=== PATIENT | female | born 1945 | race Caucasian/White ===

== ENCOUNTER 2023-08-02 23:33 | Inpatient (IN) | payer MEDICARE, SELFPAY ==
[2023-08-02] VITALS (7 sets, daily range): BP systolic 104–127; BP diastolic 49–64; BMI 30.5
--- NOTE | 2023-08-02 19:03 | ED.GENMED ---
History of Present Illness
General
Chief Complaint: Change in Mental Status
Source: patient and ambulance crew
Exam Limitations: dementia
Time Seen by Provider: 08/02/23 18:57
Travel History
Have you had any contact with someone who has COVID-19?: Unable to Answer
Do you have any symptoms of coronavirus? Fever > 100 degrees, chills, cough, shortness of breath, sore throat, loss of taste or smell, muscle aches, or headache?: Unable to Answer
History of Present Illness
History of Present Illness:
See MDM
Past History
Past History
ED Past Medical History: Cancer (B-cell lymphoma), HTN, Hypercholesterolemia, Hypothyroidism and Other (Chronic pain from osteoarthritis)
ED Past Surgical History: Orthopedic
Social History
Tobacco: Non-smoker
Alcohol: None
Drug: None
Personal:
Living: with family
Phy Exam
Physical Exam
Physical Exam:
See MDM
Course
Orders/Labs/Results
Orders:
Orders
08/02/23 18:55
Electrocardiogram (*1) Urgent
Reason for Study: Other
Other Reason for Exam: Possible Sepsis
08/02/23 18:56
EKG- Treatment ONCE
08/02/23 19:00
CT Head W/o Iv Contrast Urgent
Comment:
Reason For Exam: altered
08/02/23 19:33
Complete Blood Count/With Diff Urgent
Comprehensive Metabolic Panel Urgent
Lactic Acid Q4H
Comment: ON ICE, CANCEL 2ND ORDER IF FIRST LACTIC ACID LEVEL <2
Blood Culture Q30M
AZUL Source: Blood/Venous
Specimen Description:
Comment: FROM 2 SEPARATE SITES
Blood Culture Q30M
AZUL Source: Blood/Venous
Specimen Description:
Comment: FROM 2 SEPARATE SITES
08/02/23 20:43
0.9% Sodium Chloride 1000 ml [Nss] 1,000 ml IV BOLUS
08/02/23 20:44
CR Chest Portable - 1 View Urgent
Comment:
Reason For Exam: Fever, altered
Reason Study Needs to be Portable: Unable to Transport
08/02/23 21:03
COVID-19 Antigen Urgent
Source: Nasal Swab
Influenza A+B Rapid Molecular Urgent
AZUL Source: Nasal Swab
Specimen Description:
08/02/23 21:04
Urinalysis Reflex To Culture Urgent
Date Specimen was Collected: 08/02/23
Time Specimen was Collected: 21:03
Urine Microscopic Reflex Cult Urgent
Urine Culture Urgent
AZUL Source: U
Specimen Description:
Date Specimen was Collected: 08/02/23
Time Specimen was Collected: 21:03
08/02/23 22:14
CefTRIAXone [Rocephin] 1,000 mg IV NOW STA
Abnormal Lab Results
08/02/23 08/02/23
19:33 21:04
WBC 11.6 H 10^3/uL
(4.8-10.8)
RBC 4.04 L 10^6/uL
(4.20-5.40)
MCH 31.4 H pg
(27.0-31.0)
Abs Immat Gran (auto) 0.1 H 10^3/uL
(0-0.05)
Absolute Neuts (auto) 10.6 H 10^3/uL
(1.4-6.5)
Absolute Lymphs (auto) 0.2 L 10^3/uL
(1.2-3.4)
Absolute Monos (auto) 0.7 H 10^3/uL
(0.1-0.6)
Immature Gran % 0.6 H %
(0-0.5)
Neutrophils % 91.9 H %
(42.2-75.2)
Lymphocytes % 1.3 L %
(20.5-51.1)
Sodium 132 L mmol/L
(135-145)
Chloride 95 L mmol/L
(98-107)
BUN 34 H mg/dl
(7-17)
Creatinine 1.2 H mg/dL
(0.6-1.0)
Glucose 122 H mg/dl
(70-99)
Total Protein 5.9 L g/dl
(6.3-8.2)
Albumin 3.3 L g/dl
(3.5-5.0)
Ur Occult Blood Reflex 4+ A
(Negative)
Urine Bilirubin 1+ A
(Negative)
Leukocyte Esterase Rfl 2+ A
(Negative)
Urine WBC (Reflex) >100 A /HPF
(0-5)
Urine Bacteria (Reflex) Many A
(Negative)
Urine Albumin (Reflex) 2+ A
(Neg - Trace)
08/02/23 19:33
08/02/23 19:33
Vital Signs
Initial and Last Documented VS:
Initial Vital Signs
Temp Pulse Resp BP Pulse Ox
100.2 F 112 23 127/64 92
08/02/23 18:52 08/02/23 18:52 08/02/23 18:52 08/02/23 18:52 08/02/23 18:52
Last Documented Vital Signs
Temp Pulse Resp BP Pulse Ox
98.8 F 84 22 104/58 92
08/02/23 21:10 08/02/23 21:15 08/02/23 21:15 08/02/23 20:41 08/02/23 18:52
MDM/Problems Addressed
Differential Diagnosis Includes:
HPI and MDM Narrative:
78-year-old female presenting with altered mental status. EMS indicated that this could be related to taking the wrong medications. EMS had indicated that the family believes that the patient took her 's medication which includes 1 tramadol
and 2 Tranxene. They also indicated the patient had a glass of wine. On arrival, patient does appear anxious and confused. She has no focal deficits. She denies pain or shortness of breath or purposeful self-injury
Physical exam
General: Well appearing and non-toxic
HEENT: protecting airway. Dry mucous membranes
Neck: appears supple
CV: No evidence of cyanosis. Regular rate and rhythm
Resp: No accessory muscle use. Lungs clear
Abd: Non-distended
Extremities: No deformities
Neuro: alert
Psych: Anxious
Skin: Intact
Problems Addressed including Acute and Chronic Conditions affecting care:
1. Altered mental status
Acuity: acute
Prognosis: stable
Details: Possibly related to taking the wrong medications. Will obtain basic blood work, urine and CT head
2. UTI
Acuity: acute
Prognosis: stable
Details: Given the fever and altered mental status, patient started on Rocephin
Updates
Despite prolonged observation and IV fluids, patient still altered. Given her fever, patient started on Rocephin with concern for UTI. Will
Differential Diagnosis (but not limited to): Adverse medication reaction, dehydration, UTI, stroke
Testing considered: Lactic acid
Drug therapy (if applicable): OTC meds, please see d/c instruction regarding Rx drugs
Amount and/or Complexity of Data Reviewed
Clinical info obtained from: Patient
External data reviewed: N/A
Labs I independently reviewed (but not limited to): Mild leukocytosis
Radiology: The CT scan was personally and independently reviewed. In addition, official CT report reviewed.
X-ray independently reviewed: Chest x-ray appears clear
Pulse Ox: not hypoxic
EKG independently reviewed: Sinus rhythm, PVCs, left axis, no STEMI
[employer]: sinus rhythm
Critical Care: N/A
Risk of Complication:
Social Determinants of health: Good social support
Discussed with other providers: Hospitalist
Escalation of Care includes Admit/Obs: Given the persistent altered mental status with fever, will admit for UTI. Patient started on Rocephin
Occasional wrong word or 'sound a like' substitutions may have occurred due to the inherent limitations of voice recognition software. Read the chart carefully and recognize, using context, where substitutions have occurred.
*Critical Care Note
Total Time (30-74mins, 75-104mins- exclusive of procedures): Not Applicable
ED Attending Note
-
Portions of this chart may have been created with voice recognition software.� Occasional wrong word or��sound alike� substitutions may have occurred due to the inherent limitations of voice recognition software.
Discharge Plan
Departure
Patient Disposition: Admit
Date of Disposition: 08/02/23
Time of Disposition: 22:16
Presentation/result/management discussed w/ accepting MD/DO: Hospitalist
Discharge Problem:
Acute UTI
Prescriptions:
No Action
furosemide 20 MG tablet
20 mg PO DAILY Qty: 30 2RF
paroxetine HCl 20 MG tablet
20 mg PO DAILY
enalapril maleate 10 mg Tablet
20 mg PO BID Qty: 0 0RF
Referrals:
UNKNOWN - PT DOES,NOT KNOW [Family Provider] -
Interventions
Interventions:
*Risk Screen - Suicide Last Done: 08/02/23 19:30
*General Assessment Last Done: 08/02/23 19:30
*Neglect/Abuse Screening Last Done: 08/02/23 19:30
ED- Fall Risk Assessment Last Done: 08/02/23 19:31
*ED COVID-19 Vaccine History Last Done: 08/02/23 19:30
ED- Neurological Assessment Last Done: 08/02/23 19:31
[2023-08-02 19:52] LABS: % Basophils 0.1 % (0-2); % Immature Granulocytes 0.6 % (0-0.5); % Lymphocytes 1.3 % (20.5-51.1); % Monocytes 6.1 % (1.7-9.3); % Neutrophils 91.9 % (42.2-75.2); Absolute Immature Granulocytes 0.1 10^3/uL (0-0.05); Absolute Lymphocytes 0.2 10^3/uL (1.2-3.4); Absolute Monocytes 0.7 10^3/uL (0.1-0.6); Absolute Neutrophils 10.6 10^3/uL (1.4-6.5); Hematocrit 38.1 % (37.0-47.0); Hemoglobin 12.7 g/dL (12.0-16.0); Mean Corp Hgb Conc. 33.3 g/dL (33.0-37.0); Mean Corpuscular Hgb 31.4 pg (27.0-31.0); Mean Corpuscular Volume 94.3 fL (81.0-99.0); Nucleated Red Blood Cells % 0 %; Platelet Count 200 10^3/uL (130-400); Red Blood Cell Count 4.04 10^6/uL (4.20-5.40); Red Cell Dist. Width 13.7 % (11.5-14.5); White Blood Cell Count 11.6 10^3/uL (4.8-10.8)
[2023-08-02 20:08] LABS: Lactic Acid 0.9 mmol/L (0.7-2.0)
[2023-08-02 20:12] LABS: ALT (SGPT) 11 U/L (0-35); AST (SGOT) 24 U/L (14-36); Albumin 3.3 g/dl (3.5-5.0); Alkaline Phosphatase 95 U/L (38-126); Blood Urea Nitrogen 34 mg/dl (7-17); Calcium 9.3 mg/dl (8.4-10.2); Carbon Dioxide 27 mmol/L (22-30); Chloride 95 mmol/L (98-107); Estimated Creatinine Clearance 41 ml/min; Glucose 122 mg/dl (70-99); Potassium 3.8 mmol/L (3.5-5.1); Sodium 132 mmol/L (135-145); Total Bilirubin 1.3 mg/dl (0.2-1.3); Total Protein 5.9 g/dl (6.3-8.2); eGFR 45.76
[2023-08-02 21:16] LABS: Urine Albumin 2+ (Neg - Trace); Urine Bilirubin 1+ (Negative); Urine Character Slightly Cloudy (Clear); Urine Color Yellow; Urine Glucose Negative (Negative); Urine Ketone Negative (Negative); Urine Leukocyte 2+ (Negative); Urine Nitrite Negative (Negative); Urine Occult Blood 4+ (Negative); Urine Specific Gravity 1.015 (<1.030); Urine Urobilinogen 1+ (Neg - 1+)
[2023-08-02 21:25] LABS: Urine Squamous Cell 0-2 /LPF (Few)
[2023-08-02 21:26] LABS: Urine White Cell >100 /HPF (0-5); Urine White Cell Cast >15 /LPF
[2023-08-02 21:27] LABS: Urine Bacteria Many (Negative)
[2023-08-02] MEDS: NSS 1000 IV (21:32)
[2023-08-02 21:33] LABS: COVID-19 Antigen Negative (Negative)
[2023-08-02] MEDS: ROCEPHIN 1000 MG IV (22:20)
--- NOTE | 2023-08-02 23:24 | HPS.HSE ---
Family Physician
-
Family Physician: INTERVIEWE UNKNOWN - PT NOT
Chief Complaint
-
Confusion
History of Present Illness
Patient is an 78y F with PMH significant for hypertension, ASCVD and hypothyroidism who presents to ED for evaluation of confusion and lethargy. History obtained from ED staff and (to a limited degree) from patient.
Patient was brought into the ED with lethargy and confusion. Family was concerned that she had taken her 's meds by mistake. Apparently, she definitely took two tabs of Tranxene (clorazepate) 7.5mg about an hour apart this evening. She may
have also taken a 50mg tab of tramadol - though this is not confirmed. Patient was noted by family to be lethargic and more confused and was brought to the ED for further evaluation.
In the ED, patient was noted to be diaphoretic and had temp = 100.2.
Urinalysis was consistent with infection.
Patient states that she feels well at the time of my examination. She is aware that her family brought her to the hospital, but she does not know what they were concerned about.
She does complain of mid-back pain - bilaterally - that is new. She denies any recent fall, injury or trauma.
She denies any specific urinary complaints.
Medical History
Past Medical History
Past Medical History: Reports Other
Additional Past Medical History:
ASCVD (CVA, Carotid Disease)
Hypertension
Hypothyroidism
B Cell Lymphoma
Chronic HFpEF
Anxiety / Depression
Past Surgical History: Reports Orthopedic
Social History
Tobacco: Non-smoker
Alcohol: Daily
Living: With Family
Family History
Family History: Not pertinent
Allergies / Home Medications
Allergies reflects when Allergies were last updated in [employer].
Home Medications with original date entered in [employer]
Allergy/Medication List:
Allergies
Allergy/AdvReac Type Severity Reaction Status Date / Time
No Known Allergies Allergy Verified 09/15/21 18:27
Home Medications
furosemide 20 mg tablet 20 mg PO DAILY #30 tabs 06/14/21
paroxetine HCl 20 mg tablet 20 mg PO DAILY Depression 09/15/21
enalapril maleate 10 mg tablet 20 mg PO BID #0 tabs 11/21/22
Review of Systems
-
History Source: Patient
A 12 point ROS was completed and negative except as noted: Yes
Constitutional: Denies Fever, Fatigue or Chills
EENT: Denies Sore Throat
Respiratory: Denies Cough or Trouble Breathing
Cardiac: Denies Chest Pain or Palpitations
Abdomen/GI: Denies Abdominal Pain, Nausea, Vomiting or Diarrhea
: Denies Dysuria, Frequency or Dark Urine
Musculoskeletal: Reports Other (Back Pain)
Neurological: Denies Dizzy or Headache
Psych: Denies Depression or Anxiety
Physical Exam
Vital Signs
Vital Signs
Temp Pulse Resp BP Pulse Ox
98.8 F 84 22 104/58 92
08/02/23 21:10 08/02/23 21:15 08/02/23 21:15 08/02/23 20:41 08/02/23 18:52
Physical Exam
General: Other (78y F in no acute distress.)
HEENT: Other (Dry MM. Neck supple.)
Respiratory: Clear; No Wheezes, Rales or Rhonchi
Cardiac: S1/S2 and Regular Rhythm; No Murmur
GI: Soft, Non Tender, Non Distended and Normal Bowel Sounds
Musculoskeletal: No Clubbing, No Cyanosis and No Edema
Neuro: Awake, Alert and Nonfocal/grossly intact; No Oriented
Psych: No Agitated or Anxious
Laboratory Results
-
08/02/23 19:33
08/02/23 19:33
Laboratory Results
Lactic Acid Cancelled 08/02/23 23:00
Total Bilirubin 1.3 mg/dl (0.2-1.3) 08/02/23 19:33
AST 24 U/L (14-36) 08/02/23 19:33
ALT 11 U/L (0-35) 08/02/23 19:33
Alkaline Phosphatase 95 U/L (38-126) 08/02/23 19:33
Impression/Plan
-
A/P: Patient is an 78y F with PMH significant for hypertension, hypothyroidism and alcohol use disorder who presented to ED with her family this evening for evaluation of confusion and lethargy.
Acute TME
Confusion / Lethargy
- Admit for further evaluation and treatment.
- Multiple potential etiologies including UTI / sepsis, med error, intoxication, etc.
- Avoid sedating meds.
- Treat underlying issues as noted below and follow for clinical improvement.
UTI
Sepsis secondary to the above
- UA consistent with infection and patient with bilateral flank pain.
- Evidence of life-threatening organ dysfunction in the form of LYN and acute TME.
- Continue IV ceftriaxone.
- Check renal US.
- Follow up culture data and adjust abx as needed.
LYN
- SCr = 1.2 compared to known baseline of 0.7.
- Hold SONG inhibitor and diuretics acutely.
- Gentle IVFs overnight.
- Follow for improvement.
Benign Hypertension
- Stable. Hold SONG as noted above.
- Follow for any changes in BP.
Hypothyroidism
- Hypothyroidism by history, but not currently on any T4 supplementation per med list (confirmed with family).
- Check TFTs and resume T4 supplementation if needed.
Chronic HFpEF
- Stable. Does not appear volume overloaded on exam.
- Hold Lasix.
- Follow I/Os, daily weights, etc.
Alcohol Use Disorder
- Patient with prior visit for mental status change secondary to intoxication.
- Admitted daily EtOH use - likely in excess of what is reported.
- Check alcohol level now.
- Follow withdrawal protocols.
DVT Prophylaxis: Subcut heparin
Code Status: Full
[2023-08-03] VITALS (11 sets, daily range): BP systolic 117–158; BP diastolic 61–93; PULSE 86–95; BMI 31.4
[2023-08-03 00:19] LABS: Magnesium 1.8 mg/dl (1.6-2.3); Phosphorus 3.2 mg/dl (2.5-4.5)
[2023-08-03 00:32] LABS: Alcohol None Detected
[2023-08-03] MEDS: NSS 1000 IV ×2 (03:50→21:04)
[2023-08-03 06:13] LABS: Hematocrit 36.2 % (37.0-47.0); Hemoglobin 12.1 g/dL (12.0-16.0); Mean Corp Hgb Conc. 33.4 g/dL (33.0-37.0); Mean Corpuscular Hgb 31.3 pg (27.0-31.0); Mean Corpuscular Volume 93.8 fL (81.0-99.0); Platelet Count 181 10^3/uL (130-400); Red Blood Cell Count 3.86 10^6/uL (4.20-5.40); Red Cell Dist. Width 13.8 % (11.5-14.5); White Blood Cell Count 9.5 10^3/uL (4.8-10.8)
[2023-08-03 06:48] LABS: Blood Urea Nitrogen 34 mg/dl (7-17); Calcium 9.1 mg/dl (8.4-10.2); Carbon Dioxide 23 mmol/L (22-30); Chloride 100 mmol/L (98-107); Estimated Creatinine Clearance 45 ml/min; Glucose 108 mg/dl (70-99); Potassium 3.7 mmol/L (3.5-5.1); Sodium 132 mmol/L (135-145)
[2023-08-03 07:15] LABS: TSH Reflex To Free T4 3.14 uIU/ml (0.47-4.68)
--- NOTE | 2023-08-03 08:28 | PTCARENOTE ---
pt was admitted, Pt is currently a ED hold. Pt will be going to OR today time is undetermined. pt is ambulatory and on r.a call beckford is in reach will continue to monitor pt.
[2023-08-03] MEDS: HEPARIN 5000 UNITS SC ×2 (09:15→21:13)
[2023-08-03] MEDS: THIAMINE INJECTION 200 MG IV ×2 (09:15→21:14)
[2023-08-03] MEDS: FOLVITE 1 MG PO (09:15)
--- NOTE | 2023-08-03 11:27 | W.PN.HOSP.TC ---
Today's Communication/Plan
-
Continue antibiotics
PT/OT
Check urine studies
ID consult
Assessment / Plan
Assessment / Plan
Gen-AAOx3, NAD
HEENT-NC, AT, anicteric, clear oral mm
Neck-supple
CV-reg, no M, +S1/S2
Lungs-clear B/L
Abd-soft, NT, ND
Ext-no edema
Musculoskeletal-no cyanosis, clubbing
Skin-warm and dry
Neuro-grossly non-focal
Psych-calm, cooperative
Acute TME -likely due to infection, sepsis. Component of drug-induced confusion possible as apparently she may have taken her 's clorazepate accidentally, as well as tramadol. Confusion appears to be improving.
E. coli sepsis -suspect due to UTI. Positive blood cultures noted. Urine culture pending. Hemodynamically stable. Currently on IV ceftriaxone. Await culture sensitivity. Consult ID. White blood cell count improved. Fever resolved.
Hyponatremia -present on admission. Sodium stable at 132. Check urine studies.
Acute kidney injury -possibly due to sepsis, UTI. Component of volume depletion and possible as well. Creatinine 1.1 today. Was 0.7 last year. Hold enalapril and furosemide.
Chronic urinary incontinence
CAD -stable.
Essential hypertension -blood pressure elevated. Enalapril and furosemide on hold for LYN. Can start low-dose Procardia XL.
Hx Hypothyroidism -not currently on treatment. TSH 3.1. Follow-up as outpatient.
History of B-cell lymphoma
Chronic heart failure preserved EF -stable.
Alcohol use disorder -no alcohol detected in the system.
Anxiety/depression
Cognitive impairment -needs formal testing for dementia. Discussed with hamlet Terrazas on the phone. Should be done as an outpatient.
Full code
Dispo -suspect she may need SNF on discharge for ambulatory dysfunction. Daughter trying to get her into assisted living long-term.
Updated daughter Nini on the phone.
Anticipated Discharge: > 48 hours
Subjective/Interval History
-
Date of Service: August 03, 2023
Patient seen and examined. She is oriented to place and time. Eager to eat lunch. No complaints.
Objective Data
-
Labs:
Laboratory Results
08/03/23
05:58
WBC 9.5
Hgb 12.1
Hct 36.2 L
Plt Count 181
Sodium 132 L
Potassium 3.7
Chloride 100
Carbon Dioxide 23
BUN 34 H
Creatinine 1.1 H
Glucose 108 H
Calcium 9.1
Vital Signs:
Vital Signs
Temp Pulse Resp BP Pulse Ox
98.3 F 86 14 152/82 96
08/03/23 09:16 08/03/23 09:16 08/03/23 09:16 08/03/23 09:16 08/03/23 09:16
Review of Systems
-
History Source: Patient
All other systems: Reviewed and negative
--- NOTE | 2023-08-03 11:52 | CON.ID ---
Consultation
-
Date/Time Consultation Requested: 08/03/23 11:13
Date/Time Consultation Performed: 08/03/23 11:53
Requesting Provider: Dr Swanson
Performing Provider: Dr Bhatia
Reason for Consultation: E coli bacteremia
Chief Complaint / Past History
Chief Complaint
confusion
History of Present Illness
Ms Walker is an 78 year old female with history of B Cell Lymphoma, ASCVD who presented here today for confusion, lethargy. Of note accidentally took her husbands medication - clorazepate and tramadol. On arrival here found to be diaphoretic and T
100.2, only complaint was new mid back pain yesterday. No inury or falls. She complains to me of dysuira and urgency, reporting no back pain today.
Since arrival here no will fevrs, BP stable, HR normal, wbc initially 11.6 now 9.5, hgb 12.7, plt 200, L shift noted, eos were not present, cr 1.1 baseline could be 0.6, lactic acid 0.9, t bili 1.3, ast 24, alt 11, UA >100 WBC/hpf, 0-2 squamous
cells, covid ag neg, CT head no acute change, CXR: clear lung pierre, blood cultures esbl E coli
Past History
Additional Past Medical History:
ASCVD (CVA, Carotid Disease)
Hypertension
Hypothyroidism
Chronic HFpEF
Anxiety / Depression
Past Surgical History: Orthopedic
Allergy History:
No Known Allergies Allergy (Verified 09/15/21 18:27)
Medications Reviewed: Yes
Social History
Tobacco: Non-Smoker
Alcohol: Daily
Drug: None
Family History
Family History: Not Pertinent
Review of Systems
Review of Systems
General: Negative Fever or Chills
All systems: All other systems were reviewed and were negative
Vital Signs
Temp Pulse Resp BP Pulse Ox
98.3 F 86 14 152/82 96
08/03/23 09:16 08/03/23 09:16 08/03/23 09:16 08/03/23 09:16 08/03/23 09:16
Physical Exam
Physical Exam
Constitutional: No Acute Distress and Comfortable
Cardiovascular: Regular Rate and S1/S2; Negative Murmur or Rub
Pulmonary: Clear and Symmetric; Negative Wheezes, Rales or Rhonchi
Gastrointestinal: Soft, Non Tender, Non Distended and Normal Bowel Sounds
Genito-Urinary: Negative Suprapubic Tenderness
Skin: Warm and Dry; Negative Rash or Jaundice
Lab / Diagnostic Study Results
08/03/23 05:58
08/03/23 05:58
Abs Immat Gran (auto) 0.1 10^3/uL (0-0.05) H 08/02/23 19:33
Absolute Neuts (auto) 10.6 10^3/uL (1.4-6.5) H 08/02/23 19:33
Absolute Lymphs (auto) 0.2 10^3/uL (1.2-3.4) L 08/02/23 19:33
Absolute Monos (auto) 0.7 10^3/uL (0.1-0.6) H 08/02/23 19:33
Absolute Basos (auto) 0.0 10^3/uL (0-0.2) 08/02/23 19:33
Immature Gran % 0.6 % (0-0.5) H 08/02/23 19:33
Neutrophils % 91.9 % (42.2-75.2) H 08/02/23 19:33
Lymphocytes % 1.3 % (20.5-51.1) L 08/02/23 19:33
Monocytes % 6.1 % (1.7-9.3) 08/02/23 19:33
Eosinophils % 0.0 % (0-6) 08/02/23 19:33
Basophils % 0.1 % (0-2) 08/02/23 19:33
Lactic Acid Cancelled 08/02/23 23:00
Ur Squamous Epith Cells 0-2 /LPF (Few) 08/02/23 21:04
Microbiology Results
Micro:
08/02/23 21:04 Urine Culture - Pending
Urine
08/02/23 19:33 Blood Culture - Preliminary
Blood/Venous Escherichia coli - ESBL
Gram Stain - Preliminary
08/02/23 19:33 Blood Culture - Preliminary
Blood/Venous Positive culture in progress
Gram Stain - Preliminary
08/02/23 21:03 Influenza Types A & B (PRIYA) - Final
Nasal Swab Negative for Influenza A & B, NAAT
Negative results must be combined with clinical observations
and patient history.
Nucleic Acid Amplification test (NAAT)performed on the
[employer] platform.
Assessment / Plan
ESBL E coli Bactermia
Likely UTI
LYN (probable)
- follow blood cultures for sensitivities
- QTc acceptable
- renal US pending
- start meropenem
- follow clinically
[2023-08-03 12:11] LABS: Amphetamines Negative (Negative); Barbiturates Negative (Negative); Benzodiazepines Positive (Negative); Buprenorphine Negative (Negative); Cocaine Negative (Negative); Marijuana Negative (Negative); Methadone Negative (Negative); Methamphetamines Negative (Negative); Opiates Negative (Negative); Phencyclidine Negative (Negative); Tricyclic Antidepressants Negative (Negative)
[2023-08-03 12:23] LABS: Fentanyl, Urine Negative (Negative)
[2023-08-03 12:34] LABS: Osmolality Urine 437 mOsm/kg (300-900)
[2023-08-03 12:37] LABS: Urine Sodium 26 mmol/L (30-90)
[2023-08-03] MEDS: DESENEX/MITRAZOL/ZEASORB 1 APPLIC TOPICAL ×2 (13:23→21:06)
[2023-08-03] MEDS: MERREM 500 MG IV ×2 (13:23→21:14)
[2023-08-03] MEDS: STERILE WATER FOR INJECTION 10 ML IV ×2 (13:24→21:14)
[2023-08-03] MEDS: VISBIOME 2 CAP PO (13:24)
--- NOTE | 2023-08-03 15:37 | PTCARENOTE ---
pt arrived from the ED to 4w on r.a and medsurg, pt was pulled over from stretcher to bed. pt daughter is at bed side, call beckford is in reach will continue to monitor.
--- NOTE | 2023-08-03 16:56 | PTCARENOTE ---
pt isn't able to stand without being in pain, and with an assist of 3 people, @ x's 2. Physical therapy was around earlier today on shift, and will continue to work with her. Call analy is in reach, will continue to monitor.
--- NOTE | 2023-08-03 20:53 | VATNOTE ---
pt does not want her port accessed. SO new peripheral IV site established since left AC site leaking.
[2023-08-04] MEDS: MERREM 500 MG IV ×3 (03:55→20:40)
[2023-08-04] MEDS: STERILE WATER FOR INJECTION 10 ML IV ×3 (03:55→20:40)
[2023-08-04] MEDS: NSS IV (05:33)
[2023-08-04 06:00] VITALS: BMI 30.9
[2023-08-04 06:40] LABS: Blood Urea Nitrogen 29 mg/dl (7-17); Calcium 9.1 mg/dl (8.4-10.2); Carbon Dioxide 26 mmol/L (22-30); Chloride 100 mmol/L (98-107); Estimated Creatinine Clearance 50 ml/min; Glucose 95 mg/dl (70-99); Potassium 3.6 mmol/L (3.5-5.1); Sodium 133 mmol/L (135-145); eGFR 56.95
[2023-08-04 07:00] VITALS: BP 158/95
[2023-08-04] MEDS: VISBIOME 2 CAP PO (08:15)
[2023-08-04] MEDS: THIAMINE INJECTION 200 MG IV ×2 (08:16→20:43)
[2023-08-04] MEDS: HEPARIN 5000 UNITS SC ×2 (08:16→20:40)
[2023-08-04] MEDS: FOLVITE 1 MG PO (08:16)
[2023-08-04] MEDS: DESENEX/MITRAZOL/ZEASORB 1 APPLIC TOPICAL ×2 (08:17→20:41)
--- NOTE | 2023-08-04 09:11 | W.PN.HOSP.TC ---
Addendum entered and electronically signed by Frantz Swanson DO 08/04/23 12:51:
Clarification: Patient's provided the clorazepate directly to her, it was not an accident.Daughter also states that she was drinking alcohol apparently 1 bottle a day. Patient refusing resources according to case management.
Original Note:
Today's Communication/Plan
-
Continue antibiotics
Start Procardia
PT/OT
Assessment / Plan
Assessment / Plan
Gen-AAOx3, NAD
HEENT-NC, AT, anicteric, clear oral mm
Neck-supple
CV-reg, no M, +S1/S2
Lungs-clear B/L
Abd-soft, NT, ND
Ext-no edema
Musculoskeletal-no cyanosis, clubbing
Skin-warm and dry
Neuro-grossly non-focal
Psych-calm, cooperative
Acute TME -likely due to infection, sepsis. Component of drug-induced confusion possible as apparently she may have taken her 's clorazepate accidentally, as well as tramadol. Baseline cognitive impairment suspected, such as dementia.
E. coli sepsis -suspect due to UTI. Positive blood cultures noted. Urine culture pending. Hemodynamically stable. Currently on IV ceftriaxone. Await culture sensitivity. Continue antibiotics per infectious disease. White blood cell count
improved. Fever resolved.
Hyponatremia -present on admission. Sodium stable at 132. Check urine studies.
Acute kidney injury -possibly due to sepsis, UTI. Component of volume depletion and possible as well. Creatinine improving. Was 0.7 last year. Hold enalapril and furosemide.
Chronic urinary incontinence
CAD -stable.
Essential hypertension -blood pressure elevated. Enalapril and furosemide on hold for LYN. Can start low-dose Procardia XL.
Hx Hypothyroidism -not currently on treatment. TSH 3.1. Follow-up as outpatient.
History of B-cell lymphoma
Chronic heart failure preserved EF -stable.
Alcohol use disorder -no alcohol detected in the system.
Anxiety/depression
Cognitive impairment -needs formal testing for dementia. Discussed with daughter Nini on the phone. Should be done as an outpatient.
Full code
Dispo -suspect she may need SNF on discharge for ambulatory dysfunction. Daughter trying to get her into assisted living long-term.
Updated daughter Nini on the phone.
Anticipated Discharge: 24 - 48 hours
Subjective/Interval History
-
Date of Service: August 04, 2023
Patient seen and examined. Sleeping when I walked in. Not oriented to place this morning, she thinks she [place]. No complaints. Did not eat breakfast yet.
Objective Data
-
Labs:
Laboratory Results
08/04/23
05:54
Sodium 133 L
Potassium 3.6
Chloride 100
Carbon Dioxide 26
BUN 29 H
Creatinine 1.0
Glucose 95
Calcium 9.1
Vital Signs:
Vital Signs
Temp Pulse Resp BP Pulse Ox
98.3 F 91 16 158/95 96
08/04/23 07:00 08/04/23 07:00 08/04/23 07:00 08/04/23 07:00 08/04/23 07:00
I&O
08/03/23 08/04/23 08/05/23
06:59 06:59 07:59
Intake Total 1240 / 1240
Balance 1240 / 1240
Review of Systems
-
History Source: Patient
All other systems: Reviewed and negative
[2023-08-04] MEDS: TYLENOL 650 MG PO (10:07)
[2023-08-04] MEDS: PROCARDIA XL (EXTENDED RELEASE) 30 MG PO (10:08)
--- NOTE | 2023-08-04 12:44 | W.PN.ID1 ---
Date of Service
Date of Service: August 04, 2023
Today's Communication
Continue abx. Repeat blood cultures.
Assessment / Plan
ESBL E coli Bactermia
Suspected UTI
LYN
- improved
Recommendations:
- follow blood cultures for sensitivities
- renal US pending
- Continue meropenem
- Repeat blood cultures now.
- follow clinically
Chief Complaint
-: UTI
Subjective / Review of Systems
Review of Systems: No Fever and No Chills
Vital Signs / Physical Exam
Vital Signs
Vital Signs
Temp Pulse Resp BP Pulse Ox
98.3 F 91 16 158/95 96
08/04/23 07:00 08/04/23 10:08 08/04/23 07:00 08/04/23 10:08 08/04/23 07:00
Physical Exam
Constitutional: No Acute Distress, Comfortable, Chronically Ill and Non-toxic
Eyes: Sclera Anicteric
Cardiovascular: S1/S2; Negative S3/S4
Pulmonary: Non Labored
Gastrointestinal: Soft, Non Tender and Non Distended
Neurological: Awake and Alert
Psychological: Calm
Objective Data
Lab Data
Lab Results
08/03/23 05:58
08/04/23 05:54
Estimated Creat Clear 50 ml/min 08/04/23 05:54
Lactic Acid Cancelled 08/02/23 23:00
Total Bilirubin 1.3 mg/dl (0.2-1.3) 08/02/23 19:33
AST 24 U/L (14-36) 08/02/23 19:33
ALT 11 U/L (0-35) 08/02/23 19:33
Alkaline Phosphatase 95 U/L (38-126) 08/02/23 19:33
Most recent labs reviewed.
Micro Results:
08/02/23 19:33 Blood Culture - Preliminary
Blood/Venous Positive culture in progress
Gram Stain - Preliminary
08/02/23 19:33 Blood Culture - Preliminary
Blood/Venous Escherichia coli - ESBL
Gram Stain - Preliminary
08/02/23 21:04 Urine Culture - Preliminary
Urine Escherichia coli
08/02/23 21:03 Influenza Types A & B (PRIYA) - Final
Nasal Swab Negative for Influenza A & B, NAAT
Negative results must be combined with clinical observations
and patient history.
Nucleic Acid Amplification test (NAAT)performed on the
[email or web address] platform.
[2023-08-04 15:00] VITALS: BP 100/50
--- NOTE | 2023-08-04 15:33 | CM ---
IA completed with pt and then follow up call completed with daughter
Pt is an 78yr old female admitted with UTI, Sepsis.
At baseline, pt and her live in a 1 story home with 2 steps to enter.
Per daughter, pts ability to transfer and be mobile fluctuates. There are caregivers from [facility] [employer] in the home 9a-8p 7days/week who are there to aide with dressing, transfers, and supervision of mobility. Pt is mobile with the use of a
RW.
Per daughter, pt has very poor hygiene and often refuses showers and washing up which could have lead to the current situation.
Daughter notes that during this admission, their goal is to transition both pt and into a facility for PC. CM talked about working towards placement into SNF as transitional goal and daughter agreeable. Daughter and toured [facility] and
would like referral placed; sent through [facility].
Consult was placed for substance abuse related to reports that the pt took medication that was not prescribed to her. Pt also acknowledges she drinks up to 1 bottle of wine per day. Pt declines [facility] information at this time. CM made resources
available and also offered to daughter if they change their minds.
PT evals recommend Home PT vs SNF.
PCP; Dk Lombardo
Pharm; [facility]
PLAN; SNF; Referral sent to [facility]
[2023-08-04] MEDS: FLUSH (NSS) 1 FLUSH IV (20:44)
[2023-08-04 20:45] VITALS: BP 158/50; BP 170/93; PULSE 100; PULSE 97
[2023-08-04] MEDS: ATIVAN 1 MG IV (22:08)
[2023-08-04] MEDS: NSS (PRESERVATIVE FREE) 0.5 ML IV (22:09)
[2023-08-04 23:59] VITALS: BP 148/81
--- NOTE | 2023-08-05 00:23 | PTCARENOTE ---
Pt yelling out,tremulous, disoriented and hallucinating seeing people in her room that she believes is her home. Pt very angry calling out for her dad and verbalizing she will hurt anyone that comes near her. Unable to reorient pt. MSAS score 8. IV
Ativan given as per protocol. Pt more calm at this time. Sleeping intermittently. Will continue with plan of care.
[2023-08-05] MEDS: MERREM 500 MG IV ×3 (03:55→20:58)
[2023-08-05] MEDS: STERILE WATER FOR INJECTION 10 ML IV ×3 (03:56→20:59)
[2023-08-05 06:00] VITALS: BMI 30.9
[2023-08-05 07:27] VITALS: BP 151/76
[2023-08-05 07:27] LABS: Blood Urea Nitrogen 24 mg/dl (7-17); Calcium 9.1 mg/dl (8.4-10.2); Carbon Dioxide 27 mmol/L (22-30); Chloride 98 mmol/L (98-107); Estimated Creatinine Clearance 50 ml/min; Glucose 94 mg/dl (70-99); Potassium 3.6 mmol/L (3.5-5.1); Sodium 133 mmol/L (135-145); eGFR 56.95
[2023-08-05] MEDS: DESENEX/MITRAZOL/ZEASORB 1 APPLIC TOPICAL ×2 (08:01→21:02)
[2023-08-05] MEDS: THIAMINE INJECTION 200 MG IV ×2 (08:01→20:58)
[2023-08-05] MEDS: FOLVITE 1 MG PO (08:02)
[2023-08-05] MEDS: VISBIOME 2 CAP PO (08:02)
[2023-08-05] MEDS: HEPARIN 5000 UNITS SC ×2 (08:02→20:58)
[2023-08-05] MEDS: PROCARDIA XL (EXTENDED RELEASE) 30 MG PO (08:02)
--- NOTE | 2023-08-05 09:18 | W.PN.HOSP.TC ---
Today's Communication/Plan
-
Discharge planning
Assessment / Plan
Assessment / Plan
Gen-AAOx3, NAD
HEENT-NC, AT, anicteric, clear oral mm
Neck-supple
CV-reg, no M, +S1/S2
Lungs-clear B/L
Abd-soft, NT, ND
Ext-no edema
Musculoskeletal-no cyanosis, clubbing
Skin-warm and dry
Neuro-grossly non-focal
Psych-calm, cooperative
Acute TME -likely due to infection, sepsis. Component of drug-induced confusion possible as apparently she may have taken her 's clorazepate accidentally, as well as tramadol. Baseline cognitive impairment suspected, such as dementia.
E. coli sepsis -suspect due to UTI. Positive blood cultures noted. Urine culture pending. Hemodynamically stable. Currently on IV ceftriaxone. Await culture sensitivity. Continue antibiotics per infectious disease. White blood cell count
improved. Fever resolved.
Hyponatremia -present on admission. Sodium stable at 133. Urine studies consistent with ADH excess. Continue fluid restriction.
Acute kidney injury -possibly due to sepsis, UTI. Component of volume depletion and possible as well. Creatinine improving. Was 0.7 last year. Hold enalapril and furosemide.
Chronic urinary incontinence
CAD -stable.
Essential hypertension -blood pressure elevated. Enalapril and furosemide on hold for LYN. Can start low-dose Procardia XL.
Hx Hypothyroidism -not currently on treatment. TSH 3.1. Follow-up as outpatient.
History of B-cell lymphoma
Chronic heart failure preserved EF -stable.
Alcohol use disorder -no alcohol detected in the system. Monitor for any withdrawal symptoms. Counseled on need for abstinence.
Anxiety/depression
Cognitive impairment -needs formal testing for dementia. Discussed with daughter Nini on the phone. Should be done as an outpatient.
Full code
Dispo -suspect she may need SNF on discharge for ambulatory dysfunction. Daughter trying to get her into assisted living long-term.
Anticipated Discharge: Within 24 hours
Subjective/Interval History
-
Date of Service: August 05, 2023
Patient seen and examined. No complaints.
Objective Data
-
Labs:
Laboratory Results
08/05/23
06:18
Sodium 133 L
Potassium 3.6
Chloride 98
Carbon Dioxide 27
BUN 24 H
Creatinine 1.0
Glucose 94
Calcium 9.1
Vital Signs:
Vital Signs
Temp Pulse Resp BP Pulse Ox
98.9 F 102 20 148/81 97
08/05/23 07:27 08/05/23 08:02 08/05/23 07:27 08/05/23 08:02 08/05/23 07:27
I&O
08/04/23 08/05/23 08/06/23
05:59 06:59 06:59
Intake Total
Balance
Review of Systems
-
History Source: Patient
All other systems: Reviewed and negative
[2023-08-05 11:55] VITALS: BP 116/59; BP 95/48; PULSE 101; PULSE 98
[2023-08-05 15:13] VITALS: BP 133/72
--- NOTE | 2023-08-05 15:49 | W.PN.ID1 ---
Date of Service
Date of Service: August 05, 2023
Today's Communication
Continue antibiotics.
Assessment / Plan
ESBL E coli Bactermia
Suspected UTI
LYN
- improved
Recommendations:
- renal US without evidence of hydronephrosis.
- Continue meropenem
- Repeat blood cultures negative x 24 hours.
- follow clinically
Chief Complaint
-: UTI
Subjective / Review of Systems
Review of Systems: No Fever and No Chills
Vital Signs / Physical Exam
Vital Signs
Vital Signs
Temp Pulse Resp BP Pulse Ox
98.9 F 102 20 148/81 97
08/05/23 07:27 08/05/23 08:02 08/05/23 07:27 08/05/23 08:02 08/05/23 07:27
Physical Exam
Constitutional: No Acute Distress and Comfortable
Cardiovascular: S1/S2; Negative S3/S4
Pulmonary: Non Labored
Gastrointestinal: Non Distended
Skin: Negative Rash or Jaundice
Psychological: Calm
Objective Data
Lab Data
Lab Results
08/03/23 05:58
08/05/23 06:18
Estimated Creat Clear 50 ml/min 08/05/23 06:18
Lactic Acid Cancelled 08/02/23 23:00
Total Bilirubin 1.3 mg/dl (0.2-1.3) 08/02/23 19:33
AST 24 U/L (14-36) 08/02/23 19:33
ALT 11 U/L (0-35) 08/02/23 19:33
Alkaline Phosphatase 95 U/L (38-126) 08/02/23 19:33
Most recent labs reviewed.
Micro Results:
08/04/23 13:57 Blood Culture - Preliminary
Blood/Venous No Growth in 24 hours- Final report to follow
08/04/23 13:13 Blood Culture - Preliminary
Blood/Venous No Growth in 24 hours- Final report to follow
08/02/23 19:33 Blood Culture - Preliminary
Blood/Venous Escherichia coli - ESBL
Gram Stain - Preliminary
08/02/23 19:33 Blood Culture - Preliminary
Blood/Venous Escherichia coli - ESBL
Gram Stain - Preliminary
08/02/23 21:04 Urine Culture - Final
Urine Escherichia coli - ESBL
08/02/23 21:03 Influenza Types A & B (PRIYA) - Final
Nasal Swab Negative for Influenza A & B, NAAT
Negative results must be combined with clinical observations
and patient history.
Nucleic Acid Amplification test (NAAT)performed on the
[employer] platform.
[2023-08-05 19:59] VITALS: BP 152/71; PULSE 105
[2023-08-05] MEDS: MELATONIN 5 MG PO (21:53)
[2023-08-05 22:56] VITALS: BP 143/70
[2023-08-06] MEDS: STERILE WATER FOR INJECTION 10 ML IV ×3 (04:08→17:25)
[2023-08-06] MEDS: MERREM 500 MG IV ×3 (04:08→17:26)
[2023-08-06 06:00] VITALS: BMI 30.1
[2023-08-06 07:07] VITALS: BP 143/72
[2023-08-06] MEDS: PROCARDIA XL (EXTENDED RELEASE) 30 MG PO (08:34)
[2023-08-06] MEDS: HEPARIN 5000 UNITS SC ×2 (08:36→19:59)
[2023-08-06] MEDS: VISBIOME 2 CAP PO (08:36)
[2023-08-06] MEDS: VITAMIN B1 100 MG PO ×2 (08:36→20:00)
[2023-08-06] MEDS: FOLVITE 1 MG PO (08:36)
[2023-08-06] MEDS: DESENEX/MITRAZOL/ZEASORB 1 APPLIC TOPICAL ×2 (08:39→19:59)
[2023-08-06 08:56] LABS: Blood Urea Nitrogen 18 mg/dl (7-17); Calcium 9.1 mg/dl (8.4-10.2); Carbon Dioxide 26 mmol/L (22-30); Chloride 99 mmol/L (98-107); Estimated Creatinine Clearance 61 ml/min; Glucose 103 mg/dl (70-99); Potassium 3.4 mmol/L (3.5-5.1); Sodium 133 mmol/L (135-145); eGFR > 60.00
--- NOTE | 2023-08-06 09:21 | W.PN.ID1 ---
Date of Service
Date of Service: August 06, 2023
Today's Communication
Continue meropenem 08/02 through 08/06 (5 day course) -
Assessment / Plan
ESBL E coli Bacteremia
UTI
Recommendations:
- renal US without evidence of hydronephrosis.
- Continue meropenem 08/02 through 08/06 (5 day course)
- Repeat blood cultures NGTD
- follow clinically
Chief Complaint
-: UTI
Subjective / Review of Systems
afebrile
bp stable
cr further improved today
repeat blood cultures no growth to date
no dysuria
asking about dc
Vital Signs / Physical Exam
Vital Signs
Vital Signs
Temp Pulse Resp BP Pulse Ox
98.1 F 97 24 143/72 96
08/06/23 07:07 08/06/23 07:07 08/06/23 07:07 08/06/23 07:07 08/06/23 07:07
Physical Exam
Constitutional: No Acute Distress
Cardiovascular: Regular Rate and S1/S2; Negative Murmur or Rub
Pulmonary: Clear and Symmetric; Negative Wheezes or Rales
Gastrointestinal: Soft, Non Tender, Non Distended and Normal Bowel Sounds
Genito-Urinary: Negative Suprapubic Tenderness or CVA Tenderness
Skin: Warm and Dry; Negative Rash or Jaundice
Objective Data
Lab Data
Lab Results
08/03/23 05:58
08/06/23 07:08
Estimated Creat Clear 61 ml/min 08/06/23 07:08
Lactic Acid Cancelled 08/02/23 23:00
Total Bilirubin 1.3 mg/dl (0.2-1.3) 08/02/23 19:33
AST 24 U/L (14-36) 03/07/24 19:33
ALT 11 U/L (0-35) 08/02/23 19:33
Alkaline Phosphatase 95 U/L (38-126) 08/02/23 19:33
Most recent labs reviewed.
Micro Results:
08/04/23 13:57 Blood Culture - Preliminary
Blood/Venous No Growth in 24 hours- Final report to follow
08/04/23 13:13 Blood Culture - Preliminary
Blood/Venous No Growth in 24 hours- Final report to follow
08/02/23 19:33 Blood Culture - Preliminary
Blood/Venous Escherichia coli - ESBL
Gram Stain - Preliminary
08/02/23 19:33 Blood Culture - Preliminary
Blood/Venous Escherichia coli - ESBL
Gram Stain - Preliminary
08/02/23 21:04 Urine Culture - Final
Urine Escherichia coli - ESBL
08/02/23 21:03 Influenza Types A & B (PRIYA) - Final
Nasal Swab Negative for Influenza A & B, NAAT
Negative results must be combined with clinical observations
and patient history.
Nucleic Acid Amplification test (NAAT)performed on the
[employer] platform.
[2023-08-06] MEDS: KCL ELIXIR 40 MEQ PO (09:37)
--- NOTE | 2023-08-06 12:21 | CM ---
Patient seen bedside.
PT/OT recommending home with PT vs skilled.
Patient declined skilled.
Referral to [facility] liaison.
Patient has private caregivers with [facility].
Spouse will transport home.
IMM completed.
Plan: home with VN.
--- NOTE | 2023-08-06 15:01 | W.PN.HOSP.TC ---
Today's Communication/Plan
-
iv nahomi
Assessment / Plan
Assessment / Plan
Gen-AAOx3, NAD
HEENT-NC, AT, anicteric, clear oral mm
Neck-supple
CV-reg, no M, +S1/S2
Lungs-clear B/L
Abd-soft, NT, ND
Ext-no edema
Musculoskeletal-no cyanosis, clubbing
Skin-warm and dry
Neuro-grossly non-focal
Psych-calm, cooperative
Acute TME
-likely due to infection, sepsis.
-resolved;
-Baseline cognitive impairment suspected, such as dementia.
ESBL E coli Bacteremia
UTI�
Continue antibiotics per infectious disease. White blood cell count improved. Fever resolved.
-Continue meropenem 08/02 through 08/06 (5 day course)
Hyponatremia
-present on admission. Sodium stable at 133. Urine studies consistent with ADH excess. Continue fluid restriction.
Hypokalemia
-monitor and replete
Acute kidney injury -possibly due to sepsis, UTI. Component of volume depletion and possible as well. Creatinine improving. Was 0.7 last year. Hold enalapril and furosemide.
Chronic urinary incontinence
CAD -stable.
Essential hypertension -blood pressure elevated. Enalapril and furosemide on hold for LYN. Can start low-dose Procardia XL.
Hx Hypothyroidism -not currently on treatment. TSH 3.1. Follow-up as outpatient.
History of B-cell lymphoma
Chronic heart failure preserved EF -stable.
Alcohol use disorder -no alcohol detected in the system. Monitor for any withdrawal symptoms. Counseled on need for abstinence.
Anxiety/depression
Cognitive impairment -needs formal testing for dementia. Discussed with daughter Nini on the phone. Should be done as an outpatient.
Full code
Dispo -cont iv abx tomorrow; dc home therafter as requested by patient
Anticipated Discharge: Within 24 hours
Subjective/Interval History
-
Date of Service: August 06, 2023
AMS resolved
Objective Data
-
Labs:
Laboratory Results
08/06/23
07:08
Sodium 133 L
Potassium 3.4 L
Chloride 99
Carbon Dioxide 26
BUN 18 H
Creatinine 0.8
Glucose 103 H
Calcium 9.1
Vital Signs:
Vital Signs
Temp Pulse Resp BP Pulse Ox
98.1 F 97 24 143/72 96
08/06/23 07:07 08/06/23 07:07 08/06/23 07:07 08/06/23 07:07 08/06/23 07:07
I&O
08/05/23 08/06/23 08/07/23
06:59 06:59 06:59
Intake Total 1150 / 1150
Balance 1150 / 1150
Review of Systems
-
History Source: Patient
All other systems: Not reviewed unless documented
Physical Exam
-
General: Appears Chronically Ill
HEENT: Normocephalic
Respiratory: Clear to Auscultation
Cardiac: Regular Rhythm
Musculoskeletal: Edema, Right Lower Extrem (Severe degenerative joint changes to her right knee more than her left/no apparent effusion or fluctuance)
Neuro: Awake, Alert, Oriented and AO x 3
Psych: Calm
Data Reviewed
-
Diagnostic Radiology: Image personally visualized and interpreted and Report Reviewed by me
Ultrasound: Image personally visualized and interpreted and Report Reviewed by me
Labs: Labs Reviewed by me
[2023-08-06 15:22] VITALS: BP 124/67
--- NOTE | 2023-08-06 16:13 | VNURNOTE ---
Home Health Liaison spoke to patient in room at 1230. Patient is agreeable to [facility], [facility] for a couple visits per week.
Home Health Liaison spoke with patient's daughter Nadia by phone at 1240 to discuss [facility] nurse/therapy, visits, schedule and homebound status. Nadia is agreeable and understands that visits at home will be 2-3 x per week to assess and teach
medical management. Nadia is looking into personal care and assisted living facilities but feels overwhelmed.
[facility] brochure provided with contact information. Patient is aware that [facility] will contact her for start of care in 1-2 days after discharge from .
[facility] referral completed in [facility].
--- NOTE | 2023-08-06 16:41 | PTCARENOTE ---
Pt awake and alert,is forgetful at times. out of bed to chair was max 2 assist and wheeled walker to transfer. Tolerated 3 hours well and then back to bed. Incontinent of urine. No complaints of pain. Call [facility] in reach.
[2023-08-06] MEDS: TYLENOL 650 MG PO (19:59)
[2023-08-06] MEDS: MELATONIN 5 MG PO (21:14)
[2023-08-06 23:00] VITALS: BP 136/76
[2023-08-07] MEDS: STERILE WATER FOR INJECTION 10 ML IV ×5 (00:06→23:14)
[2023-08-07] MEDS: MERREM 500 MG IV ×5 (00:06→23:14)
[2023-08-07 06:00] VITALS: BMI 29.9
[2023-08-07 07:21] VITALS: BP 135/66
[2023-08-07 08:27] LABS: Hematocrit 40.7 % (37.0-47.0); Hemoglobin 13.4 g/dL (12.0-16.0); Mean Corp Hgb Conc. 32.9 g/dL (33.0-37.0); Mean Corpuscular Hgb 30.7 pg (27.0-31.0); Mean Corpuscular Volume 93.3 fL (81.0-99.0); Mean Platelet Volume 9.1 fL (7.4-10.4); Platelet Count 246 10^3/uL (130-400); Red Blood Cell Count 4.36 10^6/uL (4.20-5.40); Red Cell Dist. Width 14.2 % (11.5-14.5); White Blood Cell Count 8.1 10^3/uL (4.8-10.8)
[2023-08-07] MEDS: DESENEX/MITRAZOL/ZEASORB 1 APPLIC TOPICAL ×2 (08:42→21:27)
[2023-08-07] MEDS: VISBIOME 2 CAP PO (08:43)
[2023-08-07] MEDS: VITAMIN B1 100 MG PO ×2 (08:43→21:27)
[2023-08-07] MEDS: FOLVITE 1 MG PO (08:43)
[2023-08-07] MEDS: PROCARDIA XL (EXTENDED RELEASE) 30 MG PO (08:43)
[2023-08-07] MEDS: HEPARIN 5000 UNITS SC ×2 (08:44→21:27)
[2023-08-07 09:00] LABS: ALT (SGPT) 16 U/L (0-35); AST (SGOT) 28 U/L (14-36); Albumin 2.8 g/dl (3.5-5.0); Alkaline Phosphatase 125 U/L (38-126); Blood Urea Nitrogen 15 mg/dl (7-17); Calcium 9.4 mg/dl (8.4-10.2); Carbon Dioxide 30 mmol/L (22-30); Chloride 102 mmol/L (98-107); Estimated Creatinine Clearance 54 ml/min; Glucose 94 mg/dl (70-99); Potassium 4.1 mmol/L (3.5-5.1); Sodium 135 mmol/L (135-145); Total Bilirubin 0.6 mg/dl (0.2-1.3); Total Protein 5.4 g/dl (6.3-8.2); eGFR > 60.00
--- NOTE | 2023-08-07 10:26 | W.PN.ID1 ---
Date of Service
Date of Service: August 07, 2023
Today's Communication
- Continue meropenem 08/02 through 08/06 (5 day course)
- follow up with pcp
Assessment / Plan
ESBL E coli Bacteremia
UTI
Recommendations:
- cbc, bmp nonrevealing, repeat blood cultures NGTD
- Continue meropenem 08/02 through 08/06 (5 day course)
- follow up with pcp
Chief Complaint
-: UTI
Subjective / Review of Systems
afebrile
bp stable
has an appetite
Vital Signs / Physical Exam
Vital Signs
Vital Signs
Temp Pulse Resp BP Pulse Ox
98.5 F 90 16 135/66 94
08/07/23 07:21 08/07/23 07:21 08/07/23 07:21 08/07/23 07:21 08/07/23 07:21
Physical Exam
Constitutional: No Acute Distress
Cardiovascular: Regular Rate and S1/S2; Negative Murmur or Rub
Pulmonary: Clear and Symmetric; Negative Wheezes or Rales
Gastrointestinal: Soft, Non Tender, Non Distended and Normal Bowel Sounds
Skin: Warm and Dry; Negative Rash or Jaundice
Objective Data
Lab Data
Lab Results
08/07/23 07:47
08/07/23 07:47
Estimated Creat Clear 54 ml/min 08/07/23 07:47
Lactic Acid Cancelled 08/02/23 23:00
Total Bilirubin 0.6 mg/dl (0.2-1.3) 08/07/23 07:47
AST 28 U/L (14-36) 08/07/23 07:47
ALT 16 U/L (0-35) 08/07/23 07:47
Alkaline Phosphatase 125 U/L (38-126) 08/07/23 07:47
Most recent labs reviewed.
Micro Results:
08/04/23 13:57 Blood Culture - Preliminary
Blood/Venous No Growth in 48 hours- Final report to follow
08/04/23 13:13 Blood Culture - Preliminary
Blood/Venous No Growth in 48 hours- Final report to follow
08/02/23 19:33 Blood Culture - Preliminary
Blood/Venous Escherichia coli - ESBL
Gram Stain - Preliminary
08/02/23 19:33 Blood Culture - Preliminary
Blood/Venous Escherichia coli - ESBL
Gram Stain - Preliminary
08/02/23 21:04 Urine Culture - Final
Urine Escherichia coli - ESBL
08/02/23 21:03 Influenza Types A & B (PRIYA) - Final
Nasal Swab Negative for Influenza A & B, NAAT
Negative results must be combined with clinical observations
and patient history.
Nucleic Acid Amplification test (NAAT)performed on the
[employer] platform.
Care Review
Plan reviewed with: Physician (Dr ch - discharge)
[2023-08-07 12:20] VITALS: BP 122/65; BP 85/50; PULSE 93
[2023-08-07 12:58] VITALS: BP 122/65; BP 85/50; PULSE 104; PULSE 93
--- NOTE | 2023-08-07 15:22 | W.PN.HOSP.TC ---
Today's Communication/Plan
-
complete iv nahomi
pending placement
Assessment / Plan
Assessment / Plan
Gen-AAOx3, NAD
HEENT-NC, AT, anicteric, clear oral mm
Neck-supple
CV-reg, no M, +S1/S2
Lungs-clear B/L
Abd-soft, NT, ND
Ext-no edema
Musculoskeletal-no cyanosis, clubbing
Skin-warm and dry
Neuro-grossly non-focal
Psych-calm, cooperative
Acute TME
-likely due to infection, sepsis.
-resolved;
-Baseline cognitive impairment suspected, such as dementia.
ESBL E coli Bacteremia
UTI�
Continue antibiotics per infectious disease. White blood cell count improved. Fever resolved.
-Continue meropenem 08/02 through 08/06 (5 day course)
Hyponatremia
-present on admission. Sodium stable at 133. Urine studies consistent with ADH excess. Continue fluid restriction.
Hypokalemia
-monitor and replete
Acute kidney injury -possibly due to sepsis, UTI. Component of volume depletion and possible as well. Creatinine improving. Was 0.7 last year. Hold enalapril and furosemide.
Chronic urinary incontinence
CAD -stable.
Essential hypertension -blood pressure elevated. Enalapril and furosemide on hold for LYN. Can start low-dose Procardia XL.
Hx Hypothyroidism -not currently on treatment. TSH 3.1. Follow-up as outpatient.
History of B-cell lymphoma
Chronic heart failure preserved EF -stable.
Alcohol use disorder -no alcohol detected in the system. Monitor for any withdrawal symptoms. Counseled on need for abstinence.
Anxiety/depression
Cognitive impairment -needs formal testing for dementia. Discussed with daughter Nini on the phone. Should be done as an outpatient.
Full code
Dispo -cont iv abx; pending snf placement
Anticipated Discharge: Within 24 hours
Subjective/Interval History
-
Date of Service: August 07, 2023
No acute events
Objective Data
-
Labs:
Laboratory Results
08/07/23
07:47
WBC 8.1
Hgb 13.4
Hct 40.7
Plt Count 246 D
Sodium 135
Potassium 4.1
Chloride 102
Carbon Dioxide 30
BUN 15
Creatinine 0.9
Glucose 94
Calcium 9.4
Total Bilirubin 0.6
AST 28
ALT 16
Alkaline Phosphatase 125
Vital Signs:
Vital Signs
Temp Pulse Resp BP Pulse Ox
98.5 F 92 16 135/66 94
08/07/23 07:21 08/07/23 12:00 08/07/23 07:21 08/07/23 07:21 08/07/23 12:00
I&O
08/06/23 08/07/23 08/08/23
06:59 06:59 06:59
Intake Total 1150 / 1150 900 / 900
Balance 1150 / 1150 900 / 900
Review of Systems
-
History Source: Patient
All other systems: Not reviewed unless documented
Physical Exam
-
General: Appears Chronically Ill
HEENT: Normocephalic
Respiratory: Clear to Auscultation
Cardiac: Regular Rhythm
Musculoskeletal: Edema, Right Lower Extrem (Severe degenerative joint changes to her right knee more than her left/no apparent effusion or fluctuance)
Neuro: Awake, Alert, Oriented and AO x 3
Psych: Calm
Data Reviewed
-
Diagnostic Radiology: Image personally visualized and interpreted and Report Reviewed by me
Ultrasound: Image personally visualized and interpreted and Report Reviewed by me
Labs: Labs Reviewed by me
--- NOTE | 2023-08-07 15:25 | CM ---
CM reviewed pt with Dr Healy- ready for dc tonight after abx admin
Call from dtr who notes spouse put deposit down for [facility] PCU and plans for them to move to [facility]
Call with [facility]/admissions to discuss direct admit from to [facility]
As pt 2 person assist, will need SNF rehab first before move to PCU
Bed available tomorrow
Bedside meeting with pt and conference call with lopez
Pt angry family made arrangements at [facility] without her consent
Reluctantly in agreement with SNF at [facility] tomorrow
PASRR and updated clinicals sent via [facility]
Discharge Disposition- [facility] SNF tomorrow
[2023-08-07 15:45] VITALS: BP 131/72
[2023-08-07] MEDS: TYLENOL 650 MG PO ×2 (16:04→23:14)
[2023-08-07] MEDS: MELATONIN 5 MG PO (21:27)
[2023-08-07 23:51] VITALS: BP 139/68
--- NOTE | 2023-08-08 04:31 | PTCARENOTE ---
Pt has had multiple confused moments throughout the night. Pt wakes up either yelling someone is opening her doors and using her bathroom or telling RN to go bring her HECTOR. When pt reoriented that she is in the hospital, pt becomes agitated
and begins yelling saying, 'My is the one who threw me in here, I am leaving tomorrow.' Pt settles down once writer editor steps out of sight. Pt reoriented and comforted when needed.
[2023-08-08] MEDS: MERREM 500 MG IV ×2 (05:14→12:50)
[2023-08-08] MEDS: STERILE WATER FOR INJECTION 10 ML IV ×2 (05:15→12:51)
[2023-08-08 05:29] VITALS: BMI 29.7
[2023-08-08 07:10] VITALS: BP 142/81
[2023-08-08 09:09] LABS: Hematocrit 38.9 % (37.0-47.0); Mean Corp Hgb Conc. 33.4 g/dL (33.0-37.0); Mean Corpuscular Hgb 30.8 pg (27.0-31.0); Mean Corpuscular Volume 92.2 fL (81.0-99.0); Mean Platelet Volume 9.2 fL (7.4-10.4); Platelet Count 328 10^3/uL (130-400); Red Blood Cell Count 4.22 10^6/uL (4.20-5.40); White Blood Cell Count 8.4 10^3/uL (4.8-10.8)
[2023-08-08 09:31] LABS: ALT (SGPT) 17 U/L (0-35); AST (SGOT) 31 U/L (14-36); Albumin 2.9 g/dl (3.5-5.0); Alkaline Phosphatase 132 U/L (38-126); Blood Urea Nitrogen 17 mg/dl (7-17); Calcium 9.4 mg/dl (8.4-10.2); Carbon Dioxide 30 mmol/L (22-30); Chloride 97 mmol/L (98-107); Estimated Creatinine Clearance 61 ml/min; Glucose 97 mg/dl (70-99); Potassium 3.7 mmol/L (3.5-5.1); Sodium 134 mmol/L (135-145); Total Bilirubin 0.5 mg/dl (0.2-1.3); Total Protein 5.4 g/dl (6.3-8.2); eGFR > 60.00
[2023-08-08] MEDS: DESENEX/MITRAZOL/ZEASORB 1 APPLIC TOPICAL (09:48)
[2023-08-08] MEDS: VISBIOME 2 CAP PO (09:49)
[2023-08-08] MEDS: TYLENOL 650 MG PO (09:49)
[2023-08-08] MEDS: PROCARDIA XL (EXTENDED RELEASE) 30 MG PO (09:49)
[2023-08-08] MEDS: FOLVITE 1 MG PO (09:55)
[2023-08-08] MEDS: HEPARIN 5000 UNITS SC (09:55)
[2023-08-08] MEDS: VITAMIN B1 100 MG PO (09:56)
[2023-08-08 11:40] VITALS: BP 124/86; BP 131/70; PULSE 103; PULSE 92
--- NOTE | 2023-08-08 12:12 | CM ---
Addendum entered by Roula Herman 08/08/23 14:25:
[facility] updated re transport time 4 pm.
Addendum entered by Roula Herman 08/08/23 12:55:
IMM completed.
Original Note:
Patient for d/c to [facility] skilled rehab.
[facility]
Report# [phone]

Ambulance transport forms on chart.
--- NOTE | 2023-08-08 12:55 | W.PN.HOSP.TC ---
Addendum entered and electronically signed by Buzz Kidd MD 08/09/23 17:05:
[id number]
Original Note:
Today's Communication/Plan
-
holding ACEI, Lasix until cleared by PCP after monitoring Scr
Procardia
F/u PCP
FWR
Assessment / Plan
Assessment / Plan
Gen-AAOx3, NAD
HEENT-NC, AT, anicteric, clear oral mm
Neck-supple
CV-reg, no M, +S1/S2
Lungs-clear B/L
Abd-soft, NT, ND
Ext-no edema
Musculoskeletal-no cyanosis, clubbing
Skin-warm and dry
Neuro-grossly non-focal
Psych-calm, cooperative
Acute TME
-likely due to infection, sepsis.
-resolved;
-Baseline cognitive impairment suspected, such as dementia.
ESBL E coli Bacteremia
UTI�
Continue antibiotics per infectious disease. White blood cell count improved. Fever resolved.
-Completed meropenem 08/02 through 08/06 (5 day course)
Hyponatremia
-present on admission. Sodium stable at 133. Urine studies consistent with ADH excess. Continue fluid restriction.
Hypokalemia
-monitor and replete
Acute kidney injury -possibly due to sepsis, UTI. Component of volume depletion and possible as well. Creatinine improving. Was 0.7 last year. Hold enalapril and furosemide.
Chronic urinary incontinence
CAD -stable.
Essential hypertension -blood pressure elevated. Enalapril and furosemide on hold for LYN. Can start low-dose Procardia XL. can resume lasix, ACEI if desired by PCP after monitoring BMP
Hx Hypothyroidism -not currently on treatment. TSH 3.1. Follow-up as outpatient.
History of B-cell lymphoma
Chronic heart failure preserved EF -stable.
Alcohol use disorder -no alcohol detected in the system. Monitor for any withdrawal symptoms. Counseled on need for abstinence.
Anxiety/depression
Cognitive impairment -needs formal testing for dementia. Discussed with daughter Nini on the phone. Should be done as an outpatient.
Full code
Dispo -snf placement
More than 30 minutes spent in discharge including
Final examination of the patient
Summarizing hospital stay
Instructions for continuing care to all relevant caregivers
Preparation of discharge records, prescriptions, and referral forms
Total time spent (35 in minutes):
Anticipated Discharge: Today
Subjective/Interval History
-
Date of Service: August 08, 2023
no acute events
Objective Data
-
Labs:
Laboratory Results
08/08/23
08:08
WBC 8.4
Hgb 13.0
Hct 38.9
Plt Count 328 D
Sodium 134 L
Potassium 3.7
Chloride 97 L
Carbon Dioxide 30
BUN 17
Creatinine 0.8
Glucose 97
Calcium 9.4
Total Bilirubin 0.5
AST 31
ALT 17
Alkaline Phosphatase 132 H
Vital Signs:
Vital Signs
Temp Pulse Resp BP Pulse Ox
98.9 F 102 17 142/81 95
08/08/23 07:10 08/08/23 07:10 08/08/23 07:10 08/08/23 07:10 08/08/23 07:10
I&O
08/07/23 08/08/23 08/09/23
06:59 06:59 06:59
Intake Total 900 / 900 920 / 920
Balance 900 / 900 920 / 920
Review of Systems
-
History Source: Patient
All other systems: Not reviewed unless documented
Physical Exam
-
General: Appears Chronically Ill
HEENT: Normocephalic
Respiratory: Clear to Auscultation
Cardiac: Regular Rhythm
Musculoskeletal: Edema, Right Lower Extrem (Severe degenerative joint changes to her right knee more than her left/no apparent effusion or fluctuance)
Neuro: Awake, Alert, Oriented and AO x 3
Psych: Calm
Data Reviewed
-
Diagnostic Radiology: Image personally visualized and interpreted and Report Reviewed by me
Ultrasound: Image personally visualized and interpreted and Report Reviewed by me
Labs: Labs Reviewed by me
--- NOTE | 2023-08-08 13:00 | W.DS.TRANS ---
DC Summary - [facility]
-
Discharge Instructions:
Discharge Diagnosis/Procedures
Acute TME
ESBL E coli Bacteremia
UTI
Diet Low Fat,Low Cholesterol,Restrict fluids to 48 oz
Activity As tolerated
Blood Work bmp in 5-7 days with pcp
Instructions:
Stand-Alone Forms:
Changes to Home Medications: No
Discharge Medications:
DC Medications w/original date entered in [facility]
furosemide 20 mg tablet 20 mg PO DAILY #30 tabs 06/14/21
paroxetine HCl 20 mg tablet 20 mg PO DAILY Depression 09/15/21
enalapril maleate 10 mg tablet 20 mg PO BID #0 tabs 11/21/22
nifedipine 30 mg tablet,extended release 30 mg PO DAILY 30 days #30 tabs 08/08/23
Home Medication Changes
nifedipine 30 mg tablet,extended release 30 mg PO DAILY 30 days #30 tabs 08/08/23
holding furosemide, enalapril
Pending Results: No
[2023-08-08 15:05] VITALS: BP 140/75
--- NOTE | 2023-08-08 16:25 | W.PN.ID1 ---
Date of Service
Date of Service: August 08, 2023
Today's Communication
completed meropenem
Assessment / Plan
ESBL E coli Bacteremia
UTI
Recommendations:
- cbc, bmp nonrevealing, repeat blood cultures NGTD
- Completed meroepenm course
- follow up with pcp
Chief Complaint
-: UTI
Subjective / Review of Systems
afebrile
bp stable
Vital Signs / Physical Exam
Vital Signs
Vital Signs
Temp Pulse Resp BP Pulse Ox
97.9 F 95 18 140/75 94
08/08/23 15:05 08/08/23 15:05 08/08/23 15:05 08/08/23 15:05 08/08/23 15:05
Physical Exam
Constitutional: No Acute Distress
Cardiovascular: Regular Rate
Pulmonary: Symmetric and Non Labored
Gastrointestinal: Non Distended
Neurological: Awake
Objective Data
Lab Data
Lab Results
08/08/23 08:08
08/08/23 08:08
Estimated Creat Clear 61 ml/min 08/08/23 08:08
Lactic Acid Cancelled 08/02/23 23:00
Total Bilirubin 0.5 mg/dl (0.2-1.3) 08/08/23 08:08
AST 31 U/L (14-36) 08/08/23 08:08
ALT 17 U/L (0-35) 08/08/23 08:08
Alkaline Phosphatase 132 U/L (38-126) H 08/08/23 08:08
Most recent labs reviewed.
Micro Results:
08/04/23 13:57 Blood Culture - Preliminary
Blood/Venous No Growth in 4 days- Final report to follow
08/04/23 13:13 Blood Culture - Preliminary
Blood/Venous No Growth in 4 days- Final report to follow
08/02/23 19:33 Blood Culture - Preliminary
Blood/Venous Escherichia coli - ESBL
Gram Stain - Preliminary
08/02/23 19:33 Blood Culture - Preliminary
Blood/Venous Escherichia coli - ESBL
Gram Stain - Preliminary
08/02/23 21:04 Urine Culture - Final
Urine Escherichia coli - ESBL
08/02/23 21:03 Influenza Types A & B (PRIYA) - Final
Nasal Swab Negative for Influenza A & B, NAAT
Negative results must be combined with clinical observations
and patient history.
Nucleic Acid Amplification test (NAAT)performed on the
[employer] platform.
== END 2023-08-08 17:34 | DRG 871 ==
LOC: 4 WEST ACU 23:33
PROVIDERS: Hospitalist; ADMITTING PHYSICIAN Hospitalist; ATTENDING PHYSICIAN Internal Medicine; EMERGENCY PHYSICIAN Student in an Organized Health Care Education/Training Program; OTHER PHYSICIAN Student in an Organized Health Care Education/Training Program
DX: A41.51 Sepsis due to Escherichia coli [E. coli] (principal); G92.8 Other toxic encephalopathy; N39.0 Urinary tract infection, site not specified; N17.9 Acute kidney failure, unspecified; I50.32 Chronic diastolic (congestive) heart failure; E22.2 Syndrome of inappropriate secretion of antidiuretic hormone; F03.94 Unspecified dementia, unspecified severity, with anxiety; F03.93 Unspecified dementia, unspecified severity, with mood disturbance; I11.0 Hypertensive heart disease with heart failure; E03.9 Hypothyroidism, unspecified; F10.10 Alcohol abuse, uncomplicated; I25.10 Atherosclerotic heart disease of native coronary artery without angina pectoris; F32.A Depression, unspecified; E87.6 Hypokalemia; R65.20 Severe sepsis without septic shock; Z11.52 Encounter for screening for COVID-19
CPT/HCPCS: 70450; 71045; 76775; 80048; 80053; 80306; 80307; 81003; 81015; 82077; 83605; 83735; 83935; 84100; 84300; 84443; 85025; 85027; 87040; 87077; 87086; 87149; 87186; 87205; 87502; 87811; 93005; 96361; 96374; 97162; 97167; 97530; 99285

== ENCOUNTER → 2023-08-13 11:52 | Outpatient (REF) | payer MEDICARE, OTHER, SELFPAY ==
[2023-08-13 12:27] LABS: Hematocrit 38.8 % (37.0-47.0); Hemoglobin 12.7 g/dL (12.0-16.0); Mean Corp Hgb Conc. 32.7 g/dL (33.0-37.0); Mean Corpuscular Hgb 30.5 pg (27.0-31.0); Mean Platelet Volume 9.2 fL (7.4-10.4); Platelet Count 236 10^3/uL (130-400); Red Blood Cell Count 4.17 10^6/uL (4.20-5.40); Red Cell Dist. Width 13.8 % (11.5-14.5); White Blood Cell Count 6.1 10^3/uL (4.8-10.8)
[2023-08-13 13:06] LABS: ALT (SGPT) 17 U/L (0-35); AST (SGOT) 38 U/L (14-36); Albumin 3.2 g/dl (3.5-5.0); Alkaline Phosphatase 101 U/L (38-126); Blood Urea Nitrogen 14 mg/dl (7-17); Calcium 8.4 mg/dl (8.4-10.2); Carbon Dioxide 27 mmol/L (22-30); Chloride 100 mmol/L (98-107); Glucose 82 mg/dl (70-99); Magnesium 1.6 mg/dl (1.6-2.3); Potassium 3.5 mmol/L (3.5-5.1); Sodium 132 mmol/L (135-145); Total Bilirubin 0.5 mg/dl (0.2-1.3); Total Protein 5.8 g/dl (6.3-8.2); eGFR > 60.00
[2023-08-13 13:16] LABS: Free T4 1.43 ng/dl (0.78-2.19)
[2023-08-13 13:30] LABS: TSH 3.38 uIU/ml (0.47-4.68)
[2023-08-13 14:06] LABS: Glycohemoglobin (HgbA1c) 5.4 % (4.0-5.6)
== END ==
LOC: OLABWHC 11:52
PROVIDERS: ATTENDING PHYSICIAN Internal Medicine
DX: I50.32 Chronic diastolic (congestive) heart failure (principal); N39.0 Urinary tract infection, site not specified; A41.51 Sepsis due to Escherichia coli [E. coli]; E03.9 Hypothyroidism, unspecified; I10 Essential (primary) hypertension; Z79.899 Other long term (current) drug therapy
CPT/HCPCS: 36415; 80053; 83036; 83735; 84439; 84443; 85027; 87077; 87086; 87186

== ENCOUNTER → 2023-09-20 11:27 | Outpatient (REF) | payer OTHER, MEDICARE, SELFPAY ==
[2023-09-20 12:01] LABS: % Basophils 0.7 % (0-2); % Eosinophils 6.4 % (0-6); % Immature Granulocytes 0.3 % (0-0.5); % Lymphocytes 23.3 % (20.5-51.1); % Monocytes 9.7 % (1.7-9.3); % Neutrophils 59.6 % (42.2-75.2); Absolute Basophils 0.1 10^3/uL (0-0.2); Absolute Eosinophils 0.4 10^3/uL (0-0.7); Absolute Lymphocytes 1.6 10^3/uL (1.2-3.4); Absolute Monocytes 0.7 10^3/uL (0.1-0.6); Absolute Neutrophils 4.1 10^3/uL (1.4-6.5); Hematocrit 32.5 % (37.0-47.0); Mean Corp Hgb Conc. 33.8 g/dL (33.0-37.0); Mean Corpuscular Hgb 30.6 pg (27.0-31.0); Mean Corpuscular Volume 90.3 fL (81.0-99.0); Mean Platelet Volume 9.3 fL (7.4-10.4); Nucleated Red Blood Cells % 0 %; Platelet Count 263 10^3/uL (130-400); Red Cell Dist. Width 12.9 % (11.5-14.5); White Blood Cell Count 6.9 10^3/uL (4.8-10.8)
[2023-09-20 14:15] LABS: ALT (SGPT) 10 U/L (0-35); AST (SGOT) 21 U/L (14-36); Albumin 3.3 g/dl (3.5-5.0); Alkaline Phosphatase 87 U/L (38-126); Blood Urea Nitrogen 37 mg/dl (7-17); Calcium 9.3 mg/dl (8.4-10.2); Carbon Dioxide 27 mmol/L (22-30); Chloride 97 mmol/L (98-107); Glucose 78 mg/dl (70-99); Potassium 4.2 mmol/L (3.5-5.1); Sodium 129 mmol/L (135-145); Total Bilirubin 0.4 mg/dl (0.2-1.3)
[2023-09-20 15:38] LABS: TSH Reflex To Free T4 1.25 uIU/ml (0.47-4.68)
[2023-09-20 16:13] LABS: Folate 6.1 ng/ml (2.76-20); Vitamin B12 412 pg/ml (239-931)
== END ==
LOC: OLABWPC 11:27
PROVIDERS: ATTENDING PHYSICIAN Internal Medicine
DX: G62.1 Alcoholic polyneuropathy (principal); I10 Essential (primary) hypertension; E03.9 Hypothyroidism, unspecified; C85.10 Unspecified B-cell lymphoma, unspecified site; F03.90 Unspecified dementia, unspecified severity, without behavioral disturbance, psychotic disturbance, mood disturbance, and anxiety
CPT/HCPCS: 36415; 80053; 82607; 82746; 84443; 85025

== ENCOUNTER → 2023-09-28 13:47 | Outpatient (REF) | payer MEDICARE, SELFPAY | LOC: RAD 13:47 | PROVIDERS: ATTENDING PHYSICIAN Internal Medicine | DX: F03.918 Unspecified dementia, unspecified severity, with other behavioral disturbance (principal); I10 Essential (primary) hypertension; E03.9 Hypothyroidism, unspecified; C85.10 Unspecified B-cell lymphoma, unspecified site; G62.1 Alcoholic polyneuropathy | CPT/HCPCS: 70450 ==

== ENCOUNTER 2023-10-08 08:09 | Inpatient (IN) | payer MEDICARE, SELFPAY ==
[2023-10-07 22:27] VITALS: BP 99/51
--- NOTE | 2023-10-07 23:10 | ED.MUSCINJ ---
HPI-Injury
<KB Gleason - Last Filed: 10/07/23 23:47>
General
Chief Complaint: Musculo-Skeletal Complaint
Source: patient
Exam Limitations: none
Time Seen by Provider: 10/07/23 22:40
Nursing documentation reviewed up to this point in time: agreed with
Travel History
Have you had any contact with someone who has COVID-19?: No
Do you have any symptoms of coronavirus? Fever > 100 degrees, chills, cough, shortness of breath, sore throat, loss of taste or smell, muscle aches, or headache?: No
History of Present Illness-Injury
Is this injury a work related problem?: No
Is pt an associate of [facility]?: No
Initial Injury comments:
This is a 78 year old female from [facility] who presents to the ED s/o fall x1 week. She is unable to recall the details of the fall, but states she might of landed on her right side. She complains of pain with her R knee. She did not have this pain last
week, but pain gradually developed throughout the week. She did not tell the staff members at [facility] until a few days after the fall. She informed them today that her knee was causing her pain. She did not hit her head or lose consciousness. She is not
on any blood thinners. She recently had an outpatient CT head for gait and balance disorder that was negative. She uses a walker at times, but recently has been using her wheelchair. She denies chest pain, shortness of breath, headache,
dizziness/lightheadedness, difficulty ambulating.
Past History
<KB Gleason - Last Filed: 10/07/23 23:47>
Past History
ED Past Medical History: Cancer (B-cell lymphoma), HTN, Hypercholesterolemia, Hypothyroidism and Other (Chronic pain from osteoarthritis)
ED Past Surgical History: Orthopedic
Social History
Tobacco: Non-smoker
Alcohol: None
Drug: None
Personal:
Living: with family
Review of Systems
<KB Gleason - Last Filed: 10/07/23 23:47>
Review of Systems
Allergies reviewed?: Yes
All Other Systems: Not applicable
Constitutional: Reports no symptoms
EENT: Reports no symptoms
Respiratory: Reports no symptoms
Cardiac: Reports no symptoms
ABD/GI: Reports no symptoms
: Reports no symptoms
Musculoskeletal: Reports other (R knee pain)
Skin: Reports no symptoms
Neurological: Reports no symptoms
Endocrine: Reports no symptoms
Hematologic/Lymphatic: Reports no symptoms
Psychiatric: Reports no symptoms
Phy Exam
<KB Gleason - Last Filed: 10/07/23 23:47>
General Physical Exam
General Presentation: well appearing and no apparent distress
General Skin: warm and dry
General Habitus: normal
General Mental: alert
General Hydration: appears well hydrated
ENT Exam
ENT Exam: EOMI, pharynx normal, neck supple and normocephalic
Eye Exam
Eye Exam: PERRL, cornea clear and conjunctiva normal
Cardiovascular Exam
Cardiovascular Exam: regular rate/rhythm, no edema, no murmur and normal peripheral pulses
Pulmonary Exam
Pulmonary Exam: lungs clear, no respiratory distress, no rales, no crackles, no rhonchi, no stridor, no wheezing and no cough
Gastrointestinal Exam
Gastrointestinal Exam: normal bowel sounds, non tender, soft, no organomegaly, no pulsatile mass and non distended
Neurological Exam
Neurological Exam: alert, oriented x3, no motor deficits and speech normal
Musculoskeletal Exam
Musculoskeletal Exam: full ROM and joint swelling (R knee, TTP on R lateral knee)
Skin Exam
Skin Exam: normal color, warm/dry, no rash and no petechia
Psychiatric Exam
Psychiatric Exam: normal mood/affect
Injury Course
<KB Gleason - Last Filed: 10/07/23 23:47>
Orders/Labs/Results
Orders:
Orders
10/07/23 22:37
Knee, Right 1 or 2 Views [CR Knee - Right 1 Or 2 Views] Urgent
Comment:
Reason For Exam: fell on right knee
10/07/23 23:37
Conor Wrap Right-Treatment ONCE
10/07/23 23:46
Acetaminophen [Tylenol] 1,000 mg PO NOW STA
10/07/23 23:59
CBC/With Diff [Complete Blood Count/With Diff] Urgent
CMP [Comprehensive Metabolic Panel] Urgent
10/08/23 00:22
Straight cath- Treatment ONCE
10/08/23 01:29
CT Abd/pel Without Iv Or Oral Urgent
Comment:
Reason For Exam: back pain, LYN, UTI
10/08/23 01:43
Lactic Acid Urgent
Urinalysis Reflex To Culture Urgent
Date Specimen was Collected: 10/08/23
Time Specimen was Collected: 01:35
Urine Microscopic Reflex Cult Urgent
Blood Culture Q30M
AZUL Source: Blood/Venous
Specimen Description:
Urine Culture Urgent
AZUL Source: U
Specimen Description:
Date Specimen was Collected: 10/08/23
Time Specimen was Collected: 01:35
10/08/23 02:18
Blood Culture Q30M
AZUL Source: Blood/Venous
Specimen Description:
0.9% Sodium Chloride 1000 ml [Nss] 1,000 ml IV BOLUS
Piperacillin/Tazo 3.375 Gram [Zosyn] 3.375 gram in 50 ml IV NOW
Abnormal Lab Results
10/07/23 10/08/23
23:59 01:43
WBC 13.1 H 10^3/uL
(4.8-10.8)
RBC 3.83 L 10^6/uL
(4.20-5.40)
Hgb 11.4 L g/dL
(12.0-16.0)
Hct 35.0 L %
(37.0-47.0)
MCHC 32.6 L g/dL
(33.0-37.0)
Plt Count 424 H 10^3/uL
(130-400)
Abs Immat Gran (auto) 0.1 H 10^3/uL
(0-0.05)
Absolute Neuts (auto) 10.8 H 10^3/uL
(1.4-6.5)
Absolute Lymphs (auto) 0.8 L 10^3/uL
(1.2-3.4)
Absolute Monos (auto) 1.1 H 10^3/uL
(0.1-0.6)
Immature Gran % 1.1 H %
(0-0.5)
Neutrophils % 82.5 H %
(42.2-75.2)
Lymphocytes % 6.3 L %
(20.5-51.1)
Sodium 134 L mmol/L
(135-145)
BUN 37 H mg/dl
(7-17)
Creatinine 1.7 H mg/dL
(0.6-1.0)
Glucose 123 H mg/dl
(70-99)
Total Protein 6.2 L g/dl
(6.3-8.2)
Albumin 3.3 L g/dl
(3.5-5.0)
Urine Ketones Trace A
(Negative)
Ur Occult Blood Reflex 2+ A
(Negative)
Leukocyte Esterase Rfl 2+ A
(Negative)
Urine RBC 16-20 A /HPF
(0-2)
Urine WBC (Reflex) >100 A /HPF
(0-5)
Urine Bacteria (Reflex) Many A
(Negative)
Urine Albumin (Reflex) 3+ A
(Neg - Trace)
10/07/23 23:59
10/07/23 23:59
<Apple Rmairez, DO - Last Filed: 10/08/23 02:34>
Orders/Labs/Results
Orders:
Orders
10/07/23 22:37
Knee, Right 1 or 2 Views [CR Knee - Right 1 Or 2 Views] Urgent
Comment:
Reason For Exam: fell on right knee
10/07/23 23:37
Conor Wrap Right-Treatment ONCE
10/07/23 23:46
Acetaminophen [Tylenol] 1,000 mg PO NOW STA
10/07/23 23:59
CBC/With Diff [Complete Blood Count/With Diff] Urgent
CMP [Comprehensive Metabolic Panel] Urgent
10/08/23 00:22
Straight cath- Treatment ONCE
10/08/23 01:29
CT Abd/pel Without Iv Or Oral Urgent
Comment:
Reason For Exam: back pain, LYN, UTI
10/08/23 01:43
Lactic Acid Urgent
Urinalysis Reflex To Culture Urgent
Date Specimen was Collected: 10/08/23
Time Specimen was Collected: 01:35
Urine Microscopic Reflex Cult Urgent
Blood Culture Q30M
AZUL Source: Blood/Venous
Specimen Description:
Urine Culture Urgent
AZUL Source: U
Specimen Description:
Date Specimen was Collected: 10/08/23
Time Specimen was Collected: 01:35
10/08/23 02:18
Blood Culture Q30M
AZUL Source: Blood/Venous
Specimen Description:
0.9% Sodium Chloride 1000 ml [Nss] 1,000 ml IV BOLUS
Piperacillin/Tazo 3.375 Gram [Zosyn] 3.375 gram in 50 ml IV NOW
Abnormal Lab Results
10/07/23 10/08/23
23:59 01:43
WBC 13.1 H 10^3/uL
(4.8-10.8)
RBC 3.83 L 10^6/uL
(4.20-5.40)
Hgb 11.4 L g/dL
(12.0-16.0)
Hct 35.0 L %
(37.0-47.0)
MCHC 32.6 L g/dL
(33.0-37.0)
Plt Count 424 H 10^3/uL
(130-400)
Abs Immat Gran (auto) 0.1 H 10^3/uL
(0-0.05)
Absolute Neuts (auto) 10.8 H 10^3/uL
(1.4-6.5)
Absolute Lymphs (auto) 0.8 L 10^3/uL
(1.2-3.4)
Absolute Monos (auto) 1.1 H 10^3/uL
(0.1-0.6)
Immature Gran % 1.1 H %
(0-0.5)
Neutrophils % 82.5 H %
(42.2-75.2)
Lymphocytes % 6.3 L %
(20.5-51.1)
Sodium 134 L mmol/L
(135-145)
BUN 37 H mg/dl
(7-17)
Creatinine 1.7 H mg/dL
(0.6-1.0)
Glucose 123 H mg/dl
(70-99)
Total Protein 6.2 L g/dl
(6.3-8.2)
Albumin 3.3 L g/dl
(3.5-5.0)
Urine Ketones Trace A
(Negative)
Ur Occult Blood Reflex 2+ A
(Negative)
Leukocyte Esterase Rfl 2+ A
(Negative)
Urine RBC 16-20 A /HPF
(0-2)
Urine WBC (Reflex) >100 A /HPF
(0-5)
Urine Bacteria (Reflex) Many A
(Negative)
Urine Albumin (Reflex) 3+ A
(Neg - Trace)
10/07/23 23:59
10/07/23 23:59
<KB Gleason - Last Filed: 10/07/23 23:47>
MDM/Problems Addressed
Differential Diagnosis Includes:
R knee fracture vs dislocation vs contusion
<Apple Ramirez DO - Last Filed: 10/08/23 02:34>
*Pulse Oximetry
Patient hypoxic: no
*[employer] Technical Lead Senior Developer Interpretation
Rate: normal
Interpretation: normal
Rhythm: sinus
*Critical Care Note
Total Time (30-74mins, 75-104mins- exclusive of procedures): Not Applicable
ED Attending Note
<KB Gleason - Last Filed: 10/07/23 23:47>
-
Portions of this chart may have been created with voice recognition software.� Occasional wrong word or��sound alike� substitutions may have occurred due to the inherent limitations of voice recognition software.
<Apple Ramirez DO - Last Filed: 10/08/23 02:34>
ED Attending Note
Patient seen and examined by attending physician: Yes
I performed the substantive portion of visit, reviewed & personally made and approve the management plan that is documented in note by myself or REBECCA.: Yes
I performed a history and physical exam of patient and discussed management with resident, I reviewed resident's note and agree with documented findings and plan of care.: Yes
ED Attending Note:
This is an 78-year-old woman with history of hypertension, ASCVD, hypothyroidism, mild dementia who was hospitalized here in July of this year due to increased confusion, found to have fever, UTI,(ESBL E.Coli) bacteremia.
She was discharged to a shelter facility and from there has transition to assisted living facility.
She has history of lumbar DJD, DJD of bilateral knees and suffered a fall 1 week ago injuring her right knee. She denies head injury nor loss of consciousness however records reveal patient underwent an outpatient CT of the head September 27, ordered by
her PCP, Dr. Romeo Lombardo. CT the head showed no acute abnormalities but evidence of diffuse cortical atrophy.
She presents to the ED tonight with continued right knee pain. She has been using her walker as well as relying on wheelchair.
She reports having no further falls, no weakness nor numbness. She states she has been requesting Advil for pain, thus far she believes she has had 2 doses over the past week with last dose yesterday.
According to custodial records patient was started on Seroquel 25 mg twice daily October 04 for treatment of dementia with behavioral disturbance.
GENERAL: 78-year-old woman appears her stated age, awake and alert, oriented x 2. Appears in no acute distress. Noted to be borderline hypotensive with systolic blood pressure in the 90s, afebrile.
EYE: pupils equal and reactive. anicteric. Preferentially clenches her left eye closed. The head is normocephalic, atraumatic.
NECK: Supple, nontender, no meningismus, full range of motion without difficulty nor pain, no significant adenopathy.
ENT: posterior pharynx is clear, oral mucosa is minimally dry. TM clear b/l, nares patent.
CARDIAC: Regular rate and rhythm. no murmur.
LUNGS: Clear breath sounds bilaterally, no acute respiratory distress, no wheezes/rales/rhonchi
ABDOMEN: Soft, nondistended, without focal tenderness, no r/g, no cvat. normoactive BS.
BACK: Patient able to sit up without difficulty. No midline bony tenderness. No palpable bony pelvic tenderness.
NEUROLOGICAL: Alert and oriented x2, no focal neuro deficits. Motor strength is 5/5 bilaterally. Gross sensation is intact.
SKIN: Warm and dry, normal color, skin intact. No rash.
MUSCULOSKELETAL: No C/C/E. peripheral pulses are full and equal b/l. There is mild soft tissue swelling/mild joint effusion about the right knee with mild tenderness anterolateral knee. There is full range of motion without significant pain, no
crepitus. There is no tenderness to the hip nor lower leg and full range of motion of hip, ankle without difficulty.
PSYCH: Normal and appropriate interaction.
Concern for occult fracture versus exacerbation of DJD of right knee.
She is noted to be mildly hypotensive which is a new finding compared to blood pressures recorded on previous visits.
She reports a fall 1 week ago, no recurrent falls and appears to be fairly well oriented but she did not recall undergoing a CT of the head week and a half ago.
Outpatient chemistries from September 19 reveals acute kidney injury with BUN of 37/creatinine of 1.6. Patient's baseline creatinine 0.8-1.0.
It is unclear if she has been receiving ibuprofen but no NSAIDs listed on current medication list.
Concern for dehydration, occult infection.
Will check x-ray of right knee, will plan for orthostatic vital signs, laboratory studies and urinalysis.
Will trial a dose of Tylenol for pain.
10/08/2023 0226 AM
Blood pressure has improved to 100 systolic and patient remains afebrile but labs reveal moderate uptrend in white blood cell count/leukocytosis as well as continued LYN with creatinine now 1.7.
Clinically patient appears dry, dry oral mucosa, dry lips and she admits to poor appetite since transitioning from home to custodial after last hospitalization in July.
Urinalysis consistent with UTI.
Lactic acid is normal.
Blood cultures and urine culture are pending.
Patient currently pain-free but had noted some back pain on initial exam. With acute kidney injury, back pain, concern for hydronephrosis, pyelonephritis, ureteric stone thus will check CT of the abdomen and pelvis.
Will initiate IV fluids as well as broad-spectrum antibiotics. Previous UTIs have been ESBL E. coli�IV Zosyn will be started.
Will admit to hospitalist service.
10/08/2023 0232 AM
CAT scan shows moderate left hydronephrosis without obstructive uropathy which can be seen with pyelonephritis. There is also note of acute mild uncomplicated sigmoid diverticulitis. Patient has no appreciable abdominal tenderness. Nonetheless IV
Zosyn has been started which should cover pyelonephritis as well as potential diverticulitis.
CAT scan also notes a moderate chronic appearing compression fracture of the L1 vertebral body.
Discharge Plan
Departure
Patient Disposition: Admit
Date of Disposition: 10/08/23
Time of Disposition: 02:29
Admit to: Med/Surg
Presentation/result/management discussed w/ accepting MD/DO: Hospitalist
Condition: Fair
Discharge Problem:
Acute renal injury, hypotension, r/o sepsis vs dehydration, Acute pyelonephritis
Prescriptions:
No Action
furosemide 20 MG tablet
20 mg PO DAILY Qty: 30 2RF
Hold Instructions: Resume on 08/15/23. Until BMP performed and Cleared by PCP
paroxetine HCl 20 MG tablet
20 mg PO DAILY
enalapril maleate 10 mg Tablet
20 mg PO BID Qty: 0 0RF
Hold Instructions: Resume on 08/15/23. until bmp completed and cleared by PCP
nifedipine 30 mg Tablet Extended Release
30 mg PO DAILY 30 Days Qty: 30 0RF
Referrals:
Hang Charles MD [Family Provider] -
Interventions
Interventions:
*Risk Screen - Suicide Last Done: 10/07/23 22:29
*General Assessment Last Done: 10/07/23 22:29
*Neglect/Abuse Screening Last Done: 10/07/23 22:29
ED- Fall Risk Assessment Last Done: 10/08/23 00:03
*ED COVID-19 Vaccine History Last Done: 10/07/23 22:29
ED-Musculoskeletal Assessment Last Done: 10/08/23 00:03
Discharge Date and Time
Print Language: AZERI
[2023-10-08] VITALS (8 sets, daily range): BP systolic 91–129; BP diastolic 50–64; BMI 27.3
[2023-10-08 00:13] LABS: % Basophils 0.3 % (0-2); % Eosinophils 1.1 % (0-6); % Immature Granulocytes 1.1 % (0-0.5); % Lymphocytes 6.3 % (20.5-51.1); % Monocytes 8.7 % (1.7-9.3); % Neutrophils 82.5 % (42.2-75.2); Absolute Eosinophils 0.2 10^3/uL (0-0.7); Absolute Immature Granulocytes 0.1 10^3/uL (0-0.05); Absolute Lymphocytes 0.8 10^3/uL (1.2-3.4); Absolute Monocytes 1.1 10^3/uL (0.1-0.6); Absolute Neutrophils 10.8 10^3/uL (1.4-6.5); Hemoglobin 11.4 g/dL (12.0-16.0); Mean Corp Hgb Conc. 32.6 g/dL (33.0-37.0); Mean Corpuscular Hgb 29.8 pg (27.0-31.0); Mean Corpuscular Volume 91.4 fL (81.0-99.0); Mean Platelet Volume 8.7 fL (7.4-10.4); Nucleated Red Blood Cells % 0 %; Platelet Count 424 10^3/uL (130-400); Red Blood Cell Count 3.83 10^6/uL (4.20-5.40); Red Cell Dist. Width 13.1 % (11.5-14.5); White Blood Cell Count 13.1 10^3/uL (4.8-10.8)
[2023-10-08 00:24] LABS: ALT (SGPT) 12 U/L (0-35); AST (SGOT) 17 U/L (14-36); Albumin 3.3 g/dl (3.5-5.0); Alkaline Phosphatase 97 U/L (38-126); Blood Urea Nitrogen 37 mg/dl (7-17); Calcium 9.9 mg/dl (8.4-10.2); Carbon Dioxide 23 mmol/L (22-30); Chloride 99 mmol/L (98-107); Estimated Creatinine Clearance 25 ml/min; Glucose 123 mg/dl (70-99); Potassium 4.8 mmol/L (3.5-5.1); Sodium 134 mmol/L (135-145); Total Bilirubin 0.7 mg/dl (0.2-1.3); Total Protein 6.2 g/dl (6.3-8.2); eGFR 30.13
[2023-10-08] MEDS: TYLENOL 1000 MG PO (00:25)
[2023-10-08 01:52] LABS: Urine Albumin 3+ (Neg - Trace); Urine Bilirubin Negative (Negative); Urine Character Very Cloudy (Clear); Urine Color Yellow; Urine Glucose Negative (Negative); Urine Ketone Trace (Negative); Urine Leukocyte 2+ (Negative); Urine Nitrite Negative (Negative); Urine Occult Blood 2+ (Negative); Urine Urobilinogen Negative (Neg - 1+)
[2023-10-08 01:58] LABS: Urine Amorphous Seen; Urine Squamous Cell 0-2 /LPF (Few)
[2023-10-08 01:59] LABS: Urine Bacteria Many (Negative); Urine Red Blood Cell 16-20 /HPF (0-2); Urine White Cell >100 /HPF (0-5)
[2023-10-08 02:03] LABS: Lactic Acid 1.1 mmol/L (0.7-2.0)
[2023-10-08] MEDS: NSS 1000 IV (02:23)
[2023-10-08] MEDS: ZOSYN 50 IV (02:26)
--- NOTE | 2023-10-08 02:55 | HPS.HSE ---
Family Physician
-
Family Physician: aHng Charles
Chief Complaint
-
Right knee pain
History of Present Illness
This is an 78-year-old female with a past medical history significant for hypertension, hypothyroidism, major depressive disorder, SIADH, history of B-cell lymphoma, unspecified dementia who presents to the emergency department with right knee pain.
Patient was previously discharged from the hospital last month for her ESBL E. coli bacteremia and urinary tract infection. She was discharged back to her independent presents here/assisted living environment where she stays with her spouse.
During the last admission the patient was felt to have toxic metabolic encephalopathy secondary to infection or inadvertent intake of spouse's medication. Since her discharge patient had a fall about a week ago which her right knee injury. She had
a CT scan of the head at the outpatient facility which was negative. She may have eat her head. However patient continued to complain of right knee pain and was brought to the emergency department today.
On questioning the patient denied other symptoms. She specifically denies any abdominal pain, flank pain, dysuria, urinary incontinence frequency or urgency. She denies any nausea or vomiting. She denies any diarrhea. She does report
significantly decreased appetite and low p.o. intake. She denies any dysphagia odynophagia or regurgitation. She reports that she is taking her medications as prescribed.
On arrival in the ED the patient patient blood pressure was 95/55, pulse 83, oxygen saturation 97% on room air. She was afebrile and in no acute distress. She was found to have a leukocytosis to 13,000 with baseline hemoglobin and platelet count
unchanged. Chemistries were notable for a sodium of 134 BUN of 37 and creatinine of 1.7. Lactic acid was negative. Urinalysis was positive similar to prior.
Patient had a CT of the abdomen and pelvis due to the elevated creatinine. CT shows acute mild uncomplicated sigmoid diverticulitis moderate left hydronephrosis with positive. There was no nephrolithiasis. The xray of the knee was unremarkable.
Medical History
Past Medical History
Past Medical History: Reports Dementia, HTN and Hypothyroidism
Past Surgical History: Reports None
Social History
Tobacco: Non-smoker
Alcohol: None
Drug: None
Personal:
Living: Assisted Living
Employment: Retired
Family History
Family History: Not pertinent
Allergies / Home Medications
Allergies reflects when Allergies were last updated in [facility].
Home Medications with original date entered in [facility]
Allergy/Medication List:
Allergies
Allergy/AdvReac Type Severity Reaction Status Date / Time
No Known Allergies Allergy Verified 09/15/21 18:27
Home Medications
furosemide 20 mg tablet 20 mg PO DAILY #30 tabs 06/14/21
paroxetine HCl 20 mg tablet 20 mg PO DAILY Depression 09/15/21
enalapril maleate 10 mg tablet 20 mg (2 x 10 mg) PO BID #0 tabs 11/21/22
nifedipine 30 mg tablet,extended release 30 mg PO DAILY 30 days #30 tabs 08/08/23
guaifenesin 10 ml PO Q4H 10/08/23
levothyroxine 50 mcg tablet 50 mcg PO DAILY 10/08/23
loperamide 2 mg PO Q12H PRN diarrhea 10/08/23
nystatin 1 applic topical Q8H PRN jessica rash 10/08/23
quetiapine 25 mg tablet 25 mg PO BID 10/08/23
Review of Systems
-
History Source: Patient
Constitutional: Reports No Symptoms
EENT: Reports No Symptoms
Respiratory: Reports No Symptoms
Cardiac: Reports No Symptoms
Abdomen/GI: Reports Anorexia
: Reports No Symptoms
Musculoskeletal: Reports Joint Pain
Skin: Reports No Symptoms
Neurological: Reports No Symptoms
Endocrine: Reports No Symptoms
Psych: Reports No Symptoms
Physical Exam
Vital Signs
Vital Signs
Temp Pulse Resp BP Pulse Ox
97.5 F 83 20 95/55 97
10/07/23 22:27 10/08/23 01:56 10/08/23 01:56 10/08/23 01:56 10/08/23 01:56
Physical Exam
General: Appears in Distress and Poor Appetite
HEENT: NormoCephalic, Anicteric, Moist mucous membranes, Atraumatic and PERRLA
Respiratory: Clear
Cardiac: S1/S2 and Regular Rhythm
Breast: Deferred by me
GI: Soft, Non Distended and Normal Bowel Sounds
Rectal: Deferred by Provider
Genito-urinary: Turbid Urine
Musculoskeletal: No Clubbing, No Cyanosis and No Edema
Skin: Warm and Dry
Neuro: AO x 3
Hematologic/Lymphatic: No Lymphadenopathy
Psych: Calm and Intact Judgment/Insight
Laboratory Results
-
10/07/23 23:59
10/07/23 23:59
Laboratory Results
Lactic Acid 1.1 mmol/L (0.7-2.0) 10/08/23 01:43
Total Bilirubin 0.7 mg/dl (0.2-1.3) 10/07/23 23:59
AST 17 U/L (14-36) 10/07/23 23:59
ALT 12 U/L (0-35) 10/07/23 23:59
Alkaline Phosphatase 97 U/L (38-126) 10/07/23 23:59
Data Reviewed
-
Diagnostic Radiology: Report Reviewed by me
CT Scan: Report Reviewed by me
Lab Data: Labs Reviewed by me
Old Records: Reviewed
Impression/Plan
-
IMPRESSION:
PAtient with h/o mild dementia, hypertension, hypothyoidism, SIADH (?), recently admitted with E.coli ESBL bacteremia from urinary source presents to ED 1 week after a mechanical fall at the assisted living for continued knee pain. ED evaluation
showed she had leukocytosis, +u/a and LYN with softer BP than baseline. Her knee evaluation shows no acute fracture, dislocation or effusion. She was treated for presumed sepsis without shock given + u/a, h/o E coli bacteremia and LYN. She also
had a CT a/p w/o contrast to evaluate the LYN and was found to have a moderate left sided hydronephrosis w/o nephrolithiasis.
PLAN:
1. Sepsis - She has leukocytosis, +/u/a and a CT scan with diverticulitis. Clinically the patient does not appear to have any infection. She has no abdominal pain, flank pain, dysuria, frequency, diarrhea, fevers or chills. No knee swelling to
suggest inflammatory or infectious arthritis. Her u/a has been positive on all prior collections and may reflect colonization. The CT scan is non-contrast and is not ideal to diagnose diverticulitis. Without clinical correlation this finding is
unlikely diverticulitis. Neopit was interpreted as perhaps pyelo. Though BP lower than previous she is not hypotensive. She reports decreased po intake due to poor appetite.
- admit to med/surg
- blood and urine cultures sent
- obtain procalcitonin
- hold futher antibiotics at this time
- ID consultation
2. LYN - Cr 1.7, baseline is around 0.8. The creatinine was already 1.7 on 09/19 and is not new. Patient asked to hold ACEI durin last discharge but she has continued with this medication. Further, there is possibly a left hydro and lower bp
compared to baseline. Denies any NSAIDs. Multifactorial LYN likely due to compromised renal hemodynamics vs post renal. Non-oliguric
- hold enalapril and furosemide for now
- avoid nephrotoxins
- nephrology consultation regarding eval for the left hydro
3. Hypotension - BP 95/55. Prior values in the (130 - 150) / (60 - 70) range on 2 meds. Could be relatively hypotensive. Patient also has decreased intake.
- holding enalapril and furosemide for now, allow sbp > 110
- hold nifedipine in am
4. Hyponatremia - Na 134. This is improved from prior. Monitoring for now. She requires her SSRI and 2nd gen antipsychotics which will be continued for now.
DVT PPX - heparin sq
Code status - patent states full code.
[2023-10-08] MEDS: SYNTHROID 50 MCG PO (05:39)
--- NOTE | 2023-10-08 05:53 | W.PN.HOSP.TC ---
Today's Communication/Plan
-
Antibiotics
monitor renal function
Psych Eval
Urology Eval
monitor blood pressure
follow cultures
Eventual PT/OT eval
Assessment / Plan
Assessment / Plan
Refusing Physical Exam Agitated, AOX3 but confused, reporting being here 30 days despite being admitted yesterday.
78F Dementia, HTN, Hypothyroidism, SIADH, recently admitted with E.coli ESBL bacteremia from urinary source presents to ED 1 week after a mechanical fall at [facility] for continued knee pain. ED evaluation showed she had leukocytosis,
+u/a and LYN with softer BP than baseline. Per reports, knee evaluation showed no acute fracture, dislocation or effusion. She was treated for presumed sepsis without shock given + u/a, h/o E coli bacteremia and LYN. She also had a CT a/p w/o
contrast to evaluate LYN and was found to have a moderate left sided hydronephrosis w/o nephrolithiasis.
PLAN:
#Possible Sepsis POA UTI/pyelonephritis
- follow blood and urine cultures NGTD
- procalcitonin elevated
- received empiric zosyn in ED
- ID consult appreciated initially Ertapenem daily x3 recommended however patient later agitated refusing exam/treatment unlikely to accept midline. Fosfomycin once ordered instead
#Right Knee Pain
reportedly progressive for past week
Knee XR appreciated:
No acute osseous or articular abnormality is appreciated.
Unchanged severe tricompartmental osteoarthritis with small suprapatellar joint effusion.
Patient currently denies pain
# LYN - Cr 1.7, possible baseline 0.8. The creatinine was already 1.7 on 09/19 and is not new. P
#left Mild Moderate Hydronephrosis no obstructing lesion/calculi noted
patient asked to hold ACEI during last discharge but she has continued with this medication.
Denies any NSAIDs. Multifactorial LYN likely due to compromised renal hemodynamics vs post renal. Non-oliguric
- hold enalapril and furosemide for now
- avoid nephrotoxins
- nephrology consult appreciated
- urology eval requested
# Relative hypotension low 91/50 since improved with hold home enalapril furosemide nifedipine
cont ot monitor
# Mild Hyponatremia nonsignificant at this time
#Dementia with behavioral disturbances
#MDD
Home Paxil 20 mg daily
recently had Seroquel 25mg increased to BID per Daughter KUSUM Zuniga
Continuing home Seroquel
Patient requesting to leave but capacity questionable
Though AOx3 patient exhibits significant confusion, reporting being here 30 days despite having been admitted yesterday
Psych Eval requested
Discussed with daughter KUSUM Zuniga who is in favor of patient staying to complete treatment/workup (daughter shares decision making with patient's Amrit)
DVT PPX - heparin sq
Full Code
Discussed with patient and patient's daughter KUSUM Zuniga
I spent a total of 58 minutes with the patient or on the floor. More than 50% of this time involved counseling and coordination of care.
Anticipated Discharge: Today
Subjective/Interval History
-
Date of Service: October 08, 2023
Seen and at bedside AOx3 agitated asking to leave. Seems confused however reports being here for 30 days though patient was admitted yesterday. Refusing physical exam. Denies any pain at this time.
Objective Data
-
Labs:
Laboratory Results
10/07/23 10/08/23
23:59 06:00
WBC 13.1 H Pending
Hgb 11.4 L Pending
Hct 35.0 L Pending
Plt Count 424 H Pending
Sodium 134 L Pending
Potassium 4.8 Pending
Chloride 99 Pending
Carbon Dioxide 23 Pending
BUN 37 H Pending
Creatinine 1.7 H Pending
Glucose 123 H Pending
Calcium 9.9 Pending
Total Bilirubin 0.7
AST 17
ALT 12
Alkaline Phosphatase 97
Vital Signs:
Vital Signs
Temp Pulse Resp BP Pulse Ox
97.8 F 90 20 115/57 95
10/08/23 05:15 10/08/23 05:15 10/08/23 05:15 10/08/23 05:15 10/08/23 05:25
I&O
10/06/23 10/07/23 10/08/23
06:59 06:59 06:59
Intake Total 1000 / 1000
Balance 1000 / 1000
[2023-10-08 07:27] LABS: Hematocrit 27.8 % (37.0-47.0); Hemoglobin 9.1 g/dL (12.0-16.0); Mean Corp Hgb Conc. 32.7 g/dL (33.0-37.0); Mean Corpuscular Hgb 29.6 pg (27.0-31.0); Mean Corpuscular Volume 90.6 fL (81.0-99.0); Mean Platelet Volume 8.8 fL (7.4-10.4); Platelet Count 334 10^3/uL (130-400); Red Blood Cell Count 3.07 10^6/uL (4.20-5.40); Red Cell Dist. Width 13.2 % (11.5-14.5); White Blood Cell Count 9.3 10^3/uL (4.8-10.8)
[2023-10-08 07:41] LABS: Procalcitonin 0.32 ng/ml (0.0-0.25)
[2023-10-08 07:49] LABS: Blood Urea Nitrogen 33 mg/dl (7-17); Calcium 8.7 mg/dl (8.4-10.2); Carbon Dioxide 20 mmol/L (22-30); Chloride 102 mmol/L (98-107); Estimated Creatinine Clearance 26 ml/min; Glucose 98 mg/dl (70-99); Potassium 4.1 mmol/L (3.5-5.1); Sodium 133 mmol/L (135-145)
[2023-10-08] MEDS: PAXIL 20 MG PO (08:15)
[2023-10-08] MEDS: ROBITUSSIN 10 MG PO ×4 (08:16→20:22)
[2023-10-08] MEDS: HEPARIN SC ×2 (08:18→15:12)
[2023-10-08] MEDS: SEROQUEL 25 MG PO ×2 (08:19→20:23)
--- NOTE | 2023-10-08 10:47 | CON.ID ---
Addendum entered and electronically signed by Arcelia Bhatia MD 10/08/23 14:42:
No abdominal pain
requesting discharge
adjusted plan: fosfomycin x1 which will be a full course of rx
Original Note:
Consultation
-
Date/Time Consultation Requested: 10/08/23 5:02
Date/Time Consultation Performed: 10/08/23 11:07
Requesting Provider: Dr Guevara
Performing Provider: Dr Bhatia
Reason for Consultation: pyuria/bacteruria, h/o ESBL E.coli
Chief Complaint / Past History
Chief Complaint
right knee pain
History of Present Illness
Ms Walker is an 78 year old female with history of B cell lymphoma, dementia presenting here for right knee pain. Of note had a fall about 1 week ago with right knee injury. She specifically denies any abdominal pain, flank pain, dysuria, urinary
incontinence frequency or urgency. No nausea, vomiting or diarrhea. + Poor appetite.
Since admission she has been afebrile, bp initially mildly hypotensive now stable, WBC initially 13 now 9.3, hgb 9.1, plt 334 down from 424, L shift was noted on arrival, Cr 1.6 similar to 09/18, UA >100 wbc/hpf and many bacteria, no live on
arrival. Ct a/p without oral or IV contrast: L hydronephrosis, diverticulosis possible mild diverticulitis, 10/06 knee xray: Unchanged severe tricompartmental osteoarthritis with small suprapatellar joint effusion.
Past History
Additional Past Medical History:
Dementia, HTN and Hypothyroidism
Past Surgical History: None
Allergy History:
No Known Allergies Allergy (Verified 09/15/21 18:27)
Medications Reviewed: Yes
Social History
Tobacco: Non-Smoker
Alcohol: None
Drug: None
Family History
Family History: Not Pertinent
Review of Systems
Review of Systems
General: Negative Fever or Chills
All systems: All other systems were reviewed and were negative
Vital Signs
Temp Pulse Resp BP Pulse Ox
98.2 F 85 16 106/58 98
10/08/23 08:33 10/08/23 08:33 10/08/23 08:33 10/08/23 08:33 10/08/23 08:33
Physical Exam
Physical Exam
Constitutional: No Acute Distress
Cardiovascular: Regular Rate and S1/S2; Negative Murmur or Rub
Pulmonary: Clear and Symmetric; Negative Wheezes, Rales or Rhonchi
Gastrointestinal: Soft, Non Tender, Non Distended and Normal Bowel Sounds
Skin: Warm and Dry; Negative Rash or Jaundice
Lab / Diagnostic Study Results
10/08/23 06:35
10/08/23 06:35
Abs Immat Gran (auto) 0.1 10^3/uL (0-0.05) H 10/07/23 23:59
Absolute Neuts (auto) 10.8 10^3/uL (1.4-6.5) H 10/07/23 23:59
Absolute Lymphs (auto) 0.8 10^3/uL (1.2-3.4) L 10/07/23 23:59
Absolute Monos (auto) 1.1 10^3/uL (0.1-0.6) H 10/07/23 23:59
Absolute Basos (auto) 0.0 10^3/uL (0-0.2) 10/07/23 23:59
Immature Gran % 1.1 % (0-0.5) H 10/07/23 23:59
Neutrophils % 82.5 % (42.2-75.2) H 10/07/23 23:59
Lymphocytes % 6.3 % (20.5-51.1) L 10/07/23 23:59
Monocytes % 8.7 % (1.7-9.3) 10/07/23 23:59
Eosinophils % 1.1 % (0-6) 10/07/23 23:59
Basophils % 0.3 % (0-2) 10/07/23 23:59
Lactic Acid 1.1 mmol/L (0.7-2.0) 10/08/23 01:43
Procalcitonin 0.32 ng/ml (0.0-0.25) H 10/08/23 06:35
Ur Squamous Epith Cells 0-2 /LPF (Few) 10/08/23 01:43
Microbiology Results
Micro:
10/08/23 02:18 Blood Culture - Pending
Blood/Venous
10/08/23 01:43 Urine Culture - Pending
Urine
10/08/23 01:43 Blood Culture - Pending
Blood/Venous
Assessment / Plan
UTI vs Asymptomatic Bacturia
Questionable diverticulitis
CKD
Dementia
- leukocytosis resolved
- CT is not consistent with pyelonephritis in my opinion - there is no stranding around the kidney
- start ertapenem tentatively x3 days
- probiotics while on ertapenem
- contact precautions
- has bowel regimen - in my opinion looks impacted on CT; nursing to record BMs
- if dc is planned, a midline could be placed and she could complete the antibiotics at her facility
[2023-10-08] MEDS: VISBIOME 2 CAP PO (13:45)
--- NOTE | 2023-10-08 14:18 | W.CON.NEPH ---
Consultation
-
Date/Time Consultation Requested: 10/08/2023 5:02AM
Date/Time Consultation Performed: 10/08/2023 2:19PM
Requesting Provider: Mary Allison
Performing Provider: No Murillo
Reason for Consultation: LYN
Medical History
-
Chief Complaint: LYN
History of Present Illness:
Ms. Walker is a 78YOF with PMH of hypertension, hypothryoidism, MDD, SIADH, B-cell lymphoma and dementia who presents to the hospital with R knee pain.
Patient has advanced dementia and refuses to cooperate with my interview. History is obtained from chart review. The patient was recently discharged from the hospital after ESBL E.coli bacteremia and pyelonephritis. She was discharged back to her
assisted living facility. Since her discharge, she had a fall and came in for R knee pain. On arrival in the ED the patient patient blood pressure was 95/55, pulse 83, oxygen saturation 97% on room air. She was afebrile and in no acute distress.
She was found to have a leukocytosis to 13,000 with baseline hemoglobin and platelet count unchanged. Chemistries were notable for a sodium of 134 BUN of 37 and creatinine of 1.7. Lactic acid was negative. Urinalysis was positive similar to
prior. Patient had a CT of the abdomen and pelvis due to the elevated creatinine. CT shows acute mild uncomplicated sigmoid diverticulitis moderate left hydronephrosis with positive. There was no nephrolithiasis. The xray of the knee was
unremarkable.
Past Medical History
hypertension
hypothryoidism
MDD,
SIADH
B-cell lymphoma
dementia
Past Medical History: Other
Past Surgical History: None
Social History
Tobacco: Non-Smoker
Alcohol: None
Drug: None
Personal:
Living: Assisted Living
Family History
Family History: Not Pertinent
Allergies / Home Medications
Allergy/AdvReac Type Severity Reaction Status Date / Time
No Known Allergies Allergy Verified 09/15/21 18:27
�Medication �Instructions �Recorded �Confirmed �Type
furosemide 20 mg tablet 20 mg PO DAILY #30 tabs 06/14/21 10/08/23 Rx
paroxetine HCl 20 mg tablet 20 mg PO DAILY Depression 09/15/21 10/08/23 History
enalapril maleate 10 mg tablet 20 mg (2 x 10 mg) PO BID #0 tabs 11/21/22 10/08/23 Rx
nifedipine 30 mg tablet,extended 30 mg PO DAILY 30 days #30 tabs 08/08/23 10/08/23 Rx
release
guaifenesin 10 ml PO Q4H Congestion 10/08/23 10/08/23 History
levothyroxine 50 mcg tablet 50 mcg PO DAILY Thyroid 10/08/23 10/08/23 History
loperamide 2 mg PO Q12H PRN diarrhea 10/08/23 10/08/23 History
nystatin 1 applic topical Q8H PRN jessica rash 10/08/23 10/08/23 History
quetiapine 25 mg tablet 25 mg PO BID Depression 10/08/23 10/08/23 History
Physical Exam
Vital Signs
Vital Signs
Temp Pulse Resp BP Pulse Ox
98.2 F 85 16 106/58 98
10/08/23 08:33 10/08/23 08:33 10/08/23 08:33 10/08/23 08:33 10/08/23 10:48
Lab Results
WBC 9.3 10^3/uL (4.8-10.8) 10/08/23 06:35
RBC 3.07 10^6/uL (4.20-5.40) L 10/08/23 06:35
Hgb 9.1 g/dL (12.0-16.0) L D 10/08/23 06:35
Hct 27.8 % (37.0-47.0) L 10/08/23 06:35
Plt Count 334 10^3/uL (130-400) D 10/08/23 06:35
Sodium 133 mmol/L (135-145) L 10/08/23 06:35
Potassium 4.1 mmol/L (3.5-5.1) 10/08/23 06:35
Chloride 102 mmol/L (98-107) 10/08/23 06:35
Carbon Dioxide 20 mmol/L (22-30) L 10/08/23 06:35
BUN 33 mg/dl (7-17) H 10/08/23 06:35
Creatinine 1.6 mg/dL (0.6-1.0) H 10/08/23 06:35
eGFR 32.40 10/08/23 06:35
Glucose 98 mg/dl (70-99) 10/08/23 06:35
Calcium 8.7 mg/dl (8.4-10.2) 10/08/23 06:35
Albumin 3.3 g/dl (3.5-5.0) L 10/07/23 23:59
Physical Exam
General: Awake and Alert
HEENT: PERRL, EOMI, Anicteric and Conjunctivae Clear
Respiratory: Nonlabored Respirations
Breast: N/A
Skin: No Rash
Neuro: Nonfocal/Grossly Intact
Psych: Other (dementia, agitated easily)
Data Reviewed
-
CT Scan: Report Reviewed by me (L hydronephrosis and proximal hydroureter)
Ultrasound: Report Reviewed by me
Labs: Labs Reviewed by me and Discussed with Physician
Old Records: Reviewed
Assessment/Plan
-
Assessment:
LYN
L hydronephrosis and proximal hydroureter
c/f sepsis (?pyelonephritis)
Demenia
Plan:
LYN
- patient with dirty UA --> being treated with ertapenem currently
- obtain urine eosinophils (although no peripheral eosinophilia so unlikely to be AIN)
- will obtain complements to r/o infectious GN
- most likely in the setting of ATN.
- noted to have L sided hydro (not seen on prior ultrasound). i do not think this is contributing to her kidney function as single sided hydro should not decrease kidney function. if there is no improvement, could consider nuc med scan
- continue to trend BMPs, UOP
- avoid further nephrotoxins
[2023-10-08] MEDS: MONUROL 3 GM PO (15:18)
[2023-10-08 16:16] LABS: Complement C3 125 mg/dl (88-165)
--- NOTE | 2023-10-08 16:29 | CS.PSYCHR ---
Consult Summary - Psychiatry
-
Pt is 78 yo female with history of dementia, admitted after fall with Rt knee injury, found to have probable UTI. Psychiatry asked to evaluate capacity for disposition decisions, since pt demanding to leave, stating she has been here for an
extended time, although just admitted last night. Reviewed with nursing staff, who reports pt easily agitated/combative with attempts at touch/care. Pt reportedly very unsteady on her feet/with transfers. On interview, pt reluctantly agreed to
talk, then quickly became verbally agitated, stating she should have been out of here an hour ago. Pt states she prefers to be home, is tired of everything/being in the hospital. Pt able to recall previous admission was in July (2 months ago),
not able to give any details. Pt not able to discuss why she is here or her recommended medical treatment. Pt denies there is any risk to leaving or need to stay for work-up/treatment. Pt did take established Paxil and Seroquel this morning.
Psych Hx: dementia, Rx'd Paxil 20 mg QD and Seroquel 25 mg BID. No other hx available
SH: resides in independent living in Assisted living facility with . Dtr is noted to be POA, sharing decision-making with pt's
MSE: alert, basically oriented, though not to situation. Speech coherent, thought goal-directed. Affect irritable/labile, mood 'annoyed'. No delusions or hallucinations evident. Insight/judgement appear impaired. Sensorium appears intact
Imp: Pt appears to lack capacity for medical or disposition decisions. Although she expresses her wish to leave, she is not able to show understanding of possible risks/consequences, is not able to give a logical rationale
Dementia with agitation, R/o superimposed delirium
Rec: Involve and dtr-POA in decision-making
Continue existing Paxil and Seroquel
will add Ativan prn for agitation/anxiety
will follow
--- NOTE | 2023-10-08 16:30 | CM ---
Initial assessment completed with daughter Nadia. Patient recently moved from home with her to [facility]. Nadia and patient's are POA's. Patient uses a RW and occasionally a wheelchair. She requires assistance with ADl's. She
and frequently refuses care and hygiene because she does not believe she needs assistance. [facility] delivers medications and personal PCP is Dr. Dk Singh. Anticipate return to [facility]: SNF vs .
--- NOTE | 2023-10-08 16:45 | CON.MD ---
Consultation - Medical
-
see dictated not
pt not cooperative with interview- says she does not want any more doctors/anything done/wants to go home- but does deny any problems urinating or left flank pain
recent admit with ams/esbl uti
treated with antibx and discharged
cr at time of discharge was 1.6- above baseline of 1
had u/s at time of last admit- no hydro
readmitted with knee pain
no urinary complaints/no fevers/cr still elevated
ua +
ct scan performed- now with left hydro and dilated ureter down to level of mid ureter with no obvious mass or stone
plan
i spoke to daughter at bedside- current family dispo is for continued aggressive care- despite her dementia and refusal of any intervention
did review next step would be in 48-72hrs- cysto/retrograde/ureteroscopy and stent
they are asking for a psych eval
will follow
if intervention requested- would like perform on
[2023-10-09] MEDS: HEPARIN 5000 UNITS SC ×2 (00:02→23:36)
[2023-10-09] MEDS: ROBITUSSIN 10 MG PO ×7 (00:03→23:36)
[2023-10-09] MEDS: SYNTHROID 50 MCG PO (06:13)
[2023-10-09 06:58] LABS: Hematocrit 29.6 % (37.0-47.0); Hemoglobin 9.8 g/dL (12.0-16.0); Mean Corp Hgb Conc. 33.1 g/dL (33.0-37.0); Mean Corpuscular Hgb 29.7 pg (27.0-31.0); Mean Corpuscular Volume 89.7 fL (81.0-99.0); Mean Platelet Volume 8.7 fL (7.4-10.4); Platelet Count 366 10^3/uL (130-400); Red Cell Dist. Width 13.1 % (11.5-14.5); White Blood Cell Count 7.5 10^3/uL (4.8-10.8)
[2023-10-09 07:00] VITALS: BP 128/65
[2023-10-09 07:01] LABS: Blood Urea Nitrogen 26 mg/dl (7-17); Calcium 9.3 mg/dl (8.4-10.2); Carbon Dioxide 20 mmol/L (22-30); Chloride 103 mmol/L (98-107); Estimated Creatinine Clearance 38 ml/min; Glucose 72 mg/dl (70-99); Magnesium 1.6 mg/dl (1.6-2.3); Phosphorus 2.9 mg/dl (2.5-4.5); Potassium 4.4 mmol/L (3.5-5.1); Sodium 134 mmol/L (135-145)
--- NOTE | 2023-10-09 07:31 | W.PN.HOSP.TC ---
Addendum entered and electronically signed by Sary Grossman MD 10/10/23 07:18:
[employer]ishing Supervisor inez appreciated
#Per ASPEN/AND guidelines, pt meets for moderate malnutrition present on admission in the context of
#...chronic illness as evidenced by <75% intake est needs x > 1 month,
#...8.2% weight loss x < 3 months, mild muscle loss.
Original Note:
Today's Communication/Plan
-
monitor renal function
monitor off abx
potential urogram tomorrow, tentatively planned for cystoscopy Thurs
prn ativan
PT/OT
Assessment / Plan
Assessment / Plan
Refusing Physical Exam sundowning though appears calm comfortable at this time
78F Dementia, HTN, Hypothyroidism, SIADH, recently admitted with E.coli ESBL bacteremia from urinary source presents to ED 1 week after a mechanical fall at [facility] for continued knee pain. ED evaluation showed she had leukocytosis,
+u/a and LYN with softer BP than baseline. Per reports, knee evaluation showed no acute fracture, dislocation or effusion. She was treated for presumed sepsis without shock given + u/a, h/o E coli bacteremia and LYN. She also had a CT a/p w/o
contrast to evaluate LYN and was found to have a moderate left sided hydronephrosis w/o nephrolithiasis.
PLAN:
#Possible Sepsis POA UTI/pyelonephritis
- follow blood and urine cultures NGTD
- procalcitonin elevated
- received empiric zosyn in ED
- ID consult appreciated initially Ertapenem daily x3 recommended however patient later agitated refusing exam/treatment unlikely to accept midline. Fosfomycin once ordered instead, patient received without issues.
#Right Knee Pain
reportedly progressive for past week
Knee XR appreciated:
No acute osseous or articular abnormality is appreciated.
Unchanged severe tricompartmental osteoarthritis with small suprapatellar joint effusion.
Patient currently denies pain
# LYN - Cr 1.7, possible baseline 0.8. The creatinine was already 1.7 on 09/19 and is not new. P
#left Mild Moderate Hydronephrosis no obstructing lesion/calculi noted
patient asked to hold ACEI during last discharge but she has continued with this medication.
Denies any NSAIDs. Multifactorial LYN likely due to compromised renal hemodynamics vs post renal. Non-oliguric
- hold enalapril and furosemide for now
- avoid nephrotoxins
- nephrology consult appreciated
-kidney function improving
- urology eval appreciated planned for urogram Wed/tomorrow if Cr normalizes possible OR cystoscopy Thurs
# Relative hypotension low 91/50 since improved with hold home enalapril furosemide nifedipine
cont ot monitor
BP since improved stable at goal w/o above antihypertensives, will cont to monitor off for now
# Mild Hyponatremia nonsignificant at this time
#Dementia with behavioral disturbances
#MDD
Home Paxil 20 mg daily
recently had Seroquel 25mg increased to BID per Daughter KUSUM Zuniga
Continuing home Seroquel
Psych Eval appreciated patient does not have capacity to make medical decisions for herself at this time. ativan prn agitation/anxiety
Discussed with daughter KUSUM Zuniga who is in favor of patient staying to complete treatment/workup (daughter shares decision making with patient's Amrit)
DVT PPX - heparin sq
Full Code
Discussed patient's daughter KUSUM Zuniga who shares decision making with patient's
I spent a total of 58 minutes with the patient or on the floor. More than 50% of this time involved counseling and coordination of care.
Anticipated Discharge: 24 - 48 hours
Subjective/Interval History
-
Date of Service: October 09, 2023
owning uncooperative to exam. otherwise no acute distress appears comfortable at this time.
Objective Data
-
Labs:
Laboratory Results
10/09/23
05:14
WBC 7.5
Hgb 9.8 L
Hct 29.6 L
Plt Count 366
Sodium 134 L
Potassium 4.4
Chloride 103
Carbon Dioxide 20 L
BUN 26 H
Creatinine 1.1 H
Glucose 72
Calcium 9.3
Vital Signs:
Vital Signs
Temp Pulse Resp BP Pulse Ox
99.4 F 94 16 118/64 98
10/08/23 23:52 10/08/23 23:52 10/08/23 23:52 10/08/23 23:52 10/08/23 23:52
I&O
10/08/23 10/09/23 10/10/23
06:59 06:59 06:59
Intake Total 1000 / 1000 360 / 360
Balance 1000 / 1000 360 / 360
--- NOTE | 2023-10-09 08:44 | W.PN.URO.CBU ---
Today's Communication / Plan
-
track cr
urogram tomorrow if cr normalized
possible OR if hydro persists/family desires
Assessment / Plan
-
left hydro
renal insuff- improving
esbl UTI- ucx pending
plan
difficult due to pt's dementia- but apparently family will now be making decisions
my plan- as cr is improving- would be to recehck tomorrow and if normalized- order urogram to better define obstruction and/or see if it has resolved
if hydro persists- would hold subq heparin and if family desires OR for cysto/retrograde/ureteroscopy and stent
Diagnosis
-
Date of Service: October 09, 2023
-
Patient Diagnosis:
hydro
UTI
renal insuff
Subjective
-
pt more cooperative this am
offers no complaints
af/wbc normal
cr down to 1.1
ucx pending
Objective
-
Vital Signs
Temp Pulse Resp BP Pulse Ox
99.6 F 89 18 128/65 93
10/09/23 07:00 10/09/23 07:00 10/09/23 07:00 10/09/23 07:00 10/09/23 07:00
Intake and Output
10/08/23 10/09/23 10/10/23
06:59 06:59 06:59
Intake Total 1000 / 1000 360 / 360
Balance 1000 / 1000 360 / 360
Intake:
Oral fluids 360 / 360
IV fluids (Total) 1000 / 1000
nss 1000 / 1000
Other:
How many times incontinent 3
SATURATED amount urine
Number of unmeasured liquid
stools
Rectum 3
Laboratory Results
10/09/23 05:14
10/09/23 05:14
Review of Systems
-
Unable to obtain full review of systems at this time due to: Other (no specific complaints)
Physical Exam
-
General - no acute distress
[2023-10-09] MEDS: VISBIOME 2 CAP PO (09:26)
[2023-10-09] MEDS: PAXIL 20 MG PO (09:27)
[2023-10-09] MEDS: HEPARIN SC ×2 (09:27→16:48)
[2023-10-09] MEDS: SEROQUEL 25 MG PO ×2 (09:27→19:45)
--- NOTE | 2023-10-09 10:29 | W.PN.ID1 ---
Addendum entered and electronically signed by Arcelia Bhatia MD 10/09/23 16:03:
In response to CDI:
sensitivities not yet resulted - ESBL suspected but not yet confirmed
Original Note:
Date of Service
Date of Service: October 09, 2023
Today's Communication
- s/p a dose of fosfomycin 5/13 after discussion with hospitalist that afternoon - this would be a full course of treatment for most uropathogens
- urine culture with 100K ecoli - sensi pending, likely ESBL based on last culture
Assessment / Plan
UTI vs Asymptomatic Bacturia
Questionable diverticulitis
LYN on CKD
Dementia
- s/p a dose of fosfomycin 5/13 after discussion with hospitalist that afternoon - this would be a full course of treatment for most uropathogens
- urine culture with 100K ecoli - sensi pending, likely ESBL based on last culture
- renal function improving
- note plans for possible cystoscopy
Chief Complaint
-: UTI
Subjective / Review of Systems
afebrile
bp stable
cr improved
note plans for possible cystogram
urine culture 100K ecoli
tolerating current therapies
Vital Signs / Physical Exam
Vital Signs
Vital Signs
Temp Pulse Resp BP Pulse Ox
99.6 F 89 18 128/65 93
10/09/23 07:00 10/09/23 07:00 10/09/23 07:00 10/09/23 07:00 10/09/23 10:22
Physical Exam
Constitutional: No Acute Distress
Cardiovascular: Regular Rate and S1/S2; Negative Murmur or Rub
Pulmonary: Clear and Symmetric; Negative Wheezes or Rales
Gastrointestinal: Soft, Non Tender, Non Distended and Normal Bowel Sounds
Skin: Warm and Dry; Negative Rash or Jaundice
Neurological: Negative Awake (not disturbed )
Objective Data
Lab Data
Lab Results
10/09/23 05:14
10/09/23 05:14
Estimated Creat Clear 38 ml/min 10/09/23 05:14
Lactic Acid 1.1 mmol/L (0.7-2.0) 10/08/23 01:43
Total Bilirubin 0.7 mg/dl (0.2-1.3) 10/07/23 23:59
AST 17 U/L (14-36) 10/07/23 23:59
ALT 12 U/L (0-35) 10/07/23 23:59
Alkaline Phosphatase 97 U/L (38-126) 10/07/23 23:59
Most recent labs reviewed.
Micro Results:
10/08/23 02:18 Blood Culture - Preliminary
Blood/Venous No Growth in 24 hours- Final report to follow
10/08/23 01:43 Blood Culture - Preliminary
Blood/Venous No Growth in 24 hours- Final report to follow
10/08/23 01:43 Urine Culture - Pending
Urine
--- NOTE | 2023-10-09 10:38 | W.PN.UPDATE ---
Update Note
Progress Note Update
Pt seen, alert, resting calmly in bed, states she feels okay, sensorium appears intact. No agitation at present, compliant with po medications. Urology involved for hydronephrosis, dilated ureter, plan for urogram and possible surgery.
Imp: Dementia with intermittent agitation, lacking capacity for medical and disposition decisions.
Rec: Continue existing Paxil and Seroquel, Ativan prn for agitation/anxiety. and dtr-POA for decision-making
will follow loosely
--- NOTE | 2023-10-09 13:30 | W.PN.NEPH.PH ---
Today's Communication / Plan
-
- sign off
Assessment/Plan
-
Assessment:
LYN
L hydronephrosis and proximal hydroureter
c/f sepsis (?pyelonephritis)
Demenia
Plan:
LYN
- patient with dirty UA --> being treated with ertapenem currently
- no peripheral eosinophilia so unlikely AIN
- complements normal so unlikely post infectious GN
- most likely in the setting of ATN and Cr now improving/back to baseline
- noted to have L sided hydro (not seen on prior ultrasound). i do not think this is contributing to her kidney function as single sided hydro should not decrease kidney function. her Cr is improved, does not need nuc med at this point. Per last
urology note, plan for repeat imaging and if hydro persists, planning for cysto/retregrade/ureteroscopy and stenting
- continue to trend BMPs, UOP
- avoid further nephrotoxins
Nephrology will sign off at this time
-
-
Date of Service: October 09, 2023
CC / HPI / ROS
-
Chief Complaint:
LYN
History of Present Illness:
LYN Cr up to 1.6 (bl around 0.8) now down to 1.1
hydro noted
Review of Systems:
severe dementia, more pleasant this AM
states she feels well and wants to leave
Labs
-
Labs:
WBC 7.5 10^3/uL (4.8-10.8) 10/09/23 05:14
RBC 3.30 10^6/uL (4.20-5.40) L 10/09/23 05:14
Hgb 9.8 g/dL (12.0-16.0) L 10/09/23 05:14
Hct 29.6 % (37.0-47.0) L 10/09/23 05:14
Plt Count 366 10^3/uL (130-400) 10/09/23 05:14
Sodium 134 mmol/L (135-145) L 10/09/23 05:14
Potassium 4.4 mmol/L (3.5-5.1) 10/09/23 05:14
Chloride 103 mmol/L (98-107) 10/09/23 05:14
Carbon Dioxide 20 mmol/L (22-30) L 10/09/23 05:14
BUN 26 mg/dl (7-17) H 10/09/23 05:14
Creatinine 1.1 mg/dL (0.6-1.0) H 10/09/23 05:14
eGFR 50.80 10/09/23 05:14
Glucose 72 mg/dl (70-99) 10/09/23 05:14
Calcium 9.3 mg/dl (8.4-10.2) 10/09/23 05:14
Phosphorus 2.9 mg/dl (2.5-4.5) 10/09/23 05:14
Albumin 3.3 g/dl (3.5-5.0) L 10/07/23 23:59
Physical Exam
-
Vital Signs:
Vital Signs
Temp Pulse Resp BP Pulse Ox
99.6 F 89 18 128/65 93
10/09/23 07:00 10/09/23 07:00 10/09/23 07:00 10/09/23 07:00 10/09/23 10:22
Cardiovascular:: Regular rate and rhythm
Respiratory:: Bilateral: Coarse
Lung Excursion:: Normal
Abdomen:: Nontender and Soft
Bowel Sounds:: Normal
Extremity Edema:: +1: Left: and +2: Right:
Aceves Catheter: No
--- NOTE | 2023-10-09 14:57 | PN.CDI ---
CDI
- -
CDI:
Physician Documentation Request
Admit Date: 10/08/23 08:09
Dear Doctor Chauncey,
Please review the following and provide your response in the progress notes.
Clinical Indicators:
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
#CBW: 169 lb 3 oz BMI 27.3 overweight range 10/07; 184 lb 3 oz 08/07; 180 lb 11/21.
#Significant 8.2% weight loss x 2 months.
#NFPE: pt appeared to have very mild muscle/fat loss
#...- unable to assess fully as pt demanded this RD leave her room.
#Per ASPEN/AND guidelines, pt meets for moderate malnutrition in the context of
#...chronic illness as evidenced by <75% intake est needs x > 1 month,
#...8.2% weight loss x < 3 months, mild muscle loss.
To ensure the quality of the medical record, based on the above information and the recognized standards for malnutrition , please verify in the progress notes which of the following responses best reflects the patient's nutritional status:
Moderate Malnutrition in the presence of chronic illness is/was present and is a clinical diagnosis (please provide additional support in the medical record)
Other level of malnutrition is present (Mild, Moderate or Severe)
Other (please specify)
[place] Criteria (ACP Hospitalist 2017)
2 or more criteria must be present for either
non severe or severe malnutrition
Note that the criteria differs related to the
presence of an acute or chronic illness
Chronic Illness
Energy Intake Non Severe: <75% for >1 month
Severe: <75% for >1 month
Weight Loss Non Severe: 5% over 1 month
7.5% over 3 months
10% over 6 months
20% over 1 year
Severe: >5% over 1 month
>7.5% over 3 months
>10% over 6 months
>20% over 1 year
Body Fat Non Severe: Mild Loss
Severe: Severe Loss
Muscle Mass Non Severe: Mild Loss
Severe: Severe Loss
Use of terms such as suspected, likely, concern for, or probable (associated with a specific diagnosis that is being evaluated, monitored, or treated as if it exists) are acceptable and can be coded in the inpatient setting, when documented at the
time of discharge.
Thank you,
Allison Duarte RN BSN CCDS
CDI Specialist
please contact via tiger text
Please use your independent medical judgment in providing your response.
--- NOTE | 2023-10-09 15:01 | CM ---
Addendum entered by Odilon Asif 10/09/23 15:03:
Refused PT/OT on this date.
Original Note:
Discharge Plan of Care: TBD after physical therapy recommendation.
--- NOTE | 2023-10-09 15:07 | PN.CDI ---
CDI
- -
CDI:
Physician Documentation Request
Admit Date: 10/08/23 08:09
Dear Doctor Sriram,
Please review the following and provide your response in the progress notes.
Clinical Indicators:
PN, 10/08
#UTI vs Asymptomatic Bacturia
#- s/p a dose of fosfomycin 10/07 after discussion with hospitalist that afternoon
#...- this would be a full course of treatment for most uropathogens
#- urine culture with 100K ecoli - sensi pending, likely ESBL based on last culture
#urine culture 100K ecoli
Based on the above, please clarify in the progress notes, the appropriate diagnosis, if significant, that supports the above abnormalities and additional evaluation, monitoring and/or treatment rendered:
-Resistance to beta-lactam antibiotics
-Specify if penicillins, cephalosporins, ESBL resistance, etc.
-Resistance to other single antibiotic
-Specify if sulfonamides, aminoglycosides, tetracyclines, etc.
-Resistance to multiple antibiotics
-Other (please specify)
Use of terms such as suspected, likely, concern for, or probable (associated with a specific diagnosis that is being evaluated, monitored, or treated as if it exists) are acceptable and can be coded in the inpatient setting, when documented at the
time of discharge.
Thank you,
Allison Duarte RN BSN CCDS
CDI Specialist
please contact via tiger text
Please use your independent medical judgment in providing your response.
[2023-10-09 15:45] VITALS: BP 136/73
[2023-10-09 23:05] VITALS: BP 133/69
--- NOTE | 2023-10-10 03:16 | DOWNTIME ---
There was a [employer] Client Line Helper Downtime on 10/09/2023 from 0100 to 10/10/2023 at 0300. Downtime documentation of patient's care, including medication administrations, has been reconciled in the electronic record per guidelines. Refer to the
patient's paper chart under the miscellaneous tab to see printed paper medication records and downtime forms.
[2023-10-10] MEDS: ROBITUSSIN 10 MG PO ×5 (04:51→20:56)
[2023-10-10] MEDS: SYNTHROID 50 MCG PO (04:52)
[2023-10-10 06:00] LABS: Hematocrit 28.9 % (37.0-47.0); Hemoglobin 9.6 g/dL (12.0-16.0); Mean Corp Hgb Conc. 33.2 g/dL (33.0-37.0); Mean Corpuscular Hgb 29.6 pg (27.0-31.0); Mean Corpuscular Volume 89.2 fL (81.0-99.0); Mean Platelet Volume 8.5 fL (7.4-10.4); Platelet Count 354 10^3/uL (130-400); Red Blood Cell Count 3.24 10^6/uL (4.20-5.40); Red Cell Dist. Width 13.1 % (11.5-14.5); White Blood Cell Count 7.6 10^3/uL (4.8-10.8)
[2023-10-10 06:28] LABS: Blood Urea Nitrogen 18 mg/dl (7-17); Calcium 9.4 mg/dl (8.4-10.2); Carbon Dioxide 20 mmol/L (22-30); Chloride 104 mmol/L (98-107); Estimated Creatinine Clearance 47 ml/min; Glucose 72 mg/dl (70-99); Magnesium 1.5 mg/dl (1.6-2.3); Phosphorus 3.2 mg/dl (2.5-4.5); Potassium 4.6 mmol/L (3.5-5.1); Sodium 133 mmol/L (135-145); eGFR > 60.00
[2023-10-10 07:00] VITALS: BP 122/74
--- NOTE | 2023-10-10 07:07 | W.PN.HOSP.TC ---
Today's Communication/Plan
-
abx as per ID
npo after midnight for cystoscopy stent placement with urology tomorrow
PT/OT
prn ativan
Assessment / Plan
Assessment / Plan
Physical Exam
General: No pallor, cyanosis, or jaundice.
HEENT: Throat clear. PERRLA Normocephalic atraumatic
NECK: Supple. No JVD Carotid Bruits
RESPIRATORY: Lungs clear to auscultation. No crackles wheezes stridor
CVS: S1, S2 normal. RRR. No murmur, rub or gallop.
ABDOMEN: Soft, No distension, decreased bowel sounds. Patient denies tenderness on palpitation of abdomen but appears to visibly wince during examination.
EXTREMITIES: LLE appears stronger with increased range of motion compared to RLE, RLE also appears slightly shorter compared to LLE (all baseline as per patient. CT of abd/pelvis obtained twice during this hospitalization no acute hip fracture noted)
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
78F Dementia, HTN, Hypothyroidism, SIADH, recently admitted with E.coli ESBL bacteremia from urinary source presents to ED 1 week after a mechanical fall at [facility] for continued knee pain. ED evaluation showed she had leukocytosis,
+u/a and LYN with softer BP than baseline. Per reports, knee evaluation showed no acute fracture, dislocation or effusion. She was treated for presumed sepsis without shock given + u/a, h/o E coli bacteremia and LYN. She also had a CT a/p w/o
contrast to evaluate LYN and was found to have a moderate left sided hydronephrosis w/o nephrolithiasis.
PLAN:
#Possible Sepsis POA UTI/pyelonephritis (white count elevation, Tachycardia)
- follow blood and urine cultures NGTD
- procalcitonin elevated
- received empiric zosyn in ED
-signs of possible sepsis white count elevation tachycardia resolved soon following admission empiric abx
- ID consult appreciated initially Ertapenem daily x3 recommended however patient later agitated refusing exam/treatment unlikely to accept midline. Fosfomycin once ordered instead, patient received without issues.
-abx were later restarted due to findings pyelonephritis diverticulitis sigmoid colon intramural abscess, possible intrarenal abscess, and stercoral colitis noted as below
#Right Knee Pain
reportedly progressive for past week
Knee XR appreciated:
No acute osseous or articular abnormality is appreciated.
Unchanged severe tricompartmental osteoarthritis with small suprapatellar joint effusion.
Patient currently denies pain
# LYN Cr 1.6 resolved
#left Mild Moderate Hydronephrosis no obstructing lesion/calculi noted
#Sigmoid colon diverticulitis intramural abscess
#Pyelonephritis possible developing intrarenal left lower pole kidney abscess
patient asked to hold ACEI during last discharge but she has continued with this medication.
Denies any NSAIDs. Multifactorial LYN likely due to compromised renal hemodynamics vs post renal. Non-oliguric
- hold enalapril and furosemide for now
- avoid nephrotoxins
- nephrology consult appreciated
-kidney function improving
10/09 CT urography appreciated
- Left hydronephrosis suspected due to obstructing diverticulitis sigmoid colon intramural abscess formation
- Left Pyelonephritis, possible left lower pole kidney small intrarenal abscess formation
-Possible stercoral colitis
urology eval appreciated npo after midnight for cystoscopy stent placement
ID eval appreciated Ertapenem 2 week course midline to be placed
CRS eval appreciated cont abx no surgical intervention indicated
# Relative hypotension low 91/50 since improved with hold home enalapril furosemide nifedipine
cont ot monitor
BP since improved stable at goal w/o above antihypertensives, will cont to monitor off for now
# Mild Hyponatremia nonsignificant at this time
#Dementia with behavioral disturbances
#MDD
#Sundowning
Home Paxil 20 mg daily
recently had Seroquel 25mg increased to BID per Daughter POA Nadia
Continuing home Seroquel
Psych Eval appreciated patient does not have capacity to make medical decisions for herself at this time. ativan prn agitation/anxiety
Discussed with daughter KUSUM Zuniga who is in favor of patient staying to complete treatment/workup (daughter shares decision making with patient's Amrit)
PT/OT appreciated SNF rehab
DVT PPX - heparin sq
Full Code
Discussed patient's daughter KUSUM Zuniga who shares decision making with patient's
I spent a total of 58 minutes with the patient or on the floor. More than 50% of this time involved counseling and coordination of care.
Anticipated Discharge: 24 - 48 hours
Subjective/Interval History
-
Date of Service: October 10, 2023
More calm cooperative in morning. Denies any acute issues. Reports overall feeling well. Agreeable to physical exam.
Objective Data
-
Labs:
Laboratory Results
10/10/23
05:38
WBC 7.6
Hgb 9.6 L
Hct 28.9 L
Plt Count 354
Sodium 133 L
Potassium 4.6
Chloride 104
Carbon Dioxide 20 L
BUN 18 H
Creatinine 0.9
Glucose 72
Calcium 9.4
Vital Signs:
Vital Signs
Temp Pulse Resp BP Pulse Ox
99.3 F 89 16 133/69 96
10/09/23 23:05 10/09/23 23:05 10/09/23 23:05 10/09/23 23:05 10/09/23 23:05
I&O
10/09/23 10/10/23 10/11/23
06:59 06:59 06:59
Intake Total 360 / 360 840 / 840
Balance 360 / 360 840 / 840
--- NOTE | 2023-10-10 07:14 | W.PN.UPDATE ---
Update Note
Progress Note Update
no events overnight
cr down to 0.9
ucx = for ecoli
had long discussion with daughter yesterday regarding goals of care
plan for urogram today as cr level has normalized- based on this will discuss with possible OR tomorrow if hydro persists and family wants intervention
[2023-10-10] MEDS: VISBIOME 2 CAP PO (09:00)
[2023-10-10] MEDS: SEROQUEL 25 MG PO ×2 (09:01→20:56)
[2023-10-10] MEDS: PAXIL 20 MG PO (09:01)
[2023-10-10 10:20] VITALS: BMI 27.3
[2023-10-10 11:55] VITALS: BP 120/67; PULSE 88; O2SAT 96
--- NOTE | 2023-10-10 11:55 | W.PN.URO.CBU ---
Today's Communication / Plan
-
npo after midnight
OR tomorrow
Assessment / Plan
-
left hydro
renal insuff- resolved
esbl UTI- recurrent
plan
difficult due to pt's dementia- but apparently family will now be making decisions
ct shoes persistent obstruction- now with possible ascending infection
also ? colonic inflammation- ? if this is source
reviewed extensively with pt's daughter- she and father want to proceed with OR tomorrow for cysto/ureteroscopy/stent
did discuss risks, benefits, alternatives and disabilities
did discuss with med team who will ask id and colorectal for their opinion
Diagnosis
-
Date of Service: October 10, 2023
-
Patient Diagnosis:
hydro
UTI
renal insuff
Subjective
-
pt asleep this am
her cr normalized
ucx again + for ecoli- sens pending
CT SCAN PERFORMED- PERSISTENT LEFT HYDRO- some inflammation- ? early abscess- also appears pt has evolving diverticulitis- this may be source of obstruction
Objective
-
Vital Signs
Temp Pulse Resp BP Pulse Ox
98.5 F 91 18 122/74 96
10/10/23 07:00 10/10/23 07:00 10/10/23 07:00 10/10/23 07:00 10/10/23 08:16
Intake and Output
10/09/23 10/10/23 10/11/23
06:59 06:59 06:59
Intake Total 360 / 360 840 / 840
Balance 360 / 360 840 / 840
Intake:
Oral fluids 360 / 360 840 / 840
Other:
How many times incontinent 1
SMALL amount urine
How many times incontinent 2
MODERATE amount urine
How many times incontinent 3 2
SATURATED amount urine
Number of unmeasured liquid
stools
Rectum 3
Laboratory Results
10/10/23 05:38
10/10/23 05:38
Physical Exam
-
General - well developed, well nourished, no acute distress
Chest - clear bilaterally
Abdomen - soft, non-tender, positive bowel sounds, no CVAT, no incisional pain or distention
Genitalia - normal
Rectal - normal
Skin - warm & dry with no rash
Neuro - AOx3, no motor deficits
Extremities - no clubbing, no cyanosis, no edema
Incision - clean, dry
Dressing - clean, dry, intact
[2023-10-10 11:58] VITALS: BP 120/67; PULSE 88; O2SAT 96
--- NOTE | 2023-10-10 12:05 | CON.CRS ---
Consultation
-
Date/Time Consultation Requested: 10/10/2023, 11:00
Date/Time Consultation Performed: 10/10/2023, 12:05
Requesting Provider: Sary Grossman MD
Performing Provider: Mark Michelle MD
Reason for Consultation: diverticulitis with abscess
Medical History
-
Chief Complaint: right knee pain
History of Present Illness:
78-year-old female with a past medical history significant for hypertension, hypothyroidism, major depressive disorder, SIADH, history of B-cell lymphoma, unspecified dementia presents to ER on 10/08/2023 complaining of right knee pain. Due to
elevated BUN/creatinine in the Er, a CT A/P was ordered which showed nonspecific mild thickening of the sigmoid colon with extensive diverticulosis and mild to moderate left hydronephrosis and proximal hydroureter. No discrete lesions or
obstructive calculi identified. Given these findings, she was seen by urology who is taking her to the OR tomorrow for a cysto/ureteroscopy/stent. A repeat CT with enhancement was done this morning which shows evidence for diverticulitis involving
the sigmoid colon with small intramural abscess formation and distention of the rectum with stool with transverse dimension of 7.3 cm. The patient currently denies nausea, vomiting, abdominal pain, or rectal pain. She is usually on the constipated
side and her last bowel movement was yesterday. She has noted no blood in her stool. She denies a history of colorectal issues. Her last colonoscopy was 'a long time ago' and she does not remember findings, nor is she interested in any more. We have
been consulted for further surgical opinion.
Past Medical History
Past Medical History: HTN, Hypothyroidism and Other (dementia, B-cell lymphoma)
Past Surgical History: None
Social History
Tobacco: Non-Smoker
Alcohol: None
Drug: None
Personal:
Living: Assisted Living
Family History
Family History: Reviewed & Not Pertinent
Allergies / Home Medications
Allergy/AdvReac Type Severity Reaction Status Date / Time
No Known Allergies Allergy Verified 09/15/21 18:27
�Medication �Instructions �Recorded �Confirmed �Type
furosemide 20 mg tablet 20 mg PO DAILY #30 tabs 06/14/21 10/08/23 Rx
paroxetine HCl 20 mg tablet 20 mg PO DAILY Depression 09/15/21 10/08/23 History
enalapril maleate 10 mg tablet 20 mg (2 x 10 mg) PO BID #0 tabs 11/21/22 10/08/23 Rx
nifedipine 30 mg tablet,extended 30 mg PO DAILY 30 days #30 tabs 08/08/23 10/08/23 Rx
release
guaifenesin 10 ml PO Q4H Congestion 10/08/23 10/08/23 History
levothyroxine 50 mcg tablet 50 mcg PO DAILY Thyroid 10/08/23 10/08/23 History
loperamide 2 mg PO Q12H PRN diarrhea 10/08/23 10/08/23 History
nystatin 1 applic topical Q8H PRN jessica rash 10/08/23 10/08/23 History
quetiapine 25 mg tablet 25 mg PO BID Depression 10/08/23 10/08/23 History
Review of Systems
-
A 10 point review of systems was completed, and was negative except as per HPI.
Physical Exam
Vital Signs
Temp 98.5 F 10/10/23 07:00
Pulse 91 10/10/23 07:00
Resp Rate 18 10/10/23 07:00
Blood pressure 122/74 10/10/23 07:00
SaO2 96 10/10/23 08:16
10/09/23 10/10/23 10/11/23
06:59 06:59 06:59
Actual Weight 76.742 kg
Body Mass Index (BMI) 27.3
Lab Results / Allergies
10/10/23 05:38
10/10/23 05:38
WBC 7.6 10^3/uL (4.8-10.8) 10/10/23 05:38
Hgb 9.6 g/dL (12.0-16.0) L 10/10/23 05:38
Hct 28.9 % (37.0-47.0) L 10/10/23 05:38
Plt Count 354 10^3/uL (130-400) 10/10/23 05:38
Abs Immat Gran (auto) 0.1 10^3/uL (0-0.05) H 10/07/23 23:59
Neutrophils % 82.5 % (42.2-75.2) H 10/07/23 23:59
Allergy/AdvReac Type Severity Reaction Status Date / Time
No Known Allergies Allergy Verified 09/15/21 18:27
Physical Exam
General: Well Developed and Well Nourished
GI: Soft, Non Tender and Non Distended
Rectal: Other (Refused by patient)
Neuro: AO x 3
Data Reviewed
-
CT Scan: Image Personally Visualized and interpreted, Report Reviewed by me and Discussed with Patient
Labs: Labs Reviewed by me and Discussed with Physician
Old Records: Reviewed
Assessment / Plan
-
Assessment: 78 yo female with left hydronephrosis and proximal hydroureter, found to have evidence for diverticulitis involving the sigmoid colon with small intramural abscess formation and ?sterocoral colitis
Plan:
1. Patient is currently refusing a MARCELINO - unable to examine for impaction.
2. Continue IV antibiotics.
3. No role for IR drain at this time.
4. Tolerating a regular diet. NPO for OR tomorrow.
5. No indications for surgery at this time.
6. She will need a colonoscopy in the future - however she is refusing.
[2023-10-10] MEDS: INVANZ 60 MG IV (12:19)
[2023-10-10] MEDS: NSS 1000 IV (12:19)
--- NOTE | 2023-10-10 13:56 | CM ---
Therapy has recommended STR for patient after discharge. Patient lives at [facility]. Spoke with daughter, Nadia, who is in agreement with recommendation and prefers patient go to [facility]. Referral forwarded.
--- NOTE | 2023-10-10 14:08 | W.PN.ID1 ---
Date of Service
Date of Service: October 10, 2023
Today's Communication
- agree with ertapenem tentatively 2 week course
- no reliable oral options for the ESBL, will need to be IV
- can place midline tomorrow post op
Assessment / Plan
Complicated UTI with pyelonephritis
Diverticulitis with suspected intramural abscess
LYN on CKD
Dementia
- agree with ertapenem tentatively 2 week course
- no reliable oral options for the ESBL, will need to be IV
- can place midline tomorrow post op
- note plans for possible cystoscopy
- follow clinically
Chief Complaint
-: UTI
Subjective / Review of Systems
afebrile
bp stable
without leukocytosis
cr stable
urine culture ESBL ecoli and lactobacillus
CT with suspected intramural abscess
Vital Signs / Physical Exam
Vital Signs
Vital Signs
Temp Pulse Resp BP Pulse Ox
98.5 F 91 18 122/74 96
10/10/23 07:00 10/10/23 07:00 10/10/23 07:00 10/10/23 07:00 10/10/23 08:16
Physical Exam
Constitutional: No Acute Distress
Cardiovascular: Regular Rate and S1/S2; Negative Murmur or Rub
Pulmonary: Clear and Symmetric; Negative Wheezes or Rales
Gastrointestinal: Soft, Non Tender (with deep palpation), Non Distended, Normal Bowel Sounds and Other (poor oral intake of lunch 'food tastes bad')
Skin: Warm and Dry; Negative Rash or Jaundice
Objective Data
Lab Data
Lab Results
10/10/23 05:38
10/10/23 05:38
Estimated Creat Clear 47 ml/min 10/10/23 05:38
Lactic Acid 1.1 mmol/L (0.7-2.0) 10/08/23 01:43
Total Bilirubin 0.7 mg/dl (0.2-1.3) 10/07/23 23:59
AST 17 U/L (14-36) 10/07/23 23:59
ALT 12 U/L (0-35) 10/07/23 23:59
Alkaline Phosphatase 97 U/L (38-126) 10/07/23 23:59
Most recent labs reviewed.
Micro Results:
10/08/23 01:43 Urine Culture - Final
Urine Escherichia coli - ESBL
Lactobacillus species
10/08/23 02:18 Blood Culture - Preliminary
Blood/Venous No Growth in 48 hours- Final report to follow
10/08/23 01:43 Blood Culture - Preliminary
Blood/Venous No Growth in 48 hours- Final report to follow
[2023-10-10 15:00] VITALS: BP 126/69
[2023-10-10] MEDS: MYCOSTATIN CREAM 1 APPLIC TOPICAL (16:53)
[2023-10-10 22:34] VITALS: BP 126/66
[2023-10-10 23:05] VITALS: BP 126/66
[2023-10-11] VITALS (14 sets, daily range): BP systolic 110–147; BP diastolic 48–77; BMI 27.5
[2023-10-11] MEDS: ROBITUSSIN 10 MG PO ×5 (00:22→20:17)
[2023-10-11] MEDS: NSS 1000 IV ×2 (01:48→13:16)
[2023-10-11] MEDS: TYLENOL 650 MG PO (05:48)
[2023-10-11] MEDS: SYNTHROID 50 MCG PO (05:48)
[2023-10-11 06:41] LABS: Hemoglobin 9.5 g/dL (12.0-16.0); Mean Corp Hgb Conc. 33.9 g/dL (33.0-37.0); Mean Corpuscular Volume 88.3 fL (81.0-99.0); Mean Platelet Volume 8.6 fL (7.4-10.4); Platelet Count 342 10^3/uL (130-400); Red Blood Cell Count 3.17 10^6/uL (4.20-5.40); White Blood Cell Count 7.9 10^3/uL (4.8-10.8)
[2023-10-11 06:51] LABS: Blood Urea Nitrogen 13 mg/dl (7-17); Calcium 8.9 mg/dl (8.4-10.2); Carbon Dioxide 20 mmol/L (22-30); Chloride 105 mmol/L (98-107); Estimated Creatinine Clearance 59 ml/min; Glucose 74 mg/dl (70-99); Magnesium 1.6 mg/dl (1.6-2.3); Phosphorus 3.1 mg/dl (2.5-4.5); Potassium 4.5 mmol/L (3.5-5.1); Sodium 133 mmol/L (135-145); eGFR > 60.00
--- NOTE | 2023-10-11 07:14 | W.PN.HOSP.TC ---
Today's Communication/Plan
-
abx as per ID
no anti-caog as per urology 72 hours
PT/OT
Assessment / Plan
Assessment / Plan
Physical Exam
General: No pallor, cyanosis, or jaundice.
HEENT: Throat clear. PERRLA Normocephalic atraumatic
NECK: Supple. No JVD Carotid Bruits
RESPIRATORY: Lungs clear to auscultation. No crackles wheezes stridor
CVS: S1, S2 normal. RRR. No murmur, rub or gallop.
ABDOMEN: Soft, No distension, decreased bowel sounds. Patient denies tenderness on palpitation of abdomen but appears to visibly wince during examination.
EXTREMITIES: LLE appears stronger with increased range of motion compared to RLE, RLE also appears slightly shorter compared to LLE (all baseline as per patient. CT of abd/pelvis obtained twice during this hospitalization no acute hip fracture noted)
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
78F Dementia, HTN, Hypothyroidism, SIADH, recently admitted with E.coli ESBL bacteremia from urinary source presents to ED 1 week after a mechanical fall at [facility] for continued knee pain. ED evaluation showed she had leukocytosis,
+u/a and LYN with softer BP than baseline. Per reports, knee evaluation showed no acute fracture, dislocation or effusion. She was treated for presumed sepsis without shock given + u/a, h/o E coli bacteremia and LYN. She also had a CT a/p w/o
contrast to evaluate LYN and was found to have a moderate left sided hydronephrosis w/o nephrolithiasis.
PLAN:
#Possible Sepsis POA UTI/pyelonephritis (white count elevation, Tachycardia)
- follow blood and urine cultures NGTD
- procalcitonin elevated
- received empiric zosyn in ED
-signs of possible sepsis white count elevation tachycardia resolved soon following admission empiric abx
- ID consult appreciated initially Ertapenem daily x3 recommended however patient later agitated refusing exam/treatment unlikely to accept midline. Fosfomycin once ordered instead, patient received without issues.
-abx were later restarted due to findings pyelonephritis diverticulitis sigmoid colon intramural abscess, possible intrarenal abscess, and stercoral colitis noted as below
#Right Knee Pain
reportedly progressive for past week
Knee XR appreciated:
No acute osseous or articular abnormality is appreciated.
Unchanged severe tricompartmental osteoarthritis with small suprapatellar joint effusion.
Patient currently denies pain
# LYN Cr 1.6 resolved
#left Mild Moderate Hydronephrosis no obstructing lesion/calculi noted
#Sigmoid colon diverticulitis intramural abscess
#Pyelonephritis possible developing intrarenal left lower pole kidney abscess
patient asked to hold ACEI during last discharge but she has continued with this medication.
Denies any NSAIDs. Multifactorial LYN likely due to compromised renal hemodynamics vs post renal. Non-oliguric
- hold enalapril and furosemide for now
- avoid nephrotoxins
- nephrology consult appreciated
-kidney function improving
10/09 CT urography appreciated
- Left hydronephrosis suspected due to obstructing diverticulitis sigmoid colon intramural abscess formation
- Left Pyelonephritis, possible left lower pole kidney small intrarenal abscess formation
-Possible stercoral colitis
urology eval appreciated cystoscopy stent placement 10/10 no anti-coag 72 h d/t hematuria from procedure
ID eval appreciated Ertapenem 2 week course midline to be placed
CRS eval appreciated cont abx no surgical intervention indicated, outpt follow up recommended
# Relative hypotension low 91/50 since improved with hold home enalapril furosemide nifedipine
cont ot monitor
BP since improved stable at goal w/o above antihypertensives, will cont to monitor off for now
# Mild Hyponatremia nonsignificant at this time
#Dementia with behavioral disturbances
#MDD
#Sundowning
Home Paxil 20 mg daily
recently had Seroquel 25mg increased to BID per Daughter POA Nadia
Continuing home Seroquel
Psych Eval appreciated patient does not have capacity to make medical decisions for herself at this time. ativan prn agitation/anxiety (has not required since discontinued)
Discussed with daughter KUSUM Zuniga who is in favor of patient staying to complete treatment/workup (daughter shares decision making with patient's Amrit)
PT/OT appreciated SNF rehab
DVT PPX - heparin sq
Full Code
I spent a total of 55 minutes with the patient or on the floor. More than 50% of this time involved counseling and coordination of care.
Anticipated Discharge: Within 24 hours
Subjective/Interval History
-
Date of Service: October 11, 2023
No acute distress appears comfortable following cystoscopy stent with urology.
Objective Data
-
Labs:
Laboratory Results
10/11/23
05:23
WBC 7.9
Hgb 9.5 L
Hct 28.0 L
Plt Count 342
Sodium 133 L
Potassium 4.5
Chloride 105
Carbon Dioxide 20 L
BUN 13
Creatinine 0.8
Glucose 74
Calcium 8.9
Vital Signs:
Vital Signs
Temp Pulse Resp BP Pulse Ox
99.2 F 91 18 126/66 96
10/10/23 23:05 10/10/23 23:05 10/10/23 23:05 10/10/23 23:05 10/10/23 23:05
I&O
10/10/23 10/11/23 10/12/23
06:59 06:59 06:59
Intake Total 840 / 840 630 / 630
Balance 840 / 840 630 / 630
--- NOTE | 2023-10-11 08:08 | W.IMMPOSTOP ---
Surgical Immed Post Op Note
-
Primary Surgeon:
herman
Assisting Surgeon:
Pre-op Diagnosis:
left hydro
Post-op Diagnosis:
left hydro due to extrinsic obstruction
Procedure Performed:
cysto/left retrgorade/left ureteroscopy and stent placement
Anesthesia Type:
gen
Specimen / Cultures:
ucx
Estimated Blood Loss:
2cc
Complications:
none
Operative Findings:
bladder with diffuse inflammatory changes c/w cystitis- no tumor or fistula
left retrograde showed ureteral narrowing in same spot as ct - c/w extrinsic compression
ureteroscopy- scope passes fairly easily through this area- no evid of stone-sig stx or tumor within the ureter
stent placed
would rec leaving stent in
hold any anti-coag for 72hrs due to hematuria from procedure
treat with antibx per ID and then given normal renal function would start methenamine 1 gram bi when iv course completed
ureteral obstruction may be due to diverticulitis or possible malig- difficult to know
would leave stent and prob re-image 4 weeks after completion of antibx
repeat ucx sent from OR
will discuss with family- i have reviewed the option of palliative care as well
--- NOTE | 2023-10-11 09:30 | PTCARENOTE ---
Received patient from PACU s/p cystoscopy/ureteroscopy/stent placement. VSS, patient resting comfortably in bed, states no concerns at this time.
--- NOTE | 2023-10-11 09:59 | W.PN.UPDATE ---
Update Note
Progress Note Update
patient seen chart reviewed. discussed w [facility] and with dr ochoa. the patient had just returned from urologic procedure. she was reasonably interactive considering. told me she had had a procedure to 'release urine'. she also told me about
her living situation at [facility]...she likes it but the food is terrible. she has not required any prn. it seems her mental status and abilify to cooperate is improving. would avoid ativan which likely not help mental status. would also consider not
for now but for the future another antidepressant as paxil is very anticholinergic and urinary retention constipation worsened mental status are all anticholinergic side effects. will check in on her tomorrow.
[2023-10-11] MEDS: ROBITUSSIN PO (10:04)
[2023-10-11] MEDS: VISBIOME 2 CAP PO (10:04)
[2023-10-11] MEDS: PAXIL 20 MG PO (10:04)
[2023-10-11] MEDS: SEROQUEL 25 MG PO ×2 (10:05→20:17)
--- NOTE | 2023-10-11 10:07 | W.PN.UPDATE ---
Update Note
Progress Note Update
Attempted to round on patient, patient is on the OR. Recommend advancing diet back to regular. Continue IV antibiotics per ID. No surgery indicated at this time. Will s/o, please contact us if further issues arise. Will need an outpatient CT A/P in
a few weeks and follow up with Dr. Michelel.
[2023-10-11] MEDS: INVANZ 60 MG IV (11:42)
--- NOTE | 2023-10-11 14:13 | W.PN.ID1 ---
Date of Service
Date of Service: October 11, 2023
Today's Communication
plan 2 weeks of ertapenem
midline
Assessment / Plan
Complicated UTI with pyelonephritis
Diverticulitis with suspected intramural abscess
LYN on CKD
Dementia
- agree with ertapenem for 2 week course
- agree with hiprex after ertapenem
- no reliable oral options for the ESBL, will need to be IV
- place midline
- follow up with colorectal and uroloic surgeries
Chief Complaint
-: UTI
Subjective / Review of Systems
afebrile
bp stable
without leukocytosis
cr normalized
had stent - procedure suggestive of extrinsic compression
Vital Signs / Physical Exam
Vital Signs
Vital Signs
Temp Pulse Resp BP Pulse Ox
96.9 F L 74 12 117/61 96
10/11/23 12:30 10/11/23 12:30 10/11/23 12:30 10/11/23 12:30 10/11/23 12:30
Physical Exam
Constitutional: No Acute Distress
Cardiovascular: Regular Rate and S1/S2; Negative Murmur or Rub
Pulmonary: Clear and Symmetric; Negative Wheezes or Rales
Gastrointestinal: Soft, Non Tender, Non Distended (with deep palpation) and Normal Bowel Sounds
Genito-Urinary: Negative Suprapubic Tenderness
Skin: Warm and Dry; Negative Rash or Jaundice
Objective Data
Lab Data
Lab Results
10/11/23 05:23
10/11/23 05:23
Estimated Creat Clear 59 ml/min 10/11/23 05:23
Lactic Acid 1.1 mmol/L (0.7-2.0) 10/08/23 01:43
Total Bilirubin 0.7 mg/dl (0.2-1.3) 10/07/23 23:59
AST 17 U/L (14-36) 10/07/23 23:59
ALT 12 U/L (0-35) 10/07/23 23:59
Alkaline Phosphatase 97 U/L (38-126) 10/07/23 23:59
Most recent labs reviewed.
Micro Results:
10/11/23 07:35 Urine Culture - Pending
Urine
10/08/23 02:18 Blood Culture - Preliminary
Blood/Venous No Growth in 72 hours- Final report to follow
10/08/23 01:43 Blood Culture - Preliminary
Blood/Venous No Growth in 72 hours- Final report to follow
10/08/23 01:43 Urine Culture - Final
Urine Escherichia coli - ESBL
Lactobacillus species
--- NOTE | 2023-10-11 15:00 | CHAP ---
Msgr. Mark Claudio of [facility] in [place] anointed Allison and gave her Holy Communion.
--- NOTE | 2023-10-11 15:07 | CM ---
S/P OR today for cysto/left retrograde/left ureteroscopy and stent placement. Therapy recommendation for SNF. Patient is resident of [facility]. Per daughter request, referral previously sent to [place] for STR then return to [place]. No
available bed currently but does anticipate bed in a few days. Will follow medical progression and bed availability.
[2023-10-11] MEDS: SENOKOT-S 1 TABLET PO (20:17)
[2023-10-12] MEDS: ROBITUSSIN PO ×2 (00:28→05:38)
[2023-10-12 02:59] VITALS: BP 151/83
[2023-10-12 05:43] VITALS: BMI 28.2
[2023-10-12] MEDS: SYNTHROID 50 MCG PO (06:11)
[2023-10-12 07:10] VITALS: BP 141/79
--- NOTE | 2023-10-12 07:19 | W.PN.HOSP.TC ---
Today's Communication/Plan
-
cont abx
discharge planning SNF rehab
Assessment / Plan
Assessment / Plan
Physical Exam
General: No pallor, cyanosis, or jaundice.
HEENT: Throat clear. PERRLA Normocephalic atraumatic
NECK: Supple. No JVD Carotid Bruits
RESPIRATORY: Lungs clear to auscultation. No crackles wheezes stridor
CVS: S1, S2 normal. RRR. No murmur, rub or gallop.
ABDOMEN: Soft, No distension, decreased bowel sounds. Patient denies tenderness on palpitation of abdomen but appears to visibly wince during examination.
EXTREMITIES: LLE appears stronger with increased range of motion compared to RLE, RLE also appears slightly shorter compared to LLE (all baseline as per patient. CT of abd/pelvis obtained twice during this hospitalization no acute hip fracture noted)
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
78F Dementia, HTN, Hypothyroidism, SIADH, recently admitted with E.coli ESBL bacteremia from urinary source presents to ED 1 week after a mechanical fall at [facility] for continued knee pain. ED evaluation showed she had leukocytosis,
+u/a and LYN with softer BP than baseline. Per reports, knee evaluation showed no acute fracture, dislocation or effusion. She was treated for presumed sepsis without shock given + u/a, h/o E coli bacteremia and LYN. She also had a CT a/p w/o
contrast to evaluate LYN and was found to have a moderate left sided hydronephrosis w/o nephrolithiasis.
PLAN:
#Possible Sepsis POA UTI/pyelonephritis (white count elevation, Tachycardia)
- follow blood and urine cultures NGTD
- procalcitonin elevated
- received empiric zosyn in ED
-signs of possible sepsis white count elevation tachycardia resolved soon following admission empiric abx
- ID consult appreciated initially Ertapenem daily x3 recommended however patient later agitated refusing exam/treatment unlikely to accept midline. Fosfomycin once ordered instead, patient received without issues.
-abx were later restarted due to findings pyelonephritis diverticulitis sigmoid colon intramural abscess, possible intrarenal abscess, and stercoral colitis noted as below
#Right Knee Pain
reportedly progressive for past week
Knee XR appreciated:
No acute osseous or articular abnormality is appreciated.
Unchanged severe tricompartmental osteoarthritis with small suprapatellar joint effusion.
Patient currently denies pain
# LYN Cr 1.6 resolved
#left Mild Moderate Hydronephrosis no obstructing lesion/calculi noted
#Sigmoid colon diverticulitis intramural abscess
#Pyelonephritis possible developing intrarenal left lower pole kidney abscess
patient asked to hold ACEI during last discharge but she has continued with this medication.
Denies any NSAIDs. Multifactorial LYN likely due to compromised renal hemodynamics vs post renal. Non-oliguric
- hold enalapril and furosemide for now
- avoid nephrotoxins
- nephrology consult appreciated
-kidney function improving
10/09 CT urography appreciated
- Left hydronephrosis suspected due to obstructing diverticulitis sigmoid colon intramural abscess formation
- Left Pyelonephritis, possible left lower pole kidney small intrarenal abscess formation
-Possible stercoral colitis
urology eval appreciated cystoscopy stent placement 10/10 no anti-coag 72 h d/t hematuria from procedure
ID eval appreciated Ertapenem 2 week course midline to be placed
CRS eval appreciated cont abx no surgical intervention indicated, outpt follow up recommended
# Relative hypotension low 91/50 since improved with hold home enalapril furosemide nifedipine
cont ot monitor
BP since improved stable at goal w/o above antihypertensives, will cont to monitor off for now
# Mild Hyponatremia nonsignificant at this time
#Dementia with behavioral disturbances
#MDD
#owning
Home Paxil 20 mg daily
recently had Seroquel 25mg increased to BID per Daughter POA Nadia
Continuing home Seroquel
Psych Eval appreciated patient does not have capacity to make medical decisions for herself at this time. ativan prn agitation/anxiety (has not required since discontinued)
Discussed with daughter KUSUM Zuniga who is in favor of patient staying to complete treatment/workup (daughter shares decision making with patient's Amrit)
PT/OT appreciated SNF rehab
DVT PPX - heparin sq
Full Code
10/11 Discussed with patient's daughter Nadia, patient's here in ICU being considered for hospice. Patient cleared to visit, discussed with nurse.
I spent a total of 55 minutes with the patient or on the floor. More than 50% of this time involved counseling and coordination of care.
Anticipated Discharge: 24 - 48 hours
Subjective/Interval History
-
Date of Service: October 12, 2023
No acute distress sitting up comfortably in chair reports overall feeling well. No new acute issues. Calm cooperative pleasant.
Objective Data
-
Labs:
Laboratory Results
10/12/23
06:00
WBC Pending
Hgb Pending
Hct Pending
Plt Count Pending
Sodium Pending
Potassium Pending
Chloride Pending
Carbon Dioxide Pending
BUN Pending
Creatinine Pending
Glucose Pending
Calcium Pending
Vital Signs:
Vital Signs
Temp Pulse Resp BP Pulse Ox
97.3 F 74 12 151/83 98
10/12/23 02:59 10/12/23 02:59 10/12/23 02:59 10/12/23 02:59 10/12/23 02:59
I&O
10/11/23 10/12/23 10/13/23
06:59 06:59 06:59
Intake Total 630 / 630 1999
Balance 630 / 630 1999
[2023-10-12 08:07] LABS: Hematocrit 30.3 % (37.0-47.0); Hemoglobin 9.8 g/dL (12.0-16.0); Mean Corp Hgb Conc. 32.3 g/dL (33.0-37.0); Mean Corpuscular Hgb 29.8 pg (27.0-31.0); Mean Corpuscular Volume 92.1 fL (81.0-99.0); Mean Platelet Volume 8.8 fL (7.4-10.4); Platelet Count 401 10^3/uL (130-400); Red Blood Cell Count 3.29 10^6/uL (4.20-5.40); White Blood Cell Count 9.5 10^3/uL (4.8-10.8)
[2023-10-12 08:30] LABS: Blood Urea Nitrogen 15 mg/dl (7-17); Calcium 9.4 mg/dl (8.4-10.2); Carbon Dioxide 26 mmol/L (22-30); Chloride 102 mmol/L (98-107); Estimated Creatinine Clearance 60 ml/min; Glucose 106 mg/dl (70-99); Magnesium 1.6 mg/dl (1.6-2.3); Phosphorus 3.7 mg/dl (2.5-4.5); Potassium 4.8 mmol/L (3.5-5.1); Sodium 135 mmol/L (135-145); eGFR > 60.00
[2023-10-12] MEDS: PAXIL 20 MG PO (08:41)
[2023-10-12] MEDS: VISBIOME 2 CAP PO (08:41)
[2023-10-12] MEDS: ROBITUSSIN 200 MG PO ×4 (08:41→20:04)
[2023-10-12] MEDS: SENOKOT-S 1 TABLET PO ×2 (08:41→20:04)
[2023-10-12] MEDS: SEROQUEL 25 MG PO ×2 (08:42→20:04)
[2023-10-12] MEDS: MIRALAX 17 GRAMS PO (08:42)
--- NOTE | 2023-10-12 09:10 | W.PN.URO.CBU ---
Today's Communication / Plan
-
cleared urologically for discharge
Assessment / Plan
-
left hydro
renal insuff- resolved
esbl UTI- recurrent
EXTRINSIC COMPRESSION OF LEFT URETER- S/P STENT
plan
pt stable
plan for discharge with iv course of antibx and then would begin methenamine gram po bid indefinitely
family should call my office after discharge to arrange outpt f/u
Diagnosis
-
Date of Service: October 12, 2023
-
Patient Diagnosis:
hydro
UTI
renal insuff
sp cysto/left ureteroscopy and stent 10/10
Subjective
-
pt awake and interactive
no complaints
no flank pain or urinary complaints
afebrile with nl wbc and cr
prelim OR ucx no growth
Objective
-
Vital Signs
Temp Pulse Resp BP Pulse Ox
97.2 F 74 12 141/79 98
10/12/23 07:10 10/12/23 07:10 10/12/23 07:10 10/12/23 07:10 10/12/23 08:59
Intake and Output
10/11/23 10/12/23 10/13/23
06:59 06:59 06:59
Intake Total 630 / 630 1999
Balance 630 / 630 1999
Intake:
Oral fluids 330 / 330 960 / 960
IV fluids (Total) 300 / 300 1040 / 1040
nss 80 / 80
Other:
Number of approximated MODERATE 1
amounts of urine
How many times incontinent 1
SMALL amount urine
How many times incontinent 3 1
MODERATE amount urine
How many times incontinent 1
SATURATED amount urine
Number of unmeasured liquid
stools
Rectum 1
Laboratory Results
10/12/23 07:24
10/12/23 07:24
Physical Exam
-
General - no acute distress
Abdomen - soft, non-tender, positive bowel sounds, no CVAT
--- NOTE | 2023-10-12 10:41 | W.PN.UPDATE ---
Update Note
Progress Note Update
patient seen chart reviewed. spoke with nursing. the patient was seated at bedside eating breakfast. she was very pleasant and engaged in this interview. she reports she is feeling much much better. offered no complaints. nursing reports no issues
with her care. at this point no recommendations for change in meds but going forward consideration should be given perhaps to an alternative to paxil given in anticholinergic properties. on the other hand some would say if it is not broken don't
fix it. there is a potential issue in the near future as hospitalized here w serious illness of which patient unaware. this may complicate patient's care but psych will sign off for now please call us if you need us to return over weekend.
[2023-10-12 10:49] VITALS: BP 110/59
--- NOTE | 2023-10-12 10:56 | W.PN.ID1 ---
Date of Service
Date of Service: October 12, 2023
Today's Communication
ertapenem 10/09-10/22
stable for dc from ID perspective
follow up with CRS
Assessment / Plan
Diverticulitis with suspected intramural abscess
Complicated UTI with pyelonephritis
LYN on CKD
Dementia
- agree with ertapenem for 2 week course 10/09-10/22 - no reliable oral options for the ESBL, will need to be IV
- agree with hiprex after ertapenem
- place midline
- follow up with colorectal and uroloic surgeries
Chief Complaint
-: UTI
Subjective / Review of Systems
afebrile
bp stable
without leukocytosis
cr stable
no abdominal pain
midline in place
Vital Signs / Physical Exam
Vital Signs
Vital Signs
Temp Pulse Resp BP Pulse Ox
97.2 F 74 12 141/79 98
10/12/23 07:10 10/12/23 07:10 10/12/23 07:10 10/12/23 07:10 10/12/23 08:59
Physical Exam
Constitutional: No Acute Distress
Cardiovascular: Regular Rate and S1/S2; Negative Murmur or Rub
Pulmonary: Clear and Symmetric; Negative Wheezes or Rales
Gastrointestinal: Soft, Non Tender, Non Distended and Normal Bowel Sounds
Skin: Warm and Dry; Negative Rash or Jaundice
Objective Data
Lab Data
Lab Results
10/12/23 07:24
10/12/23 07:24
Estimated Creat Clear 60 ml/min 10/12/23 07:24
Lactic Acid 1.1 mmol/L (0.7-2.0) 10/08/23 01:43
Total Bilirubin 0.7 mg/dl (0.2-1.3) 10/07/23 23:59
AST 17 U/L (14-36) 10/07/23 23:59
ALT 12 U/L (0-35) 10/07/23 23:59
Alkaline Phosphatase 97 U/L (38-126) 10/07/23 23:59
Most recent labs reviewed.
Micro Results:
10/11/23 07:35 Urine Culture - Preliminary
Urine NO GROWTH
10/08/23 02:18 Blood Culture - Preliminary
Blood/Venous No Growth in 4 days- Final report to follow
10/08/23 01:43 Blood Culture - Preliminary
Blood/Venous No Growth in 4 days- Final report to follow
10/08/23 01:43 Urine Culture - Final
Urine Escherichia coli - ESBL
Lactobacillus species
[2023-10-12] MEDS: INVANZ 60 MG IV (11:11)
--- NOTE | 2023-10-12 13:16 | CM ---
POD #2. Discharge Plan of Care: From [facility]. Therapy recommendation for SNF then return to [place]. [facility] has accepted but anticipate no bed this weekend. Met with family and patient. Discussed discharge POC. Explained above and that if
patient is discharged and [facility] bed is not available they will need to choose additional preferences. Expressed understanding. [employer] list provided.
--- NOTE | 2023-10-12 13:24 | CM ---
Addendum entered by Odilon Asif 10/12/23 13:46:
Additional referrals sent.
Original Note:
POD #1. Discharge Plan of Care: From [facility]. Therapy recommendation for SNF then return to [place]. [facility] has accepted but anticipate no bed this weekend. Met with family and patient. Discussed discharge POC. Explained above and that if
patient is discharged and [place] bed is not available they will need to choose additional preferences. Expressed understanding. [employer] list provided.
[2023-10-12 14:54] VITALS: BP 122/68
[2023-10-12 23:06] VITALS: BP 130/70
[2023-10-13] MEDS: ROBITUSSIN 200 MG PO ×5 (00:11→21:02)
[2023-10-13] MEDS: ROBITUSSIN PO (05:00)
[2023-10-13 06:00] VITALS: BMI 27.8
[2023-10-13] MEDS: SYNTHROID 50 MCG PO (06:24)
[2023-10-13 07:21] LABS: Hematocrit 29.7 % (37.0-47.0); Hemoglobin 9.8 g/dL (12.0-16.0); Mean Corpuscular Hgb 29.8 pg (27.0-31.0); Mean Corpuscular Volume 90.3 fL (81.0-99.0); Mean Platelet Volume 8.5 fL (7.4-10.4); Platelet Count 363 10^3/uL (130-400); Red Blood Cell Count 3.29 10^6/uL (4.20-5.40); Red Cell Dist. Width 13.2 % (11.5-14.5); White Blood Cell Count 10.4 10^3/uL (4.8-10.8)
[2023-10-13 07:49] LABS: Blood Urea Nitrogen 16 mg/dl (7-17); Calcium 9.5 mg/dl (8.4-10.2); Carbon Dioxide 24 mmol/L (22-30); Chloride 103 mmol/L (98-107); Estimated Creatinine Clearance 53 ml/min; Glucose 76 mg/dl (70-99); Magnesium 1.6 mg/dl (1.6-2.3); Phosphorus 2.7 mg/dl (2.5-4.5); Potassium 4.4 mmol/L (3.5-5.1); Sodium 134 mmol/L (135-145); eGFR > 60.00
[2023-10-13 07:55] VITALS: BP 145/80
[2023-10-13] MEDS: VISBIOME 2 CAP PO (08:25)
[2023-10-13] MEDS: PAXIL 20 MG PO (08:25)
[2023-10-13] MEDS: MIRALAX 17 GRAMS PO (08:25)
[2023-10-13] MEDS: SENOKOT-S 1 TABLET PO (08:25)
[2023-10-13] MEDS: SEROQUEL 25 MG PO ×2 (08:26→21:02)
--- NOTE | 2023-10-13 10:36 | W.PN.HOSP.TC ---
Today's Communication/Plan
-
cont abx
medically stable for discharge SNF rehab pending placement
Assessment / Plan
Assessment / Plan
Physical Exam
General: No pallor, cyanosis, or jaundice.
HEENT: Throat clear. PERRLA Normocephalic atraumatic
NECK: Supple. No JVD Carotid Bruits
RESPIRATORY: Lungs clear to auscultation. No crackles wheezes stridor
CVS: S1, S2 normal. RRR. No murmur, rub or gallop.
ABDOMEN: Soft, No distension, decreased bowel sounds. Patient denies tenderness on palpitation of abdomen but appears to visibly wince during examination.
EXTREMITIES: LLE appears stronger with increased range of motion compared to RLE, RLE also appears slightly shorter compared to LLE (all baseline as per patient. CT of abd/pelvis obtained twice during this hospitalization no acute hip fracture noted)
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
78F Dementia, HTN, Hypothyroidism, SIADH, recently admitted with E.coli ESBL bacteremia from urinary source presents to ED 1 week after a mechanical fall at [facility] for continued knee pain. ED evaluation showed she had leukocytosis,
+u/a and LYN with softer BP than baseline. Per reports, knee evaluation showed no acute fracture, dislocation or effusion. She was treated for presumed sepsis without shock given + u/a, h/o E coli bacteremia and LYN. She also had a CT a/p w/o
contrast to evaluate LYN and was found to have a moderate left sided hydronephrosis w/o nephrolithiasis.
PLAN:
#Possible Sepsis POA UTI/pyelonephritis (white count elevation, Tachycardia)
- follow blood and urine cultures NGTD
- procalcitonin elevated
- received empiric zosyn in ED
-signs of possible sepsis white count elevation tachycardia resolved soon following admission empiric abx
- ID consult appreciated initially Ertapenem daily x3 recommended however patient later agitated refusing exam/treatment unlikely to accept midline. Fosfomycin once ordered instead, patient received without issues.
-abx were later restarted due to findings pyelonephritis diverticulitis sigmoid colon intramural abscess, possible intrarenal abscess, and stercoral colitis noted as below
#Right Knee Pain
reportedly progressive for past week
Knee XR appreciated:
No acute osseous or articular abnormality is appreciated.
Unchanged severe tricompartmental osteoarthritis with small suprapatellar joint effusion.
Patient currently denies pain
# LYN Cr 1.6 resolved
#left Mild Moderate Hydronephrosis no obstructing lesion/calculi noted
#Sigmoid colon diverticulitis intramural abscess
#Pyelonephritis possible developing intrarenal left lower pole kidney abscess
patient asked to hold ACEI during last discharge but she has continued with this medication.
Denies any NSAIDs. Multifactorial LYN likely due to compromised renal hemodynamics vs post renal. Non-oliguric
- hold enalapril and furosemide for now
- avoid nephrotoxins
- nephrology consult appreciated
-kidney function improving
10/09 CT urography appreciated
- Left hydronephrosis suspected due to obstructing diverticulitis sigmoid colon intramural abscess formation
- Left Pyelonephritis, possible left lower pole kidney small intrarenal abscess formation
-Possible stercoral colitis
urology eval appreciated cystoscopy stent placement 10/10 no anti-coag 72 h d/t hematuria from procedure
ID eval appreciated Ertapenem 2 week course midline to be placed
CRS eval appreciated cont abx no surgical intervention indicated, outpt follow up recommended
# Relative hypotension low 91/50 since improved with hold home enalapril furosemide nifedipine
cont ot monitor
BP since improved stable at goal w/o above antihypertensives, will cont to monitor off for now
# Mild Hyponatremia nonsignificant at this time
#Dementia with behavioral disturbances
#MDD
#Sundowning
Home Paxil 20 mg daily
recently had Seroquel 25mg increased to BID per Daughter POA Nadia
Continuing home Seroquel
Psych Eval appreciated patient does not have capacity to make medical decisions for herself at this time. ativan prn agitation/anxiety (has not required since discontinued)
Mental status improved since Ureter stent placement and abx
PT/OT appreciated SNF rehab
DVT PPX - heparin sq
Full Code
10/11 Discussed with patient's daughter Nadia, patient's here in ICU being considered for hospice. Patient cleared to visit, discussed with nurse. Patient's since .
Medically stable for discharge SNF rehab pending placement
discussed with patient's daughter KUSUM Zuniga
I spent a total of 55 minutes with the patient or on the floor. More than 50% of this time involved counseling and coordination of care.
Anticipated Discharge: 24 - 48 hours
Subjective/Interval History
-
Date of Service: October 13, 2023
No acute distress. Comfortable.
Objective Data
-
Labs:
Laboratory Results
10/13/23
07:00
WBC 10.4
Hgb 9.8 L
Hct 29.7 L
Plt Count 363
Sodium 134 L
Potassium 4.4
Chloride 103
Carbon Dioxide 24
BUN 16
Creatinine 0.9
Glucose 76
Calcium 9.5
Vital Signs:
Vital Signs
Temp Pulse Resp BP Pulse Ox
98.2 F 95 16 145/80 99
10/13/23 07:55 10/13/23 07:55 10/13/23 07:55 10/13/23 07:55 10/13/23 07:55
I&O
10/12/23 10/13/23 10/14/23
06:59 06:59 06:59
Intake Total 1999 360 / 360
Balance 1999 360 / 360
[2023-10-13] MEDS: INVANZ 60 MG IV (12:59)
[2023-10-13] MEDS: FLUSH (NSS) 2 FLUSH IV (13:00)
--- NOTE | 2023-10-13 13:50 | W.PN.ID1 ---
Date of Service
Date of Service: October 13, 2023
Today's Communication
- continue with ertapenem for 2 week course 10/09-10/22 - no reliable oral options for the ESBL, will need to be IV
Assessment / Plan
Diverticulitis with suspected intramural abscess
Complicated UTI with pyelonephritis
LYN on CKD
Dementia
- continue with ertapenem for 2 week course 10/09-10/22 - no reliable oral options for the ESBL, will need to be IV
- agree with hiprex after ertapenem
- midline
- follow up with colorectal and uroloic surgeries
Chief Complaint
-: UTI and Other (diverticulitis)
Subjective / Review of Systems
afebrile
bp stable
without leukocytosis
cr stable
blood cultures finalized neg
Vital Signs / Physical Exam
Vital Signs
Vital Signs
Temp Pulse Resp BP Pulse Ox
98.2 F 95 16 145/80 99
10/13/23 07:55 10/13/23 07:55 10/13/23 07:55 10/13/23 07:55 10/13/23 07:55
Physical Exam
Constitutional: No Acute Distress and Chronically Ill
Cardiovascular: Regular Rate
Pulmonary: Symmetric and Non Labored
Skin: Negative Rash or Jaundice
Neurological: Awake
Objective Data
Lab Data
Lab Results
10/13/23 07:00
10/13/23 07:00
Estimated Creat Clear 53 ml/min 10/13/23 07:00
Lactic Acid 1.1 mmol/L (0.7-2.0) 10/08/23 01:43
Total Bilirubin 0.7 mg/dl (0.2-1.3) 10/07/23 23:59
AST 17 U/L (14-36) 10/07/23 23:59
ALT 12 U/L (0-35) 10/07/23 23:59
Alkaline Phosphatase 97 U/L (38-126) 10/07/23 23:59
Most recent labs reviewed.
Micro Results:
10/11/23 07:35 Urine Culture - Final
Urine NO GROWTH
10/08/23 02:18 Blood Culture - Final
Blood/Venous No Growth - Final Report
10/08/23 01:43 Blood Culture - Final
Blood/Venous No Growth - Final Report
10/08/23 01:43 Urine Culture - Final
Urine Escherichia coli - ESBL
Lactobacillus species
--- NOTE | 2023-10-13 14:49 | PTCARENOTE ---
pt's this morning in this hopsital, she left the unit for a few hours to be by his side with family. Pt sad, resting in the bed, no complaints offered.
[2023-10-13 15:52] VITALS: BP 143/80
--- NOTE | 2023-10-13 16:24 | CHAP ---
Allison was resting in bed - no family present. She was rather confused and understandably sad, after her , Amrit, in ICU this morning. Emotional and spiritual support provided.
[2023-10-13] MEDS: SENOKOT-S PO (21:02)
[2023-10-13 22:05] VITALS: BP 111/63
[2023-10-13 23:10] VITALS: BP 111/63
[2023-10-14] MEDS: ROBITUSSIN PO ×4 (00:53→23:50)
[2023-10-14] MEDS: SYNTHROID 50 MCG PO (05:34)
[2023-10-14 06:00] VITALS: BMI 28.0
--- NOTE | 2023-10-14 07:08 | W.PN.HOSP.TC ---
Today's Communication/Plan
-
stable, discharge pending SNF rehab placement
needs arrangements for her 's Sun/Sun
Assessment / Plan
Assessment / Plan
Physical Exam
General: No pallor, cyanosis, or jaundice.
HEENT: Throat clear. PERRLA Normocephalic atraumatic
NECK: Supple. No JVD Carotid Bruits
RESPIRATORY: Lungs clear to auscultation. No crackles wheezes stridor
CVS: S1, S2 normal. RRR. No murmur, rub or gallop.
ABDOMEN: Soft, No distension, decreased bowel sounds. Patient denies tenderness on palpitation of abdomen but appears to visibly wince during examination.
EXTREMITIES: LLE appears stronger with increased range of motion compared to RLE, RLE also appears slightly shorter compared to LLE (all baseline as per patient. CT of abd/pelvis obtained twice during this hospitalization no acute hip fracture noted)
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
78F Dementia, HTN, Hypothyroidism, SIADH, recently admitted with E.coli ESBL bacteremia from urinary source presents to ED 1 week after a mechanical fall at [facility] for continued knee pain. ED evaluation showed she had leukocytosis,
+u/a and LYN with softer BP than baseline. Per reports, knee evaluation showed no acute fracture, dislocation or effusion. She was treated for presumed sepsis without shock given + u/a, h/o E coli bacteremia and LYN. She also had a CT a/p w/o
contrast to evaluate LYN and was found to have a moderate left sided hydronephrosis w/o nephrolithiasis.
PLAN:
#Possible Sepsis POA UTI/pyelonephritis (white count elevation, Tachycardia)
- follow blood and urine cultures NGTD
- procalcitonin elevated
- received empiric zosyn in ED
-signs of possible sepsis white count elevation tachycardia resolved soon following admission empiric abx
- ID consult appreciated initially Ertapenem daily x3 recommended however patient later agitated refusing exam/treatment unlikely to accept midline. Fosfomycin once ordered instead, patient received without issues.
-abx were later restarted due to findings pyelonephritis diverticulitis sigmoid colon intramural abscess, possible intrarenal abscess, and stercoral colitis noted as below
#Right Knee Pain
reportedly progressive for past week
Knee XR appreciated:
No acute osseous or articular abnormality is appreciated.
Unchanged severe tricompartmental osteoarthritis with small suprapatellar joint effusion.
Patient currently denies pain
# LYN Cr 1.6 resolved
#left Mild Moderate Hydronephrosis no obstructing lesion/calculi noted
#Sigmoid colon diverticulitis intramural abscess
#Pyelonephritis possible developing intrarenal left lower pole kidney abscess
patient asked to hold ACEI during last discharge but she has continued with this medication.
Denies any NSAIDs. Multifactorial LYN likely due to compromised renal hemodynamics vs post renal. Non-oliguric
- hold enalapril and furosemide for now
- avoid nephrotoxins
- nephrology consult appreciated
-kidney function improving
10/09 CT urography appreciated
- Left hydronephrosis suspected due to obstructing diverticulitis sigmoid colon intramural abscess formation
- Left Pyelonephritis, possible left lower pole kidney small intrarenal abscess formation
-Possible stercoral colitis
urology eval appreciated cystoscopy stent placement 10/10 no anti-coag 72 h d/t hematuria from procedure
ID eval appreciated Ertapenem 2 week course midline to be placed
CRS eval appreciated cont abx no surgical intervention indicated, outpt follow up recommended
# Relative hypotension low 91/50 since improved with hold home enalapril furosemide nifedipine
cont ot monitor
BP since improved stable at goal w/o above antihypertensives, will cont to monitor off for now
# Mild Hyponatremia nonsignificant at this time
#Dementia with behavioral disturbances
#MDD
#Sundowning
Home Paxil 20 mg daily
recently had Seroquel 25mg increased to BID per Daughter POA Nadia
Continuing home Seroquel
Psych Eval appreciated patient does not have capacity to make medical decisions for herself at this time. ativan prn agitation/anxiety (has not required since discontinued)
Mental status improved since Ureter stent placement and abx
PT/OT appreciated SNF rehab
DVT PPX - heparin sq
Full Code
10/11 Discussed with patient's daughter Nadia, patient's here in ICU being considered for hospice. Patient cleared to visit, discussed with nurse. Patient's since .
Medically stable for discharge SNF rehab pending placement
Patient's 's Tue/Wed needs arrangements to be allowed to attend, case mgmt consult requested
discussed with patient's daughter KUSUM Zuniga
I spent a total of 55 minutes with the patient or on the floor. More than 50% of this time involved counseling and coordination of care.
Anticipated Discharge: 24 - 48 hours
Subjective/Interval History
-
Date of Service: October 14, 2023
No acute distress pleasant calm cooperative pain free. Denies new acute issues at this time.
Objective Data
-
Vital Signs:
Vital Signs
Temp Pulse Resp BP Pulse Ox
98.1 F 63 16 111/63 99
10/13/23 23:10 10/13/23 23:10 10/13/23 23:10 10/13/23 23:10 10/13/23 23:10
I&O
10/13/23 10/14/23 10/15/23
06:59 06:59 06:59
Intake Total 360 / 360 540 / 540
Balance 360 / 360 540 / 540
[2023-10-14 07:15] VITALS: BP 141/76
[2023-10-14] MEDS: SEROQUEL 25 MG PO ×2 (08:55→20:42)
[2023-10-14] MEDS: ROBITUSSIN 200 MG PO ×3 (08:55→20:42)
[2023-10-14] MEDS: PAXIL 20 MG PO (08:55)
[2023-10-14] MEDS: SENOKOT-S PO ×2 (08:55→20:44)
[2023-10-14] MEDS: VISBIOME 2 CAP PO (08:55)
[2023-10-14] MEDS: MIRALAX PO (08:56)
[2023-10-14] MEDS: MYCOSTATIN CREAM 1 APPLIC TOPICAL (08:59)
[2023-10-14] MEDS: INVANZ 60 MG IV (13:32)
[2023-10-14] MEDS: FLUSH (NSS) 2 FLUSH IV (13:33)
[2023-10-14 15:43] VITALS: BP 135/74
[2023-10-14 23:54] VITALS: BP 145/86
[2023-10-15] MEDS: ROBITUSSIN 200 MG PO ×2 (04:05→08:25)
[2023-10-15] MEDS: MYCOSTATIN CREAM 1 APPLIC TOPICAL (04:09)
[2023-10-15 04:26] VITALS: BMI 28.0
[2023-10-15] MEDS: SYNTHROID 50 MCG PO (05:11)
[2023-10-15 07:00] VITALS: BP 133/80
--- NOTE | 2023-10-15 07:46 | W.PN.HOSP.TC ---
Today's Communication/Plan
-
discharge
Assessment / Plan
Assessment / Plan
Physical Exam
General: No pallor, cyanosis, or jaundice.
HEENT: Throat clear. PERRLA Normocephalic atraumatic
NECK: Supple. No JVD Carotid Bruits
RESPIRATORY: Lungs clear to auscultation. No crackles wheezes stridor
CVS: S1, S2 normal. RRR. No murmur, rub or gallop.
ABDOMEN: Soft, No distension, decreased bowel sounds. Patient denies tenderness on palpitation of abdomen but appears to visibly wince during examination.
EXTREMITIES: LLE appears stronger with increased range of motion compared to RLE, RLE also appears slightly shorter compared to LLE (all baseline as per patient. CT of abd/pelvis obtained twice during this hospitalization no acute hip fracture noted)
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
78F Dementia, HTN, Hypothyroidism, SIADH, recently admitted with E.coli ESBL bacteremia from urinary source presents to ED 1 week after a mechanical fall at [facility] for continued knee pain. ED evaluation showed she had leukocytosis,
+u/a and LYN with softer BP than baseline. Per reports, knee evaluation showed no acute fracture, dislocation or effusion. She was treated for presumed sepsis without shock given + u/a, h/o E coli bacteremia and LYN. She also had a CT a/p w/o
contrast to evaluate LYN and was found to have a moderate left sided hydronephrosis w/o nephrolithiasis.
PLAN:
#Possible Sepsis POA UTI/pyelonephritis (white count elevation, Tachycardia)
- follow blood and urine cultures NGTD
- procalcitonin elevated
- received empiric zosyn in ED
-signs of possible sepsis white count elevation tachycardia resolved soon following admission empiric abx
- ID consult appreciated initially Ertapenem daily x3 recommended however patient later agitated refusing exam/treatment unlikely to accept midline. Fosfomycin once ordered instead, patient received without issues.
-abx were later restarted due to findings pyelonephritis diverticulitis sigmoid colon intramural abscess, possible intrarenal abscess, and stercoral colitis noted as below
#Right Knee Pain
reportedly progressive for past week
Knee XR appreciated:
No acute osseous or articular abnormality is appreciated.
Unchanged severe tricompartmental osteoarthritis with small suprapatellar joint effusion.
Patient currently denies pain
# LYN Cr 1.6 resolved
#left Mild Moderate Hydronephrosis no obstructing lesion/calculi noted
#Sigmoid colon diverticulitis intramural abscess
#Pyelonephritis possible developing intrarenal left lower pole kidney abscess
patient asked to hold ACEI during last discharge but she has continued with this medication.
Denies any NSAIDs. Multifactorial LYN likely due to compromised renal hemodynamics vs post renal. Non-oliguric
- hold enalapril and furosemide for now
- avoid nephrotoxins
- nephrology consult appreciated
-kidney function improving
10/09 CT urography appreciated
- Left hydronephrosis suspected due to obstructing diverticulitis sigmoid colon intramural abscess formation
- Left Pyelonephritis, possible left lower pole kidney small intrarenal abscess formation
-Possible stercoral colitis
urology eval appreciated cystoscopy stent placement 10/10 no anti-coag 72 h d/t hematuria from procedure
ID eval appreciated Ertapenem 2 week course midline to be placed
CRS eval appreciated cont abx no surgical intervention indicated, outpt follow up recommended
# Relative hypotension low 91/50 since improved with hold home enalapril furosemide nifedipine
cont ot monitor
BP since improved stable at goal w/o above antihypertensives, will cont to monitor off for now
# Mild Hyponatremia nonsignificant at this time
#Dementia with behavioral disturbances
#MDD
#Sundowning
Home Paxil 20 mg daily
recently had Seroquel 25mg increased to BID per Daughter POA Nadia
Continuing home Seroquel
Psych Eval appreciated patient does not have capacity to make medical decisions for herself at this time. ativan prn agitation/anxiety (has not required since discontinued)
Mental status improved since Ureter stent placement and abx
PT/OT appreciated SNF rehab
DVT PPX - heparin sq
Full Code
Medically stable for discharge SNF rehab with outpatient follow up recommendations.
discussed with patient's daughter KUSUM Zuniga
Total Time Preparing Discharge ___50____ minutes including examination of the patient, summary of the hospital stay, instructions for continuing care to all relevant caregivers; and preparation of discharge records, prescriptions, and referral
forms if necessary.
Anticipated Discharge: Today
Subjective/Interval History
-
Date of Service: October 15, 2023
No acute distress sitting up comfortably in bed. Denies new acute issues. Overall reports feeling well. Looking forward to discharge.
Objective Data
-
Vital Signs:
Vital Signs
Temp Pulse Resp BP Pulse Ox
97.8 F 82 18 145/86 97
10/14/23 23:54 10/14/23 23:54 10/14/23 23:54 10/14/23 23:54 10/14/23 23:54
I&O
10/14/23 10/15/23 10/16/23
06:59 06:59 06:59
Intake Total 540 / 540 600 / 600
Balance 540 / 540 600 / 600
[2023-10-15] MEDS: MIRALAX PO (08:22)
[2023-10-15] MEDS: SENOKOT-S PO (08:23)
[2023-10-15] MEDS: SEROQUEL 25 MG PO (08:24)
[2023-10-15] MEDS: VISBIOME 2 CAP PO (08:25)
[2023-10-15] MEDS: PAXIL 20 MG PO (08:25)
--- NOTE | 2023-10-15 09:57 | W.PN.ID1 ---
Date of Service
Date of Service: October 15, 2023
Today's Communication
- continue with ertapenem for 2 week course 10/09-10/22 - no reliable oral options for the ESBL, will need to be IV
ID service will no longer actively follow this patient please recall for further questions
Assessment / Plan
Diverticulitis with suspected intramural abscess
Complicated UTI with pyelonephritis
LYN on CKD
Dementia
- continue with ertapenem for 2 week course 10/09-10/22 - no reliable oral options for the ESBL, will need to be IV
- agree with hiprex after ertapenem
- midline
- follow up with colorectal and uroloic surgeries
ID service will no longer actively follow this patient please recall for further questions
Chief Complaint
-: UTI and Other (diverticulitis)
Subjective / Review of Systems
afebrile
bp stable
no labs today and not needed from my perspective
Vital Signs / Physical Exam
Vital Signs
Vital Signs
Temp Pulse Resp BP Pulse Ox
97.8 F 81 18 133/80 97
10/15/23 07:00 10/15/23 07:00 10/15/23 07:00 10/15/23 07:00 10/15/23 07:00
Physical Exam
Constitutional: No Acute Distress
Cardiovascular: Regular Rate
Pulmonary: Symmetric and Non Labored
Gastrointestinal: Non Distended
Skin: Dry; Negative Rash or Jaundice
Neurological: Negative Awake
Objective Data
Lab Data
Lab Results
10/13/23 07:00
10/13/23 07:00
Estimated Creat Clear 53 ml/min 10/13/23 07:00
Lactic Acid 1.1 mmol/L (0.7-2.0) 10/08/23 01:43
Total Bilirubin 0.7 mg/dl (0.2-1.3) 10/07/23 23:59
AST 17 U/L (14-36) 10/07/23 23:59
ALT 12 U/L (0-35) 10/07/23 23:59
Alkaline Phosphatase 97 U/L (38-126) 10/07/23 23:59
Most recent labs reviewed.
Micro Results:
10/11/23 07:35 Urine Culture - Final
Urine NO GROWTH
10/08/23 02:18 Blood Culture - Final
Blood/Venous No Growth - Final Report
10/08/23 01:43 Blood Culture - Final
Blood/Venous No Growth - Final Report
10/08/23 01:43 Urine Culture - Final
Urine Escherichia coli - ESBL
Lactobacillus species
[2023-10-15] MEDS: ROBITUSSIN PO ×2 (11:55→12:01)
[2023-10-15] MEDS: INVANZ 60 MG IV (11:55)
--- NOTE | 2023-10-15 12:19 | W.DCSUMMARY ---
Discharge Summary
Discharge Data
Date of Admission: 10/08/23
Date of Discharge: 10/15/23
-
Pending Results: No
Hospital Course
78F Dementia, HTN, Hypothyroidism, SIADH, recently admitted with E.coli ESBL bacteremia from urinary source presented to ED 1 week after a mechanical fall at [facility] for continued knee pain. ED evaluation showed she had leukocytosis,
+u/a and LYN with softer BP than baseline. Per reports, knee evaluation showed no acute fracture, dislocation or effusion. She was treated for presumed sepsis without shock given + u/a, h/o E coli bacteremia and LYN. She also had a CT a/p w/o
contrast to evaluate LYN and was found to have a moderate left sided hydronephrosis w/o nephrolithiasis. Possible Sepsis POA UTI/pyelonephritis (white count elevation, Tachycardia). Blood cultures ngtd. urine cx would eventually grow ESBL E. coli
and lactobacillus species. Procalcitonin elevated. Patient received empiric zosyn in ED. Signs of possible sepsis white count elevation tachycardia resolved soon following admission empiric abx. ID consult evaluated and initially Ertapenem daily
x3 recommended however patient later agitated refusing exam/treatment unlikely to accept midline. Fosfomycin once ordered instead, patient received without issues. Abx were later restarted due to findings pyelonephritis diverticulitis sigmoid colon
intramural abscess, possible intrarenal abscess, and stercoral colitis on CT. Patient's mental status and compliance improved over the course of hospitalization with encouragement from family and following medical treatment. Right Knee Pain,
reportedly progressive for past week, Knee XR appreciated: No acute osseous or articular abnormality appreciated, unchanged severe tricompartmental osteoarthritis with small suprapatellar joint effusion. Pain since improved. LYN initial Cr 1.6
resolved, left Mild Moderate Hydronephrosis no obstructing lesion/calculi noted, Sigmoid colon diverticulitis intramural abscess, Pyelonephritis possible developing intrarenal left lower pole kidney abscess, as noted on CT. Multifactorial LYN
likely due to compromised renal hemodynamics vs post renal. Non-oliguric. Enalapril and lasix were held with subsequent improvement in kidney function. Urology evaluated and treated with cystoscopy stent placement 10/10 no anti-coag 72 h d/t
hematuria from procedure
ID eval appreciated Ertapenem 2 week course midline subsequently placed. CRS eval appreciated cont abx no surgical intervention indicated, outpt follow up recommended. Relative hypotension low 91/50 since improved with hold home enalapril
furosemide nifedipine. BP stable at goal w/o antihypertensives, hold was continued on discharge with outpatient follow up to determine when necessary to resume. Dementia with behavioral disturbances, Sundowning, mental status significantly improve
following start of IV abx and following urologic intervention. Medically stable, patient was discharged to SNF rehab with outpatient follow up recommendations.
Discharge Plan
-
Patient Disposition: Long Term/SNF
Discharge Diagnosis/Procedures: Sepsis urinary tract infection/pyelonephritis
Osteoarthritis
Acute Kidney Injury
Left Mild Moderate Hydronephrosis status post cystoscopy/left ureteroscopy and stent placement 10/10
Sigmoid colon diverticulitis intramural abscess
Mild Hyponatremia
Dementia with behavioral disturbances
Major Depressive Disorder
Condition: Fair
Diet: Regular
Activity: With assistance, As tolerated and With Walker
Driving Restrictions: No driving
Bathing Restrictions: None
Blood Work: Repeat CBC and BMP with primary care provider in 1 week of discharge.
Others Tests: with primary care provider or colorectal surgeon, please obtain CT Abdomen and pelvis with po and IV contrast in 2 - 3 weeks
Other Services: PT and OT
Activity Restrictions/Additional Instructions:
Please follow up with primary care provider in 1 week of discharge, urology in 2 week of discharge, and colorectal surgeon in 3-4 weeks of discharge.
IV antibiotics Ertapenem has been prescribed for 2 week course 10/10/23-10/23/23 to complete treatment complicated urinary tract infection intra-abdomen abscess.
Methenamine oral antibiotic has been prescribed to start after IV antibiotics completes.
Probiotic has been prescribed to promote gut health while on IV antibiotics.
Laxatives have also been prescribed for constipation.
Antihypertensives Lasix, nifedipine, and enalapril have been discontinued due to acute kidney injury and hypotension. Blood pressure has been well within goal without these medications. Please follow up with primary care provider and/or other
healthcare provider involved in your care before considering to resume aforementioned medications.
Please take medications as prescribed/recommended and follow up with primary care provider and/or other healthcare provider involved in your care for refills and/or further adjustment to your medication regimen as necessary.
Referrals:
Hang Charles MD [Family Provider] - in one week
Mark Michelle MD [Active] - in three to four weeks
Yeyo Snyder Jr., MD [Active] - in two weeks
Prescriptions:
New
polyethylene glycol 3350 [HealthyLax] 17 gram Powder In Packet
17 g PO DAILY PRN (Reason: constipation) Qty: 30 0RF
sennosides-docusate sodium [Stool Softener-Stimulant Laxat] 8.6-50 mg Tablet
1 tab PO BID 30 Days Qty: 60 0RF
Rx Instructions:
hold if diarrhea
Lactobac/Bifidobac [Visbiome]
2 cap PO DAILY 30 Days 0RF
Ertapenem [Invanz] 1000 MG
0.9% Sodium Chloride [Nss] 50 ML
120 mls/hr IV Q24H
Continue with Ertapenem for 2 week course 10/10/23-10/23/23
Ordered By: Sary Grossman MD
Last Taken: Unknown
methenamine hippurate 1 gram tablet
1 g PO BID 30 Days Qty: 60 0RF
Rx Instructions:
Start 10/24/23 After Finishing IV antibiotics course
Continued
paroxetine HCl 20 MG tablet
20 mg PO DAILY
quetiapine 25 mg Tablet
25 mg PO BID
levothyroxine 50 mcg Tablet
50 mcg PO DAILY
guaifenesin
10 ml PO Q4H
loperamide
2 mg PO Q12H PRN (Reason: diarrhea)
nystatin
1 applic topical Q8H PRN (Reason: jessica rash)
Discontinued
furosemide 20 MG tablet
20 mg PO DAILY Qty: 30 2RF
Hold Instructions: Resume on 08/15/23. Until BMP performed and Cleared by PCP
enalapril maleate 10 mg Tablet
20 mg PO BID Qty: 0 0RF
Hold Instructions: Resume on 08/15/23. until bmp completed and cleared by PCP
nifedipine 30 mg Tablet Extended Release
30 mg PO DAILY 30 Days Qty: 30 0RF
Discharge Orders:
Discharge Patient (As Directed); Ordered 10/15/23
Ordered By: Sary Grossman
Discharge Date and Time
Discharge Date/Time: 10/15/23 14:00
Print Language: BRITISH
--- NOTE | 2023-10-15 12:21 | CM ---
CM reviewed pt with Dr Grossman and pt ready for dc
SNF bed confirmed at [facility] with admissions
Aware of plan for midline/IV ertapenem
Clinicals faxed via [facility]
Update to dtr/phone- very appreciative
IMM verbally reviewed- she declined email copy
Copy placed with dc paperwork per her request
Bedside update to pt as well
Transport forms on chart
Discharge Disposition- [facility] SNF via [facility] 1330 pickup
Phone- [phone] Fax- [phone]
--- NOTE | 2023-10-15 13:10 | PTCARENOTE ---
Called [facility] [phone] spoke and gave report to Betzy. shredder picker [id number]
[2023-10-15 13:28] VITALS: BP 136/76
--- NOTE | 2023-10-15 13:51 | PTCARENOTE ---
pt being d/c to [facility]. Report give. Iv in left hand pulled. Right midline intact for iv abt to follow d/c. daughter with patient.
== END 2023-10-15 14:00 | DRG 853 ==
LOC: 2 NORTH 08:09
PROVIDERS: ADMITTING PHYSICIAN Internal Medicine; ATTENDING PHYSICIAN Internal Medicine; CONSULT PHYSICIAN Specialist; EMERGENCY PHYSICIAN Emergency Medicine; FAMILY PHYSICIAN Physical Medicine & Rehabilitation; OTHER PHYSICIAN Psychiatry & Neurology Psychiatry; OTHER PHYSICIAN Student in an Organized Health Care Education/Training Program; OTHER PHYSICIAN Surgery
PROC: 0T778DZ Dilation of Left Ureter with Intraluminal Device, Via Natural or Artificial Opening Endoscopic (ICD-10-PCS; 2023-10-11)
PROC: BT1F1ZZ Fluoroscopy of Left Kidney, Ureter and Bladder using Low Osmolar Contrast (ICD-10-PCS; 2023-10-11)
DX: A41.9 Sepsis, unspecified organism (principal); N17.0 Acute kidney failure with tubular necrosis; N13.6 Pyonephrosis; K57.20 Diverticulitis of large intestine with perforation and abscess without bleeding; E22.2 Syndrome of inappropriate secretion of antidiuretic hormone; F03.A11 Unspecified dementia, mild, with agitation; F03.A18 Unspecified dementia, mild, with other behavioral disturbance; F03.A3 Unspecified dementia, mild, with mood disturbance; F03.A4 Unspecified dementia, mild, with anxiety; N39.0 Urinary tract infection, site not specified; E44.0 Moderate protein-calorie malnutrition; K57.80 Diverticulitis of intestine, part unspecified, with perforation and abscess without bleeding; I95.9 Hypotension, unspecified; E03.9 Hypothyroidism, unspecified; I10 Essential (primary) hypertension; N36.2 Urethral caruncle; F32.9 Major depressive disorder, single episode, unspecified; I25.10 Atherosclerotic heart disease of native coronary artery without angina pectoris; A49.9 Bacterial infection, unspecified; R82.71 Bacteriuria; Z68.28 Body mass index [BMI] 28.0-28.9, adult
CPT/HCPCS: 73560; 74176; 74178; 74420; 76000; 80048; 80053; 81003; 81015; 83605; 83735; 84100; 84145; 85025; 85027; 86160; 87040; 87071; 87086; 87186; 96365; 97163; 97167; 97530; 99285; C1758; C2617; J1335; Q9967

== ENCOUNTER → 2023-10-18 10:24 | Outpatient (REF) | payer OTHER, MEDICARE, SELFPAY ==
[2023-10-18 11:22] LABS: Hemoglobin 9.6 g/dL (12.0-16.0); Mean Corp Hgb Conc. 33.1 g/dL (33.0-37.0); Mean Corpuscular Hgb 30.4 pg (27.0-31.0); Mean Corpuscular Volume 91.8 fL (81.0-99.0); Mean Platelet Volume 9.1 fL (7.4-10.4); Platelet Count 301 10^3/uL (130-400); Red Blood Cell Count 3.16 10^6/uL (4.20-5.40); Red Cell Dist. Width 13.4 % (11.5-14.5); White Blood Cell Count 8.5 10^3/uL (4.8-10.8)
[2023-10-18 11:46] LABS: ALT (SGPT) < 10 U/L (0-35); AST (SGOT) 22 U/L (14-36); Albumin 2.8 g/dl (3.5-5.0); Alkaline Phosphatase 83 U/L (38-126); Blood Urea Nitrogen 13 mg/dl (7-17); Calcium 9.4 mg/dl (8.4-10.2); Carbon Dioxide 27 mmol/L (22-30); Chloride 102 mmol/L (98-107); Glucose 76 mg/dl (70-99); Magnesium 1.7 mg/dl (1.6-2.3); Potassium 4.7 mmol/L (3.5-5.1); Sodium 135 mmol/L (135-145); Total Bilirubin 0.4 mg/dl (0.2-1.3); Total Protein 5.3 g/dl (6.3-8.2); eGFR > 60.00
== END ==
LOC: OLABWHC 10:24
PROVIDERS: ATTENDING PHYSICIAN Internal Medicine
DX: A41.51 Sepsis due to Escherichia coli [E. coli] (principal); I50.32 Chronic diastolic (congestive) heart failure
CPT/HCPCS: 36415; 80053; 83735; 85027

== ENCOUNTER → 2023-11-22 12:17 | Outpatient (REF) | payer MEDICARE, SELFPAY | LOC: RAD 12:17 | PROVIDERS: ATTENDING PHYSICIAN Specialist; FAMILY PHYSICIAN Internal Medicine | DX: N13.30 Unspecified hydronephrosis (principal) | CPT/HCPCS: 74177; Q9967 ==

== ENCOUNTER → 2023-12-10 13:49 | Outpatient (REF) | payer MEDICARE, SELFPAY | LOC: RAD 13:49 | PROVIDERS: ATTENDING PHYSICIAN Nurse Practitioner Gerontology | DX: I80.11 Phlebitis and thrombophlebitis of right femoral vein (principal) | CPT/HCPCS: 93971 ==

== ENCOUNTER → 2024-01-16 11:21 | Outpatient (REF) | payer MEDICARE, SELFPAY ==
[2024-01-16 12:01] LABS: Calcium 8.9 mg/dl (8.4-10.2); Carbon Dioxide 25 mmol/L (22-30); Chloride 99 mmol/L (98-107); Glucose 79 mg/dl (70-99); Potassium 4.2 mmol/L (3.5-5.1); Sodium 133 mmol/L (135-145)
[2024-01-16 12:11] LABS: Blood Urea Nitrogen 25 mg/dl (7-17)
== END ==
LOC: OLABSOL 11:21
PROVIDERS: ATTENDING PHYSICIAN Nurse Practitioner Gerontology
DX: I50.9 Heart failure, unspecified (principal)
CPT/HCPCS: 36415; 80048

== ENCOUNTER → 2024-02-08 10:33 | Outpatient (REF) | payer MEDICARE, SELFPAY ==
[2024-02-08 13:22] LABS: Blood Urea Nitrogen 28 mg/dl (7-17); Calcium 9.4 mg/dl (8.4-10.2); Carbon Dioxide 27 mmol/L (22-30); Chloride 104 mmol/L (98-107); Glucose 74 mg/dl (70-99); Potassium 4.6 mmol/L (3.5-5.1); Sodium 139 mmol/L (135-145); eGFR 45.76
[2024-02-08 13:31] LABS: NT-proBNP 2050 pg/ml
== END ==
LOC: OLABSOL 10:33
PROVIDERS: ATTENDING PHYSICIAN Nurse Practitioner Gerontology
DX: R94.4 Abnormal results of kidney function studies (principal)
CPT/HCPCS: 36415; 80048; 83880

== ENCOUNTER → 2024-07-16 09:45 | Outpatient (REF) | payer MEDICARE, SELFPAY ==
[2024-07-16 10:17] LABS: % Basophils 0.7 % (0-2); % Eosinophils 5.9 % (0-6); % Immature Granulocytes 0.2 % (0-0.5); % Lymphocytes 11.9 % (20.5-51.1); % Neutrophils 72.3 % (42.2-75.2); Absolute Basophils 0.1 10^3/uL (0-0.2); Absolute Eosinophils 0.5 10^3/uL (0-0.7); Absolute Monocytes 0.8 10^3/uL (0.1-0.6); Absolute Neutrophils 6.2 10^3/uL (1.4-6.5); Hematocrit 29.4 % (37.0-47.0); Hemoglobin 9.5 g/dL (12.0-16.0); Mean Corp Hgb Conc. 32.3 g/dL (33.0-37.0); Mean Corpuscular Hgb 30.2 pg (27.0-31.0); Mean Corpuscular Volume 93.3 fL (81.0-99.0); Nucleated Red Blood Cells % 0 %; Platelet Count 318 10^3/uL (130-400); Red Blood Cell Count 3.15 10^6/uL (4.20-5.40); White Blood Cell Count 8.6 10^3/uL (4.8-10.8)
[2024-07-16 10:57] LABS: ALT (SGPT) < 10 U/L (0-35); AST (SGOT) 14 U/L (14-36); Albumin 3.4 g/dl (3.5-5.0); Alkaline Phosphatase 96 U/L (38-126); Blood Urea Nitrogen 29 mg/dl (7-17); Calcium 9.2 mg/dl (8.4-10.2); Carbon Dioxide 22 mmol/L (22-30); Chloride 104 mmol/L (98-107); Glucose 92 mg/dl (70-99); HDL Cholesterol 46 mg/dl; LDL Cholesterol, Calculated 79 mg/dl; Sodium 134 mmol/L (135-145); Total Bilirubin 0.8 mg/dl (0.2-1.3); Total Cholesterol 137 mg/dl (50-199); Triglyceride 62 mg/dl (10-149); Very Low Density Lipoprotein 12 mg/dl (0-30); eGFR 35.01
[2024-07-16 12:49] LABS: Vitamin D, 25-OH*** < 12.8 ng/mL (30-80)
[2024-07-16 13:23] LABS: Vitamin B12 379 pg/ml (239-931)
== END ==
LOC: OLABSOL 09:45
DX: E78.5 Hyperlipidemia, unspecified (principal); D51.9 Vitamin B12 deficiency anemia, unspecified; E55.9 Vitamin D deficiency, unspecified; E03.9 Hypothyroidism, unspecified; D64.9 Anemia, unspecified
CPT/HCPCS: 36415; 80053; 80061; 82306; 82607; 84443; 85025

== ENCOUNTER 2024-08-13 17:07 | Inpatient (IN) | payer MEDICARE, SELFPAY ==
[2024-08-13] VITALS (11 sets, daily range): BP systolic 123–178; BP diastolic 64–133; BMI 36.1; BMI 33.7
[2024-08-13 12:21] LABS: % Basophils 0.4 % (0-2); % Eosinophils 1.6 % (0-6); % Immature Granulocytes 0.4 % (0-0.5); % Lymphocytes 6.7 % (20.5-51.1); % Monocytes 8.3 % (1.7-9.3); % Neutrophils 82.6 % (42.2-75.2); Absolute Basophils 0.1 10^3/uL (0-0.2); Absolute Eosinophils 0.2 10^3/uL (0-0.7); Absolute Immature Granulocytes 0.1 10^3/uL (0-0.05); Absolute Lymphocytes 0.8 10^3/uL (1.2-3.4); Absolute Neutrophils 9.5 10^3/uL (1.4-6.5); Hematocrit 31.1 % (37.0-47.0); Hemoglobin 10.2 g/dL (12.0-16.0); Mean Corp Hgb Conc. 32.8 g/dL (33.0-37.0); Mean Corpuscular Hgb 29.1 pg (27.0-31.0); Mean Corpuscular Volume 88.6 fL (81.0-99.0); Mean Platelet Volume 8.6 fL (7.4-10.4); Nucleated Red Blood Cells % 0 %; Platelet Count 349 10^3/uL (130-400); Red Blood Cell Count 3.51 10^6/uL (4.20-5.40); Red Cell Dist. Width 12.7 % (11.5-14.5); White Blood Cell Count 11.5 10^3/uL (4.8-10.8)
[2024-08-13 12:44] LABS: ALT (SGPT) 11 U/L (0-35); AST (SGOT) 17 U/L (14-36); Albumin 3.6 g/dl (3.5-5.0); Alkaline Phosphatase 109 U/L (38-126); Blood Urea Nitrogen 26 mg/dl (7-17); Calcium 9.2 mg/dl (8.4-10.2); Carbon Dioxide 25 mmol/L (22-30); Chloride 98 mmol/L (98-107); Glucose 103 mg/dl (70-99); Sodium 133 mmol/L (135-145); Total Bilirubin 0.7 mg/dl (0.2-1.3); Total Protein 6.4 g/dl (6.3-8.2)
--- NOTE | 2024-08-13 12:45 | ED.GENMED ---
History of Present Illness
General
Chief Complaint: Swelling
Source: patient
Exam Limitations: none
Time Seen by Provider: 08/13/24 12:03
Nursing documentation reviewed up to this point in time: agreed with
History of Present Illness
History of Present Illness:
The patient is an 79-year-old female sent to the ED by ambulance for increased swelling and redness of both of her legs. Patient denies fever. She denies chest pain and shortness of breath. Patient is a vague historian and does not offer much
history.
Past History
Past History
ED Past Medical History: Cancer (B-cell lymphoma), HTN, Hypercholesterolemia, Hypothyroidism and Other (Chronic pain from osteoarthritis)
ED Past Surgical History: Orthopedic
Social History
Tobacco: Non-smoker
Alcohol: None
Drug: None
Personal:
Living: with family
Employment: Other
Family History
Family History: Other
Review of Systems
Review of Systems
Allergies reviewed?: Yes
All Other Systems: ROS reviewed and negative except as documented in HPI and ROS
Constitutional: Reports no symptoms
EENT: Reports no symptoms
Respiratory: Reports no symptoms
Cardiac: Reports no symptoms
ABD/GI: Reports no symptoms
: Reports no symptoms
Musculoskeletal: Reports edema
Skin: Reports other
Neurological: Reports no symptoms
Endocrine: Reports no symptoms
Hematologic/Lymphatic: Reports no symptoms
Psychiatric: Reports no symptoms
Phy Exam
Physical Exam
Physical Exam:
Physical Exam
General: no apparent distress, not acutely ill
Neck: supple. no meningeal signs. normal psoterior pharynx
Heart: s1/s2 regular rate and rhythm, no murmur. equal radial pulses.
Lungs: no acute respiratory distress. clear bilaterally
Abdomen: normal bowel sounds. not tender. no CVAT
Neuro: alert and oriented. no focal neurological deficits
Skin: no rash
Psychiatric: well kept. interactive and cooperative
Extremities: 3+ pitting edema bilateral lower extremities. Warmth and erythema of bilateral lower legs extending from feet up through mid lower legs.
Scores
Heart Failure Risk
Heart Failure Risk Score: Not Applicable
Course
Orders/Labs/Results
Orders:
Orders
08/13/24 11:59
Electrocardiogram (*1) Urgent
Reason for Study: Other
Other Reason for Exam: swelling
CR Chest - 2 Views Urgent
Comment:
Reason For Exam: swelling
08/13/24 12:00
EKG- Treatment ONCE
08/13/24 12:04
Complete Blood Count/With Diff Urgent
Comprehensive Metabolic Panel Urgent
NT-proBNP Urgent
Troponin I Urgent
08/13/24 15:01
Vancomycin [Vancocin] 1,500 mg 0.9% Sodium Chloride 500 ml [Nss] 500 ml IV NOW
Abnormal Lab Results
08/13/24
12:04
WBC 11.5 H 10^3/uL
(4.8-10.8)
RBC 3.51 L 10^6/uL
(4.20-5.40)
Hgb 10.2 L g/dL
(12.0-16.0)
Hct 31.1 L %
(37.0-47.0)
MCHC 32.8 L g/dL
(33.0-37.0)
Abs Immat Gran (auto) 0.1 H 10^3/uL
(0-0.05)
Absolute Neuts (auto) 9.5 H 10^3/uL
(1.4-6.5)
Absolute Lymphs (auto) 0.8 L 10^3/uL
(1.2-3.4)
Absolute Monos (auto) 1.0 H 10^3/uL
(0.1-0.6)
Neutrophils % 82.6 H %
(42.2-75.2)
Lymphocytes % 6.7 L %
(20.5-51.1)
Sodium 133 L mmol/L
(135-145)
BUN 26 H mg/dl
(7-17)
Creatinine 1.4 H mg/dL
(0.6-1.0)
Glucose 103 H mg/dl
(70-99)
Troponin I 0.051 H* ng/ml
08/13/24 12:04
08/13/24 12:04
Vital Signs
Initial and Last Documented VS:
Initial Vital Signs
Temp Pulse Resp BP Pulse Ox
98.7 F 85 22 155/120 95
08/13/24 12:00 08/13/24 12:00 08/13/24 12:00 08/13/24 12:00 08/13/24 12:00
Last Documented Vital Signs
Temp Pulse Resp BP Pulse Ox
98.7 F 74 18 133/69 100
08/13/24 12:00 08/13/24 15:00 08/13/24 15:00 08/13/24 15:00 08/13/24 15:00
MDM/Problems Addressed
Differential Diagnosis Includes:
CHF, DVT, cellulitis, renal failure
MDM/Problems Addressed:
Patient presents with acutely increased bilateral leg edema and redness
Chronic conditions affecting care:
Chronic renal failure
Acute Exacerbation and/or Progression of Chronic Illness:
Patient may have acute exacerbation of chronic renal failure causing increased leg edema
Acute Exacerbation and/or Progression of Chronic Illness: Kidney disease
*Pulse Oximetry
Patient hypoxic: no
*EKG
Interpreted by ED Provider?: Yes
Interpretation: abnormal
Comparison EKG: changes noted
Rate: normal
Rhythm: sinus
[place]: left axis deviation
Interval: normal interval
QRS Pattern: left vent hypertrophy
Ischemia: non-specific ST changes
*Regulatory Associate Interpretation
Rate: normal
Interpretation: normal
Rhythm: sinus
*Critical Care Note
Total Time (30-74mins, 75-104mins- exclusive of procedures): Not Applicable
Data Reviewed
Review of Other/Old Records Reveals: Testing (Cardiac echo showed an EF of 60 to 65% in 2020)
Source: patient and ambulance crew
ED Attending Note
-
Portions of this chart may have been created with voice recognition software.� Occasional wrong word or��sound alike� substitutions may have occurred due to the inherent limitations of voice recognition software.
Discharge Plan
Departure
Patient Disposition: Admit
Date of Disposition: 08/13/24
Time of Disposition: 15:00
Admit to: Telemetry
Presentation/result/management discussed w/ accepting MD/DO: Hospitalist
Discharge Problem:
Acute exacerbation of CHF (congestive heart failure), Bilateral cellulitis of lower leg
Prescriptions:
No Action
paroxetine HCl 20 MG tablet
20 mg PO DAILY
quetiapine 25 mg Tablet
25 mg PO BID
loperamide 2 mg Tablet
2 mg PO [id number] PRN (Reason: diarrhea) Qty: 0
levothyroxine 50 mcg Tablet
50 mcg PO DAILY
nystatin 100,000 unit/gram Powder
1 applic TOPICAL DAILY Qty: 0
methenamine hippurate 1 gram tablet
1 g PO BID 30 Days Qty: 60 0RF
Rx Instructions:
Start 10/24/23 After Finishing IV antibiotics course
ibuprofen [Advil] 200 mg Tablet
400 mg PO DAILY
Visbiome 112.5 billion cell Capsule
2 cap PO DAILY
diclofenac sodium [Voltaren] 1 % Gel
0 g TOPICAL BID
polyethylene glycol 3350 [HealthyLax] 17 gram powder in packet
17 g PO DAILYPRN PRN (Reason: constipation)
Referrals:
UNKNOWN,NO INTERVIEW [Family Provider] -
Interventions
Interventions:
*General Assessment Last Done: 08/13/24 12:00
ED- Cardiac Assessment Last Done: 08/13/24 13:22
ED- Pulmonary Assessment Last Done: 08/13/24 13:22
ED-Skin Assessment Last Done: 08/13/24 13:22
Discharge Date and Time
Print Language: BOLIVIAN
[2024-08-13 12:56] LABS: NT-proBNP > 27000 pg/ml; Troponin I 0.051 ng/ml
[2024-08-13] MEDS: VANCOCIN 530 MG IV (15:51)
--- NOTE | 2024-08-13 16:24 | HPS.HSE ---
Family Physician
-
Family Physician: NO INTERVIEW UNKNOWN
Chief Complaint
-
b/l Shreyas swelling
History of Present Illness
I could not get any information from the patient has dementia
Information gathered by chart review and speaking with the ER staff.
HPI
79 HX Dementia, HTN, Hypothyroidism, SIADH,HX E.coli ESBL bacteremia, HX B-cell lymphomaHypercholesterolemia, Chronic pain from osteoarthritis sen at ER:
- worsening b/l Shreyas swelling , red and warm , tender
- e fever
- denied SoB
Medical History
Past Medical History
Past Medical History: Reports Dementia, HTN and Hypothyroidism
Past Surgical History: Reports None
Social History
Tobacco: Non-smoker
Alcohol: None
Drug: None
Personal:
Living: Assisted Living
Employment: Retired
Family History
Family History: Not pertinent
Allergies / Home Medications
Allergies reflects when Allergies were last updated in [employer].
Home Medications with original date entered in [employer]
Allergy/Medication List:
Allergies
Allergy/AdvReac Type Severity Reaction Status Date / Time
No Known Allergies Allergy Verified 09/15/21 18:27
Home Medications
furosemide 20 mg tablet 20 mg PO DAILY #30 tabs 06/14/21
paroxetine HCl 20 mg tablet 20 mg PO DAILY Depression 09/15/21
enalapril maleate 10 mg tablet 20 mg (2 x 10 mg) PO BID #0 tabs 11/21/22
nifedipine 30 mg tablet,extended release 30 mg PO DAILY 30 days #30 tabs 08/08/23
guaifenesin 10 ml PO Q4H 10/08/23
levothyroxine 50 mcg tablet 50 mcg PO DAILY 10/08/23
loperamide 2 mg PO Q12H PRN diarrhea 10/08/23
nystatin 1 applic topical Q8H PRN jessica rash 10/08/23
quetiapine 25 mg tablet 25 mg PO BID 10/08/23
Review of Systems
-
History Source: Patient
Constitutional: Reports No Symptoms
EENT: Reports No Symptoms
Respiratory: Reports No Symptoms
Cardiac: Reports No Symptoms
Abdomen/GI: Reports No Symptoms and Anorexia
: Reports No Symptoms
Musculoskeletal: Reports See HPI
Neurological: Reports No Symptoms
Endocrine: Reports No Symptoms
Psych: Reports No Symptoms
Physical Exam
Vital Signs
Vital Signs
Temp Pulse Resp BP Pulse Ox
98.7 F 74 18 133/69 100
08/13/24 12:00 08/13/24 15:00 08/13/24 15:00 08/13/24 15:00 08/13/24 15:00
Physical Exam
General: Well Developed, Well Nourished and No Apparent Distress
HEENT: NormoCephalic, Moist mucous membranes and Atraumatic
Respiratory: Clear
Cardiac: S1/S2 and Regular Rhythm; No Murmur or Rub
GI: Soft, Non Tender, Non Distended and Normal Bowel Sounds; No Organomegaly
Rectal: Deferred by Provider
Musculoskeletal: Edema, Left Lower Extremity (warm and red ) and Edema, Right Lower Extremity (warm and red )
Skin: No Rash
Neuro: Nonfocal/grossly intact
Psych: Calm
Laboratory Results
-
08/13/24 12:04
08/13/24 12:04
Laboratory Results
Total Bilirubin 0.7 mg/dl (0.2-1.3) 08/13/24 12:04
AST 17 U/L (14-36) 08/13/24 12:04
ALT 11 U/L (0-35) 08/13/24 12:04
Alkaline Phosphatase 109 U/L (38-126) 08/13/24 12:04
Troponin I 0.051 ng/ml H* 08/13/24 12:04
Data Reviewed
-
Diagnostic Radiology: Report Reviewed by me
Medical Tests (Nuc Med, Echo, EKG etc): Report Reviewed by me
Lab Data: Labs Reviewed by me
Old Records: Reviewed
Impression/Plan
-
Selected Entries
08/13/24
12:00
Temp 98.7 F
Pulse 85
Resp Rate 22
Blood pressure 155/120
SaO2 95
Oxygen Mode of Delivery Room air
12/28/23 02/08/24 07/16/24
09:00 06:00 06:50
WBC
Hgb 9.9 L 9.5 L
Sodium
Potassium
BUN
Creatinine
eGFR 45.76 35.01
Troponin I
Adw-V-Rekfmukdbhq Pept 0
08/13/24
12:04
WBC 11.5 H
Hgb 10.2 L
Sodium 133 L
Potassium 4.0
BUN 26 H
Creatinine 1.4 H
eGFR 37.80
Troponin I 0.051 H*
Jdu-P-Vjqfjecuqah Pept > 14291
CXR
Extremely low lung volumes.
No suspected acute cardiopulmonary process.
EKG
SINUS RHYTHM WITH OCCASIONAL PREMATURE VENTRICULAR COMPLEXES AND PREMATURE
ATRIAL CONTRACTIONS
MODERATE VOLTAGE CRITERIA FOR LVH, MAY BE NORMAL VARIANT ( R in aVL , [facility]
product )
SEPTAL INFARCT (CITED ON OR BEFORE 15-SEP-2021)
ABNORMAL ECG
WHEN COMPARED WITH ECG OF 02-AUG-2023 18:57,
PREMATURE VENTRICULAR COMPLEXES ARE NOW PRESENT
03/08/21 TTE
LVEF 60-65%
mil LVH
No significant valvular dz
Last hospitalist admission: 10/08/23 - 10/15/23
P Dx
Sepsis urinary tract infection/pyelonephritis
Osteoarthritis
Acute Kidney Injury
Left Mild Moderate Hydronephrosis status post cystoscopy/left ureteroscopy and stent placement 10/10
Sigmoid colon diverticulitis intramural abscess
Mild Hyponatremia
Dementia with behavioral disturbances
Major Depressive Disorder
ASSESSMENT & PLAN
Pending Rx reconciliation
Bilateral lower leg cellulitis
No prior POS MRSA screen in [employer]
No Known ABx allergy
- first dose of IV Vanco at ER
- IV Cefazolin in place of IV Vanco
Suspect expanded volume
Concern for acute HFpEF due to volume expansion
New interval elevated proBNP with underlying CKD
03/08/21 TTE LVEF 60-65%
- IV lasix 40 x 1
- daily wt
- daily BMP
- ECHO in AM
- CBC Card consult
CKD3b
- stable
- Current Cr 1.4
- Baselien ( Cr 1.2 - 1.5, eGFR 35-45 )
Dementia with behavioral disturbances, sun downing
HX MDD
- LENS CLEANER Paxil 20 mg daily
- Continuing home Seroquel
HX left Mild Moderate Hydronephrosis no obstructing lesion/calculi noted
HX Sigmoid colon diverticulitis intramural abscess
HX Pyelonephritis
HX stercoral colitis
Chr normocytic anemia (Current Hgb 10.2, Baseline Hgb hi 9s)
DVT Px: SQ
Ful code
IP TLM
[2024-08-13] MEDS: HEPARIN 5000 UNITS SC (21:03)
[2024-08-13] MEDS: ANCEF 10 IV (21:03)
[2024-08-13] MEDS: SEROQUEL 25 MG PO (21:03)
[2024-08-13] MEDS: LASIX 40 MG IV (21:05)
[2024-08-13 21:41] LABS: Troponin I 0.037 ng/ml
--- NOTE | 2024-08-14 01:38 | PTCARENOTE ---
Received patient from ER via stretcher, DX of B/L leg cellulitis, acute CHF. Daughter Dianne with patient. Patient is AAOx2, she is agitated at times with care, B/L legs red, and dry, no open areas noted on legs, heels blanchable red and boggy, heel
foams applied, sacral area intact, abd fold and B/L groin maceration, Desenex powder ordered. Pt with purewick in place. She had no complaints of pain, just anxious and fearful during assessments and turning. Patient left comfortable in bed with
call be[facility]ford within reach. bed alarm placed on bed for safety.
[2024-08-14 03:21] VITALS: BP 121/81
[2024-08-14 03:34] LABS: Hematocrit 30.7 % (37.0-47.0); Hemoglobin 9.9 g/dL (12.0-16.0); Mean Corp Hgb Conc. 32.2 g/dL (33.0-37.0); Mean Corpuscular Hgb 28.7 pg (27.0-31.0); Mean Platelet Volume 8.9 fL (7.4-10.4); Platelet Count 334 10^3/uL (130-400); Red Blood Cell Count 3.45 10^6/uL (4.20-5.40); Red Cell Dist. Width 12.8 % (11.5-14.5); White Blood Cell Count 11.8 10^3/uL (4.8-10.8)
[2024-08-14 03:50] LABS: ALT (SGPT) 10 U/L (0-35); AST (SGOT) 16 U/L (14-36); Albumin 3.3 g/dl (3.5-5.0); Alkaline Phosphatase 106 U/L (38-126); Blood Urea Nitrogen 26 mg/dl (7-17); Calcium 9.1 mg/dl (8.4-10.2); Carbon Dioxide 27 mmol/L (22-30); Chloride 99 mmol/L (98-107); Direct Bilirubin 0.4 mg/dl (0.0-0.4); Estimated Creatinine Clearance 37 ml/min; Glucose 90 mg/dl (70-99); HDL Cholesterol 38 mg/dl; LDL Cholesterol, Calculated 72 mg/dl; Sodium 135 mmol/L (135-145); Total Bilirubin 0.6 mg/dl (0.2-1.3); Total Cholesterol 124 mg/dl (50-199); Total Protein 6.1 g/dl (6.3-8.2); Triglyceride 71 mg/dl (10-149); Very Low Density Lipoprotein 14 mg/dl (0-30)
[2024-08-14 03:52] LABS: Troponin I 0.039 ng/ml
[2024-08-14] MEDS: ANCEF 10 IV ×2 (05:03→11:01)
[2024-08-14 05:26] VITALS: BMI 33.3
[2024-08-14] MEDS: SYNTHROID 50 MCG PO (06:28)
[2024-08-14 07:29] VITALS: BP 139/78
[2024-08-14 08:06] VITALS: BMI 33.3
[2024-08-14] MEDS: HEPARIN 5000 UNITS SC ×2 (08:15→20:49)
[2024-08-14] MEDS: SEROQUEL 25 MG PO ×2 (08:15→20:50)
[2024-08-14] MEDS: DESENEX/MITRAZOL/ZEASORB 1 APPLIC TOPICAL ×2 (08:16→20:50)
[2024-08-14 09:34] LABS: Troponin I 0.038 ng/ml
--- NOTE | 2024-08-14 10:43 | PTCARENOTE ---
Patient AAOx2, disoriented to time, pleasant at times but agitated and angry with any care. Patient transported for scheduled ECHO, cardiac services called floor and told this RN that patient is agitated and angry towards staff and refusing ECHO at
this time. MD made aware. Patient transferred back to bed in room, inc of bowel and bladder. Hygiene provided, desenex powder applied to B/L groin MASD. B/L LEs red and dry, moisturizer applied. Bed alarm and call beckford in place.
[2024-08-14 11:02] VITALS: BP 132/68
--- NOTE | 2024-08-14 11:22 | CM ---
Reviewed the chart notes and spoke with the patient at the bedside. CM spoke with [facility] nurse at [facility]. Patient has been residing at [facility] since 10/2023. The patient at baseline uses wheelchair for mobility, but is able to ambulate with
assistance using a rolling walker for short distances. The patient has been to [facility] in the past and has had [facility] in past. CM continues to be available to patient/family and is monitoring medical plan for needs at discharge.
Plan: Discharge plans will depend on the patient's progress.
--- NOTE | 2024-08-14 12:16 | W.PN.HOSP.TC ---
Today's Communication/Plan
-
IV lasix
Echo
Monitor temp and CBC off antibiotics
Assessment / Plan
Assessment / Plan
79 y/o female presents to ED with bilateral lower extremity swelling and redness. BNP >27,000, troponin 0.039. Given 40mg IV lasix, one dose IV vanco in ED and transitioned to IV cefazolin. Work up for acute HFpEF vs bilateral lower leg cellulitis.
Bilateral lower extremity swelling/redness
-Bilateral makes CHF more likely vs cellulitis despite mild elevated WBC
-dc cefazolin and monitor WBC and temp
-BNP >27,000, troponin 0.039 at peak
-Chest x-ray clear, but crackles heard on physical exam
-Pt refused echo this am, will keep echo order standing and retry later
-Cont IV lasix 40mg daily
-Prior echo 2020 LVEF 60-65%
CKD stage 3b
-Cr 1.4
-Baseline appears between 1.2-1.5
-Monitor
Dementia
-Cont seroquel
-Frequently agitated
Hypothyroidism
-Cont levo 50
HX left Mild Moderate Hydronephrosis no obstructing lesion/calculi noted
HX Sigmoid colon diverticulitis intramural abscess
HX Pyelonephritis
HX stercoral colitis
Chr normocytic anemia (Current Hgb 10.2, Baseline Hgb hi 9s)
DVT heparin
Full code
Anticipated Discharge: 24 - 48 hours
Subjective/Interval History
-
Date of Service: August 14, 2024
Objective Data
-
Labs:
Laboratory Results
08/14/24
03:08
WBC 11.8 H
Hgb 9.9 L
Hct 30.7 L
Plt Count 334
Sodium 135
Potassium 4.0
Chloride 99
Carbon Dioxide 27
BUN 26 H
Creatinine 1.4 H
Glucose 90
Calcium 9.1
Total Bilirubin 0.6
AST 16
ALT 10
Alkaline Phosphatase 106
Vital Signs:
Vital Signs
Temp Pulse Resp BP Pulse Ox
97.8 F 91 18 132/68 100
08/14/24 11:02 08/14/24 11:02 08/14/24 11:02 08/14/24 11:02 08/14/24 11:02
I&O
08/13/24 08/14/24 08/15/24
06:59 06:59 06:59
Intake Total 240 / 240
Balance 240 / 240
Review of Systems
-
History Source: Patient
Constitutional: Reports No Symptoms
EENT: Reports No Symptoms Reported
Respiratory: Reports No Symptoms
Cardiac: Reports No Symptoms
Abdomen/GI: Reports No Symptoms
Genitourinary: Reports No Symptoms
Skin: Reports Other (Red, swollen bilateral lower extremities )
Neuro: Reports No Symptoms
Physical Exam
-
General: Well Developed and Comfortable
HEENT: Normocephalic
Respiratory: Crackles (Lower lobes)
Cardiac: Regular Rhythm and S1/S2
GI: Soft, Nontender, Nondistended and Normal Bowel Sounds
Musculoskeletal: Other (Minimal edema of lower extremities, erythema, tenderness with palpation, warm)
Skin: Warm
Neuro: AO x 3
Psych: Agitated
[2024-08-14] MEDS: LASIX 40 MG IV ×2 (12:44→18:11)
[2024-08-14 13:51] LABS: COVID-19 Antigen Negative (Negative)
[2024-08-14 13:59] LABS: Urine Albumin 2+ (Neg - Trace); Urine Bilirubin Negative (Negative); Urine Character Cloudy (Clear); Urine Color Yellow; Urine Glucose Negative (Negative); Urine Ketone Negative (Negative); Urine Leukocyte 3+ (Negative); Urine Nitrite Negative (Negative); Urine Occult Blood 3+ (Negative); Urine Urobilinogen Negative (Neg - 1+)
[2024-08-14 14:05] LABS: Urine Bacteria Few (Negative); Urine Red Blood Cell 0-2 /HPF (0-2); Urine Squamous Cell 0-2 /LPF (Few); Urine White Cell 80-90 /HPF (0-5)
[2024-08-14 15:16] VITALS: BP 158/86
--- NOTE | 2024-08-14 16:47 | CON.CAR ---
Addendum entered and electronically signed by Caleb Staton MD 08/14/24 17:54:
79 yo female with HTN, dementia, CKD3b is admitted with edema and weight gain. We are consulted for acute HF. There is no chest pain. Exam with RRR, no murmurs, 1+ LE edema. Cr 1.4. Tele: SR, PAC's, brief SVT. EKG: NSR, LVH, septal infarct.
Acute HF, type unknown. Severe, requiring hospitalization. She is agreeable to echo in AM. Continue IV lasix, with close monitoring of labs, tele, weight.
Original Note:
Consultation
Consultation Request
Date/Time Consultation Requested: 08/14/24 1640
Date/Time Consultation Performed: 08/14/24 1645
Requesting Provider: Dr. Ballard
Performing Provider: Mitra NAVARRO for Dr. Staton
Reason for Consultation: CHF
Medical History
-
Chief Complaint: LE edema, redness
History of Present Illness:
79 y/o female who lives at [facility] and has dementia, HTN, hypothyroidism, hx B-cell lymphoma who is here for evaluation of LE edema and redness. Daughter at bedside tells me she has also been weak and tired of recent. Patient is a poor historian due
to memory, but denies any CP, SOB, or palpitations. She is laying flat and appears comfortable. She is in SR. Of note, she was hospitalized 10/2023 with sepsis related to UTI and enalapril and lasix were stopped at that time.
Past Medical History
Past Medical History: Cancer, HTN and Hypothyroidism
Social History
Living: Assisted Living
Family History
Family History: Reviewed & Not Pertinent
Allergies / Home Medications
Allergy/AdvReac Type Severity Reaction Status Date / Time
No Known Allergies Allergy Verified 08/13/24 11:58
�Medication �Instructions �Recorded �Confirmed �Type
paroxetine HCl 20 mg tablet 20 mg PO DAILY Depression 09/15/21 08/13/24 History
levothyroxine 50 mcg tablet 50 mcg PO DAILY Thyroid 10/08/23 08/13/24 History
loperamide 2 mg tablet 2 mg PO [id number] PRN diarrhea ##0 10/08/23 08/13/24 History
nystatin 100,000 unit/gram topical 1 applic topical DAILY b/l breasts 10/08/23 08/13/24 History
powder ##0
quetiapine 25 mg tablet 25 mg PO BID Depression 10/08/23 08/13/24 History
methenamine hippurate 1 gram tablet 1 g PO BID 30 days #60 tabs 10/15/23 08/13/24 Rx
Lactobac no.2-Bifidobac no.1-S. 2 cap PO DAILY Gastrointestinal 08/13/24 08/13/24 History
thermo 112.5 billion cell capsule Issue
(Visbiome)
diclofenac sodium 1 % topical gel 0 g topical BID rt knee 08/13/24 08/13/24 History
ibuprofen 200 mg tablet (Advil) 400 mg PO DAILY Pain 08/13/24 08/13/24 History
polyethylene glycol 3350 17 gram 17 g PO DAILYPRN PRN constipation 08/13/24 08/13/24 History
oral powder packet (HealthyLax)
Review of Systems
-
History Source: Patient, Family and Other (chart)
Musculoskeletal: Edema
Skin: Other (leg redness)
Physical Exam
Vital Signs
Temp Pulse Resp BP Pulse Ox
99.3 F 91 18 158/86 97
08/14/24 15:16 08/14/24 15:16 08/14/24 15:16 08/14/24 15:16 08/14/24 15:16
Lab Results
08/14/24 03:08
08/14/24 03:08
Troponin I 0.038 ng/ml H* 08/14/24 08:38
Gol-R-Kehtiowosgg Pept > 91907 pg/ml 08/13/24 12:04
Physical Exam
General: Well Developed, Well Nourished and No Apparent Distress
HEENT: Normocephalic and Anicteric
Respiratory: Crackles (b/l bases)
Cardiac: Regular Rhythm
Musculoskeletal: Edema (mild BLE)
Skin: Other (redness to BLE's)
Neuro: Awake, Alert and Other (forgetful)
Psych: Calm and Confused
Impression / Plan
-
Acute HF, type unknown:
-last echo 2020 normal EF and no sig valve disease
-BNP >52603 and crackles to lung bases on auscultation and weight up (details below)
-I have ordered IV lasix, which requires intensive monitoring
-she is now agreeable to echo- which is ordered for tomorrow AM
-previously she was on Lasix 20 mg daily, but was d/c'd during 10/2023 hospitalization (sepsis/UTI). Since that time, weight is up about 15 kg!
pSVT:
-asymptomatic
-add BB (Coreg) for this and hypertension
HTN:
-previously on ACEI (appears also stopped 10/2023 hospitalization)
-monitor with IV diuresis and addition of BB
Cellulitis:
-s/p IV abx
-management per primary
Abnormal troponin 0.051:
-suspect acute, non-ischemic myocardial injury in setting of CHF
-no CP
-obtain echo
CKD:
-monitor with diuresis
Dementia:
-per primary
Data Reviewed
-
EKG: Tracing Personally Visualized and interpreted (NSR, LVH)
Radiology: Report Reviewed by me (CXR: Extremely low lung volumes. No suspected acute cardiopulmonary process.)
Medical Tests (Nuc Med, Echo etc): Report Reviewed by me (Echo 03/08/21: Normal biventricular size and systolic function without regional wall motion abnormality. Left ventricular ejection fraction is 60-65% by visual assessment. Mild concentric
left ventricular hypertrophy. No significant valvular disease. )
Labs: Labs Reviewed by me
[2024-08-14 19:29] VITALS: BP 141/83
[2024-08-14] MEDS: COREG 6.25 MG PO (20:50)
[2024-08-14 23:43] VITALS: BP 136/71
[2024-08-15 03:18] VITALS: BP 133/73
[2024-08-15] MEDS: SYNTHROID 50 MCG PO (05:30)
[2024-08-15 06:00] VITALS: BMI 31.8
[2024-08-15 07:08] VITALS: BP 146/78
--- NOTE | 2024-08-15 07:48 | W.PN.CD ---
Today's Communication / Plan
-
continue IV diuresis
check mag level
echo today
Impression / Plan
-
Acute HF, type unknown:
-responding nicely to diuresis
-last echo 2020 normal EF and no sig valve disease
-BNP >64665 and crackles to lung bases on auscultation and weight up (details below)
-continue IV lasix BID which requires intensive monitoring
-echo today, GDMT as indicated
-previously she was on Lasix 20 mg daily, but was d/c'd during 10/2023 hospitalization (sepsis/UTI). Since that time, weight is up about 15 kg on admission. Would resume po lasix on discharge.
pSVT:
-asymptomatic
-continue BB (Coreg) for this and hypertension
NSVT: asx, continue bb
-watch K and mag while diuresing
HTN:
-previously on ACEI (appears also stopped 10/2023 hospitalization)
-monitor with IV diuresis and addition of BB
Cellulitis:
-s/p IV abx
-management per primary
Abnormal troponin 0.051:
-suspect acute, non-ischemic myocardial injury in setting of CHF
-no CP
-obtain echo
CKD:
-monitor with diuresis
Dementia:
-per primary
Subjective:
no c/o sob or cp, legs hurt
Physical Exam
Vital Signs/Labs
Vital Signs
Temp Pulse Resp BP Pulse Ox
98.2 F 76 16 133/73 93
08/15/24 03:18 08/15/24 03:18 08/15/24 03:18 08/15/24 03:18 08/15/24 03:18
08/14/24 08/15/24 08/16/24
06:59 06:59 06:59
Actual Weight 93.531 kg 89.403 kg
Triglycerides 71 mg/dl (10-149) 08/14/24 03:08
LDL Cholesterol, Calc 72 mg/dl 08/14/24 03:08
VLDL Cholesterol, Calc 14 mg/dl (0-30) 08/14/24 03:08
HDL Cholesterol 38 mg/dl 08/14/24 03:08
08/13/24
12:04
Wpm-B-Piqvxotoevp Pept > 26547
LAB Results
08/13/24 08/13/24 08/14/24
12:04 20:52 03:08
Troponin I 0.051 H* 0.037 H* 0.039 H*
08/14/24
08:38
Troponin I 0.038 H*
Physical Exam
Constitutional: No acute distress
Cardiovascular: Rhythm & rate is regular, Systolic murmur absent, Diastolic murmur absent and Pedal edema present (1-2+ with intense b/l erythema)
Respiratory: Respiratory effort normal, Lungs clear to auscul., Wheeze Absent, Crackles Absent and Rhonchi Absent
Neuro/Psych: AO x 3
Data Reviewed
-
Date of Service: August 15, 2024
EKG: Other (tele with nsvt, nsr)
[2024-08-15 08:07] LABS: Hematocrit 29.9 % (37.0-47.0); Hemoglobin 9.8 g/dL (12.0-16.0); Mean Corp Hgb Conc. 32.8 g/dL (33.0-37.0); Mean Corpuscular Hgb 28.8 pg (27.0-31.0); Mean Corpuscular Volume 87.9 fL (81.0-99.0); Platelet Count 344 10^3/uL (130-400); Red Cell Dist. Width 12.8 % (11.5-14.5)
[2024-08-15 08:20] LABS: Blood Urea Nitrogen 26 mg/dl (7-17); Carbon Dioxide 29 mmol/L (22-30); Chloride 95 mmol/L (98-107); Estimated Creatinine Clearance 35 ml/min; Glucose 85 mg/dl (70-99); Potassium 3.6 mmol/L (3.5-5.1); Sodium 133 mmol/L (135-145)
[2024-08-15] MEDS: HEPARIN 5000 UNITS SC ×2 (08:20→19:54)
[2024-08-15] MEDS: SEROQUEL 25 MG PO ×2 (08:22→20:06)
[2024-08-15] MEDS: COREG 6.25 MG PO ×2 (08:23→20:06)
[2024-08-15] MEDS: LASIX 40 MG IV ×2 (08:24→17:14)
[2024-08-15] MEDS: DESENEX/MITRAZOL/ZEASORB 1 APPLIC TOPICAL ×2 (08:26→20:09)
--- NOTE | 2024-08-15 10:24 | W.PN.HOSP.TC ---
Today's Communication/Plan
-
Cont IV lasix
Echo today
Assessment / Plan
Assessment / Plan
79 y/o female presents to ED with bilateral lower extremity swelling and redness. BNP >27,000, troponin 0.039. Given 40mg IV lasix, one dose IV vanco in ED and transitioned to IV cefazolin. Work up for acute HFpEF vs bilateral lower leg cellulitis.
Bilateral lower extremity swelling/redness
-Bilateral makes CHF more likely vs cellulitis despite mild elevated WBC
-dc cefazolin and monitor WBC and temp
-BNP >27,000, troponin 0.051 at peak now downtrending
-Chest x-ray clear, but crackles heard on physical exam
-Pt refused echo yesterday, will try to get echo this am
-Cont IV lasix 40mg BID per cardiology
-Cardiology following
-Prior echo 2020 LVEF 60-65%
HTN
Prior SVT
-Carvedilol 6.25 per cards
CKD stage 3b
-Cr 1.4
-Baseline appears between 1.2-1.5
-Monitor
Hyponatremia
-Monitor
Dementia
-Cont seroquel
-Frequently agitated
Hypothyroidism
-Cont levo 50
HX left Mild Moderate Hydronephrosis no obstructing lesion/calculi noted
HX Sigmoid colon diverticulitis intramural abscess
HX Pyelonephritis
HX stercoral colitis
Chr normocytic anemia (Current Hgb 10.2, Baseline Hgb hi 9s)
DVT heparin
Full code
Anticipated Discharge: 24 - 48 hours
Subjective/Interval History
-
Date of Service: August 15, 2024
States she is feeling well.
Objective Data
-
Labs:
Laboratory Results
08/15/24
06:21
WBC 10.0
Hgb 9.8 L
Hct 29.9 L
Plt Count 344
Sodium 133 L
Potassium 3.6
Chloride 95 L
Carbon Dioxide 29
BUN 26 H
Creatinine 1.4 H
Glucose 85
Calcium 9.0
Vital Signs:
Vital Signs
Temp Pulse Resp BP Pulse Ox
98.0 F 78 16 146/78 94
08/15/24 07:08 08/15/24 08:24 08/15/24 07:08 08/15/24 08:24 08/15/24 08:55
I&O
08/14/24 08/15/24 08/16/24
06:59 06:59 06:59
Intake Total 240 / 240 960 / 960
Balance 240 / 240 960 / 960
Review of Systems
-
History Source: Patient
Respiratory: Reports No Symptoms
Cardiac: Reports No Symptoms
Abdomen/GI: Reports No Symptoms
Skin: Reports No Symptoms
Neuro: Reports No Symptoms
Physical Exam
-
General: Well Developed and No Apparent Distress
HEENT: Normocephalic
Respiratory: Crackles
Cardiac: Regular Rhythm and S1/S2
GI: Soft, Nontender and Nondistended
Musculoskeletal: No Edema
Skin: Warm and Dry
Neuro: AO x 3
Psych: Calm
[2024-08-15 11:58] VITALS: BP 145/63
[2024-08-15 14:08] LABS: Magnesium 1.6 mg/dl (1.6-2.3)
[2024-08-15 15:13] VITALS: BP 126/58
--- NOTE | 2024-08-15 15:27 | CM ---
Reviewed the chart notes. CM continues to be available to patient/family and is monitoring medical plan for needs at discharge.
Plan: Discharge to [place] when medically stable.
--- NOTE | 2024-08-15 18:38 | PTCARENOTE ---
Patient AAOx2 this shift, calm and cooperative with most care but occasionally agitated with turning and repositioning. Patient in agreement to get scheduled ECHO this shift. PT/OT consults placed per MD and resident, patient heavy x2 assist to
stand and pivot to BSC for this RN and tech. Inc of bowel and bladder this shift, heavily saturating, barrier cream and desenex applied to MASD on groin and abd folds.
[2024-08-15 19:24] VITALS: BP 130/63
[2024-08-15 23:08] VITALS: BP 142/67
[2024-08-16] VITALS (7 sets, daily range): BP systolic 117–152; BP diastolic 59–77; PULSE 71; O2SAT 95; BMI 31.2
[2024-08-16] MEDS: SYNTHROID 50 MCG PO (05:15)
[2024-08-16 07:15] LABS: Hematocrit 31.3 % (37.0-47.0); Hemoglobin 10.2 g/dL (12.0-16.0); Mean Corp Hgb Conc. 32.6 g/dL (33.0-37.0); Mean Corpuscular Hgb 28.5 pg (27.0-31.0); Mean Corpuscular Volume 87.4 fL (81.0-99.0); Mean Platelet Volume 8.4 fL (7.4-10.4); Platelet Count 347 10^3/uL (130-400); Red Blood Cell Count 3.58 10^6/uL (4.20-5.40); Red Cell Dist. Width 12.6 % (11.5-14.5); White Blood Cell Count 9.8 10^3/uL (4.8-10.8)
[2024-08-16 09:35] LABS: ALT (SGPT) < 10 U/L (0-35); AST (SGOT) 32 U/L (14-36); Albumin 3.3 g/dl (3.5-5.0); Alkaline Phosphatase 114 U/L (38-126); Blood Urea Nitrogen 27 mg/dl (7-17); Calcium 8.7 mg/dl (8.4-10.2); Carbon Dioxide 29 mmol/L (22-30); Chloride 92 mmol/L (98-107); Estimated Creatinine Clearance 38 ml/min; Glucose 90 mg/dl (70-99); Potassium 3.4 mmol/L (3.5-5.1); Sodium 131 mmol/L (135-145); Total Bilirubin 0.5 mg/dl (0.2-1.3); Total Protein 6.1 g/dl (6.3-8.2); eGFR 41.31
[2024-08-16] MEDS: SEROQUEL 25 MG PO ×2 (10:19→20:58)
[2024-08-16] MEDS: LASIX 40 MG IV ×2 (10:19→16:31)
[2024-08-16] MEDS: COREG 6.25 MG PO ×2 (10:19→20:54)
[2024-08-16] MEDS: HEPARIN 5000 UNITS SC ×2 (10:19→20:58)
[2024-08-16] MEDS: FLUSH (NSS) 1 FLUSH IV (10:22)
[2024-08-16] MEDS: FLUSH (NSS) 2 FLUSH IV (10:23)
--- NOTE | 2024-08-16 14:13 | W.PN.HOSP.TC ---
Today's Communication/Plan
-
Continue IV diuretics
Monitor BMP
Leg elevation and compression stockings as tolerated
Assessment / Plan
Assessment / Plan
#Acute on chronic HFpEF
#Chronic venous insufficiency (?)
#Bilateral lower extremity swelling/redness
-Bilateral makes CHF more likely vs cellulitis despite mild elevated WBC on arrival
-Patient stopped cefazolin; white cell resolved, no fever since discontinued
-BNP >27,000, grossly hypervolemic examination upon arrival
-Chest x-ray clear, but crackles heard on physical exam
-Echo with preserved LVEF, no significant diastology or valve disease
-Continue with IV Lasix 40 mg BID and trend BMP, I's/O's, weights
-Encourage graduated compression stockings and leg elevation as tolerated
#Primary HTN
#H/O SVT
-Has history of concentric LVH on echo, likely from hypertensive heart disease
-Home regimen includes carvedilol 6.25 mg twice daily
-Blood pressure here has been well-controlled on carvedilol
#CKD stage 3b
-Cr 1.4 on arrival; most recent labs with creatinine 1.2-1.5 though lower previously
-Suspect that this is associated with cardiorenal syndrome and acute HFpEF
-Creatinine improving slowly with IV diuresis
#Hypervolemia hyponatremia
-Likely in the context of decompensated heart failure and IV diuretic
-Continue to trend BMP on IV diuresis
-Consider urine studies if worsening
#Dementia
-Cont seroquel
-Frequently agitated
#Hypothyroidism
-Cont levothyroxine 50 mcg daily
-No obvious signs or symptoms of thyroid dysfxn
#HX left Mild Moderate Hydronephrosis no obstructing lesion/calculi noted
#HX Sigmoid colon diverticulitis intramural abscess
#HX Pyelonephritis
#HX stercoral colitis
#HX AOCD (Current Hgb 10.2, Baseline Hgb 9s)
DVT PPhx: SQ heparin
Diet: Cholesterol-lowering
CODE STATUS: Full code
Anticipated Discharge: > 48 hours
Subjective/Interval History
-
Date of Service: August 16, 2024
Seen and examined at the bedside. No acute events reported overnight. AFVSS this morning
Potassium 3.4. KCl powder ordered. Renal function downtrending slightly with diuretics. Remains without leukocytosis
States she feels well and denies any new complaints this morning
Objective Data
-
Labs:
Laboratory Results
08/16/24
07:00
WBC 9.8
Hgb 10.2 L
Hct 31.3 L
Plt Count 347
Sodium 131 L
Potassium 3.4 L
Chloride 92 L
Carbon Dioxide 29
BUN 27 H
Creatinine 1.3 H
Glucose 90
Calcium 8.7
Total Bilirubin 0.5
AST 32
ALT < 10
Alkaline Phosphatase 114
Vital Signs:
Vital Signs
Temp Pulse Resp BP Pulse Ox
98.5 F 69 17 119/59 96
08/16/24 11:14 08/16/24 11:14 08/16/24 11:14 08/16/24 11:14 08/16/24 11:14
I&O
08/15/24 08/16/24 08/17/24
06:59 06:59 06:59
Intake Total 960 / 960 960 / 960
Balance 960 / 960 960 / 960
Review of Systems
-
History Source: Patient
All other systems: Reviewed and negative
Physical Exam
-
General: Well Developed, No Apparent Distress, Comfortable and Obese
HEENT: Normocephalic, Atraumatic and Moist Mucous Membranes
Respiratory: Clear to Auscultation and Non Labored Respirations
Cardiac: Regular Rhythm and S1/S2; Negative Murmur, Rub or Gallop
GI: Soft, Nontender, Nondistended and Normal Bowel Sounds
Musculoskeletal: No Clubbing, No Cyanosis and No Edema
Skin: Warm, Dry, Normal Turgor and Other (Redness to bilateral lower extremities that improved with leg elevation); Negative Rash
Neuro: AO x 3 and Nonfocal/Grossly Intact; Negative Tremors
Psych: Calm
Data Reviewed
-
Labs: Labs Reviewed by me and Discussed with Patient
--- NOTE | 2024-08-16 14:28 | W.PN.CD ---
Today's Communication / Plan
-
continue IV lasix
Impression / Plan
-
Acute HFPEF:
-severe, requiring hospitalization, and IV diuresis
-previously she was on Lasix 20 mg daily, but was d/c'd during 10/2023 hospitalization (sepsis/UTI). Since that time, weight is up about 15 kg on admission. Would resume po lasix on discharge.
-echo 08/15: EF 55-60%, aortic sclerosis
-continue 40mg IV lasix BID, which requires intensive monitoring of labs, tele
paroxysmal SVT:
-asymptomatic
-continue BB (Coreg) for this and hypertension
NSVT: asx, continue bb
-watch K and mag while diuresing
HTN:
-previously on ACEI (appears also stopped 10/2023 hospitalization); now on coreg
-monitor with IV diuresis and addition of BB
Abnormal troponin 0.051:
-acute, non-ischemic myocardial injury in setting of CHF
CKD3b:
-monitor with diuresis
Physical Exam
Vital Signs/Labs
Vital Signs
Temp Pulse Resp BP Pulse Ox
98.5 F 69 17 119/59 96
08/16/24 11:14 08/16/24 11:14 08/16/24 11:14 08/16/24 11:14 08/16/24 11:14
08/15/24 08/16/24 08/17/24
06:59 06:59 06:59
Actual Weight 89.403 kg 87.679 kg
08/16/24 07:00
08/16/24 07:00
Magnesium 1.6 mg/dl (1.6-2.3) 08/15/24 06:21
Triglycerides 71 mg/dl (10-149) 08/14/24 03:08
LDL Cholesterol, Calc 72 mg/dl 08/14/24 03:08
VLDL Cholesterol, Calc 14 mg/dl (0-30) 08/14/24 03:08
HDL Cholesterol 38 mg/dl 08/14/24 03:08
08/13/24
12:04
Njv-T-Ivxftgfvoog Pept > 47266
LAB Results
08/13/24 08/14/24 08/14/24
20:52 03:08 08:38
Troponin I 0.037 H* 0.039 H* 0.038 H*
Physical Exam
Constitutional: No acute distress
EENT: Moist mucous membranes
Cardiovascular: Rhythm & rate is regular, Systolic murmur absent, Pedal edema present and JVD present
Respiratory: Respiratory effort normal
Data Reviewed
-
Date of Service: August 16, 2024
EKG: Other (Tele: NSR 70s)
Labs: Labs Reviewed by me
[2024-08-16] MEDS: KLOR-CON 40 MEQ PO (14:53)
[2024-08-16] MEDS: DESENEX/MITRAZOL/ZEASORB 1 APPLIC TOPICAL ×2 (14:56→20:58)
[2024-08-16] MEDS: TYLENOL 650 MG PO (20:53)
[2024-08-17 03:22] VITALS: BP 150/76
[2024-08-17 05:15] VITALS: BMI 31.3
[2024-08-17] MEDS: SYNTHROID 50 MCG PO (05:25)
[2024-08-17 07:33] LABS: % Basophils 0.7 % (0-2); % Eosinophils 5.1 % (0-6); % Immature Granulocytes 0.2 % (0-0.5); % Lymphocytes 10.4 % (20.5-51.1); % Monocytes 9.8 % (1.7-9.3); % Neutrophils 73.8 % (42.2-75.2); Absolute Basophils 0.1 10^3/uL (0-0.2); Absolute Eosinophils 0.4 10^3/uL (0-0.7); Absolute Lymphocytes 0.9 10^3/uL (1.2-3.4); Absolute Monocytes 0.8 10^3/uL (0.1-0.6); Hematocrit 33.7 % (37.0-47.0); Hemoglobin 10.7 g/dL (12.0-16.0); Mean Corp Hgb Conc. 31.8 g/dL (33.0-37.0); Mean Corpuscular Hgb 28.2 pg (27.0-31.0); Mean Corpuscular Volume 88.7 fL (81.0-99.0); Mean Platelet Volume 8.8 fL (7.4-10.4); Nucleated Red Blood Cells % 0 %; Platelet Count 347 10^3/uL (130-400); Red Cell Dist. Width 12.8 % (11.5-14.5); White Blood Cell Count 8.2 10^3/uL (4.8-10.8)
[2024-08-17 07:45] VITALS: BP 150/77
[2024-08-17 08:09] LABS: Blood Urea Nitrogen 28 mg/dl (7-17); Calcium 9.3 mg/dl (8.4-10.2); Carbon Dioxide 34 mmol/L (22-30); Chloride 93 mmol/L (98-107); Estimated Creatinine Clearance 35 ml/min; Glucose 94 mg/dl (70-99); Magnesium 1.7 mg/dl (1.6-2.3); Potassium 3.8 mmol/L (3.5-5.1); Sodium 135 mmol/L (135-145)
[2024-08-17] MEDS: LASIX 40 MG IV (09:04)
[2024-08-17] MEDS: HEPARIN 5000 UNITS SC ×2 (09:05→19:36)
[2024-08-17] MEDS: FLUSH (NSS) 2 FLUSH IV (09:05)
[2024-08-17] MEDS: SEROQUEL 25 MG PO ×2 (09:06→19:36)
[2024-08-17] MEDS: COREG 6.25 MG PO ×2 (09:06→19:36)
[2024-08-17 11:40] VITALS: BP 132/69
--- NOTE | 2024-08-17 12:23 | W.PN.HOSP.TC ---
Today's Communication/Plan
-
Continue IV Lasix for now
Trend BMP
Encourage p.o. intake and OOB activity
Assessment / Plan
Assessment / Plan
#Acute on chronic HFpEF
#Chronic venous insufficiency (?)
#Bilateral lower extremity swelling/redness
-Bilateral makes CHF more likely vs cellulitis despite mild elevated WBC on arrival
-Patient stopped cefazolin; white cell resolved, no fever since discontinued
-BNP >27,000, grossly hypervolemic examination upon arrival
-Chest x-ray clear, but crackles heard on physical exam
-Echo with preserved LVEF, no significant diastology or valve disease
-I's and O's not being accurately tracked though as of 08/17 down to 7 kg since admission
-Continue with IV Lasix 40 mg BID and trend BMP, I's/O's, weights
-Encourage graduated compression stockings and leg elevation as tolerated
-Could consider right heart cath if deemed a candidate by cardiology
#Primary HTN
#H/O SVT
-Has history of concentric LVH on echo, likely from hypertensive heart disease
-Home regimen includes carvedilol 6.25 mg twice daily
-Blood pressure here has been well-controlled on carvedilol
#CKD stage 3b
-Cr 1.4 on arrival; most recent labs with creatinine 1.2-1.5 though lower previously
-Suspect that this is associated with cardiorenal syndrome and acute HFpEF
-Creatinine improving slowly with IV diuresis
#Hypervolemia hyponatremia
-Likely in the context of decompensated heart failure and IV diuretic
-Continue to trend BMP on IV diuresis
-Consider urine studies if worsening
#Dementia
-Cont seroquel
-Frequently agitated
#Hypothyroidism
-Cont levothyroxine 50 mcg daily
-No obvious signs or symptoms of thyroid dysfxn
#HX left Mild Moderate Hydronephrosis no obstructing lesion/calculi noted
#HX Sigmoid colon diverticulitis intramural abscess
#HX Pyelonephritis
#HX stercoral colitis
#HX AOCD (Current Hgb 10.2, Baseline Hgb 9s)
DVT PPhx: SQ heparin
Diet: Cholesterol-lowering
CODE STATUS: Full code
Anticipated Discharge: > 48 hours
Subjective/Interval History
-
Date of Service: August 17, 2024
Seen and examined at the bedside. No acute events reported overnight. AFVSS this morning
Creatinine increased 0.1 but otherwise stable. Legs continue to look improved. Patient was tired this morning
Denied any new acute complaints
Objective Data
-
Labs:
Laboratory Results
08/17/24
07:11
WBC 8.2
Hgb 10.7 L
Hct 33.7 L
Plt Count 347
Sodium 135
Potassium 3.8
Chloride 93 L
Carbon Dioxide 34 H
BUN 28 H
Creatinine 1.4 H
Glucose 94
Calcium 9.3
Vital Signs:
Vital Signs
Temp Pulse Resp BP Pulse Ox
99.0 F 74 16 132/69 94
08/17/24 11:40 08/17/24 11:40 08/17/24 11:40 08/17/24 11:40 08/17/24 11:40
I&O
08/16/24 08/17/24 08/18/24
06:59 06:59 06:59
Intake Total 960 / 960 480 / 480
Balance 960 / 960 480 / 480
Review of Systems
-
History Source: Patient
All other systems: Reviewed and negative
Physical Exam
-
General: Well Developed, No Apparent Distress and Obese
HEENT: Normocephalic, Atraumatic and Moist Mucous Membranes
Respiratory: Clear to Auscultation and Non Labored Respirations
Cardiac: Regular Rhythm and S1/S2; Negative Murmur, Rub or Gallop
GI: Soft, Nontender, Nondistended and Normal Bowel Sounds
Musculoskeletal: No Clubbing, No Cyanosis and Other (1+ lower extremity edema)
Skin: Warm, Dry, Normal Turgor and Other (Improved erythema of the legs with elevation); Negative Rash
Neuro: AO x 3 and Nonfocal/Grossly Intact; Negative Tremors
Psych: Calm
Data Reviewed
-
Labs: Labs Reviewed by me and Discussed with Patient
--- NOTE | 2024-08-17 13:20 | W.PN.CD ---
Today's Communication / Plan
-
transition to lasix 40mg PO daily
please call us with additional questions
Impression / Plan
-
Acute HFPEF: improved s/p IV lasix
-previously she was on Lasix 20 mg daily, but was d/c'd during 10/2023 hospitalization (sepsis/UTI). Since that time, weight is up about 15 kg on admission. Would resume po lasix on discharge.
-echo 08/15: EF 55-60%, aortic sclerosis
-transition to lasix 40mg PO daily
paroxysmal SVT:
-asymptomatic
-continue BB (Coreg) for this and hypertension
NSVT: asx, continue bb
-watch K and mag while diuresing
HTN:
-previously on ACEI (appears also stopped 10/2023 hospitalization); now on coreg
-monitor with IV diuresis and addition of BB
Abnormal troponin 0.051:
-acute, non-ischemic myocardial injury in setting of CHF
CKD3b:
-monitor with diuresis
Physical Exam
Vital Signs/Labs
Vital Signs
Temp Pulse Resp BP Pulse Ox
99.0 F 74 16 132/69 94
08/17/24 11:40 08/17/24 11:40 08/17/24 11:40 08/17/24 11:40 08/17/24 11:40
08/16/24 08/17/24 08/18/24
06:59 06:59 06:59
Actual Weight 87.679 kg 88.042 kg
08/17/24 07:11
08/17/24 07:11
Magnesium 1.7 mg/dl (1.6-2.3) 08/17/24 07:11
Triglycerides 71 mg/dl (10-149) 08/14/24 03:08
LDL Cholesterol, Calc 72 mg/dl 08/14/24 03:08
VLDL Cholesterol, Calc 14 mg/dl (0-30) 08/14/24 03:08
HDL Cholesterol 38 mg/dl 08/14/24 03:08
08/13/24
12:04
Snc-W-Ropoyniuidu Pept > 15383
Physical Exam
Constitutional: No acute distress and Comfortable
EENT: Moist mucous membranes
Cardiovascular: Rhythm & rate is regular, JVD pressure is normal, Pedal edema present (trace) and Systolic murmur present
Respiratory: Respiratory effort normal and Lungs clear to auscul.
Data Reviewed
-
Date of Service: August 17, 2024
EKG: Other (Tele: sinus 70s, brief SVT)
Labs: Labs Reviewed by me
[2024-08-17] MEDS: DESENEX/MITRAZOL/ZEASORB 1 APPLIC TOPICAL ×2 (13:38→19:36)
--- NOTE | 2024-08-17 13:50 | PTCARENOTE ---
Pt's daughter updated family physician to Dr. Huff at [place]
[2024-08-17 15:40] VITALS: BP 125/69
[2024-08-17 19:05] VITALS: BP 139/66
[2024-08-17] MEDS: TYLENOL 650 MG PO (19:35)
[2024-08-17 23:40] VITALS: BP 113/52
[2024-08-18] MEDS: TYLENOL 650 MG PO (01:34)
[2024-08-18 02:40] VITALS: BMI 30.6
[2024-08-18 02:52] VITALS: BP 126/73
[2024-08-18] MEDS: SYNTHROID 50 MCG PO (06:08)
[2024-08-18 08:20] VITALS: BP 127/66
[2024-08-18 08:28] LABS: % Basophils 0.5 % (0-2); % Eosinophils 4.4 % (0-6); % Immature Granulocytes 0.5 % (0-0.5); % Lymphocytes 14.2 % (20.5-51.1); % Monocytes 8.9 % (1.7-9.3); % Neutrophils 71.5 % (42.2-75.2); Absolute Basophils 0.1 10^3/uL (0-0.2); Absolute Eosinophils 0.4 10^3/uL (0-0.7); Absolute Immature Granulocytes 0.1 10^3/uL (0-0.05); Absolute Lymphocytes 1.3 10^3/uL (1.2-3.4); Absolute Monocytes 0.8 10^3/uL (0.1-0.6); Absolute Neutrophils 6.6 10^3/uL (1.4-6.5); Hematocrit 33.4 % (37.0-47.0); Hemoglobin 10.6 g/dL (12.0-16.0); Mean Corp Hgb Conc. 31.7 g/dL (33.0-37.0); Mean Corpuscular Hgb 28.3 pg (27.0-31.0); Mean Corpuscular Volume 89.3 fL (81.0-99.0); Nucleated Red Blood Cells % 0 %; Platelet Count 368 10^3/uL (130-400); Red Blood Cell Count 3.74 10^6/uL (4.20-5.40); Red Cell Dist. Width 12.8 % (11.5-14.5); White Blood Cell Count 9.3 10^3/uL (4.8-10.8)
--- NOTE | 2024-08-18 08:33 | VATNOTE ---
RN notified site leaked because cathiter had come completely out. RN reported therapy completed and pt. for possible discharge today. No IV need at this time.
[2024-08-18 08:57] LABS: Blood Urea Nitrogen 31 mg/dl (7-17); Carbon Dioxide 34 mmol/L (22-30); Chloride 92 mmol/L (98-107); Estimated Creatinine Clearance 32 ml/min; Glucose 93 mg/dl (70-99); Potassium 3.9 mmol/L (3.5-5.1); Sodium 133 mmol/L (135-145); eGFR 34.79
[2024-08-18] MEDS: LASIX 40 MG PO (09:35)
[2024-08-18] MEDS: HEPARIN 5000 UNITS SC ×2 (09:36→20:20)
[2024-08-18] MEDS: SEROQUEL 25 MG PO ×2 (09:36→20:20)
[2024-08-18] MEDS: DESENEX/MITRAZOL/ZEASORB 1 APPLIC TOPICAL ×2 (09:36→20:30)
[2024-08-18] MEDS: COREG 6.25 MG PO ×2 (09:36→20:21)
[2024-08-18 11:18] VITALS: BP 100/56
--- NOTE | 2024-08-18 11:41 | W.PN.HOSP.TC ---
Addendum entered and electronically signed by Javed Prince MD 08/18/24 13:27:
Acute on chronic HFpEF exacerbation now improved.
-Transition IV diuretics to p.o. diuretics
-No MRA/SGLT2i
Svt
-Continue BB
Non-ischemic myocardial injury in setting of CHF
Fever, no white count
-?atelectasis as rhonchi on exam at base but no cough and has been in bed
-IS ordered
-Covid and flu ordered
-No white count, no foci of infection noted at this time.
Original Note:
Today's Communication/Plan
-
Cont PO lasix
Covid and flu test pending
Likely discharge today or tmrw
Assessment / Plan
Assessment / Plan
#Acute on chronic HFpEF
#Chronic venous insufficiency (?)
#Bilateral lower extremity swelling/redness
-Bilateral makes CHF more likely vs cellulitis despite mild elevated WBC on arrival
-Patient stopped cefazolin; white cell resolved, no fever since discontinued
-BNP >27,000, grossly hypervolemic examination upon arrival
-Chest x-ray clear, but crackles heard on physical exam
-Echo with preserved LVEF, no significant diastology or valve disease
-I's and O's not being accurately tracked though as of 08/17 down to 10 kg since admission
-Transitioned to PO lasix 40mg qd
-Encourage graduated compression stockings and leg elevation as tolerated
-Discharge on 40mg
#Fever overnight
-100.4
-Denies any URI symptoms, UTI symptoms, GI symptoms
-Erythema decreased from prior
-Repeat covid and flu
-Discharge on treatment today if come back (+)
#Primary HTN
#H/O SVT
-Has history of concentric LVH on echo, likely from hypertensive heart disease
-Home regimen includes carvedilol 6.25 mg twice daily
-Blood pressure here has been well-controlled on carvedilol
#CKD stage 3b
-Cr 1.4 on arrival; most recent labs with creatinine 1.2-1.5 though lower previously
-Suspect that this is associated with cardiorenal syndrome and acute HFpEF
-Creatinine improving slowly with IV diuresis
#Hypervolemia hyponatremia
-Likely in the context of decompensated heart failure and IV diuretic
-Continue to trend BMP on IV diuresis
-Consider urine studies if worsening
#Dementia
-Cont seroquel
-Frequently agitated
#Hypothyroidism
-Cont levothyroxine 50 mcg daily
-No obvious signs or symptoms of thyroid dysfxn
#HX left Mild Moderate Hydronephrosis no obstructing lesion/calculi noted
#HX Sigmoid colon diverticulitis intramural abscess
#HX Pyelonephritis
#HX stercoral colitis
#HX AOCD (Current Hgb 10.2, Baseline Hgb 9s)
DVT PPhx: SQ heparin
Diet: Cholesterol-lowering
CODE STATUS: Full code
Anticipated Discharge: Within 24 hours
Subjective/Interval History
-
Date of Service: August 18, 2024
Objective Data
-
Labs:
Laboratory Results
08/18/24
06:24
WBC 9.3
Hgb 10.6 L
Hct 33.4 L
Plt Count 368
Sodium 133 L
Potassium 3.9
Chloride 92 L
Carbon Dioxide 34 H
BUN 31 H
Creatinine 1.5 H
Glucose 93
Calcium 9.0
Vital Signs:
Vital Signs
Temp Pulse Resp BP Pulse Ox
98.2 F 69 16 100/56 96
08/18/24 11:18 08/18/24 11:18 08/18/24 11:18 08/18/24 11:18 08/18/24 11:18
I&O
08/17/24 08/18/24 08/19/24
06:59 06:59 06:59
Intake Total 480 / 480 360 / 360
Balance 480 / 480 360 / 360
Review of Systems
-
History Source: Patient
Constitutional: Reports No Symptoms
EENT: Reports No Symptoms Reported
Respiratory: Reports No Symptoms
Cardiac: Reports No Symptoms
Abdomen/GI: Reports No Symptoms
Genitourinary: Reports No Symptoms
Neuro: Reports No Symptoms
Physical Exam
-
General: No Apparent Distress and Comfortable
HEENT: Normocephalic
Respiratory: Crackles (Lower bases )
Cardiac: Regular Rhythm and S1/S2
GI: Soft, Nontender, Nondistended and Normal Bowel Sounds
Musculoskeletal: No Edema and Other (Erythema and warmth on bilat lower extremities )
Skin: Warm
Neuro: Awake and Alert
Psych: Calm
[2024-08-18 12:05] LABS: COVID-19 Antigen Negative (Negative)
--- NOTE | 2024-08-18 12:25 | CM ---
Reviewed the chart notes and spoke with the patient at the bedside and daughter via telephone. PT recommending SNF due to max of two for mobility/transfers. [facility] unable to provide two person assist. Daughter requested referral be sent to [facility].
Referral sent. Discussed based on bed availability. CM continues to be available to patient/family and is monitoring medical plan for needs at discharge.
Plan: Discharge to SNF/rehab once bed secured. No precert required.
[2024-08-18 15:41] VITALS: BP 148/78
[2024-08-18 23:22] VITALS: BP 130/64
[2024-08-19] MEDS: SYNTHROID 50 MCG PO (05:09)
[2024-08-19 05:51] VITALS: BMI 30.6
[2024-08-19] MEDS: LASIX 40 MG PO (07:46)
[2024-08-19] MEDS: COREG 6.25 MG PO (07:47)
[2024-08-19] MEDS: SEROQUEL 25 MG PO (07:47)
[2024-08-19] MEDS: HEPARIN 5000 UNITS SC (07:47)
[2024-08-19] MEDS: DESENEX/MITRAZOL/ZEASORB 1 APPLIC TOPICAL (07:47)
[2024-08-19 07:52] VITALS: BP 137/68
[2024-08-19 08:31] LABS: Hematocrit 34.3 % (37.0-47.0); Mean Corp Hgb Conc. 32.1 g/dL (33.0-37.0); Mean Corpuscular Hgb 28.4 pg (27.0-31.0); Mean Corpuscular Volume 88.4 fL (81.0-99.0); Mean Platelet Volume 8.9 fL (7.4-10.4); Platelet Count 377 10^3/uL (130-400); Red Blood Cell Count 3.88 10^6/uL (4.20-5.40); Red Cell Dist. Width 12.9 % (11.5-14.5); White Blood Cell Count 11.6 10^3/uL (4.8-10.8)
--- NOTE | 2024-08-19 08:42 | W.PN.HOSP.TC ---
Addendum entered and electronically signed by Javed Prince MD 08/19/24 13:57:
dc to snf
Original Note:
Today's Communication/Plan
-
Repeat UA and chest x-ray
Start Augmentin
Discharge to [facility] pending results
Assessment / Plan
Assessment / Plan
#Acute on chronic HFpEF
#Chronic venous insufficiency (?)
#Bilateral lower extremity swelling/redness
-Bilateral makes CHF more likely vs cellulitis despite mild elevated WBC on arrival
-Patient stopped cefazolin; white cell resolved, no fever since discontinued
-BNP >27,000, grossly hypervolemic examination upon arrival
-Chest x-ray clear, but crackles heard on physical exam
-Echo with preserved LVEF, no significant diastology or valve disease
-I's and O's not being accurately tracked though as of 08/18 down to 10 kg since admission
-Transitioned to PO lasix 40mg qd
-Encourage graduated compression stockings and leg elevation as tolerated
-Discharge on 40mg Lasix daily
#Fever 08/18
-100.4
-Denies any URI symptoms, UTI symptoms, GI symptoms
-Erythema decreased from prior
-Repeat covid and flu (-)
Leukocytosis
-Today WBC 11.6
-No complaints
-Afebrile yesterday and last night
-Repeat UA and chest x-ray as crackles are still heard on physical exam
-Start Augmentin day 06/01
-Discharge today pending results
#Primary HTN
#H/O SVT
-Has history of concentric LVH on echo, likely from hypertensive heart disease
-Home regimen includes carvedilol 6.25 mg twice daily
-Blood pressure here has been well-controlled on carvedilol
#CKD stage 3b
-Cr 1.4 on arrival; most recent labs with creatinine 1.2-1.5 though lower previously
-Suspect that this is associated with cardiorenal syndrome and acute HFpEF
-Creatinine improving slowly with IV diuresis
#Hypervolemia hyponatremia
-Likely in the context of decompensated heart failure and IV diuretic
-Continue to trend BMP on IV diuresis
-Consider urine studies if worsening
#Dementia
-Cont seroquel
-Frequently agitated
#Hypothyroidism
-Cont levothyroxine 50 mcg daily
-No obvious signs or symptoms of thyroid dysfxn
#HX left Mild Moderate Hydronephrosis no obstructing lesion/calculi noted
#HX Sigmoid colon diverticulitis intramural abscess
#HX Pyelonephritis
#HX stercoral colitis
#HX AOCD (Current Hgb 10.2, Baseline Hgb 9s)
DVT PPhx: SQ heparin
Diet: Cholesterol-lowering
CODE STATUS: Full code
Anticipated Discharge: Within 24 hours
Subjective/Interval History
-
Date of Service: August 19, 2024
Feels good. Wants to go home.
Objective Data
-
Labs:
Laboratory Results
08/19/24
08:10
WBC 11.6 H
Hgb 11.0 L
Hct 34.3 L
Plt Count 377
Sodium Pending
Potassium Pending
Chloride Pending
Carbon Dioxide Pending
BUN Pending
Creatinine Pending
Glucose Pending
Calcium Pending
Total Bilirubin Pending
AST Pending
ALT Pending
Alkaline Phosphatase Pending
Vital Signs:
Vital Signs
Temp Pulse Resp BP Pulse Ox
97.5 F 74 16 137/68 95
08/19/24 07:52 08/19/24 07:52 08/19/24 07:52 08/19/24 07:52 08/19/24 07:52
I&O
08/18/24 08/19/24 08/20/24
06:59 06:59 06:59
Intake Total 360 / 360 120 / 120
Balance 360 / 360 120 / 120
Review of Systems
-
History Source: Patient
Constitutional: Reports No Symptoms
EENT: Reports No Symptoms Reported
Respiratory: Reports No Symptoms
Cardiac: Reports No Symptoms
Abdomen/GI: Reports No Symptoms
Genitourinary: Reports No Symptoms
Neuro: Reports No Symptoms
Physical Exam
-
General: No Apparent Distress
HEENT: Normocephalic
Respiratory: Crackles (Bilateral lower lobes)
Cardiac: Regular Rhythm and S1/S2
GI: Soft, Nontender, Nondistended and Normal Bowel Sounds
Musculoskeletal: No Edema and Other (Mild erythema bilaterally, improved from prior)
Skin: Warm and Dry
Neuro: AO x 3
Psych: Calm
[2024-08-19 08:57] LABS: ALT (SGPT) < 10 U/L (0-35); AST (SGOT) 24 U/L (14-36); Albumin 3.3 g/dl (3.5-5.0); Alkaline Phosphatase 107 U/L (38-126); Blood Urea Nitrogen 32 mg/dl (7-17); Calcium 9.2 mg/dl (8.4-10.2); Carbon Dioxide 35 mmol/L (22-30); Chloride 94 mmol/L (98-107); Estimated Creatinine Clearance 33 ml/min; Glucose 100 mg/dl (70-99); Potassium 4.1 mmol/L (3.5-5.1); Sodium 137 mmol/L (135-145); Total Bilirubin 0.5 mg/dl (0.2-1.3); Total Protein 6.4 g/dl (6.3-8.2); eGFR 34.79
[2024-08-19] MEDS: AUGMENTIN 875 MG/125 MG 1 TABLET PO (11:07)
[2024-08-19 12:10] VITALS: BP 137/64; PULSE 72; O2SAT 97
--- NOTE | 2024-08-19 13:46 | PTCARENOTE ---
UA and urine culture ordered for this patient. Patient incontinent and refusing to be straight cathed. Patient assisted to commode to provide us with a sample but patient was unsuccessful with voiding. Resident made aware. Will try again when
patient states she needs to void.
--- NOTE | 2024-08-19 14:10 | CM ---
Reviewed the chart notes and spoke with the patient at the bedside and the patient's daughter via telephone. IMM reviewed. [facility] has no beds. [facility] able to accept. Patient and daughter in agreement. CM continues to be available to
patient/family and is monitoring medical plan for needs at discharge.
Plan: Discharge to [facility].
Call report to: [phone]
Fax report to: [phone]
Medical and transport forms on chart.
--- NOTE | 2024-08-19 14:29 | W.DCSUMMARY ---
Discharge Summary
Discharge Data
Date of Admission: 08/13/24
Date of Discharge: 08/19/24
-
Pending Results: No
Hospital Course
Primary diagnosis:
Acute on chronic heart failure with preserved ejection fraction exacerbation
Ambulatory dysfunction
Secondary diagnosis:
Hypertension
CKD stage IIIb
Hyponatremia
Dementia
Hypothyroidism
79-year-old female presented to [facility] on 08/13/2024 with ambulatory dysfunction due to swelling, pain and associated redness in bilateral lower extremities. BNP >27,000, troponin 0.039, WBC 11.8. EKG unremarkable, chest x-ray
unremarkable. Given 40mg IV lasix, one dose IV vanco in ED and transitioned to IV cefazolin. She was admitted for work up for acute HFpEF vs bilateral lower leg cellulitis. White cell count stabilized, cardiology consulted, patient started on 40
mg IV Lasix twice daily later transition to 40 mg p.o. once daily. Labs continue to trend in the right direction. Echo revealed left ventricular ejection fraction 55 to 60%. Overnight on 08/17/2024, patient spiked a fever of 100.4. COVID and flu
swabs performed both negative. Next day WBC 11.6, but afebrile. Repeat chest x-ray revealed no cause and pt adamantly refused to give urine sample for UA, although denied URI, UTI and GI symptoms.
Today, patient is clinically stable for discharge. Continue on 40 mg Lasix p.o. and follow-up with maori liaison adviser in the outpatient setting. Started on Augmentin for 5 days finish on 08/24/24.
Imaging:
08/15/24 Echo
CONCLUSIONS
Normal biventricular size and systolic function without regional wall motion
abnormality. Estimated LVEF 55-60%.
Aortic sclerosis without stenosis.
Discharge Plan
-
Patient Disposition: [place] SNF/Hospital
Discharge Diagnosis/Procedures: Acute on chronic heart failure with preserved ejection fraction exacerbation
Condition: Fair
Diet: Low Cholesterol, 2 Gram Sodium and Restrict fluids to 48 oz
Activity: As tolerated
Driving Restrictions: No driving
Bathing Restrictions: None
Specialty Instructions: Weigh Daily- Call MD for wt gain/loss 3 lbs overnight/5 lbs in 1 week
Instructions: *PCP/Other [employer] Heart Failure Instructions
Referrals:
Caleb Staton MD [Active] - in one to two weeks
Nel Ballard MD, Resident [Family Practice Resident Year1] - in less than 1 week
UNKNOWN,NO INTERVIEW [Family Provider] -
Additional Discharge Medication Instructions: Take Augmentin every 12 hours until 08/24/24
Prescriptions:
New
furosemide 40 mg Tablet
40 mg PO DAILY 30 Days Qty: 30 0RF
carvedilol 6.25 mg Tablet
6.25 mg PO BID 30 Days Qty: 60 0RF
amoxicillin-pot clavulanate 875-125 mg Tablet
1 tab PO Q12 5 Days Qty: 10 0RF
Continued
paroxetine HCl 20 MG tablet
20 mg PO DAILY
quetiapine 25 mg Tablet
25 mg PO BID
loperamide 2 mg Tablet
2 mg PO [id number] PRN (Reason: diarrhea) Qty: 0
levothyroxine 50 mcg Tablet
50 mcg PO DAILY
nystatin 100,000 unit/gram Powder
1 applic TOPICAL DAILY Qty: 0
methenamine hippurate 1 gram tablet
1 g PO BID 30 Days Qty: 60 0RF
Rx Instructions:
Start 10/24/23 After Finishing IV antibiotics course
Visbiome 112.5 billion cell Capsule
2 cap PO DAILY
diclofenac sodium 1 % Gel
0 g TOPICAL BID
polyethylene glycol 3350 [HealthyLax] 17 gram powder in packet
17 g PO DAILYPRN PRN (Reason: constipation)
Discontinued
ibuprofen [Advil] 200 mg Tablet
400 mg PO DAILY
Discharge Orders:
Discharge Patient (As Directed); Ordered 08/19/24
Ordered By: Nel Ballard
Discharge Date and Time
Print Language: MALDIVIAN
[2024-08-19 15:35] VITALS: BP 125/64
--- NOTE | 2024-08-20 10:45 | W.HF.CON ---
Heart Failure
- LV Function
Left ventricular function study result: LV Ejection fraction >/= 50%
Ejection Fraction Percentage: 55-60
- ARNI
Patient already on ARNI: No
Heart Failure ARNI Not Indicated: LV Ejection Fraction >/= 40%
- ACEI/ARB
Patient already on ACEI/ARB: No
Heart Failure ACEI/ARB Not Indicated: LV Ejection Fraction > 40%
- Beta Robin
Patient already on Evidence Based Beta Robin: Yes
- Mineralocorticord Receptor Antagonist
Patient already on MRA: No
Heart Failure MRA Not Indicated: LV Ejection Fraction > 40%
- SGLT-2 Inhibitor
Patient already on SGLT-2 Inhibitor: No
Heart Failure SGLT-2 Inhibitor Contraindication: Patient Refusal (UTIs)
- NYHA CHF Classification
NYHA CHF Classification Level: Class III - Symptoms w/ min exertion, interferes w/ nml daily activity
- ACC/AHA Stage
ACC/AHA Stage: Stage C: Symptomatic Heart Failure
== END 2024-08-19 19:09 | DRG 291 ==
LOC: 2 NORTH 17:07
PROVIDERS: Internal Medicine; ADMITTING PHYSICIAN Internal Medicine; ATTENDING PHYSICIAN Hospitalist; CONSULT PHYSICIAN Internal Medicine; EMERGENCY PHYSICIAN Emergency Medicine
DX: I13.0 Hypertensive heart and chronic kidney disease with heart failure and stage 1 through stage 4 chronic kidney disease, or unspecified chronic kidney disease (principal); I50.33 Acute on chronic diastolic (congestive) heart failure; E87.1 Hypo-osmolality and hyponatremia; F03.918 Unspecified dementia, unspecified severity, with other behavioral disturbance; F03.93 Unspecified dementia, unspecified severity, with mood disturbance; L03.116 Cellulitis of left lower limb; L03.115 Cellulitis of right lower limb; F05 Delirium due to known physiological condition; J98.11 Atelectasis; N18.32 Chronic kidney disease, stage 3b; E03.9 Hypothyroidism, unspecified; I70.0 Atherosclerosis of aorta; E87.70 Fluid overload, unspecified; F32.A Depression, unspecified; Z79.890 Hormone replacement therapy; G89.29 Other chronic pain; M19.90 Unspecified osteoarthritis, unspecified site; Z79.899 Other long term (current) drug therapy; D64.9 Anemia, unspecified; K59.00 Constipation, unspecified; I5A Non-ischemic myocardial injury (non-traumatic); Z85.72 Personal history of non-Hodgkin lymphomas; E78.00 Pure hypercholesterolemia, unspecified; Z11.52 Encounter for screening for COVID-19; I87.2 Venous insufficiency (chronic) (peripheral)
CPT/HCPCS: 71045; 71046; 80048; 80053; 80061; 81003; 81015; 82248; 83735; 83880; 84484; 85025; 85027; 87086; 87502; 87811; 93005; 93306; 96365; 97163; 97167; 97530; 97535; 99285

== ENCOUNTER 2024-09-29 21:11 | Emergency (ER) | payer MEDICARE, SELFPAY ==
[2024-09-29 21:20] VITALS: BP 98/56
[2024-09-29 21:47] LABS: Hematocrit 34.1 % (37.0-47.0); Hemoglobin 10.5 g/dL (12.0-16.0); Mean Corp Hgb Conc. 30.8 g/dL (33.0-37.0); Mean Corpuscular Hgb 27.6 pg (27.0-31.0); Mean Corpuscular Volume 89.5 fL (81.0-99.0); Mean Platelet Volume 8.5 fL (7.4-10.4); Platelet Count 383 10^3/uL (130-400); Red Blood Cell Count 3.81 10^6/uL (4.20-5.40); Red Cell Dist. Width 15.3 % (11.5-14.5); White Blood Cell Count 8.3 10^3/uL (4.8-10.8)
[2024-09-29 22:05] VITALS: BP 96/55
[2024-09-29 22:10] LABS: ALT (SGPT) 10 U/L (0-35); AST (SGOT) 20 U/L (14-36); Albumin 3.2 g/dl (3.5-5.0); Alkaline Phosphatase 143 U/L (38-126); Blood Urea Nitrogen 68 mg/dl (7-17); Calcium 9.3 mg/dl (8.4-10.2); Carbon Dioxide 26 mmol/L (22-30); Chloride 100 mmol/L (98-107); Glucose 89 mg/dl (70-99); Potassium 3.5 mmol/L (3.5-5.1); Sodium 138 mmol/L (135-145); Total Bilirubin 0.7 mg/dl (0.2-1.3); Total Protein 6.3 g/dl (6.3-8.2)
[2024-09-29] MEDS: NSS 500 IV (23:51)
--- NOTE | 2024-09-30 00:08 | ED.GENMED ---
History of Present Illness
General
Chief Complaint: Breathing Problem
Source: patient
Exam Limitations: none
Time Seen by Provider: 09/29/24 23:35
Nursing documentation reviewed up to this point in time: agreed with
History of Present Illness
History of Present Illness:
79-year-old female with dementia from alf presents with tremors and vomiting apparently had a low pulse ox in the 60s though EMS states the lowest they got was 93 here she is normal pulse ox, no acute distress nursing tells me that she has
been on a fluid restriction, patient denies abdominal pain denies shortness of breath tells me she is hungry would like to try to eat something
Past History
Past History
ED Past Medical History: Cancer (B-cell lymphoma), HTN, Hypercholesterolemia, Hypothyroidism and Other (Chronic pain from osteoarthritis)
ED Past Surgical History: Orthopedic
Social History
Tobacco: Non-smoker
Alcohol: None
Drug: None
Personal:
Living: with family
Employment: Other
Family History
Family History: Other
Phy Exam
Physical Exam
Physical Exam:
Physical Exam
General: no apparent distress, not acutely ill
Neck: Lips are slightly dry
Heart: s1/s2 regular rate and rhythm, no murmur. equal radial pulses.
Lungs: no acute respiratory distress. clear bilaterally
Abdomen: Not tender
Neuro: alert and oriented. Grossly normal
Skin: no rash
Psychiatric: cooperative
Extremities: no edema.
Scores
Heart Failure Risk
Heart Failure Risk Score: Not Applicable
Course
Orders/Labs/Results
Orders:
Orders
09/29/24 21:19
EKG [Electrocardiogram (*1)] Urgent
Reason for Study: Shortness of Breath
EKG- Treatment ONCE
09/29/24 21:30
CMP [Comprehensive Metabolic Panel] Urgent
Complete Blood Count/No Diff Urgent
09/29/24 22:07
CR Chest - 2 Views Urgent
Comment:
Reason For Exam: cough
09/29/24 23:50
0.9% Sodium Chloride 500 ml [Nss] 500 ml IV BOLUS
09/30/24 00:53
0.9% Sodium Chloride 500 ml [Nss] 500 ml IV BOLUS
Loperamide [Imodium] 2 mg PO NOW STA
Abnormal Lab Results
09/29/24
21:30
RBC 3.81 L 10^6/uL
(4.20-5.40)
Hgb 10.5 L g/dL
(12.0-16.0)
Hct 34.1 L %
(37.0-47.0)
MCHC 30.8 L g/dL
(33.0-37.0)
RDW 15.3 H %
(11.5-14.5)
BUN 68 H mg/dl
(7-17)
Creatinine 1.9 H mg/dL
(0.6-1.0)
Alkaline Phosphatase 143 H U/L
(38-126)
Albumin 3.2 L g/dl
(3.5-5.0)
09/29/24 21:30
09/29/24 21:30
Vital Signs
Initial and Last Documented VS:
Initial Vital Signs
Pulse Resp
90 16
09/29/24 21:18 09/29/24 21:18
Last Documented Vital Signs
Temp Pulse Resp BP Pulse Ox
98.8 F 91 17 96/55 95
09/29/24 21:20 09/29/24 23:30 09/29/24 23:30 09/29/24 22:05 09/29/24 23:30
MDM/Problems Addressed
Differential Diagnosis Includes:
Vomiting dehydration electrolyte abnormality
MDM/Problems Addressed:
Vomiting
Chronic conditions affecting care: Neurological disorder
Acute Exacerbation and/or Progression of Chronic Illness: Neurological disorder
*Radiology
Radiology exam reviewed: radiology read reviewed
*Pulse Oximetry
Patient hypoxic: no
*EKG
Interpreted by ED Provider?: Yes
Interpretation: abnormal
Comparison EKG: no comparison EKG present
Heart Rate: 84
Rate: normal
Ischemia: non-specific ST changes
*Grey Roll Worker Interpretation
Rate: normal
Interpretation: normal
Heart Rate: 88
Rhythm: sinus
*Critical Care Note
Total Time (30-74mins, 75-104mins- exclusive of procedures): Not Applicable
Data Reviewed
Review of Other/Old Records Reveals: Labs
Source: patient
Update Note
Update Note:
Update, labs are noted BUN is up a bit creatinine about her baseline, will start some gentle hydration try some ice chips chest x-ray EKG and other labs are noted abdomen is soft and not
ED Attending Note
-
Portions of this chart may have been created with voice recognition software.� Occasional wrong word or��sound alike� substitutions may have occurred due to the inherent limitations of voice recognition software.
Discharge Plan
Departure
Patient Disposition: Home (Routine Discharge)
Date of Disposition: 09/30/24
Time of Disposition: 00:54
Patient with high blood pressure during this ER visit?: No
Condition: Good
Discharge Problem:
Vomiting and diarrhea
Instructions: Nausea and vomiting in adults - ED discharge instructions, Acute Diarrhea
Prescriptions:
New
loperamide [Imodium A-D] 2 mg capsule
2 mg PO Q4H PRN (Reason: loose stool) Qty: 14 0RF
ondansetron 4 mg tablet,disintegrating
4 mg PO Q8H PRN (Reason: nausea and vomiting) Qty: 10 0RF
No Action
paroxetine HCl 20 MG tablet
20 mg PO DAILY
quetiapine 25 mg Tablet
25 mg PO BID
loperamide 2 mg Tablet
2 mg PO [id number] PRN (Reason: diarrhea) Qty: 0
levothyroxine 50 mcg Tablet
50 mcg PO DAILY
nystatin 100,000 unit/gram Powder
1 applic TOPICAL DAILY Qty: 0
methenamine hippurate 1 gram tablet
1 g PO BID 30 Days Qty: 60 0RF
Rx Instructions:
Start 10/24/23 After Finishing IV antibiotics course
Visbiome 112.5 billion cell Capsule
2 cap PO DAILY
diclofenac sodium 1 % Gel
0 g TOPICAL BID
polyethylene glycol 3350 [HealthyLax] 17 gram powder in packet
17 g PO DAILYPRN PRN (Reason: constipation)
furosemide 40 mg Tablet
40 mg PO DAILY 30 Days Qty: 30 0RF
carvedilol 6.25 mg Tablet
6.25 mg PO BID 30 Days Qty: 60 0RF
amoxicillin-pot clavulanate 875-125 mg Tablet
1 tab PO Q12 5 Days Qty: 10 0RF
Referrals:
James Esquivel DO [Family Provider] -
Interventions
Interventions:
*Risk Screen - Suicide Last Done: 09/29/24 21:20
*General Assessment Last Done: 09/29/24 21:20
*Neglect/Abuse Screening Last Done: 09/29/24 21:20
*ED- Fall Risk Assessment Last Done: 09/29/24 21:20
*ED COVID-19 Vaccine History Last Done: 09/29/24 21:20
ED- Cardiac Assessment Last Done: 09/29/24 22:06
ED- Pulmonary Assessment Last Done: 09/29/24 22:06
Discharge Date and Time
Print Language: HEBREW
[2024-09-30] MEDS: NSS 500 IV (01:07)
[2024-09-30 02:29] VITALS: BP 106/51
== END 2024-09-30 02:42 | disposition home or self-care (01) ==
LOC: EMR 21:11
PROVIDERS: Emergency Medicine; EMERGENCY PHYSICIAN Emergency Medicine; FAMILY PHYSICIAN Student in an Organized Health Care Education/Training Program
DX: R11.10 Vomiting, unspecified (principal); R19.7 Diarrhea, unspecified
CPT/HCPCS: 99284; 96360; 71046; 80053; 85027; 93005

== ENCOUNTER → 2024-10-03 12:17 | Outpatient (REF) | payer MEDICARE, SELFPAY ==
[2024-10-03 13:28] LABS: % Basophils 0.7 % (0-2); % Eosinophils 5.3 % (0-6); % Immature Granulocytes 1.9 % (0-0.5); % Lymphocytes 20.9 % (20.5-51.1); % Monocytes 10.1 % (1.7-9.3); % Neutrophils 61.1 % (42.2-75.2); Absolute Basophils 0.1 10^3/uL (0-0.2); Absolute Eosinophils 0.5 10^3/uL (0-0.7); Absolute Immature Granulocytes 0.2 10^3/uL (0-0.05); Absolute Lymphocytes 2.1 10^3/uL (1.2-3.4); Absolute Neutrophils 6.1 10^3/uL (1.4-6.5); Hematocrit 30.6 % (37.0-47.0); Hemoglobin 9.5 g/dL (12.0-16.0); Mean Corpuscular Hgb 27.8 pg (27.0-31.0); Mean Corpuscular Volume 89.5 fL (81.0-99.0); Nucleated Red Blood Cells % 0 %; Platelet Count 341 10^3/uL (130-400); Red Blood Cell Count 3.42 10^6/uL (4.20-5.40); White Blood Cell Count 9.9 10^3/uL (4.8-10.8)
[2024-10-03 15:59] LABS: ALT (SGPT) < 10 U/L (0-35); AST (SGOT) 15 U/L (14-36); Albumin 2.9 g/dl (3.5-5.0); Alkaline Phosphatase 116 U/L (38-126); Blood Urea Nitrogen 71 mg/dl (7-17); Calcium 8.7 mg/dl (8.4-10.2); Carbon Dioxide 25 mmol/L (22-30); Chloride 104 mmol/L (98-107); Glucose 63 mg/dl (70-99); HDL Cholesterol 26 mg/dl; LDL Cholesterol, Calculated 51 mg/dl; Potassium 3.8 mmol/L (3.5-5.1); Sodium 141 mmol/L (135-145); Total Bilirubin 0.4 mg/dl (0.2-1.3); Total Cholesterol 115 mg/dl (50-199); Total Protein 5.7 g/dl (6.3-8.2); Triglyceride 193 mg/dl (10-149); Very Low Density Lipoprotein 38 mg/dl (0-30); eGFR 34.79
[2024-10-03 16:05] LABS: Free T4 1.12 ng/dl (0.78-2.19)
[2024-10-03 16:19] LABS: TSH 0.71 uIU/ml (0.47-4.68)
== END ==
LOC: OLABN 12:17
PROVIDERS: ATTENDING PHYSICIAN Student in an Organized Health Care Education/Training Program
DX: I50.32 Chronic diastolic (congestive) heart failure (principal); I10 Essential (primary) hypertension; E03.9 Hypothyroidism, unspecified; E78.5 Hyperlipidemia, unspecified
CPT/HCPCS: 36415; 80053; 80061; 83735; 84439; 84443; 85025

== ENCOUNTER → 2024-10-17 02:30 | Outpatient (REF) | payer OTHER, MEDICARE, SELFPAY ==
[2024-10-17 13:35] LABS: % Basophils 0.8 % (0-2); % Immature Granulocytes 0.6 % (0-0.5); % Lymphocytes 16.6 % (20.5-51.1); % Monocytes 12.3 % (1.7-9.3); % Neutrophils 65.7 % (42.2-75.2); Absolute Basophils 0.1 10^3/uL (0-0.2); Absolute Eosinophils 0.4 10^3/uL (0-0.7); Absolute Immature Granulocytes 0.1 10^3/uL (0-0.05); Absolute Lymphocytes 1.6 10^3/uL (1.2-3.4); Absolute Monocytes 1.2 10^3/uL (0.1-0.6); Absolute Neutrophils 6.3 10^3/uL (1.4-6.5); Hematocrit 35.4 % (37.0-47.0); Hemoglobin 10.6 g/dL (12.0-16.0); Mean Corp Hgb Conc. 29.9 g/dL (33.0-37.0); Mean Corpuscular Volume 93.7 fL (81.0-99.0); Mean Platelet Volume 8.9 fL (7.4-10.4); Nucleated Red Blood Cells % 0 %; Platelet Count 446 10^3/uL (130-400); Red Blood Cell Count 3.78 10^6/uL (4.20-5.40); Red Cell Dist. Width 19.8 % (11.5-14.5); White Blood Cell Count 9.6 10^3/uL (4.8-10.8)
[2024-10-17 13:41] LABS: Blood Urea Nitrogen 80 mg/dl (7-17); Calcium 9.5 mg/dl (8.4-10.2); Carbon Dioxide 25 mmol/L (22-30); Chloride 112 mmol/L (98-107); Glucose 71 mg/dl (70-99); Potassium 3.6 mmol/L (3.5-5.1); Sodium 150 mmol/L (135-145); eGFR 23.23
[2024-10-17 14:34] LABS: Urine Albumin 2+ (Neg - Trace); Urine Bilirubin Negative (Negative); Urine Character Clear (Clear); Urine Color Yellow; Urine Glucose Negative (Negative); Urine Ketone Negative (Negative); Urine Leukocyte 3+ (Negative); Urine Nitrite Negative (Negative); Urine Occult Blood 2+ (Negative); Urine Specific Gravity 1.015 (<1.030); Urine Urobilinogen Negative (Neg - 1+)
[2024-10-17 15:04] LABS: Urine Bacteria Many (Negative); Urine White Cell 50-60 /HPF (0-5)
== END ==
LOC: OLABN 02:30
PROVIDERS: ATTENDING PHYSICIAN Student in an Organized Health Care Education/Training Program
DX: R50.9 Fever, unspecified (principal); R63.4 Abnormal weight loss
CPT/HCPCS: 36415; 80048; 81003; 81015; 85025; 87077; 87086; 87186

== ENCOUNTER 2024-10-21 07:52 | Inpatient (IN) | payer MEDICARE, SELFPAY ==
[2024-10-17 22:38] VITALS: BMI 26.4
[2024-10-17 22:39] VITALS: BP 129/72
[2024-10-17 22:40] VITALS: BP 129/72
[2024-10-17 23:00] VITALS: BP 120/81
[2024-10-17 23:05] LABS: % Basophils 0.7 % (0-2); % Eosinophils 3.6 % (0-6); % Immature Granulocytes 1.1 % (0-0.5); % Lymphocytes 19.3 % (20.5-51.1); % Monocytes 12.6 % (1.7-9.3); % Neutrophils 62.7 % (42.2-75.2); Absolute Basophils 0.1 10^3/uL (0-0.2); Absolute Eosinophils 0.4 10^3/uL (0-0.7); Absolute Immature Granulocytes 0.1 10^3/uL (0-0.05); Absolute Lymphocytes 1.9 10^3/uL (1.2-3.4); Absolute Monocytes 1.2 10^3/uL (0.1-0.6); Absolute Neutrophils 6.2 10^3/uL (1.4-6.5); Hematocrit 36.3 % (37.0-47.0); Hemoglobin 11.1 g/dL (12.0-16.0); Mean Corp Hgb Conc. 30.6 g/dL (33.0-37.0); Mean Corpuscular Volume 91.7 fL (81.0-99.0); Mean Platelet Volume 8.3 fL (7.4-10.4); Nucleated Red Blood Cells % 0 %; Platelet Count 432 10^3/uL (130-400); Red Blood Cell Count 3.96 10^6/uL (4.20-5.40); Red Cell Dist. Width 19.9 % (11.5-14.5); White Blood Cell Count 9.8 10^3/uL (4.8-10.8)
[2024-10-17 23:13] LABS: ALT (SGPT) < 10 U/L (0-35); AST (SGOT) 17 U/L (14-36); Albumin 3.1 g/dl (3.5-5.0); Alkaline Phosphatase 135 U/L (38-126); Blood Urea Nitrogen 87 mg/dl (7-17); Calcium 9.8 mg/dl (8.4-10.2); Carbon Dioxide 28 mmol/L (22-30); Chloride 115 mmol/L (98-107); Estimated Creatinine Clearance 22 ml/min; Glucose 108 mg/dl (70-99); Potassium 3.6 mmol/L (3.5-5.1); Sodium 150 mmol/L (135-145); Total Bilirubin 0.6 mg/dl (0.2-1.3); Total Protein 6.3 g/dl (6.3-8.2)
[2024-10-17 23:22] LABS: Anisocytosis 1+; Macrocytosis 1+; Normal RBC Morphology No
[2024-10-17 23:23] LABS: Ovalocytes 1+; Stomatocytes 1+
--- NOTE | 2024-10-17 23:32 | ED.GENMED ---
History of Present Illness
General
Chief Complaint: Abnormal Lab Value
Source: patient and family
Exam Limitations: clinical condition
Time Seen by Provider: 10/17/24 23:05
History of Present Illness
History of Present Illness:
This an 79-year-old female who presents with altered mental status. Daughter states that today she was short of just staring at them. They state that she also has not been eating or drinking very well. She is on a fluid restriction. Patient
states she just did not feel well today. Her history is somewhat limited. Family states that she did seem very weak today. She was not able to lift up her coffee mug. Patient is poorly cooperative with history taking
Past History
Past History
ED Past Medical History: Cancer (B-cell lymphoma), HTN, Hypercholesterolemia, Hypothyroidism and Other (Chronic pain from osteoarthritis)
ED Past Surgical History: Orthopedic and Other (Cataracts)
Social History
Tobacco: Non-smoker
Alcohol: None
Drug: None
Personal:
Living: with family
Employment: Other
Family History
Family History: Other
Phy Exam
Physical Exam
Physical Exam:
CONSTITUTIONAL Patient alert and oriented to person. Vital signs reviewed.
HEAD atraumatic, normocephalic.
EYES eyelids normal to inspection, Extraocular muscles intact, Conjunctiva normal, Sclera normal.
NECK normal range of motion, Trachea midline, no jugular venous distention.
RESPIRATORY CHEST No respiratory distress noted, Chest expansion equal, Bilateral breath sounds clear.
CARDIOVASCULAR regular rate and rhythm, Heart sounds normal.
ABDOMEN abdomen nontender, Bowel sounds normal. No distention.
BACK normal inspection, no obvious deformities
UPPER EXTREMITY no cyanosis, no edema.
LOWER EXTREMITY no cyanosis, no edema.
NEURO Speech normal, No focal motor deficits, Cranial Nerves intact to screening exam.
SKIN skin warm, dry, and normal in color.
Course
Orders/Labs/Results
Orders:
Orders
10/17/24 22:40
Electrocardiogram (*1) Urgent
Reason for Study: Other
Other Reason for Exam: abnormal lab
10/17/24 22:41
EKG- Treatment ONCE
10/17/24 22:52
Complete Blood Count/With Diff Urgent
Comprehensive Metabolic Panel Urgent
10/17/24 23:31
0.9% Sodium Chloride 500 ml [Nss] 500 ml IV BOLUS
10/18/24 00:02
CT Head W/o Iv Contrast Urgent
Comment:
Reason For Exam: change in Ms
10/18/24 00:19
Ammonia Urgent
Urinalysis Reflex To Culture Urgent
Date Specimen was Collected: 10/18/24
Time Specimen was Collected: 00:17
Urine Microscopic Reflex Cult Urgent
Urine Culture Urgent
AZUL Source: U
Specimen Description:
Date Specimen was Collected: 10/18/24
Time Specimen was Collected: 00:17
Abnormal Lab Results
10/17/24 10/18/24
22:52 00:19
RBC 3.96 L 10^6/uL
(4.20-5.40)
Hgb 11.1 L g/dL
(12.0-16.0)
Hct 36.3 L %
(37.0-47.0)
MCHC 30.6 L g/dL
(33.0-37.0)
RDW 19.9 H %
(11.5-14.5)
Plt Count 432 H 10^3/uL
(130-400)
Abs Immat Gran (auto) 0.1 H 10^3/uL
(0-0.05)
Absolute Monos (auto) 1.2 H 10^3/uL
(0.1-0.6)
Immature Gran % 1.1 H %
(0-0.5)
Lymphocytes % 19.3 L %
(20.5-51.1)
Monocytes % 12.6 H %
(1.7-9.3)
Sodium 150 H mmol/L
(135-145)
Chloride 115 H mmol/L
(98-107)
BUN 87 H mg/dl
(7-17)
Creatinine 1.9 H mg/dL
(0.6-1.0)
Glucose 108 H mg/dl
(70-99)
Alkaline Phosphatase 135 H U/L
(38-126)
Albumin 3.1 L g/dl
(3.5-5.0)
Ur Occult Blood Reflex 1+ A
(Negative)
Urine Nitrite (Reflex) Positive A
(Negative)
Leukocyte Esterase Rfl 3+ A
(Negative)
Urine WBC (Reflex) >100 A /HPF
(0-5)
Urine Bacteria (Reflex) Many A
(Negative)
Urine Albumin (Reflex) 2+ A
(Neg - Trace)
10/17/24 22:52
10/17/24 22:52
Vital Signs
Initial and Last Documented VS:
Initial Vital Signs
Pulse Resp Pulse Ox
86 16 95
10/17/24 22:38 10/17/24 22:38 10/17/24 22:38
Last Documented Vital Signs
Temp Pulse Resp BP Pulse Ox
99.3 F 84 14 129/72 93
10/18/24 00:21 10/17/24 22:40 10/17/24 22:40 10/17/24 22:40 10/17/24 22:40
MDM/Problems Addressed
Differential Diagnosis Includes:
Sepsis, electrolyte imbalance, metabolic encephalopathy, stroke, UTI, hepatic encephalopathy
MDM/Problems Addressed:
Acute metabolic encephalopathy, dehydration, hypernatremia, urinary tract infection
*Radiology
Radiology exam reviewed: preliminary read by ED provider (No obvious intracranial hemorrhage)
*Pulse Oximetry
Patient hypoxic: no
*Director Instrumentation Interpretation
Rate: normal
Interpretation: normal
Rhythm: sinus
*Critical Care Note
Total Time (30-74mins, 75-104mins- exclusive of procedures): Not Applicable
Data Reviewed
Review of Other/Old Records Reveals: Labs (Prior microbiology reveals ESBL in the urine susceptible to Zosyn)
Source: patient and family
Patient Management
Discussion with other providers: Hospitalist
Escalation/DeEscalation of care consider admission/obs:
79-year-old female with hypernatremia and dehydration as well as UTI. Appears to have acute metabolic cephalopathy. Admit. Gentle IV fluids and IV antibiotics based on prior cultures
ED Attending Note
-
Portions of this chart may have been created with voice recognition software.� Occasional wrong word or��sound alike� substitutions may have occurred due to the inherent limitations of voice recognition software.
Discharge Plan
Departure
Patient Disposition: Admit
Date of Disposition: 10/18/24
Time of Disposition: 00:59
Admit to: Med/Surg
Presentation/result/management discussed w/ accepting MD/DO: Hospitalist
Discharge Problem:
Acute metabolic encephalopathy, Acute hypernatremia, Acute dehydration, Acute kidney injury
Prescriptions:
No Action
paroxetine HCl 20 MG tablet
20 mg PO DAILY
quetiapine 25 mg Tablet
25 mg PO BID
loperamide 2 mg Tablet
2 mg PO [id number] PRN (Reason: diarrhea) Qty: 0
levothyroxine 50 mcg Tablet
50 mcg PO DAILY
nystatin 100,000 unit/gram Powder
1 applic TOPICAL DAILY Qty: 0
methenamine hippurate 1 gram tablet
1 g PO BID 30 Days Qty: 60 0RF
Rx Instructions:
Start 10/24/23 After Finishing IV antibiotics course
Visbiome 112.5 billion cell Capsule
2 cap PO DAILY
diclofenac sodium 1 % Gel
0 g TOPICAL BID
polyethylene glycol 3350 [HealthyLax] 17 gram powder in packet
17 g PO DAILYPRN PRN (Reason: constipation)
furosemide 40 mg Tablet
40 mg PO DAILY 30 Days Qty: 30 0RF
carvedilol 6.25 mg Tablet
6.25 mg PO BID 30 Days Qty: 60 0RF
amoxicillin-pot clavulanate 875-125 mg Tablet
1 tab PO Q12 5 Days Qty: 10 0RF
loperamide [Imodium A-D] 2 mg capsule
2 mg PO Q4H PRN (Reason: loose stool) Qty: 14 0RF
ondansetron 4 mg tablet,disintegrating
4 mg PO Q8H PRN (Reason: nausea and vomiting) Qty: 10 0RF
Referrals:
UNKNOWN - PT DOES,NOT KNOW [Family Provider] -
Interventions
Interventions:
*Risk Screen - Suicide Last Done: 10/17/24 22:40
*General Assessment Last Done: 10/17/24 22:40
*Neglect/Abuse Screening Last Done: 10/17/24 22:40
*ED- Fall Risk Assessment Last Done: 10/17/24 22:40
*ED COVID-19 Vaccine History Last Done: 10/17/24 22:40
Discharge Date and Time
Print Language: BELARUSIAN
[2024-10-17] MEDS: NSS 500 IV (23:35)
[2024-10-18] VITALS (8 sets, daily range): BP systolic 104–141; BP diastolic 63–78; BMI 26.8
[2024-10-18 00:26] LABS: Urine Albumin 2+ (Neg - Trace); Urine Bilirubin Negative (Negative); Urine Character Cloudy (Clear); Urine Color Yellow; Urine Glucose Negative (Negative); Urine Ketone Negative (Negative); Urine Leukocyte 3+ (Negative); Urine Nitrite Positive (Negative); Urine Occult Blood 1+ (Negative); Urine Specific Gravity 1.025 (<1.030); Urine Urobilinogen Negative (Neg - 1+)
[2024-10-18 00:41] LABS: Ammonia 12 umol/L (9-30)
[2024-10-18 00:50] LABS: Urine Bacteria Many (Negative); Urine Hyaline Cast >15 /LPF (0-2); Urine Red Blood Cell 0-2 /HPF (0-2); Urine White Cell >100 /HPF (0-5)
[2024-10-18] MEDS: ZOSYN 50 IV (01:18)
[2024-10-18 01:34] LABS: Lactic Acid 1.2 mmol/L (0.7-2.0)
[2024-10-18] MEDS: KCL 270 MEQ IV (02:02)
--- NOTE | 2024-10-18 02:42 | HPS.HSE ---
Family Physician
-
Family Physician: NOT KNOW UNKNOWN - PT DOES
Chief Complaint
-
Altered mental status
History of Present Illness
Is an 79-year-old who has a past medical history significant for history of hypertension hyperlipidemia hypothyroid and history of B-cell lymphoma who presents to the emergency department via daughter for concern of altered mental status.
Daughter stated that the patient had a change in mental status where she was simply staring at them and was not speaking with them. She also has not been eating or drinking very well. 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
Patient reported that she did not feel well today but was unable to provide any further history. Family reports weakness difficulty even lifting up the morning and decreased cooperation.
In the emergency department she was afebrile with a temp of 99.3 blood pressure was 126/60 with a pulse of 78 satting 98% on room air.
CBC was unremarkable. Electrolytes were notable for a sodium of 150, BUN and creatinine were notable for a creatinine of 1.9 up from about 1.4 baseline. BUN was elevated to 87 from 30s to 60s at baseline. UA was markedly positive with nitrites
leukocyte esterase and bacteria. Head CT negative. ECG with normal sinus rhythm at a rate of 84.
Medical History
Past Medical History
Past Medical History: Reports Dementia, HTN and Hypothyroidism
Past Surgical History: Reports None
Social History
Tobacco: Non-smoker
Alcohol: None
Drug: None
Personal:
Living: Assisted Living
Employment: Retired
Family History
Family History: Not pertinent
Allergies / Home Medications
Allergies reflects when Allergies were last updated in [facility].
Home Medications with original date entered in [facility]
Allergy/Medication List:
Allergies
Allergy/AdvReac Type Severity Reaction Status Date / Time
No Known Allergies Allergy Verified 09/15/21 18:27
Home Medications
furosemide 20 mg tablet 20 mg PO DAILY #30 tabs 06/14/21
paroxetine HCl 20 mg tablet 20 mg PO DAILY Depression 09/15/21
enalapril maleate 10 mg tablet 20 mg (2 x 10 mg) PO BID #0 tabs 11/21/22
nifedipine 30 mg tablet,extended release 30 mg PO DAILY 30 days #30 tabs 08/08/23
guaifenesin 10 ml PO Q4H 10/08/23
levothyroxine 50 mcg tablet 50 mcg PO DAILY 10/08/23
loperamide 2 mg PO Q12H PRN diarrhea 10/08/23
nystatin 1 applic topical Q8H PRN jessica rash 10/08/23
quetiapine 25 mg tablet 25 mg PO BID 10/08/23
Review of Systems
-
Unable to obtain full review of systems at this time due to: Dementia
Physical Exam
Vital Signs
Vital Signs
Temp Pulse Resp BP Pulse Ox
99.3 F 78 10 126/66 96
10/18/24 00:21 10/18/24 01:45 10/18/24 01:45 10/18/24 00:00 10/18/24 01:45
Physical Exam
General: Well Developed, Well Nourished and No Apparent Distress
HEENT: NormoCephalic, Moist mucous membranes and Atraumatic
Respiratory: Clear
Cardiac: S1/S2 and Regular Rhythm; No Murmur or Rub
GI: Soft, Non Tender, Non Distended and Normal Bowel Sounds; No Organomegaly
Rectal: Deferred by Provider
Musculoskeletal: Edema, Left Lower Extremity (warm and red ) and Edema, Right Lower Extremity (warm and red )
Skin: No Rash
Neuro: Awake, Oriented (to person) and Nonfocal/grossly intact
Psych: Calm
Laboratory Results
-
10/17/24 22:52
10/17/24 22:52
Laboratory Results
Lactic Acid Cancelled 10/18/24 05:00
Total Bilirubin 0.6 mg/dl (0.2-1.3) 10/17/24 22:52
AST 17 U/L (14-36) 10/17/24 22:52
ALT < 10 U/L (0-35) 10/17/24 22:52
Alkaline Phosphatase 135 U/L (38-126) H 10/17/24 22:52
Data Reviewed
-
CT Scan: Report Reviewed by me
Medical Tests (Nuc Med, Echo, EKG etc): Image Personally Visualized and interpreted
Lab Data: Labs Reviewed by me
Old Records: Reviewed
Impression/Plan
-
IMPRESSION:
Is an 79-year-old female with past medical history of dementia, hypertension hyperlipidemia and recurrent UTI who has history of ESBL E. coli only sensitive to Zosyn and ertapenem presenting to the emergency department with altered mental status
notable for staring and as well as weakness and found to have significantly positive UA. She is quite dehydrated with LYN and hyponatremia to sodium of 150. No signs of overwhelming sepsis.
PLAN:
1. UTI -UTI complicated by metabolic encephalopathy.
-Admit to MedSurg
-Urine culture
-Blood culture spike
-Given Zosyn in ED, continue with ertapenem given prior cultures
-ID consultation
2. Hyponatremia -hypovolemic this is secondary to decreased free water intake. Free water deficit is 1.4L
- IV resuscitation with 1/2 NS at 100 ml/hr for now
- liberalize diet as tolerated
- hold lasix for now
3. LYN - Hypovolemic, prerenal azotemia suspected
- IV fluids as above
- avoid nephrotoxins
- not currently on acei/arb
- holding lasix
4. HTN
- continue carvedilol 6.25
PTOT eval
DVT PPX - heparin sq
code status - full code
[2024-10-18 06:14] LABS: Hematocrit 35.6 % (37.0-47.0); Hemoglobin 10.7 g/dL (12.0-16.0); Mean Corp Hgb Conc. 30.1 g/dL (33.0-37.0); Mean Corpuscular Hgb 28.4 pg (27.0-31.0); Mean Corpuscular Volume 94.4 fL (81.0-99.0); Mean Platelet Volume 8.5 fL (7.4-10.4); Platelet Count 404 10^3/uL (130-400); Red Blood Cell Count 3.77 10^6/uL (4.20-5.40); Red Cell Dist. Width 19.9 % (11.5-14.5); White Blood Cell Count 10.7 10^3/uL (4.8-10.8)
[2024-10-18] MEDS: 0.45%NACL 1000 IV ×2 (06:19→17:44)
[2024-10-18] MEDS: SYNTHROID 50 MCG PO (06:23)
[2024-10-18 06:39] LABS: Blood Urea Nitrogen 84 mg/dl (7-17); Calcium 9.7 mg/dl (8.4-10.2); Carbon Dioxide 27 mmol/L (22-30); Chloride 119 mmol/L (98-107); Estimated Creatinine Clearance 22 ml/min; Glucose 99 mg/dl (70-99); Magnesium 2.3 mg/dl (1.6-2.3); Potassium 4.7 mmol/L (3.5-5.1); Sodium 152 mmol/L (135-145)
[2024-10-18] MEDS: INVANZ 55 MG IV (07:52)
[2024-10-18] MEDS: SEROQUEL 25 MG PO ×2 (07:52→19:36)
[2024-10-18] MEDS: PAXIL 20 MG PO (07:52)
[2024-10-18] MEDS: COREG 6.25 MG PO ×2 (07:52→19:36)
[2024-10-18] MEDS: HEPARIN 5000 UNITS SC ×2 (07:52→19:36)
--- NOTE | 2024-10-18 08:36 | W.PN.UPDATE ---
Update Note
Progress Note Update
Seen and examined. Able to tell me her name, where she is, year, month and what holidays coming up. She was not sure of the president
She tells me that she has not experienced any burning with urination but did previously experience urinary frequency.
No suprapubic tenderness on exam
Per daughter:
Can hold a conversation, recognizes people
No hx of dementia but at times can be forgetful
Not eating/drinking well for the past 1 month, ongoing decline from previous HF admit
Was not able to return to previous assisted living facility
NAD
Scleral Anicteric, wearing corrective lenses
DMM
No JVD
CTABL
RRR, S1/S2
Soft, NT, ND, BS+
Warm, Dry
Right knee is diffuse however without evidence of erythema/warmth/drainage
AAOx3
Calm
Toxic metabolic encephalopathy likely related to dehydration, hypernatremia and potentially urinary tract infection however there is epithelial cells which brings up the possibility of a contaminated urinary sample
Appears his mental status is improving and this was confirmed by her daughter who states that mental status improved after 1 bag of IV fluid
Continue IV fluids
Follow-up on blood culture urine culture
Continue ertapenem. Known history of ESBL UTI
Hypernatremia
In the setting of dehydration and continued use of Lasix precipitating a worsening in hypernatremia
Free water deficit of 1.4 L
Nephrology consulted
LYN likely secondary to prerenal etiology in the setting of poor p.o. intake and Lasix use
Avoid nephrotoxins hypotension
Monitor urinary output
Hold Lasix
Hypothyroidism
Levothyroxine
Depression anxiety
Continue anxiolytics antidepressives
HFpEF, chronic, hypovolemic
Hold Lasix
Continue Coreg
--- NOTE | 2024-10-18 10:17 | W.CON.NEPH ---
Consultation
-
Date/Time Consultation Requested: 10/18/24712
Date/Time Consultation Performed: 10/18/24929
Requesting Provider: Javed Aquino
Performing Provider: Bridgette Nelson
Reason for Consultation: Luzma, hypernatremia
Medical History
-
Chief Complaint: AMS
History of Present Illness:
79-year-old who has a past medical history significant for history of hypertension on coreg, hyperlipidemia, hypothyroid on levothyroxine, dementia, anciety, depression on paroxetine and quetiapine and history of B-cell lymphoma who presents to the
emergency department via daughter for concern of altered mental status on 10/17. She also has not been eating or drinking very well. 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 Pt is unable to provide history so most of the history
from the chart. SHe noted to have possible UTI and cr was at 1.9 since admit and sodium high at 152.
Note she was taking lasix for h/o CHF too. She denies any fever, cough, cp or sob or edema. no abd pain or diarrhea.
Nephrology consulted for LUZMA and hypernatremia.
Past Medical History
Hypertension
CKD stage IIIb
Hyponatremia
Dementia
Hypothyroidism
DCHF
Social History
Tobacco: Non-Smoker
Alcohol: None
Drug: None
Personal:
Living: Assisted Living
Employment: Retired
Family History
Family History: Not Pertinent
Allergies / Home Medications
Allergy/AdvReac Type Severity Reaction Status Date / Time
No Known Allergies Allergy Verified 09/29/24 22:06
�Medication �Instructions �Recorded �Confirmed �Type
paroxetine HCl 20 mg tablet 20 mg PO DAILY Depression 09/15/21 08/13/24 History
levothyroxine 50 mcg tablet 50 mcg PO DAILY Thyroid 10/08/23 08/13/24 History
loperamide 2 mg tablet 2 mg PO [id number] PRN diarrhea ##0 10/08/23 08/13/24 History
nystatin 100,000 unit/gram topical 1 applic topical DAILY b/l breasts 10/08/23 08/13/24 History
powder ##0
quetiapine 25 mg tablet 25 mg PO BID Depression 10/08/23 08/13/24 History
methenamine hippurate 1 gram tablet 1 g PO BID 30 days #60 tabs 10/15/23 08/13/24 Rx
Lactobac no.2-Bifidobac no.1-S. 2 cap PO DAILY Gastrointestinal 08/13/24 08/13/24 History
thermo 112.5 billion cell capsule Issue
(Visbiome)
diclofenac sodium 1 % topical gel 0 g topical BID rt knee 08/13/24 08/13/24 History
polyethylene glycol 3350 17 gram 17 g PO DAILYPRN PRN constipation 08/13/24 08/13/24 History
oral powder packet (HealthyLax)
amoxicillin 875 mg-potassium 1 tab PO Q12 Infection 5 days #10 08/19/24 Rx
clavulanate 125 mg tablet tabs
carvedilol 6.25 mg tablet 6.25 mg PO BID 30 days #60 tabs 08/19/24 Rx
furosemide 40 mg tablet 40 mg PO DAILY 30 days #30 tabs 08/19/24 Rx
loperamide 2 mg capsule (Imodium 2 mg PO Q4H PRN loose stool #14 09/30/24 Rx
A-D) caps
ondansetron 4 mg disintegrating 4 mg PO Q8H PRN nausea and 09/30/24 Rx
tablet vomiting #10 tabs
Review of Systems
-
All other systems: Negative unless noted
Physical Exam
Vital Signs
Vital Signs
Temp Pulse Resp BP Pulse Ox
98.5 F 84 16 116/63 97
10/18/24 07:25 10/18/24 07:52 10/18/24 07:25 10/18/24 07:52 10/18/24 07:25
Lab Results
WBC 10.7 10^3/uL (4.8-10.8) 10/18/24 05:47
RBC 3.77 10^6/uL (4.20-5.40) L 10/18/24 05:47
Hgb 10.7 g/dL (12.0-16.0) L 10/18/24 05:47
Hct 35.6 % (37.0-47.0) L 10/18/24 05:47
Plt Count 404 10^3/uL (130-400) H 10/18/24 05:47
Sodium 152 mmol/L (135-145) H 10/18/24 05:47
Potassium 4.7 mmol/L (3.5-5.1) D 10/18/24 05:47
Chloride 119 mmol/L (98-107) H 10/18/24 05:47
Carbon Dioxide 27 mmol/L (22-30) 10/18/24 05:47
BUN 84 mg/dl (7-17) H 10/18/24 05:47
Creatinine 1.9 mg/dL (0.6-1.0) H 10/18/24 05:47
eGFR 26.20 10/18/24 05:47
Glucose 99 mg/dl (70-99) 10/18/24 05:47
Calcium 9.7 mg/dl (8.4-10.2) 10/18/24 05:47
Albumin 3.1 g/dl (3.5-5.0) L 10/17/24 22:52
Physical Exam
General: Awake, Alert, Oriented, No Distress and Nontoxic
HEENT: EOMI, Anicteric and Conjunctivae Clear
Respiratory: Clear, Normal Excursion, Nonlabored Respirations and Other (anteriroly)
Cardiac: S1/S2 and Regular Rate/Rhythm
Breast: Deferred by me
Abdomen: Soft, Nontender and Nondistended
Musculoskeletal: No Cyanosis and No Edema
Skin: No Rash
Neuro: Nonfocal/Grossly Intact
Psych: Appropriate
Data Reviewed
-
Medical Tests (Nuc Med, Echo etc): Report Reviewed by me and Discussed with Patient
Assessment/Plan
-
IMP:
Toxic metabolic encephalopathy
UTI
Hypernatremia
LUZMA with [id number] cr 1.5
Hypothyroidism
Depression anxiety
HFpEF, chronic,
PLan:
A/w AMS likely UTI, vol depletion
LUZMA-likely prerenal, cont IVF
follow bladder scan, measure UOP
hold lasix as she seem to be dry
hypernatremia-on 1/2NS, repeat labs this pm
if sodium worsens-change to D5w
encourage po intake
BP stable
avoid nephrotoxins
meds dos erenally
abx per ID for UTI
d/w nursing
--- NOTE | 2024-10-18 11:45 | CON.ID ---
Consultation
-
Date/Time Consultation Requested: 10/18/24 5:35
Date/Time Consultation Performed: 10/18/24 11:45
Requesting Provider: Valdo MAYA
Performing Provider: Dr Bhatia
Reason for Consultation: ESBL/Ecoli UTI
Chief Complaint / Past History
Chief Complaint
Altered mental status
History of Present Illness
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
Since arrival here she has been afebrile, bp stable, wbc 10.7, hgb 10.7, plt 404, no L shift noted on arrival, na 150 on arrival and today 152, cr 1.9 baseline appears to be around 1.5, UA >100 wbc/hpf, CT head without contrast: no acute
abnormalities, urine culture 100K GNR, note previous colonization with ESBL E coli,
Past History
Additional Past Medical History:
Dementia, HTN and Hypothyroidism
Past Surgical History: None
Allergy History:
No Known Allergies Allergy (Verified 09/29/24 22:06)
Medications Reviewed: Yes
Social History
Tobacco: Non-Smoker
Alcohol: None
Drug: None
Family History
Family History: Not Pertinent
Review of Systems
Review of Systems
General: Negative Fever or Chills
All systems: All other systems were reviewed and were negative
Vital Signs
Temp Pulse Resp BP Pulse Ox
98.5 F 84 16 116/63 97
10/18/24 07:25 10/18/24 07:52 10/18/24 07:25 10/18/24 07:52 10/18/24 07:25
Physical Exam
Physical Exam
Constitutional: No Acute Distress
Cardiovascular: Regular Rate and S1/S2; Negative Murmur or Rub
Pulmonary: Clear and Symmetric; Negative Wheezes, Rales or Rhonchi
Gastrointestinal: Soft, Non Tender, Non Distended and Normal Bowel Sounds
Genito-Urinary: CVA Tenderness; Negative Suprapubic Tenderness
Skin: Warm and Dry; Negative Rash or Jaundice
Lab / Diagnostic Study Results
10/18/24 05:47
10/18/24 05:47
Abs Immat Gran (auto) 0.1 10^3/uL (0-0.05) H 10/17/24 22:52
Absolute Neuts (auto) 6.2 10^3/uL (1.4-6.5) 10/17/24 22:52
Absolute Lymphs (auto) 1.9 10^3/uL (1.2-3.4) 10/17/24 22:52
Absolute Monos (auto) 1.2 10^3/uL (0.1-0.6) H 10/17/24 22:52
Absolute Basos (auto) 0.1 10^3/uL (0-0.2) 10/17/24 22:52
Immature Gran % 1.1 % (0-0.5) H 10/17/24 22:52
Neutrophils % 62.7 % (42.2-75.2) 10/17/24 22:52
Lymphocytes % 19.3 % (20.5-51.1) L 10/17/24 22:52
Monocytes % 12.6 % (1.7-9.3) H 10/17/24 22:52
Eosinophils % 3.6 % (0-6) 10/17/24 22:52
Basophils % 0.7 % (0-2) 10/17/24 22:52
Lactic Acid Cancelled 10/18/24 05:00
Ur Squamous Epith Cells 11-15 /LPF (Few) 10/18/24 00:19
Microbiology Results
Micro:
10/18/24 06:54 MRSA Screen - Pending
Nose
10/18/24 01:08 Blood Culture - Pending
Blood/Venous
10/18/24 01:15 Blood Culture - Pending
Blood/Venous
10/18/24 00:19 Urine Culture - Pending
Urine
Assessment / Plan
UTI
TME
LYN on CKD
- urine culture 100K GNR
- previous colonization with ESBL forming organism
- blood cultures x2 in progress
- agree with ertapenem; dose adjust prn, plan 7 day course
--- NOTE | 2024-10-18 13:15 | PTOTSP ---
Speech Pathology
Clinical Swallow Evaluation
79F with admission for UTI c/b metabolic encephalopathy p/w an impaired oropharyngeal swallow, likely acute on chronic, characterized by prolonged bolus holding, pocketing, and overt s/s of aspiration observed this date. Aspiration risk is increased
at this time 2/2 AMS.
Recommend:
1. Downgrade diet to puree (IDDSI 4), thin liquids (IDDSI 0)
2. Meds crushed in puree
3. Aspiration precautions small bites; no straws; alternate bites and sips; FULL SUPERVISION and PARTIAL ASSISTANCE with feeding; only feed when awake and alert; check for pocketing
4. REGIONAL PROGRAM MANAGER service to follow up re: to assess diet level tolerance and upgrade diet as able
[2024-10-18 18:20] LABS: Blood Urea Nitrogen 80 mg/dl (7-17); Calcium 9.5 mg/dl (8.4-10.2); Carbon Dioxide 25 mmol/L (22-30); Chloride 119 mmol/L (98-107); Estimated Creatinine Clearance 26 ml/min; Glucose 107 mg/dl (70-99); Sodium 150 mmol/L (135-145)
[2024-10-18] MEDS: D5W 1000 IV (19:36)
[2024-10-19] MEDS: SYNTHROID 50 MCG PO (06:16)
[2024-10-19 06:17] LABS: Hematocrit 33.6 % (37.0-47.0); Mean Corp Hgb Conc. 29.8 g/dL (33.0-37.0); Mean Corpuscular Hgb 28.1 pg (27.0-31.0); Mean Corpuscular Volume 94.4 fL (81.0-99.0); Mean Platelet Volume 8.5 fL (7.4-10.4); Platelet Count 337 10^3/uL (130-400); Red Blood Cell Count 3.56 10^6/uL (4.20-5.40); White Blood Cell Count 10.8 10^3/uL (4.8-10.8)
[2024-10-19 06:53] LABS: Blood Urea Nitrogen 69 mg/dl (7-17); Calcium 9.3 mg/dl (8.4-10.2); Carbon Dioxide 25 mmol/L (22-30); Chloride 118 mmol/L (98-107); Estimated Creatinine Clearance 28 ml/min; Glucose 100 mg/dl (70-99); Sodium 149 mmol/L (135-145); eGFR 34.79
[2024-10-19 07:35] VITALS: BP 125/67
[2024-10-19] MEDS: SEROQUEL 25 MG PO ×2 (08:58→20:08)
[2024-10-19] MEDS: PAXIL 20 MG PO (08:58)
[2024-10-19] MEDS: COREG 6.25 MG PO ×2 (08:58→20:08)
[2024-10-19] MEDS: INVANZ 55 MG IV (08:58)
[2024-10-19] MEDS: HEPARIN 5000 UNITS SC ×2 (08:59→20:23)
[2024-10-19] MEDS: D5W 1000 IV ×2 (09:04→20:18)
--- NOTE | 2024-10-19 09:54 | W.PN.HOSP.TC ---
Today's Communication/Plan
-
Assessment / Plan
Assessment / Plan
Seen and examined. Able to tell me her name, where she is, year, month and what holidays coming up. She was not sure of the president
She tells me that she has not experienced any burning with urination but did previously experience urinary frequency.
No suprapubic tenderness on exam
Per daughter:
Can hold a conversation, recognizes people
No hx of dementia but at times can be forgetful
Not eating/drinking well for the past 1 month, ongoing decline from previous HF admit
Was not able to return to previous assisted living facility
NAD
Scleral Anicteric, wearing corrective lenses
DMM
No JVD
CTABL
RRR, S1/S2
Soft, NT, ND, BS+
Warm, Dry
Right knee is diffuse however without evidence of erythema/warmth/drainage
AAOx1 (person) change from yesterday
Calm
Toxic metabolic encephalopathy likely related to dehydration, hypernatremia and potentially urinary tract infection however there is epithelial cells which brings up the possibility of a contaminated urinary sample
Appears his mental status is improving and this was confirmed by her daughter who states that mental status improved after 1 bag of IV fluid
Continue IV fluids
Follow-up on blood culture urine culture (ecoli/lactobacillus)
Continue ertapenem. Known history of ESBL UTI
Hypernatremia, improving
In the setting of dehydration and continued use of Lasix precipitating a worsening in hypernatremia
Free water deficit of 1.4 L
Nephrology consulted
LYN likely secondary to prerenal etiology in the setting of poor p.o. intake and Lasix use
Avoid nephrotoxins hypotension
Monitor urinary output
Hold Lasix
Hypothyroidism
Levothyroxine
Depression anxiety
Continue anxiolytics antidepressives
HFpEF, chronic, hypovolemic
Hold Lasix
Continue Coreg
Anticipated Discharge: 24 - 48 hours
Subjective/Interval History
-
Date of Service: October 19, 2024
seen and examined. no new complaints. no acute overnight events
Objective Data
-
Labs:
Laboratory Results
10/19/24
05:56
WBC 10.8
Hgb 10.0 L
Hct 33.6 L
Plt Count 337
Sodium 149 H
Potassium 4.0
Chloride 118 H
Carbon Dioxide 25
BUN 69 H
Creatinine 1.5 H
Glucose 100 H
Calcium 9.3
Vital Signs:
Vital Signs
Temp Pulse Resp BP Pulse Ox
98.1 F 90 16 125/67 94
10/19/24 07:35 10/19/24 07:35 10/19/24 07:35 10/19/24 07:35 10/19/24 07:35
I&O
10/18/24 10/19/24 10/20/24
06:59 06:59 06:59
Intake Total 120 / 120
Balance 120 / 120
--- NOTE | 2024-10-19 10:26 | W.PN.ID1 ---
Date of Service
Date of Service: October 19, 2024
Today's Communication
- switched to keflex 500 mg PO TID x7 days
- blood cultures x2 no growth to date
- follow up with pcp
Assessment / Plan
UTI
TME
LYN on CKD
Prior colonization with ESBL E coli
- switched to keflex 500 mg PO TID x7 days
- blood cultures x2 no growth to date
- follow up with pcp
Chief Complaint
-: UTI
Subjective / Review of Systems
afebrile
bp stable
no events overnight
resolved thrombocytosis
Vital Signs / Physical Exam
Vital Signs
Vital Signs
Temp Pulse Resp BP Pulse Ox
98.1 F 90 16 125/67 94
10/19/24 07:35 10/19/24 07:35 10/19/24 07:35 10/19/24 07:35 10/19/24 07:35
Physical Exam
Constitutional: No Acute Distress and Chronically Ill
Cardiovascular: Regular Rate and S1/S2; Negative Murmur or Rub
Pulmonary: Clear and Symmetric; Negative Wheezes or Rales
Gastrointestinal: Soft, Non Tender, Non Distended and Normal Bowel Sounds
Skin: Warm and Dry; Negative Rash or Jaundice
Objective Data
Lab Data
Lab Results
10/19/24 05:56
10/19/24 05:56
Estimated Creat Clear 28 ml/min 10/19/24 05:56
Lactic Acid Cancelled 10/18/24 05:00
Total Bilirubin 0.6 mg/dl (0.2-1.3) 10/17/24 22:52
AST 17 U/L (14-36) 10/17/24 22:52
ALT < 10 U/L (0-35) 10/17/24 22:52
Alkaline Phosphatase 135 U/L (38-126) H 10/17/24 22:52
Most recent labs reviewed.
Urine Culture Final 10/19/24-941
CC: Greater than 100,000 CFU/ML Escherichia coli
CC: Greater than 100,000 CFU/ML Lactobacillus species
Organism 1 Escherichia coli
1. Escherichia coli
M.I.C. RX
--------- ---
Amoxicillin/Potas. Clavulanate <=8/4 S
Ampicillin <=8 S
Ampicillin/Sulbactam <=4/2 S
Aztreonam <=4 S
Cefazolin <=2 S
Ertapenem <=0.5 S
Ciprofloxacin >2 R
Gentamicin <=2 S
Meropenem <=1 S
Nitrofurantoin-Urine Only <=32 S
Piperacillin/Tazobactam <=8 S
Tetracycline <=4 S
Tobramycin <=2 S
Trimethoprim/Sulfamethoxazole <=2/38 S
Micro Results:
10/18/24 06:54 MRSA Screen - Final
Nose No Methicillin Resistant Staphylococcus aureus isolated.
10/18/24 01:08 Blood Culture - Preliminary
Blood/Venous No Growth in 24 hours- Final report to follow
10/18/24 01:15 Blood Culture - Preliminary
Blood/Venous No Growth in 24 hours- Final report to follow
10/18/24 00:19 Urine Culture - Pending
Urine
[2024-10-19] MEDS: KEFLEX 500 MG PO ×2 (11:37→17:59)
--- NOTE | 2024-10-19 14:53 | CM ---
Initial assessment completed with daughter. Patient has been a resident of [facility] since August,. She is w/ch dependent, needs assistance feeding. She has a port in place from previous treatment for lymphoma. No active plans for
removing the port at this time. Discharge POC: Return to [facility] to resume LTC.
--- NOTE | 2024-10-19 15:19 | W.PN.NEPH.PH ---
Today's Communication / Plan
-
repeat labs and adjust IVF rate
Assessment/Plan
-
IMP:
Toxic metabolic encephalopathy
UTI
Hypernatremia
LYN with [id number] cr 1.5
Hypothyroidism
Depression anxiety
HFpEF, chronic,
PLan:
A/w AMS likely UTI, vol depletion
LYN-likely prerenal,cr down to 1.5 cont IVF
follow bladder scan, measure UOP if poosible
hold lasix , poor po intake
hypernatremia-slow to improve, on H8h-eqcd increased this am, repeat labs
encourage po intake
BP stable
avoid nephrotoxins
abx per ID for UTI
-
-
Date of Service: October 19, 2024
CC / HPI / ROS
-
Chief Complaint:
LYN, hypernatremia
History of Present Illness:
cr better at 1,5, bun 69
sodium better at 149
bp stabe
Review of Systems:
demented, no history can be obtained
no fever
Labs
-
Labs:
WBC 10.8 10^3/uL (4.8-10.8) 10/19/24 05:56
RBC 3.56 10^6/uL (4.20-5.40) L 10/19/24 05:56
Hgb 10.0 g/dL (12.0-16.0) L 10/19/24 05:56
Hct 33.6 % (37.0-47.0) L 10/19/24 05:56
Plt Count 337 10^3/uL (130-400) 10/19/24 05:56
Sodium 149 mmol/L (135-145) H 10/19/24 05:56
Potassium 4.0 mmol/L (3.5-5.1) 10/19/24 05:56
Chloride 118 mmol/L (98-107) H 10/19/24 05:56
Carbon Dioxide 25 mmol/L (22-30) 10/19/24 05:56
BUN 69 mg/dl (7-17) H 10/19/24 05:56
Creatinine 1.5 mg/dL (0.6-1.0) H 10/19/24 05:56
eGFR 34.79 10/19/24 05:56
Glucose 100 mg/dl (70-99) H 10/19/24 05:56
Calcium 9.3 mg/dl (8.4-10.2) 10/19/24 05:56
Albumin 3.1 g/dl (3.5-5.0) L 10/17/24 22:52
Physical Exam
-
Vital Signs:
Vital Signs
Temp Pulse Resp BP Pulse Ox
98.1 F 90 16 125/67 94
10/19/24 07:35 10/19/24 07:35 10/19/24 07:35 10/19/24 07:35 10/19/24 07:35
Cardiovascular:: Regular rate and rhythm
Respiratory:: Bilateral: Coarse
Lung Excursion:: Normal
Abdomen:: Nontender and Soft
Bowel Sounds:: Normal
Extremity Edema:: +1: Right: and +1: Left:
Aceves Catheter: No
[2024-10-19 15:40] VITALS: BP 137/66
[2024-10-19 16:09] LABS: Blood Urea Nitrogen 64 mg/dl (7-17); Calcium 9.2 mg/dl (8.4-10.2); Carbon Dioxide 26 mmol/L (22-30); Chloride 114 mmol/L (98-107); Estimated Creatinine Clearance 34 ml/min; Glucose 131 mg/dl (70-99); Potassium 3.8 mmol/L (3.5-5.1); Sodium 145 mmol/L (135-145); eGFR 45.48
[2024-10-19 23:31] VITALS: BP 121/61
[2024-10-20] MEDS: KEFLEX 500 MG PO ×3 (03:23→18:26)
[2024-10-20] MEDS: SYNTHROID 50 MCG PO (05:24)
[2024-10-20 06:31] LABS: Hematocrit 29.5 % (37.0-47.0); Hemoglobin 9.1 g/dL (12.0-16.0); Mean Corp Hgb Conc. 30.8 g/dL (33.0-37.0); Mean Corpuscular Hgb 28.3 pg (27.0-31.0); Mean Corpuscular Volume 91.9 fL (81.0-99.0); Mean Platelet Volume 8.6 fL (7.4-10.4); Platelet Count 280 10^3/uL (130-400); Red Blood Cell Count 3.21 10^6/uL (4.20-5.40); Red Cell Dist. Width 19.6 % (11.5-14.5); White Blood Cell Count 10.3 10^3/uL (4.8-10.8)
[2024-10-20 06:48] LABS: Blood Urea Nitrogen 54 mg/dl (7-17); Carbon Dioxide 25 mmol/L (22-30); Chloride 112 mmol/L (98-107); Estimated Creatinine Clearance 38 ml/min; Glucose 98 mg/dl (70-99); Potassium 3.5 mmol/L (3.5-5.1); Sodium 139 mmol/L (135-145); eGFR 50.48
[2024-10-20 07:37] VITALS: BP 116/59
[2024-10-20] MEDS: SEROQUEL 25 MG PO ×2 (09:01→20:49)
[2024-10-20] MEDS: COREG 6.25 MG PO ×2 (09:01→20:49)
[2024-10-20] MEDS: PAXIL 20 MG PO (09:01)
[2024-10-20] MEDS: HEPARIN 5000 UNITS SC ×2 (09:02→20:42)
--- NOTE | 2024-10-20 11:59 | W.PN.NEPH.PH ---
Today's Communication / Plan
-
prn IVF base on po intake
Assessment/Plan
-
IMP:
Toxic metabolic encephalopathy
UTI
Hypernatremia
LYN with [id number] cr 1.5
Hypothyroidism
Depression anxiety
HFpEF, chronic,
PLan:
A/w AMS likely UTI, vol depletion
LYN-likely prerenal,cr down to 1.1 baseline
hold lasix , poor po intake
hypernatremia-improved and now off IVF
may need to resume IVF if po intake remains poor
BP stable
avoid nephrotoxins
abx per ID for UTI
will s/o, call with ?s
-
-
Date of Service: October 20, 2024
CC / HPI / ROS
-
Chief Complaint:
LYN, hypernatremia
History of Present Illness:
cr better at 1.1, bun 54
sodium better at 139
bp stabe
hb down to 9
Review of Systems:
demented, no history can be obtained
no fever
Labs
-
Labs:
WBC 10.3 10^3/uL (4.8-10.8) 10/20/24 06:06
RBC 3.21 10^6/uL (4.20-5.40) L 10/20/24 06:06
Hgb 9.1 g/dL (12.0-16.0) L 10/20/24 06:06
Hct 29.5 % (37.0-47.0) L 10/20/24 06:06
Plt Count 280 10^3/uL (130-400) 10/20/24 06:06
Sodium 139 mmol/L (135-145) 10/20/24 06:06
Potassium 3.5 mmol/L (3.5-5.1) 10/20/24 06:06
Chloride 112 mmol/L (98-107) H 10/20/24 06:06
Carbon Dioxide 25 mmol/L (22-30) 10/20/24 06:06
BUN 54 mg/dl (7-17) H 10/20/24 06:06
Creatinine 1.1 mg/dL (0.6-1.0) H 10/20/24 06:06
eGFR 50.48 10/20/24 06:06
Glucose 98 mg/dl (70-99) 10/20/24 06:06
Calcium 9.0 mg/dl (8.4-10.2) 10/20/24 06:06
Albumin 3.1 g/dl (3.5-5.0) L 10/17/24 22:52
Physical Exam
-
Vital Signs:
Vital Signs
Temp Pulse Resp BP Pulse Ox
98.3 F 79 16 116/59 98
10/20/24 07:37 10/20/24 07:37 10/20/24 07:37 10/20/24 07:37 10/20/24 07:37
Cardiovascular:: Regular rate and rhythm
Lung Excursion:: Normal (decreased bialt bs)
Abdomen:: Nontender and Soft
Bowel Sounds:: Normal
Extremity Edema:: None: Bilateral:
Aceves Catheter: No
--- NOTE | 2024-10-20 15:04 | W.PN.UPDATE ---
Update Note
Progress Note Update
Seen and examined by me independently in collaboration with the lpn or medical assistant.
Lab data and imaging data reviewed.
Addendum as below :
Improved clinical picture from UTI. Currently on oral antibiotics.
Also improving LYN.
PT eval and discharge planning
[2024-10-20 15:46] VITALS: BP 120/59
--- NOTE | 2024-10-20 15:49 | W.PN.HOSP.TC ---
Today's Communication/Plan
-
Discontinue IV fluids
Continue Keflex.
Assessment / Plan
Assessment / Plan
Assessment- 79-year-old female with PMHx significant for history of HTN, HLD, hypothyroid and B-cell lymphoma presents to the emergency department with a concern for altered mental status-diagnosed to be in acute severe dehydration secondary to UTI.
Plan-
Toxic metabolic encephalopathy-
Likely a confluence of acute dehydration, hypernatremia and potential UTI (contaminated sample).
Her mental status close to baseline per daughter
Continue IV fluids, discontinue in the a.m. tomorrow.
Follow up urine culture results shows pansensitive E. coli.
Initially patient was started on ertapenem, ID was consulted, initially patient was started on ertapenem given ESBL E. coli UTI history,
Upon pansensitive E. coli results, ID switched patient to Keflex 3 times daily for 7 days.
Hypernatremia-
Admitted with a free water deficit of 1.4 L.
Hyponatremia currently resolved.
Nephrology on board, helping with management of hyponatremia.
Lasix was held initially given her severe dehydration.
LYN on CKD (suspect stage IIIa)
Serum creatinine back to baseline at 1.1, from 1.9.
eGFR improved to 50.48
Back to baseline
Hypothyroidism
Levothyroxine
Depression anxiety
Continue anxiolytics antidepressives
HFpEF, chronic, hypovolemic
Hold Lasix
Continue Coreg
DVT prophylaxis-
Heparin subcu
CODE STATUS-
Full code.
Anticipated Discharge: Within 24 hours
Subjective/Interval History
-
Date of Service: October 20, 2024
Allison has no complaints today.
Objective Data
-
Labs:
Laboratory Results
10/20/24
06:06
WBC 10.3
Hgb 9.1 L
Hct 29.5 L
Plt Count 280
Sodium 139
Potassium 3.5
Chloride 112 H
Carbon Dioxide 25
BUN 54 H
Creatinine 1.1 H
Glucose 98
Calcium 9.0
Vital Signs:
Vital Signs
Temp Pulse Resp BP Pulse Ox
98.3 F 79 16 116/59 98
10/20/24 07:37 10/20/24 07:37 10/20/24 07:37 10/20/24 07:37 10/20/24 12:26
I&O
10/19/24 10/20/24 10/21/24
06:59 06:59 06:59
Intake Total 120 / 120 1440 / 1440
Balance 120 / 120 1440 / 1440
Review of Systems
-
History Source: Patient
All other systems: Reviewed and negative
Physical Exam
-
General: No Apparent Distress and Comfortable
HEENT: Moist Mucous Membranes, Anicteric and [place] Conjunctivae
Respiratory: Clear to Auscultation; Negative Wheezes, Rales, Rhonchi or Crackles
Cardiac: Regular Rhythm and S1/S2; Negative Murmur, Rub or Gallop
GI: Soft, Nontender, Nondistended and Normal Bowel Sounds
Genito-urinary: No Costovertebral Tender
Musculoskeletal: No Clubbing, No Cyanosis, No Edema and Other (Uncomfortable bilateral lower extremities on touch.)
Neuro: Awake, Alert and No Motor Deficits; Negative Oriented
Psych: Calm
Data Reviewed
-
Labs: Labs Reviewed by me, Discussed with Physician and Discussed with Nurse
[2024-10-20 22:59] VITALS: BP 118/60
[2024-10-21] MEDS: KEFLEX 500 MG PO ×2 (03:35→11:40)
[2024-10-21] MEDS: SYNTHROID 50 MCG PO (06:21)
[2024-10-21 07:20] VITALS: BP 111/56
[2024-10-21 07:20] LABS: Hematocrit 28.7 % (37.0-47.0); Hemoglobin 8.8 g/dL (12.0-16.0); Mean Corp Hgb Conc. 30.7 g/dL (33.0-37.0); Mean Corpuscular Hgb 28.2 pg (27.0-31.0); Mean Platelet Volume 8.9 fL (7.4-10.4); Platelet Count 268 10^3/uL (130-400); Red Blood Cell Count 3.12 10^6/uL (4.20-5.40); White Blood Cell Count 10.1 10^3/uL (4.8-10.8)
[2024-10-21 08:16] LABS: Blood Urea Nitrogen 48 mg/dl (7-17); Carbon Dioxide 26 mmol/L (22-30); Chloride 114 mmol/L (98-107); Estimated Creatinine Clearance 34 ml/min; Glucose 80 mg/dl (70-99); Potassium 3.8 mmol/L (3.5-5.1); Sodium 142 mmol/L (135-145); eGFR 45.48
[2024-10-21] MEDS: COREG 6.25 MG PO (09:00)
[2024-10-21] MEDS: SEROQUEL 25 MG PO (09:01)
[2024-10-21] MEDS: HEPARIN 5000 UNITS SC (09:01)
[2024-10-21] MEDS: PAXIL 20 MG PO (09:01)
--- NOTE | 2024-10-21 09:46 | W.PN.ID1 ---
Date of Service
Date of Service: October 21, 2024
Today's Communication
- one of two sets of blood cultures with CONS - contaminant - no further workup up recommended at this time
- switched to keflex 500 mg PO TID x7 days
- follow up with pcp
Assessment / Plan
UTI due to E coli
CONS bacteremia - contaminant
TME
LYN on CKD
Prior colonization with ESBL E coli
- one of two sets of blood cultures with CONS - contaminant - no further workup up recommended at this time
- switched to keflex 500 mg PO TID x7 days
- follow up with pcp
Chief Complaint
-: UTI
Subjective / Review of Systems
afebrile
bp stable
no events overnight
Vital Signs / Physical Exam
Vital Signs
Vital Signs
Temp Pulse Resp BP Pulse Ox
98.1 F 82 16 111/56 89
10/21/24 07:20 10/21/24 07:20 10/21/24 07:20 10/21/24 07:20 10/21/24 07:20
Physical Exam
Constitutional: No Acute Distress and Chronically Ill
Cardiovascular: Regular Rate and S1/S2; Negative Murmur or Rub
Pulmonary: Clear and Symmetric; Negative Wheezes or Rales
Gastrointestinal: Soft, Non Tender, Non Distended and Normal Bowel Sounds
Skin: Warm and Dry; Negative Rash or Jaundice
Objective Data
Lab Data
Lab Results
10/21/24 05:32
10/21/24 05:32
Estimated Creat Clear 34 ml/min 10/21/24 05:32
Lactic Acid Cancelled 10/18/24 05:00
Total Bilirubin 0.6 mg/dl (0.2-1.3) 10/17/24 22:52
AST 17 U/L (14-36) 10/17/24 22:52
ALT < 10 U/L (0-35) 10/17/24 22:52
Alkaline Phosphatase 135 U/L (38-126) H 10/17/24 22:52
Most recent labs reviewed.
Micro Results:
10/18/24 01:15 Blood Culture - Preliminary
Blood/Venous No Growth in 72 hours- Final report to follow
10/18/24 01:08 Blood Culture - Preliminary
Blood/Venous Coagulase neg. staphylococcus
Gram Stain - Preliminary
10/18/24 00:19 Urine Culture - Final
Urine Escherichia coli
Lactobacillus species
10/18/24 06:54 MRSA Screen - Final
Nose No Methicillin Resistant Staphylococcus aureus isolated.
--- NOTE | 2024-10-21 11:35 | W.PN.HOSP.TC ---
Addendum entered and electronically signed by Isma Callahan MD 10/21/24 13:40:
Seen and examined by me independently in collaboration with the medical associate.
Lab data and imaging data reviewed.
Addendum as below :
Tolerating oral antibiotics for UTI
Improved LYN-creatinine 1.2 better than her baseline. She has chronic kidney disease stage IIIa
Medically stable for discharge.
Total time of discharge back to facility 32 minutes.
Original Note:
Today's Communication/Plan
-
Plan for discharge to skilled rehab.
Assessment / Plan
Assessment / Plan
Assessment- 79-year-old female with PMHx significant for history of HTN, HLD, hypothyroid and B-cell lymphoma presents to the emergency department with a concern for altered mental status-diagnosed to be in acute severe dehydration secondary to UTI.
Plan-
Toxic metabolic encephalopathy-
Likely a confluence of acute dehydration, hypernatremia and potential UTI (contaminated sample).
Her mental status close to baseline per daughter
Continue IV fluids, discontinue in the a.m. tomorrow.
Follow up urine culture results shows pansensitive E. coli.
Initially patient was started on ertapenem, ID was consulted, initially patient was started on ertapenem given ESBL E. coli UTI history,
Upon pansensitive E. coli results, ID switched patient to Keflex 3 times daily for 7 days.
Currently on day 3, 4 more days of oral keflex and discharge.
Hypernatremia-
Admitted with a free water deficit of 1.4 L
Hyponatremia currently resolved.
Nephrology on board, helping with management of hyponatremia.
Lasix was held initially given her severe dehydration.
LYN on CKD (suspect stage IIIa)
Serum creatinine back to baseline at 1.1, from 1.9.
eGFR improved to 50.48
Back to baseline
Speech therapy recommendations -
IDSSSI 4, and thin liquids,
medications crushed into apple sauce.
Hypothyroidism
Levothyroxine
Depression anxiety
Continue anxiolytics antidepressives
HFpEF, chronic, hypovolemic
Hold Lasix
Continue Coreg
DVT prophylaxis-
Heparin subcu
CODE STATUS-
Full code.
Anticipated Discharge: Within 24 hours
Subjective/Interval History
-
Date of Service: October 21, 2024
No complaints today
Objective Data
-
Labs:
Laboratory Results
10/21/24
05:32
WBC 10.1
Hgb 8.8 L
Hct 28.7 L
Plt Count 268
Sodium 142
Potassium 3.8
Chloride 114 H
Carbon Dioxide 26
BUN 48 H
Creatinine 1.2 H
Glucose 80
Calcium 9.0
Vital Signs:
Vital Signs
Temp Pulse Resp BP Pulse Ox
98.1 F 82 16 111/56 89
10/21/24 07:20 10/21/24 07:20 10/21/24 07:20 10/21/24 07:20 10/21/24 07:20
I&O
10/20/24 10/21/24 10/22/24
06:59 06:59 06:59
Intake Total 1440 / 1440 120 / 120
Balance 1440 / 1440 120 / 120
Review of Systems
-
History Source: Patient
All other systems: Reviewed and negative
Physical Exam
-
General: Comfortable; Negative Respiratory Distress
HEENT: Moist Mucous Membranes, Anicteric and [place] Conjunctivae
Respiratory: Clear to Auscultation and Other (Port noted on the anterior chest wall. ); Negative Wheezes, Rales, Rhonchi or Crackles
Cardiac: Regular Rhythm, S1/S2 and Murmur (2/6 systolic murmur); Negative Rub or Gallop
GI: Soft, Nontender, Nondistended and Normal Bowel Sounds
Genito-urinary: No Costovertebral Tender and Other (no suprapubic tenderness)
Musculoskeletal: No Clubbing, No Cyanosis and No Edema
Skin: Warm
Neuro: AO x 3 and No Motor Deficits
Psych: Calm
Data Reviewed
-
Labs: Labs Reviewed by me, Discussed with Physician and Discussed with Nurse
--- NOTE | 2024-10-21 12:08 | CM ---
CM following re: discharge planning.
Reviewed pt's chart, met with pt and left a message to pt's daughter Nadia.
According to MD pt is medically stable to be discharged today. IMM reviewed, placed on chart. CM left a message to pt's daughter Nadia.
Pt is a LTC resident at [facility]. A referral to [facility] made, spoke to [facility] area director and she confirmed that pt is accepted for admission today.
[facility] nursing report: [phone]
Discharge instructions fax: [phone]
D/C plan: return back to [facility] for a LTC.
--- NOTE | 2024-10-21 13:15 | W.DCSUMMARY ---
Discharge Summary
Discharge Data
Date of Admission: 10/21/24
Date of Discharge: 10/21/24
-
Pending Results: No
Hospital Course
Assessment - 79-year-old female with PMHx significant for history of HTN, HLD, hypothyroid and B-cell lymphoma presents to the emergency department with a concern for altered mental status-diagnosed to be in acute severe dehydration secondary to UTI.
PCP -unknown
Hospital course-
Patient was admitted to observation services on 10/17/2024 for LYN and acute hypernatremia. Patient was found to have a urinary tract infection, was started on Zosyn in the ER, was then transition to ertapenem in the inpatient. ID was consulted
given past medical history of recurrent ESBL E. coli infections and ertapenem was continued until the culture sensitivities were obtained. Urine analysis and culture showed pansensitive E. coli, and then ID switched the patient to Keflex 3 times a
day for 7 days. Patient received 2-day course of Keflex in the hospital-day 3 today (s/p 2 doses in the hospital). Patient was also started on IV fluids D5 with half-normal saline at the rate of 100 mL/h, and continued to remain on IV fluids for 3
days through 10/20/2024. The acute hyponatremia is suspected to be secondary to severe dehydration, there was no component of free water deficit identified given urine output less than 3000 mL/day. Patient's Lasix was held for the serum creatinine
to improve. Patient serum creatinine returned back to baseline at 1.1, and patient was resumed back on furosemide on the day of discharge, after discontinuing IV fluids.
Keflex-continue for 4 days.
Hospital work up -
Serum sodium upon admission-152, on day of discharge-142.
Serum creatinine-1.9-1.2 today.
Hemoglobin 8.[address]-
Findings and impression-10/18/2024-
FINDINGS:
There are no acute abnormalities.
There is no intracranial hemorrhage.
There are no abnormal extra-axial fluid collections.
There are no focal areas of diminished density to suggest recent infarct.
There is again seen diffuse cortical atrophy as evidenced by prominence of the CSF spaces.
Additionally, there are again noted punctate and patchy areas of low density in the periventricular and subcortical white matter bilaterally. These white matter changes are nonspecific but given the patient's age are most likely ischemic or
degenerative in origin. Such white matter changes are often seen in older individuals and typically do not correlate clinically.
IMPRESSION:
No acute intracranial abnormalities.
blood cultures x 2-no growth.
Urine cultures-10/17/2024-E. coli, lactobacillus-E. coli pansensitive.
Discharge Plan
-
Patient Disposition: Correction/SNF
Discharge Diagnosis/Procedures: LYN secondary to acute dehydration from recurrent UTI.
Condition: Fair
Diet: Low Cholesterol, 2 Gram Sodium and Restrict fluids to 64 oz
Activity: No restrictions
Driving Restrictions: No driving
Bathing Restrictions: None
Other Services: PT and OT
Activity Restrictions/Additional Instructions:
Keflex 3 times daily for 5 days.
Instructions: Urinary tract infections in adults, Asymptomatic bacteriuria
Referrals:
UNKNOWN - PT DOES,NOT KNOW [Family Provider] -
Prescriptions:
New
cephalexin 500 mg Capsule
500 mg PO Q8H 5 Days Qty: 15 0RF
Continued
paroxetine HCl 20 MG tablet
20 mg PO DAILY
quetiapine 25 mg Tablet
25 mg PO BID
loperamide 2 mg Tablet
2 mg PO [id number] PRN (Reason: diarrhea) Qty: 0
levothyroxine 50 mcg Tablet
50 mcg PO DAILY
nystatin 100,000 unit/gram Powder
1 applic TOPICAL DAILY Qty: 0
methenamine hippurate 1 gram tablet
1 g PO BID 30 Days Qty: 60 0RF
Rx Instructions:
Start 10/24/23 After Finishing IV antibiotics course
Visbiome 112.5 billion cell Capsule
2 cap PO DAILY
diclofenac sodium 1 % Gel
0 g TOPICAL BID
polyethylene glycol 3350 [HealthyLax] 17 gram powder in packet
17 g PO DAILYPRN PRN (Reason: constipation)
furosemide 40 mg Tablet
40 mg PO DAILY 30 Days Qty: 30 0RF
carvedilol 6.25 mg Tablet
6.25 mg PO BID 30 Days Qty: 60 0RF
loperamide [Imodium A-D] 2 mg capsule
2 mg PO Q4H PRN (Reason: loose stool) Qty: 14 0RF
ondansetron 4 mg tablet,disintegrating
4 mg PO Q8H PRN (Reason: nausea and vomiting) Qty: 10 0RF
Discontinued
amoxicillin-pot clavulanate 875-125 mg Tablet
1 tab PO Q12 5 Days Qty: 10 0RF
Discharge Orders:
Discharge Patient (As Directed); Ordered 10/21/24
Ordered By: Zo Langston
Discharge Date and Time
Print Language: [id number]
[2024-10-21 15:15] VITALS: BP 115/58
== END 2024-10-21 16:26 | DRG 682 ==
LOC: 2 NORTH 07:52
PROVIDERS: Hospitalist; Registered Nurse; Student in an Organized Health Care Education/Training Program; ADMITTING PHYSICIAN Internal Medicine; ATTENDING PHYSICIAN Internal Medicine; CONSULT PHYSICIAN Internal Medicine; CONSULT PHYSICIAN Student in an Organized Health Care Education/Training Program; EMERGENCY PHYSICIAN Emergency Medicine
DX: N17.9 Acute kidney failure, unspecified (principal); G92.8 Other toxic encephalopathy; N39.0 Urinary tract infection, site not specified; E87.1 Hypo-osmolality and hyponatremia; I50.32 Chronic diastolic (congestive) heart failure; I13.0 Hypertensive heart and chronic kidney disease with heart failure and stage 1 through stage 4 chronic kidney disease, or unspecified chronic kidney disease; E87.0 Hyperosmolality and hypernatremia; F03.94 Unspecified dementia, unspecified severity, with anxiety; E86.1 Hypovolemia; N18.32 Chronic kidney disease, stage 3b; E03.9 Hypothyroidism, unspecified; Z79.899 Other long term (current) drug therapy
CPT/HCPCS: 36415; 70450; 80048; 80053; 81003; 81015; 82140; 83605; 83735; 85025; 85027; 87040; 87070; 87077; 87086; 87150; 87186; 87205; 92526; 92610; 93005; 97163; 99285; J1335

== ENCOUNTER → 2024-10-22 11:05 | Outpatient (REF) | payer MEDICARE, SELFPAY ==
[2024-10-22 11:33] LABS: % Basophils 0.4 % (0-2); % Eosinophils 3.3 % (0-6); % Immature Granulocytes 1.3 % (0-0.5); % Lymphocytes 12.1 % (20.5-51.1); % Monocytes 9.3 % (1.7-9.3); % Neutrophils 73.6 % (42.2-75.2); Absolute Basophils 0.1 10^3/uL (0-0.2); Absolute Eosinophils 0.4 10^3/uL (0-0.7); Absolute Immature Granulocytes 0.2 10^3/uL (0-0.05); Absolute Lymphocytes 1.4 10^3/uL (1.2-3.4); Absolute Monocytes 1.1 10^3/uL (0.1-0.6); Absolute Neutrophils 8.7 10^3/uL (1.4-6.5); Mean Corpuscular Volume 93.5 fL (81.0-99.0); Mean Platelet Volume 9.2 fL (7.4-10.4); Nucleated Red Blood Cells % 0 %; Platelet Count 307 10^3/uL (130-400); Red Blood Cell Count 3.21 10^6/uL (4.20-5.40); Red Cell Dist. Width 20.4 % (11.5-14.5); White Blood Cell Count 11.9 10^3/uL (4.8-10.8)
[2024-10-22 12:12] LABS: Blood Urea Nitrogen 44 mg/dl (7-17); Carbon Dioxide 27 mmol/L (22-30); Chloride 115 mmol/L (98-107); Glucose 91 mg/dl (70-99); Potassium 4.1 mmol/L (3.5-5.1); Sodium 146 mmol/L (135-145); eGFR 50.48
== END ==
LOC: OLABN 11:05
PROVIDERS: ATTENDING PHYSICIAN Student in an Organized Health Care Education/Training Program
DX: E87.0 Hyperosmolality and hypernatremia (principal)
CPT/HCPCS: 36415; 80048; 85025

== ENCOUNTER 2024-10-28 16:33 | Inpatient (IN) | payer MEDICARE, SELFPAY ==
[2024-10-28] VITALS (10 sets, daily range): BP systolic 96–125; BP diastolic 47–64
--- NOTE | 2024-10-28 12:21 | ED.GENMED ---
History of Present Illness
General
Chief Complaint: Abnormal Lab Value
Time Seen by Provider: 10/28/24 12:17
History of Present Illness
History of Present Illness:
TIME OF INITIAL ENCOUNTER: 12:20 PM
HPI: The patient comes here from [facility]. She is currently an extremely poor historian and provides essentially no meaningful history. I called [facility] upon patient evaluation initially. The nurse there, Norris, tells me that she
was recently admitted for LYN/dehydration and was not back at her baseline mental status. In the past, she was able to carry on a conversation and was somewhat oriented. She continues to decline with very poor nutrition. Her doctor ordered blood
work which showed a sodium of 156 and a BUN of 60. She was therefore sent here for further evaluation.
EXAM:
GENERAL: The patient is critically ill-appearing
HEENT: Extremely dry oral mucosa
CARDIOVASCULAR: Regular rate and rhythm
PULMONARY: No respiratory distress, breathing is nonlabored, equal and clear breath sounds
ABDOMEN: Soft and nontender with no peritoneal signs
NEUROLOGIC: The patient has evidence of dementia, not oriented to month or place, strength is equal in all extremities
EXTREMITIES: Moves all extremities equally, no tenderness, no edema
PYSCHIATRIC: Very limited historian, poor insight and judgment
NUMBER AND COMPLEXITY OF PROBLEMS ADDRESSED AT THE ENCOUNTER
� Chronic conditions affecting care: Basal cell carcinoma, lymphoma
� Acute Exacerbation and/or Progression of Chronic Illness: This is a subacute and worsening problem
� Differential Diagnosis includes: Failure to thrive, LYN, dehydration, hypernatremia
AMOUNT AND/OR COMPLEXITY OF DATA TO BE REVIEWED AND ANALYZED
� I performed an independent evaluation of and my interpretation is:
EKG:
CT:
X-rays: Chest x-ray by my read shows no clear consolidation
Laboratory Studies: Sodium 161, creatinine 2.3 lactic 1.3, VBG shows a pH of 7.33 and a PCO2 of 52
Other:
� Review of other/old records: I reviewed records, the patient was admitted here for dehydration 1 week ago. At that time, Lasix was held and she was on D5 half-normal. The patient was admitted with heart failure in July 2024
� Clinical information was obtained by an independent historian: I spoke to staff at [facility]
� Prescriptions/Medications Considered but not given:
� Further testing considered but not performed:
RISK OF COMPLICATIONS AND/OR MORBIDITY OR MORTALITY OF PATIENT MANAGEMENT
� Social determinants of health affecting care: Resides at [facility]
� Discussion with other providers: Hospitalist for admission
� Escalation of care including admission/observation vs risk of discharge considered: The patient appears extremely dehydrated. Outpatient labs showed a sodium of 156 and a BUN of 60. Outpatient med list includes Lasix 40 mg
daily.
ANY OTHER UPDATES:
12:30 PM: I spoke to daughter who confirms that she is DNR. She does not want aggressive measures but would like her to receive IV fluids as appropriate. The daughter, Nini, is on vacation in [place] currently. And she gave me the phone
number for the other sister who is in [place]. Her name is Dianne with phone number [phone]�I did leave a message on her voicemail at 2:25 PM.
The patient is found to be febrile. Her lactic and white count are normal. She was initially hypotensive but quickly responded to IV fluids. I did give a dose of Rocephin based on prior urine cultures.
Past History
Past History
ED Past Medical History: Cancer (B-cell lymphoma), HTN, Hypercholesterolemia, Hypothyroidism and Other (Chronic pain from osteoarthritis)
ED Past Surgical History: Orthopedic and Other (Cataracts)
Social History
Tobacco: Non-smoker
Alcohol: None
Drug: None
Personal:
Living: with family
Employment: Other
Family History
Family History: Other
Phy Exam
Physical Exam
Physical Exam:
See HPI
Course
Orders/Labs/Results
Orders:
Orders
10/28/24 12:19
0.9% Sodium Chloride 500 ml [Nss] 500 ml IV BOLUS
10/28/24 12:37
CR Chest Portable - 1 View Urgent
Comment:
Reason For Exam: hypoxia fever
Reason Study Needs to be Portable: Patient Unstable
10/28/24 12:47
Acetaminophen [Tylenol/Feverall] 650 mg RECTAL NOW STA
10/28/24 12:52
Complete Blood Count/With Diff Urgent
Lactic Acid Q4H
Comment: CANCEL 2nd LACTIC ACID IF 1st LACTIC ACID IS LESS THAN 2
Venous Blood Gas Urgent
%Oxygen/Room Air: 2lpm
Blood Culture Q30M
AZUL Source: Blood/Venous
Specimen Description:
Blood Culture Q30M
AZUL Source: Blood/Venous
Specimen Description:
10/28/24 12:56
CMP [Comprehensive Metabolic Panel] Urgent
10/28/24 13:00
Dextrose 5%/0.45%Sodchl 500 ml [D5/0.45%NaCl] 500 ml IV 999 mls/hr
10/28/24 13:41
Urinalysis Reflex To Culture Urgent
Date Specimen was Collected: 10/28/24
Time Specimen was Collected: 13:23
Urine Microscopic Reflex Cult Urgent
Urine Culture Urgent
AZUL Source: U
Specimen Description:
Date Specimen was Collected: 10/28/24
Time Specimen was Collected: 13:23
10/28/24 13:50
NEPHROLOGY CONSULT Routine
Consulting Provider: Naren Byers
Was physician already notified: Yes
Reason for consult: Hypernatremia
10/28/24 14:12
Code Status As Directed
Resuscitation Status: Do not resuscitate
Reached after discussion with pt or family/Healthcare POA: Yes
Activity As Directed
Activity Level: As Tolerated
DNR Bracelet Application ONCE
Notify MD As Directed
Notify physician if: Bridge Admission orders placed.
Notify attending physician:
-- upon arrival to unit
OR
-- when patient is identified as an ED hold
Vital Signs As Directed
Frequency: Per unit guidelines
O2 Therapy [RESP] Routine
Titrate/Wean O2 to maintain O2 sat greater than (%): 92
10/28/24 14:13
DX Deep Vein Thrombosis Video Routine
10/28/24 14:23
CefTRIAXone [Rocephin] 1,000 mg IV NOW STA
10/28/24 16:45
Lactic Acid Q4H
Comment: CANCEL 2nd LACTIC ACID IF 1st LACTIC ACID IS LESS THAN 2
10/28/24 20:00
Heparin 5,000 units SC Q12
Abnormal Lab Results
10/28/24 10/28/24 10/28/24
12:52 12:56 13:41
RBC 3.26 L 10^6/uL
(4.20-5.40)
Hgb 9.3 L g/dL
(12.0-16.0)
Hct 32.1 L %
(37.0-47.0)
MCHC 29.0 L g/dL
(33.0-37.0)
RDW 21.7 H %
(11.5-14.5)
Plt Count 406 H 10^3/uL
(130-400)
Abs Immat Gran (auto) 0.1 H 10^3/uL
(0-0.05)
Absolute Neuts (auto) 6.9 H 10^3/uL
(1.4-6.5)
Absolute Monos (auto) 1.2 H 10^3/uL
(0.1-0.6)
Immature Gran % 1.0 H %
(0-0.5)
Lymphocytes % 14.8 L %
(20.5-51.1)
Monocytes % 12.3 H %
(1.7-9.3)
VBG pCO2 52 H mmHg
(35-48)
VBG HCO3 27.4 H mmol/L
(22-27)
Sodium 161 H* mmol/L
(135-145)
Chloride 125 H mmol/L
(98-107)
BUN 69 H mg/dl
(7-17)
Creatinine 2.3 H mg/dL
(0.6-1.0)
Glucose 117 H mg/dl
(70-99)
Alkaline Phosphatase 139 H U/L
(38-126)
Total Protein 5.9 L g/dl
(6.3-8.2)
Albumin 2.8 L g/dl
(3.5-5.0)
Leukocyte Esterase Rfl 2+ A
(Negative)
Urine Albumin (Reflex) 2+ A
(Neg - Trace)
10/28/24 12:52
10/28/24 12:56
Vital Signs
Initial and Last Documented VS:
Initial Vital Signs
Temp Pulse Resp BP Pulse Ox
38.0 C H 96 20 112/54 92
10/28/24 12:24 10/28/24 12:24 10/28/24 12:24 10/28/24 12:24 10/28/24 12:24
Last Documented Vital Signs
Temp Pulse Resp BP Pulse Ox
38.9 C H 88 15 125/64 97
10/28/24 12:28 10/28/24 13:45 10/28/24 13:45 10/28/24 13:36 10/28/24 13:45
*Critical Care Note
Total Time (30-74mins, 75-104mins- exclusive of procedures): Not Applicable
ED Attending Note
-
Portions of this chart may have been created with voice recognition software.� Occasional wrong word or��sound alike� substitutions may have occurred due to the inherent limitations of voice recognition software.
Discharge Plan
Departure
Patient Disposition: Admit
Date of Disposition: 10/28/24
Time of Disposition: 13:37
Presentation/result/management discussed w/ accepting MD/DO: Hospitalist
Discharge Problem:
Acute hypernatremia
Prescriptions:
No Action
paroxetine HCl 20 MG tablet
20 mg PO DAILY
quetiapine 25 mg Tablet
25 mg PO BID
loperamide 2 mg Tablet
2 mg PO [id number] PRN (Reason: diarrhea) Qty: 0
levothyroxine 50 mcg Tablet
50 mcg PO DAILY
methenamine hippurate 1 gram tablet
1 g PO BID 30 Days Qty: 60 0RF
Rx Instructions:
Start 10/24/23 After Finishing IV antibiotics course
Visbiome 112.5 billion cell Capsule
2 cap PO DAILY
diclofenac sodium 1 % Gel
4 g TOPICAL BID
furosemide 40 mg Tablet
40 mg PO DAILY 30 Days Qty: 30 0RF
carvedilol 6.25 mg Tablet
6.25 mg PO BID 30 Days Qty: 60 0RF
acetaminophen [Tylenol] 325 mg Tablet
650 mg PO Q4HPRN PRN (Reason: mild pain)
magnesium hydroxide [Milk of Magnesia] 400 mg/5 mL Suspension
2,400 mg PO HSPRN PRN (Reason: constipation)
bisacodyl [Dulcolax (bisacodyl)] 10 mg Suppository
10 mg OK [id number] PRN (Reason: if no bm aftr mom)
mirtazapine 7.5 mg Tablet
7.5 mg PO HS
ondansetron 4 mg tablet,disintegrating
4 mg PO Q8HPRN PRN (Reason: nausea and vomiting)
Referrals:
UNKNOWN,NO INTERVIEW [Family Provider]
Interventions
Interventions:
*Risk Screen - Suicide Last Done: 10/28/24 12:22
*General Assessment Last Done: 10/28/24 12:22
*Neglect/Abuse Screening Last Done: 10/28/24 12:22
*ED- Fall Risk Assessment Last Done: 10/28/24 12:22
*ED COVID-19 Vaccine History Last Done: 10/28/24 12:22
Discharge Date and Time
Print Language: MACEDONIAN
[2024-10-28] MEDS: NSS 500 IV (12:56)
[2024-10-28] MEDS: D5/0.45%NACL 500 IV ×2 (13:07→14:35)
[2024-10-28 13:08] LABS: Venous Blood Gas HCO3 27.4 mmol/L (22-27); Venous Blood Gas O2 Sat % 76.4 %; Venous Blood Gas pCO2 52 mmHg (35-48); Venous Blood Gas pH 7.33 (7.32-7.43); Venous Blood Gas pO2 45 mmHg (30-50)
[2024-10-28 13:15] LABS: Hematocrit 32.1 % (37.0-47.0); Hemoglobin 9.3 g/dL (12.0-16.0); Mean Corpuscular Hgb 28.5 pg (27.0-31.0); Mean Corpuscular Volume 98.5 fL (81.0-99.0); Mean Platelet Volume 9.1 fL (7.4-10.4); Platelet Count 406 10^3/uL (130-400); Red Blood Cell Count 3.26 10^6/uL (4.20-5.40); Red Cell Dist. Width 21.7 % (11.5-14.5); White Blood Cell Count 9.9 10^3/uL (4.8-10.8)
[2024-10-28 13:22] LABS: Lactic Acid 1.3 mmol/L (0.7-2.0)
[2024-10-28] MEDS: TYLENOL/FEVERALL 650 MG RECTAL (13:22)
[2024-10-28 13:31] LABS: ALT (SGPT) 11 U/L (0-35); AST (SGOT) 18 U/L (14-36); Albumin 2.8 g/dl (3.5-5.0); Alkaline Phosphatase 139 U/L (38-126); Blood Urea Nitrogen 69 mg/dl (7-17); Calcium 9.2 mg/dl (8.4-10.2); Carbon Dioxide 24 mmol/L (22-30); Chloride 125 mmol/L (98-107); Glucose 117 mg/dl (70-99); Potassium 3.7 mmol/L (3.5-5.1); Sodium 161 mmol/L (135-145); Total Bilirubin 0.6 mg/dl (0.2-1.3); Total Protein 5.9 g/dl (6.3-8.2); eGFR 20.83
[2024-10-28 13:39] LABS: % Basophils 0.7 % (0-2); % Eosinophils 1.7 % (0-6); % Lymphocytes 14.8 % (20.5-51.1); % Monocytes 12.3 % (1.7-9.3); % Neutrophils 69.5 % (42.2-75.2); Absolute Basophils 0.1 10^3/uL (0-0.2); Absolute Eosinophils 0.2 10^3/uL (0-0.7); Absolute Immature Granulocytes 0.1 10^3/uL (0-0.05); Absolute Lymphocytes 1.5 10^3/uL (1.2-3.4); Absolute Monocytes 1.2 10^3/uL (0.1-0.6); Absolute Neutrophils 6.9 10^3/uL (1.4-6.5); Nucleated Red Blood Cells % 0 %
[2024-10-28 14:13] LABS: Urine Albumin 2+ (Neg - Trace); Urine Bilirubin Negative (Negative); Urine Character Clear (Clear); Urine Color Yellow; Urine Glucose Negative (Negative); Urine Ketone Negative (Negative); Urine Leukocyte 2+ (Negative); Urine Nitrite Negative (Negative); Urine Occult Blood Negative (Negative); Urine Urobilinogen Negative (Neg - 1+)
[2024-10-28] MEDS: ROCEPHIN 1000 MG IV (14:36)
--- NOTE | 2024-10-28 14:44 | W.CON.NEPH ---
Consultation
-
Date/Time Consultation Requested: 10/28/24 1pm
Date/Time Consultation Performed: 10/28/24 3pm
Requesting Provider: Dr. Urbina
Performing Provider: Dr. yBers
Reason for Consultation: Hypernatremia, LYN
Medical History
-
Chief Complaint: AMS
History of Present Illness:
79-year-old who has hypertension on multidrug regimen typically controlled, hyperlipidemia on diet therapy alone, hypothyroidism on levothyroxine, dementia, anxiety, depression on paroxetine and quetiapine and history of B-cell lymphoma who presents
to the emergency department with hypernatremia. She was recently in the hospital 2 weeks ago with failure to thrive and hyponatremia as well as acute kidney injury at that time. She was treated with IV fluids with improvement of her lab values.
Her mental status did improve though not complete to baseline. She was returned to [facility] where she declined once more. Blood work was repeated today with a sodium level of 156 and she was sent to the emergency room where it was repeated
again and returned at 161 her creatinine was also elevated at 2.3. She was catheterized for urine which was dark and of low volume.
Past Medical History
Hypertension
CKD stage IIIb
Hyponatremia
Dementia
Hypothyroidism
DCHF
Social History
Tobacco: Non-Smoker
Alcohol: None
Drug: None
Personal:
Living: Assisted Living
Employment: Retired
Family History
Family History: Not Pertinent
Allergies / Home Medications
Allergy/AdvReac Type Severity Reaction Status Date / Time
No Known Allergies Allergy Verified 09/29/24 22:06
�Medication �Instructions �Recorded �Confirmed �Type
paroxetine HCl 20 mg tablet 20 mg PO DAILY Depression 09/15/21 10/28/24 History
levothyroxine 50 mcg tablet 50 mcg PO DAILY Thyroid 10/08/23 10/28/24 History
loperamide 2 mg tablet 2 mg PO [id number] PRN diarrhea ##0 05/13/24 06/03/25 History
quetiapine 25 mg tablet 25 mg PO BID Depression 10/08/23 10/28/24 History
methenamine hippurate 1 gram tablet 1 g PO BID 30 days #60 tabs 10/15/23 10/28/24 Rx
Lactobac no.2-Bifidobac no.1-S. 2 cap PO DAILY Gastrointestinal 08/13/24 10/28/24 History
thermo 112.5 billion cell capsule Issue
(Visbiome)
diclofenac sodium 1 % topical gel 4 g topical BID rt knee 08/13/24 10/28/24 History
carvedilol 6.25 mg tablet 6.25 mg PO BID 30 days #60 tabs 08/19/24 10/28/24 Rx
furosemide 40 mg tablet 40 mg PO DAILY 30 days #30 tabs 08/19/24 10/28/24 Rx
acetaminophen 325 mg tablet 650 mg PO Q4HPRN PRN mild pain 10/28/24 10/28/24 History
(Tylenol)
bisacodyl 10 mg rectal suppository 10 mg CA [id number] PRN if no bm aftr 10/28/24 10/28/24 History
(Dulcolax (bisacodyl)) mom
magnesium hydroxide 400 mg/5 mL 2,400 mg PO HSPRN PRN constipation 10/28/24 10/28/24 History
oral suspension (Milk of Magnesia)
mirtazapine 7.5 mg tablet 7.5 mg PO HS 10/28/24 10/28/24 History
ondansetron 4 mg disintegrating 4 mg PO Q8HPRN PRN nausea and 10/28/24 10/28/24 History
tablet vomiting
Review of Systems
-
No complaints. No hunger or thirst. No pain or shortness of breath
All other systems: Negative unless noted
Physical Exam
Vital Signs
Vital Signs
Temp Pulse Resp BP Pulse Ox
102.1 F H 88 15 125/64 97
10/28/24 12:28 10/28/24 13:45 10/28/24 13:45 10/28/24 13:36 10/28/24 13:45
Lab Results
WBC 9.9 10^3/uL (4.8-10.8) 10/28/24 12:52
RBC 3.26 10^6/uL (4.20-5.40) L 10/28/24 12:52
Hgb 9.3 g/dL (12.0-16.0) L 10/28/24 12:52
Hct 32.1 % (37.0-47.0) L 10/28/24 12:52
Plt Count 406 10^3/uL (130-400) H 10/28/24 12:52
Sodium 161 mmol/L (135-145) H* 10/28/24 12:56
Potassium 3.7 mmol/L (3.5-5.1) 10/28/24 12:56
Chloride 125 mmol/L (98-107) H 10/28/24 12:56
Carbon Dioxide 24 mmol/L (22-30) 10/28/24 12:56
BUN 69 mg/dl (7-17) H 10/28/24 12:56
Creatinine 2.3 mg/dL (0.6-1.0) H 10/28/24 12:56
eGFR 20.83 10/28/24 12:56
Glucose 117 mg/dl (70-99) H 10/28/24 12:56
Calcium 9.2 mg/dl (8.4-10.2) 10/28/24 12:56
Albumin 2.8 g/dl (3.5-5.0) L 10/28/24 12:56
Laboratory Tests
10/21/24 10/22/24 10/28/24
05:32 05:25 05:35
Hgb 9.0 L
Sodium 142 146 H 156 H
Creatinine 1.1 H
Physical Exam
Patient is awake alert and in no distress. Mood and affect were pleasant, insight and judgment were poor. Pupils are equal round and reactive to light, extraocular movements are intact, sclera were anicteric. Hearing was normal, ears and nose are
intact. Oropharynx was clear and dry. Neck was supple with trachea midline and no thyromegaly. Heart was regular rate and rhythm without rubs. Lower extremities without edema. Lungs were clear to auscultation bilaterally and with normal excursion.
Abdomen was soft, nontender, with normal active bowel sounds, and no hepatosplenomegaly. Skin was without rash and with decreased turgor. There are scattered ecchymoses
Data Reviewed
-
Radiology: Image Personally Visualized and interpreted (10/28/2024 chest x-ray by my reading no acute disease)
Medical Tests (Nuc Med, Echo etc): Report Reviewed by me (08/15/24 Echo 55%EF, no valvular disease)
Labs: Labs Reviewed by me
Old Records: Reviewed
Assessment/Plan
-
IMP:
Fever
Hypernatremia
LYN on CKD 3B-baseline cr 1.5
Hypothyroidism
Depression
anxiety
HFpEF
Confusion
Failure to thrive
Plan:
Received 500 cc saline, 1 L half-normal saline in the emergency room
Clearly volume depleted as well as dehydrated
Free water deficit about 6 L, will likely take at least 3 days to replace given volume needed to infuse
Check urine osmolality, fractional excretion of sodium
For now we will continue D5 half normal saline at 150 cc/h
Will need goals of care discussion. She may require feeding tube
[2024-10-28 14:56] LABS: Urine Granular Cast 0-2 /LPF (0)
[2024-10-28 14:57] LABS: Urine Bacteria Few (Negative); Urine Red Blood Cell 0-2 /HPF (0-2); Urine White Cell 26-30 /HPF (0-5); Urine Yeast Few (Negative)
--- NOTE | 2024-10-28 15:13 | HPS.HSE ---
Addendum entered and electronically signed by Carlo Lin MD 10/28/24 20:56:
Attending Addendum-
I performed a history and physical exam of the patient and discussed his management with the resident. I reviewed the resident's note and agree with the documented findings and plan of care CC/HPI- Patient sent from [facility] s/p abnormal labs
and CIMS. Patient is poor historian. h/o from records family and ed staff. Patient not oriented but does state she has no pain. Full 12 point ROS unable to obtain due to MS. Exam- vitals reviewed in EMR GEN-NAD heart RRR lungs clear abd soft LE no
edema Neuro AAO x 0 not following commands consistently Skin dry MMM
Plan:
#Toxic metabolic encephalopathy
-likely related to dehydration, hypernatremia and potentially urinary tract infection
-underlying dementia
-Continue IV fluids
-Follow-up on blood culture urine culture
-cont Rocephin for now
# Hypernatremia
-In the setting of dehydration and continued use of Lasix precipitating a worsening in hypernatremia
-Free water deficit of 4.8L
-start IVF
-DC lasix
-Nephrology consulted
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
-secondary to prerenal etiology in the setting of poor p.o. intake and Lasix use
-Avoid nephrotoxins hypotension
-Monitor urinary output
-Hold Lasix
#Hypothyroidism
- cont Levothyroxine
# Depression anxiety
-Continue Remeron paroxetine
# Dementia with behavioral disturbance
- cont seroquel
- overall poor prognosis
# HFpEF-chronic
- Hold Lasix
- Continue Coreg
-CODE- DNR
-DVTp- heparin
ACP
Patient unable to consent to discuss, was alone, d/w family and verified with NH, time spent explanation of advance directives, changes in health status, patient�s health care wishes if the patient becomes unable to make health decisions, goals of
care, code status, and prognosis- patiet is poor prognosis- hospice/comfort care appropriate-16 minutes
Time spent coordinating care, review of plan of care with resident, personally reviewed previous records in EMR, med rec, labs, radiology, d/w nursing, family total time documented is exclusive of any additional time listed that was spent in advance
care planning discussion -�75 minutes
Original Note:
Family Physician
-
Family Physician: NO INTERVIEW UNKNOWN
Chief Complaint
-
Altered mental status
History of Present Illness
This is an 79-year-old female with past medical history of hypertension, hyperlipidemia, hypothyroidism, history of B-cell lymphoma presents from [facility] due to failure to thrive and hypernatremia. Patient was recently admitted at ED
from 10/17 - 10/21 for LYN and hyponatremia. After discharge back to [facility], she has not gotten back to baseline status. She continues to decline overall, with failure to thrive. Blood work was repeated today which showed a sodium level of
156 and she was sent to the ED for evaluation.
On presentation to ED, vitals with BP 112/54, temperature 100.4, pulse 96, O2 sats 92% on room air, respiratory rate 20. Laboratory showed WBC 9.9, hemoglobin 8.3, platelet 4 6, sodium 161, potassium 3.7, BUN 69, creatinine 2.3, lactic acid 1.3.
Medical History
Past Medical History
Past Medical History: Reports Other (B-cell lymphoma, hypertension, hypercholesterolemia, hypothyroidism, chronic pain from osteoarthritis, depression, and anxiety)
Past Surgical History: Reports Orthopedic and Other ( cataracts)
Social History
Unable to obtain full social history at this time due to: Acuity
Family History
Family History: Not pertinent
Allergies / Home Medications
Allergies reflects when Allergies were last updated in [facility].
Home Medications with original date entered in [facility]
Allergy/Medication List:
Allergies
Allergy/AdvReac Type Severity Reaction Status Date / Time
No Known Allergies Allergy Verified 09/29/24 22:06
Home Medications
paroxetine HCl 20 mg tablet 20 mg PO DAILY Depression 09/15/21
levothyroxine 50 mcg tablet 50 mcg PO DAILY Thyroid 10/08/23
loperamide 2 mg tablet 2 mg PO [id number] PRN diarrhea ##0 10/08/23
quetiapine 25 mg tablet 25 mg PO BID Depression 10/08/23
methenamine hippurate 1 gram tablet 1 g PO BID 30 days #60 tabs 10/15/23
Lactobac no.2-Bifidobac no.1-S. thermo 112.5 billion cell capsule (Visbiome) 2 cap PO DAILY Gastrointestinal Issue 08/13/24
diclofenac sodium 1 % topical gel 4 g topical BID rt knee 08/13/24
carvedilol 6.25 mg tablet 6.25 mg PO BID 30 days #60 tabs 08/19/24
furosemide 40 mg tablet 40 mg PO DAILY 30 days #30 tabs 08/19/24
acetaminophen 325 mg tablet (Tylenol) 650 mg PO Q4HPRN PRN mild pain 10/28/24
bisacodyl 10 mg rectal suppository (Dulcolax (bisacodyl)) 10 mg IN [id number] PRN if no bm aftr mom 10/28/24
magnesium hydroxide 400 mg/5 mL oral suspension (Milk of Magnesia) 2,400 mg PO HSPRN PRN constipation 10/28/24
mirtazapine 7.5 mg tablet 7.5 mg PO HS 10/28/24
ondansetron 4 mg disintegrating tablet 4 mg PO Q8HPRN PRN nausea and vomiting 10/28/24
Review of Systems
-
Unable to obtain full review of systems at this time due to: Patient Non-verbal
Physical Exam
Vital Signs
Vital Signs
Temp Pulse Resp BP Pulse Ox
102.1 F H 88 15 125/64 97
10/28/24 12:28 10/28/24 13:45 10/28/24 13:45 10/28/24 13:36 10/28/24 13:45
Physical Exam
General: Comfortable and Appears Chronically Ill
HEENT: NormoCephalic and Atraumatic
Respiratory: Clear
Cardiac: S1/S2 and Regular Rhythm
GI: Soft, Non Tender, Non Distended and Normal Bowel Sounds
Musculoskeletal: No Edema
Skin: Dry
Neuro: Awake and Oriented (To person only)
Psych: Calm
Laboratory Results
-
10/28/24 12:52
10/28/24 12:56
Laboratory Results
Lactic Acid 1.3 mmol/L (0.7-2.0) 10/28/24 12:52
Total Bilirubin 0.6 mg/dl (0.2-1.3) 10/28/24 12:56
AST 18 U/L (14-36) 10/28/24 12:56
ALT 11 U/L (0-35) 10/28/24 12:56
Alkaline Phosphatase 139 U/L (38-126) H 10/28/24 12:56
Impression/Plan
-
Assessment/plan
# Toxic metabolic encephalopathy likely secondary to hyponatremia, dehydration
# Fever upon presentation
-CXR on presentation Linear densities within the right lower lung compatible with linear atelectasis and/or scarring.
-Urinalysis with leukocyte esterase
-Urine cultures, blood cultures pending
-Given leukocyte esterase positive, fever and mental status, will start on antibiotics
-IV ceftriaxone
-Monitor temperature curve, WBC
#Hypovolemic hypernatremia
-Likely secondary to decreased free water intake
-Free water deficit is 4.83L
-IV fluids with D5 1/2 NS
-Nephrology following
-Hold Lasix
-Trend BMP
#LYN on CKD 3
-Hypovolemic on presentation, likely prerenal etiology
-Creatinine on presentation 2.3 (baseline 1.2)
-Continue IV fluids
-Avoid nephrotoxins
-Hold Lasix
#Hypertension
-Continue carvedilol
#Hypothyroidism
-Levothyroxine
#Depression/anxiety
-Continue antidepressants
CODE STATUS DNR
DVT prophylaxis heparin subcu
Spoke with patient's daughter (Nadia) over the phone at length. Nadia confirms both she and her sister (Dianne) are joint power of disability attorney. Extensive goals of care discussion held with Nadia regarding patient's current condition in the
context of her progressive functional decline, recent hospitalizations and altered mental status. Nadia explained that the patient has been DNR for a long time and would not want any aggressive invasive measures. Nadia acknowledges patient's
poor prognosis and the burden of repeated hospitalizations and the progressive nature of her condition. She, Nadia expressed readiness to transition patient to comfort focused care and open to initiating hospice services. She states she would
like to discuss this with her sister (Dianne) as well, and a decision will be made in the a.m. Nadia states she is currently on vacation in [place] and Dianne will be at bedside tomorrow.
Contacted Dianne ([phone]), no response. Left Voicemail.
[2024-10-28] MEDS: D5/0.45%NACL IV ×7 (17:52→17:53)
[2024-10-28] MEDS: D5/0.45%NACL 1000 IV (18:29)
[2024-10-28] MEDS: CATHFLO/ACTIVASE 2 MG INTRACATH ×2 (20:07→22:38)
[2024-10-28] MEDS: COREG 6.25 MG PO (21:08)
[2024-10-28] MEDS: HEPARIN 5000 UNITS SC (21:09)
[2024-10-28] MEDS: SEROQUEL 25 MG PO (21:09)
[2024-10-28] MEDS: REMERON 7.5 MG PO (21:13)
--- NOTE | 2024-10-28 21:30 | VATNOTE ---
LATE ENTRY-CONFIRMED LACK OF BLOOD RETRUN FROM R SUBQ PORT AT 2009. CATHFLO ADMINISTERED PER PROTOCOL. NO BLD RETURN AT 2114. SECOND DOSE OF CATHFLO ORDER REQUESTED TO PROVIDER. PCN AWARE OF INTERVENTION AND OUTCOME. CURRENT IV THERAPY BEING
ADMINISTERD VIA LAC PERIPHERAL SITE.
--- NOTE | 2024-10-28 22:57 | VATNOTE ---
2nd dose of cath administered per protocol at 2240. pcn aware of intervention.
--- NOTE | 2024-10-29 00:22 | PTCARENOTE ---
pt transferred to 10/28/242029. Pt AAOx2. pt pulled over from stretcher to bed. No c/o pain. Pt oriented to room, safety measures in place.
--- NOTE | 2024-10-29 01:14 | VATNOTE ---
0030-ASPIRATED CATHFLO AND A BRISK BR FROM R SUBQ PRT. PRT FLUSHED PER PROTOCOL AND IVF RESUMED VIA PRT. PCN AWARE OF OUTCOME.
[2024-10-29] MEDS: D5/0.45%NACL 1000 IV (01:50)
[2024-10-29 04:37] LABS: Hematocrit 27.7 % (37.0-47.0); Mean Corp Hgb Conc. 28.9 g/dL (33.0-37.0); Mean Corpuscular Hgb 28.2 pg (27.0-31.0); Mean Corpuscular Volume 97.5 fL (81.0-99.0); Mean Platelet Volume 9.1 fL (7.4-10.4); Platelet Count 327 10^3/uL (130-400); Red Blood Cell Count 2.84 10^6/uL (4.20-5.40); Red Cell Dist. Width 21.1 % (11.5-14.5); White Blood Cell Count 10.5 10^3/uL (4.8-10.8)
[2024-10-29 05:01] LABS: Blood Urea Nitrogen 58 mg/dl (7-17); Calcium 8.8 mg/dl (8.4-10.2); Carbon Dioxide 20 mmol/L (22-30); Chloride 125 mmol/L (98-107); Estimated Creatinine Clearance 23 ml/min; Glucose 158 mg/dl (70-99); Magnesium 1.9 mg/dl (1.6-2.3); Potassium 3.1 mmol/L (3.5-5.1); Sodium 155 mmol/L (135-145); eGFR 27.96
[2024-10-29] MEDS: SYNTHROID 50 MCG PO (05:21)
--- NOTE | 2024-10-29 07:07 | W.PN.HOSP.TC ---
Addendum entered and electronically signed by Carlo Lin MD 10/29/24 20:08:
Attending Addendum-I saw and evaluated the patient. I reviewed the resident�s note and agree with findings and plan as documented in the resident�s note. Sub: Patient more oriented today. States she doesn't want us to talk to her daughter casey.
'She takes all my money' Will respect wishes. Patient complains of weakness. Full 12 point ROS reviewed and negative. Exam- vitals reviewed in EMR GEN-NAD heart RRR lungs clear abd soft LE no edema Neuro AAO x 2 following commands Skin dry MM
Plan:
#Toxic metabolic encephalopathy
-improving
-likely related to dehydration, hypernatremia
-underlying dementia
-Continue IV fluids
-Follow-up on blood culture urine culture
-DC Rocephin for now
# Hypernatremia
-coming down nicely
-In the setting of dehydration poor po intake and continued use of Lasix precipitating hypernatremia
-change to D5w @ 100
-DCd lasix
-Nephrology input appreciated
-trend BMP closely
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
-improving
-secondary to prerenal etiology in the setting of poor p.o. intake and Lasix use
-Avoid nephrotoxins
-Monitor urinary output
-Hold Lasix
#Hypothyroidism
- cont Levothyroxine
# Depression anxiety
-Continue Remeron paroxetine
# Dementia with behavioral disturbance
- cont seroquel
- overall poor prognosis
- hospice appropriate c/s hospice for eval
# HFpEF-chronic
- Hold Lasix
- Continue Coreg
-CODE- DNR
-DVTp- heparin
[facility]
Time spent coordinating care, review of plan of care with resident, personally reviewed records in EMR, med rec, consults, notes, labs, radiology, d/w nursing �53 mins
Original Note:
Today's Communication/Plan
-
;/
Assessment / Plan
Assessment / Plan
Assessment/plan
# Toxic metabolic encephalopathy likely secondary to hyponatremia, dehydration
# Fever upon presentation
-CXR on presentation Linear densities within the right lower lung compatible with linear atelectasis and/or scarring.
-Urine culture negative, blood culture negative preliminary
-Mentation returning back to baseline per daughter
-DC antibiotics
-Continue on IV fluids
#Hypovolemic hypernatremia
-Likely secondary to decreased free water intake
-Free water deficit is 4.83L
-IV fluids with D5 1/2 NS
-Nephrology following
-Hold Lasix
-Trend BMP
#LYN on CKD 3
-Hypovolemic on presentation, likely prerenal etiology
-Creatinine on presentation 2.3, now 1.7 (baseline 1.2)
-Continue IV fluids
-Avoid nephrotoxins
-Hold Lasix
#Hypertension
-Continue carvedilol
#Hypothyroidism
-Levothyroxine
#Depression/anxiety
-Continue antidepressants
CODE STATUS DNR
DVT prophylaxis heparin subcu
10/29/2024
Extensive goals of care discussion with patient's daughter (Dianne) at bedside today, regarding patient's current condition and progressive functional decline. Both daughters agreeable for hospice. They would like to review options. CM consult
placed.
10/28/2024
Spoke with patient's daughter (Casey) over the phone at length. Casey confirms both she and her sister (Dianne) are joint power of cell maker. Extensive goals of care discussion held with Casey regarding patient's current condition in the
context of her progressive functional decline, recent hospitalizations and altered mental status. Casey explained that the patient has been DNR for a long time and would not want any aggressive invasive measures. Casey acknowledges patient's
poor prognosis and the burden of repeated hospitalizations and the progressive nature of her condition. She, Casey expressed readiness to transition patient to comfort focused care and open to initiating hospice services. She states she would
like to discuss this with her sister (Dianne) as well, and a decision will be made in the a.m. Casey states she is currently on vacation in [place] and Dianne will be at bedside tomorrow.
Contacted Dianne ([phone]), no response. Left Voicemail.
Anticipated Discharge: 24 - 48 hours
Subjective/Interval History
-
Date of Service: October 29, 2024
Objective Data
-
Labs:
Laboratory Results
10/29/24
04:21
WBC 10.5
Hgb 8.0 L
Hct 27.7 L
Plt Count 327
Sodium 155 H
Potassium 3.1 L
Chloride 125 H
Carbon Dioxide 20 L
BUN 58 H
Creatinine 1.8 H
Glucose 158 H
Calcium 8.8
Vital Signs:
Vital Signs
Temp Pulse Resp BP Pulse Ox
97.5 F 93 18 124/54 95
10/28/24 23:08 10/28/24 23:08 10/28/24 23:08 10/28/24 23:08 10/28/24 23:08
I&O
10/28/24 10/29/24 10/30/24
06:59 06:59 06:59
Output Total 150 / 150
Balance -150 / -150
Review of Systems
-
All other systems: Reviewed and negative (Except as documented)
Physical Exam
-
General: Comfortable; Negative Respiratory Distress
HEENT: Moist Mucous Membranes, Anicteric and Sawyer Conjunctivae
Respiratory: Clear to Auscultation and Other (Port on the anterior chest wall. ); Negative Wheezes, Rales, Rhonchi or Crackles
Cardiac: Regular Rhythm and S1/S2
GI: Soft, Nontender, Nondistended and Normal Bowel Sounds
Musculoskeletal: No Edema
Skin: Warm
Neuro: Awake
Psych: Calm
[2024-10-29 07:17] VITALS: BP 115/92
--- NOTE | 2024-10-29 09:26 | W.PN.NEPH.PH ---
Today's Communication / Plan
-
Changes fluids to D5W
Assessment/Plan
-
IMP:
Fever
Hypernatremia
LYN on CKD 3B-baseline cr 1.5
Hypothyroidism
Depression
anxiety
HFpEF
Confusion
Failure to thrive
Plan:
Change IV fluids to D5W
Will need goals of care discussion. She may require feeding tube
-
-
Date of Service: October 29, 2024
CC / HPI / ROS
-
Chief Complaint:
Abnormal electrolytes altered mental status
History of Present Illness:
Hyponatremia 160 with acute kidney injury improving
Review of Systems:
Awake lethargic with baseline dementia
No complaints
Labs
-
Labs:
WBC 10.5 10^3/uL (4.8-10.8) 10/29/24 04:21
RBC 2.84 10^6/uL (4.20-5.40) L 10/29/24 04:21
Hgb 8.0 g/dL (12.0-16.0) L 10/29/24 04:21
Hct 27.7 % (37.0-47.0) L 10/29/24 04:21
Plt Count 327 10^3/uL (130-400) 10/29/24 04:21
eGFR 27.96 10/29/24 04:21
Albumin 2.8 g/dl (3.5-5.0) L 10/28/24 12:56
Physical Exam
-
Vital Signs:
Vital Signs
Temp Pulse Resp BP Pulse Ox
98.9 F 86 18 115/92 95
10/29/24 07:17 10/29/24 07:17 10/29/24 07:17 10/29/24 07:17 10/29/24 07:17
Cardiovascular:: Regular rate and rhythm
Lung Excursion:: Normal (decreased bialt bs)
Abdomen:: Nontender and Soft
Bowel Sounds:: Normal
Extremity Edema:: None: Bilateral:
Aceves Catheter: No
[2024-10-29] MEDS: COREG PO (09:29)
[2024-10-29] MEDS: SEROQUEL PO (09:30)
[2024-10-29] MEDS: PAXIL PO (09:30)
[2024-10-29] MEDS: HEPARIN SC (09:30)
[2024-10-29 10:29] VITALS: BMI 25.5
[2024-10-29] MEDS: D5/0.45%NACL IV ×2 (11:11)
[2024-10-29] MEDS: D5W 1000 IV (11:13)
[2024-10-29] MEDS: KCL 270 MEQ IV (11:13)
--- NOTE | 2024-10-29 12:20 | WOUNDNOTE ---
[facility] RN note: Patient seen during prevention rounds. Patient admitted with L heel DTI and R sacral/buttocks red/purple ecchymotic area (stage 1 vs stage 2 vs DTI?). Patient is on a Versac[employer] air bed. Foam dressing changed on heels and R
sacral/buttocks. Patient turned to L semi side lying position with help from lockstitch tunnel elastic operator Lori and [facility] RN student Christy. [facility] RN student applied TruVue lite heel relief boots. Discussed with JERAD Camacho. Updated and obtained orders from
Carola. Care plan to be updated. Will follow as needed.
--- NOTE | 2024-10-29 13:11 | PTOTSP ---
Dysphagia Evaluation
Patient presents with signs concerning for oral/pharyngeal dysphagia and has acute on chronic dysphagia risk factors (i.e., concern for UTI with TME, baseline dementia). She has multiple risk factors for aspiration complications (i.e., poor state
of dentition, dependence for oral care/feeding, decreased ambulation, immune compromise with B-cell lymphoma). CXR this admission w/ right lung scarring but no PNA. Patient with complications concerning for poor oral intake (dehydration, FTT).
Family is interested in comfort care/possible hospice per chart review. Given factors above, consider cautious diet below.
1. IDDSI Level 4 Puree, Thin Liquids
2. Medications: crushed in puree if medically cleared
3. Full supervision/assist
4. Strategies: upright to 90 degrees, PO only when awake/alert/distractions limited, small sips/bites, liquid wash as needed to assist with oral transfers, check for pocketing, oral care after meals
5. Oral care 3x daily
6. Brief dysphagia therapy follow up pending [facility] for instruction in compensations, determine diet tolerance, and determine if further instrumental swallowing testing warranted
[2024-10-29 13:57] LABS: Blood Urea Nitrogen 55 mg/dl (7-17); Carbon Dioxide 20 mmol/L (22-30); Chloride 124 mmol/L (98-107); Estimated Creatinine Clearance 24 ml/min; Glucose 111 mg/dl (70-99); Sodium 154 mmol/L (135-145); eGFR 29.94
--- NOTE | 2024-10-29 14:46 | WOUNDNOTE ---
[facility] RN note: Alexandre Argueta re:recommend an air mattress for patient at SNF if not already in place. She has a L heel DTI and a R buttocks purple area.
--- NOTE | 2024-10-29 14:49 | PTOTSP ---
Received order for PT and reviewed chart and s/w RN. Pt is dependent and does not want PT and is at baseline. Note hospice order. Pt has no rehab goals. PT will sign off.
[2024-10-29] MEDS: STERILE WATER FOR INJECTION 10 ML IV (15:01)
[2024-10-29] MEDS: ROCEPHIN 1000 MG IV (15:02)
[2024-10-29] MEDS: DESENEX/MITRAZOL/ZEASORB 1 APPLIC TOPICAL ×2 (15:05→20:42)
--- NOTE | 2024-10-29 15:09 | CM ---
Addendum entered by Tania Argueta 10/29/24 16:12:
CM met with daughter, Dianne, bedside, agreeable to referral to Hospice. Dianne reports her sister is away on vacation but they both would like to be involved in decision making for patient. Referral to Hospice. Daughter inquiring about if
patient would remain in hospital or return to [place] with services, will review with hospice.
Original Note:
CM reviewed chart, patient [facility] resident of [facility]. Consult received for hospice. Call to patients daughter, Dianne, who is on her way to Hospital, will arrive around 3:30 p.m. CM will meet with patient/daughter once bedside. TT to Resident
with update.
Plan; will discuss hospice with family, likely return to [place] with hospice
[2024-10-29 15:48] VITALS: BP 130/56
[2024-10-29] MEDS: SEROQUEL 25 MG PO (20:41)
[2024-10-29] MEDS: COREG 6.25 MG PO (20:42)
[2024-10-29] MEDS: HEPARIN 5000 UNITS SC (20:42)
[2024-10-29] MEDS: REMERON 7.5 MG PO (23:15)
[2024-10-29 23:37] VITALS: BP 127/63
[2024-10-30] MEDS: D5W 1000 IV ×3 (00:51→23:47)
[2024-10-30] MEDS: SYNTHROID 50 MCG PO (05:56)
[2024-10-30 06:25] LABS: Blood Urea Nitrogen 49 mg/dl (7-17); Calcium 8.9 mg/dl (8.4-10.2); Carbon Dioxide 22 mmol/L (22-30); Chloride 118 mmol/L (98-107); Estimated Creatinine Clearance 26 ml/min; Glucose 104 mg/dl (70-99); Potassium 3.6 mmol/L (3.5-5.1); Sodium 147 mmol/L (135-145)
[2024-10-30 07:55] VITALS: BP 129/68
[2024-10-30] MEDS: DESENEX/MITRAZOL/ZEASORB 1 APPLIC TOPICAL ×2 (08:00→20:24)
[2024-10-30] MEDS: HEPARIN 5000 UNITS SC ×2 (08:00→20:25)
--- NOTE | 2024-10-30 08:00 | W.PN.HOSP.TC ---
Addendum entered and electronically signed by Carlo Lin MD 10/30/24 19:53:
Attending Addendum-I saw and evaluated the patient. I reviewed the resident�s note and agree with findings and plan as documented in the resident�s note. Sub: Patient oriented but intermittently making tangential statements. 'I want to go home
today. you're very good looking.' Full 12 point ROS reviewed and negative. Exam- vitals reviewed in EMR GEN-NAD heart RRR lungs clear abd soft LE no edema Neuro AAO x 2 following commands Skin MMM
Plan:
#Toxic metabolic encephalopathy
-improving
-related to dehydration, hypernatremia
-underlying dementia
-Continue IV fluids
-Follow-up on blood culture urine culture- NGTD
-DC Rocephin
# Hypernatremia
-coming down nicely
-In the setting of dehydration poor po intake and continued use of Lasix precipitating hypernatremia
-cont D5w @ 100
-DCd lasix
-Nephrology input appreciated
no further labs
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
-improving
-secondary to prerenal etiology in the setting of poor p.o. intake and Lasix use
-Avoid nephrotoxins
-Monitor urinary output
-Hold Lasix
#Hypothyroidism
- cont Levothyroxine
# Depression anxiety
-Continue Remeron paroxetine
# Dementia with behavioral disturbance
- cont seroquel
- overall poor prognosis
- d/w daughter to sign on to hospice as facility
# HFpEF-chronic
- Hold Lasix
- Continue Coreg
-CODE- DNR
-DVTp- heparin
[facility]
Patient unable to consent to discuss, d/w POA, time spent explanation of advance directives, changes in health status, patient�s health care wishes if the patient becomes unable to make health decisions, goals of care, code status, and prognosis
decision made to place on hospice at facility- 16 minutes
Time spent coordinating care, review of plan of care with resident, personally reviewed previous records in EMR, med rec, labs, radiology, d/w nursing, family total time documented is exclusive of any additional time listed that was spent in advance
care planning discussion -�51 minutes
Original Note:
Today's Communication/Plan
-
;/
Assessment / Plan
Assessment / Plan
Assessment/plan
# Toxic metabolic encephalopathy likely secondary to hyponatremia, dehydration
-CXR on presentation Linear densities within the right lower lung compatible with linear atelectasis and/or scarring.
-Urine culture, blood culture negative to date
-Mentation returning back to baseline per daughter
-DC antibiotics
-Continue on IV fluids
-Goals of care discussion held, plan is to DC on hospice
#Hypovolemic hypernatremia
-Likely secondary to decreased free water intake
-Free water deficit is 4.83L
-IV fluids
-Nephrology following
-Hold Lasix
-Trend BMP
#LYN on CKD 3
-Hypovolemic on presentation, likely prerenal etiology
-Creatinine on presentation 2.3, now 1.7 (baseline 1.2)
-Continue IV fluids
-Avoid nephrotoxins
-Hold Lasix
#Pressure (decubitus) ulcer-stage II
-Wound care
#Hypertension
-Continue carvedilol
#Hypothyroidism
-Levothyroxine
#Depression/anxiety
-Continue antidepressants
CODE STATUS DNR
DVT prophylaxis heparin subcu
10/29/2024
Extensive goals of care discussion with patient's daughter (Dianne) at bedside today, regarding patient's current condition and progressive functional decline. Both daughters agreeable for hospice. They would like to review options. CM consult
placed.
10/28/2024
Spoke with patient's daughter (Nadia) over the phone at length. Nadia confirms both she and her sister (Dianne) are joint power of consumer attorney. Extensive goals of care discussion held with Nadia regarding patient's current condition in the
context of her progressive functional decline, recent hospitalizations and altered mental status. Nadia explained that the patient has been DNR for a long time and would not want any aggressive invasive measures. Nadia acknowledges patient's
poor prognosis and the burden of repeated hospitalizations and the progressive nature of her condition. She, Nadia expressed readiness to transition patient to comfort focused care and open to initiating hospice services. She states she would
like to discuss this with her sister (Dianne) as well, and a decision will be made in the a.m. Nadia states she is currently on vacation in [place] and Dianne will be at bedside tomorrow.
Contacted Dianne ([phone]), no response. Left Voicemail.
Anticipated Discharge: Within 24 hours
Subjective/Interval History
-
Date of Service: October 30, 2024
Objective Data
-
Labs:
Laboratory Results
10/30/24
05:23
Sodium 147 H
Potassium 3.6
Chloride 118 H
Carbon Dioxide 22
BUN 49 H
Creatinine 1.6 H
Glucose 104 H
Calcium 8.9
Vital Signs:
Vital Signs
Temp Pulse Resp BP Pulse Ox
98.9 F 84 20 127/63 90
10/29/24 23:37 10/29/24 23:37 10/29/24 23:37 10/29/24 23:37 10/29/24 23:37
I&O
10/29/24 10/30/24 10/31/24
06:59 06:59 06:59
Intake Total 1200 / 1200
Output Total 150 / 150
Balance -150 / -150 1200 / 1200
Review of Systems
-
All other systems: Reviewed and negative (Except as document)
Physical Exam
-
General: No Apparent Distress and Comfortable
HEENT: Moist Mucous Membranes and Anicteric
Respiratory: Clear to Auscultation and Other (Port on the anterior chest wall. ); Negative Wheezes, Rales, Rhonchi or Crackles
Cardiac: Regular Rhythm and S1/S2
GI: Soft, Nontender, Nondistended and Normal Bowel Sounds
Musculoskeletal: No Edema
Skin: Warm
Neuro: Awake
Psych: Apparent Dementia
[2024-10-30] MEDS: MIRALAX 17 GRAMS PO (08:03)
[2024-10-30] MEDS: SEROQUEL 25 MG PO ×2 (08:03→20:25)
[2024-10-30] MEDS: COREG 6.25 MG PO ×2 (08:03→20:26)
[2024-10-30] MEDS: PAXIL 20 MG PO (08:03)
--- NOTE | 2024-10-30 09:14 | HOSPNOTE ---
Spoke to the daughter about hospice and the philosophy the plan is to discharge back to [place] 10/31 with hospice. Once patient arrives we will admit onto our service. CM and Attending aware and in agreement.
--- NOTE | 2024-10-30 10:48 | CHAP ---
Msgr. Amrit Claudio of [facility] in [place] [employer] will be coming this afternoon to give Allison the Sacrament of the Sick.
--- NOTE | 2024-10-30 12:04 | CM ---
CM reviewed chart, reviewed with Hospice, plan to admit patient tomorrow at [facility]. 11:00 a.m. ambulance transport requested, liaison at [facility] updated. Call to patients daughter, Dianne, discussed plan for discharge tomorrow. IMM verbally
reviewed, agreeable to discharge plan, placed in chart. OOH DNR form placed on chart, will need to be signed prior to discharge. CM will continue to follow for all discharge planning needs.
Plan; 11:00 a.m. transport to [facility] with [facility], tomorrow 10/31/24
[facility]:
Report: [phone]

[facility]
--- NOTE | 2024-10-30 12:21 | HOSPNOTE ---
Patient is confirmed for 11am transport to [place].
--- NOTE | 2024-10-30 14:04 | W.PN.UPDATE ---
Update Note
Progress Note Update
hospice . will sign off
--- NOTE | 2024-10-30 14:37 | PN.CDI ---
CDI
- -
CDI:
Physician Documentation Request
Admit Date: 10/28/24 16:33
Dear Doctor Carola,
Patient admitted with hypernatremia.
10/29 [facility] note,' Patient admitted with L heel DTI and R sacral/buttocks red/purple ecchymotic area (stage 1 vs stage 2 vs DTI?).'
Physician documentation of the type and location of wounds is required for compliant documentation. Based on the above clinical findings and your assessment, please provide the following in your progress note:
Type (etiology) of ulcer/wound:
- Pressure (decubitus) ulcer
- Other
- Unable to determine
For a pressure ulcer, please also include the stage* of the ulcer:
- Stage 1 - Skin intact, non-blanchable redness
- Stage 2 - Partial thickness loss of dermis, includes intact or open blister
- Stage 3 - Full thickness tissue not including bone, tendon or muscle
- Stage 4 - Full thickness tissue loss, including exposed bone, tendon or muscle
- Unstageable - Full thickness loss in which the base of the ulcer is covered by slough (yellow, sal, márquez, green or brown) and/or eschar (sal, brown or black) in the wound bed.
- Unable to determine
Use of terms such as suspected, likely, concern for, or probable (associated with a specific diagnosis that is being evaluated, monitored, or treated as if it exists) are acceptable and can be coded in the inpatient setting, when documented at the
time of discharge.
Thank you,
Martina SAHNI,RN,CCDS
CDI Specialist
Available via [place] text
Please use your independent medical judgment in providing your response.
*Source: National Pressure Ulcer Advisory Panel (NPUAP)
[2024-10-30 15:46] VITALS: BP 104/66
[2024-10-30] MEDS: REMERON 7.5 MG PO (20:36)
[2024-10-30 23:04] VITALS: BP 108/40
[2024-10-31] MEDS: SYNTHROID 50 MCG PO (05:36)
[2024-10-31 07:00] VITALS: BP 96/70
--- NOTE | 2024-10-31 07:38 | W.PN.HOSP.TC ---
Addendum entered and electronically signed by Carlo Lin MD 10/31/24 21:40:
Attending Addendum-I saw and evaluated the patient. I reviewed the resident�s note and agree with findings and plan as documented in the resident�s note. Sub: Patient confused today. 'I want to go home today' Full 12 point ROS attempted and unable
to ascertain due to MS Exam- vitals reviewed in EMR GEN-NAD heart RRR lungs clear abd soft LE no edema Neuro AAO x 1 barely following commands Skin MMM
Plan:
#Toxic metabolic encephalopathy
-related to dehydration, hypernatremia
-underlying dementia
-Continue IV fluids
-Follow-up on blood culture urine culture- NGTD
-DC Rocephin
- poor prognosis
# Severe PCM
- poor prog
# Left Heel DTI
- wound care
# Hypernatremia
-In the setting of dehydration poor po intake and continued use of Lasix precipitating hypernatremia
-poor prog likely recurrence
-hospice on DC
-no further labs
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
-secondary to prerenal etiology in the setting of poor p.o. intake and Lasix use
-Avoid nephrotoxins
-Hold Lasix
#Hypothyroidism
- cont Levothyroxine
# Depression anxiety
-Continue Remeron paroxetine
# Dementia with behavioral disturbance
- cont seroquel
- overall poor prognosis
- d/w daughter to sign on to hospice as facility
# HFpEF-chronic
- Hold Lasix
- Continue Coreg
-CODE- DNR
-DVTp- heparin
[facility]
Time spent coordinating care, DC planning, review of DC plan of care with resident, transition of care, review of records, med rec/scripts sent electronically, consults, notes, d/w consultants, nursing, family, and CM� 33 mins
Original Note:
Today's Communication/Plan
-
;/
Assessment / Plan
Assessment / Plan
Assessment/plan
# Toxic metabolic encephalopathy likely secondary to hyponatremia, dehydration
-CXR on presentation Linear densities within the right lower lung compatible with linear atelectasis and/or scarring.
-Urine culture, blood culture negative to date
-Mentation returning back to baseline per daughter
-DC antibiotics and fluids
-Goals of care discussion held, plan is to DC on hospice today
#Hypovolemic hypernatremia
-Likely secondary to decreased free water intake
-Free water deficit is 4.83L
-Resolving with IV fluids
-Hold Lasix
-Trend BMP
#LYN on CKD 3
-Hypovolemic on presentation, likely prerenal etiology
-Creatinine on presentation 2.3, now 1.7 (baseline 1.2)
-Continue IV fluids
-Avoid nephrotoxins
-Hold Lasix
#Pressure (decubitus) ulcer-stage II
-Wound care
#Hypertension
-Continue carvedilol
#Hypothyroidism
-Levothyroxine
#Depression/anxiety
-Continue antidepressants
#severe protein calorie malnutrition of chronic illness
-loss of more than 7.5% BW loss over 3 months and less than 75% of estimated nutritional needs met for over 1 month.
CODE STATUS DNR
DVT prophylaxis heparin subcu
10/29/2024
Extensive goals of care discussion with patient's daughter (Dianne) at bedside today, regarding patient's current condition and progressive functional decline. Both daughters agreeable for hospice. They would like to review options. CM consult
placed.
10/28/2024
Spoke with patient's daughter (Nadia) over the phone at length. Nadia confirms both she and her sister (Dianne) are joint power of commonwealth attorney. Extensive goals of care discussion held with Nadia regarding patient's current condition in the
context of her progressive functional decline, recent hospitalizations and altered mental status. Nadia explained that the patient has been DNR for a long time and would not want any aggressive invasive measures. Nadia acknowledges patient's
poor prognosis and the burden of repeated hospitalizations and the progressive nature of her condition. She, Nadia expressed readiness to transition patient to comfort focused care and open to initiating hospice services. She states she would
like to discuss this with her sister (Dianne) as well, and a decision will be made in the a.m. Nadia states she is currently on vacation in [place] and Dianne will be at bedside tomorrow.
Contacted Dianne ([phone]), no response. Left Voicemail.
Anticipated Discharge: Today
Subjective/Interval History
-
Date of Service: October 31, 2024
Objective Data
-
Vital Signs:
Vital Signs
Temp Pulse Resp BP Pulse Ox
98.3 F 74 16 108/40 100
10/30/24 23:04 10/30/24 23:04 10/30/24 23:04 10/30/24 23:04 10/30/24 23:04
I&O
10/30/24 10/31/24 11/01/24
06:59 06:59 06:59
Intake Total 1200 / 1200 1200 / 1200
Balance 1200 / 1200 1200 / 1200
Review of Systems
-
All other systems: Reviewed and negative (Except as document)
Physical Exam
-
General: Appears Chronically Ill
Respiratory: Clear to Auscultation; Negative Wheezes, Rales, Rhonchi or Crackles
Cardiac: Regular Rhythm and S1/S2
GI: Soft, Nontender, Nondistended and Normal Bowel Sounds
Musculoskeletal: No Edema
Skin: Warm
Neuro: Awake
[2024-10-31] MEDS: SEROQUEL 25 MG PO (08:18)
[2024-10-31] MEDS: DESENEX/MITRAZOL/ZEASORB 1 APPLIC TOPICAL (08:18)
[2024-10-31] MEDS: PAXIL 20 MG PO (08:19)
[2024-10-31] MEDS: HEPARIN 5000 UNITS SC (08:19)
[2024-10-31] MEDS: COREG 6.25 MG PO (08:19)
--- NOTE | 2024-10-31 10:29 | CM ---
[facility], OOH DNR has been completed and placed on chart, patient has an 11am pick up driver by ambulance. IMM completed. Patient's daughter has been contacted with update.
[facility]:
Report: [phone]

Plan; Home no needs.
--- NOTE | 2024-10-31 12:27 | PN.CDI ---
CDI
- -
CDI:
Physician Documentation Request
Admit Date: 10/28/24 16:33
Dear Doctor Carola,
Patient admitted with hypernatremia.
10/29 Nutrition note, 'Current BW: (10/28) 157 lbs 13.616 oz BMI: 25.3 (overweight). Weight history (08/19/24) 189 lbs. This is a 27% BW loss over 2.5 months (significant)
Patient meets AND and ASPEN criteria for severe protein calorie malnutrition of chronic illness due to a loss of more than 7.5% BW loss over 3 months and less than 75% of estimated nutritional needs met for over 1 month.
Please provide in your note the diagnosis associated with the patient's nutritional status and your assessment:
Severe protein calorie malnutrition of chronic illness
Other (please specify)
[place] Criteria ([facility] Hospitalist 2017)
2 or more criteria must be present for either
non severe or severe malnutrition
Note that the criteria differs related to the
presence of an acute or chronic illness
Chronic Illness
Energy Intake Non Severe: <75% for >1 month
Severe: <75% for >1 month
Weight Loss Non Severe: 5% over 1 month
7.5% over 3 months
10% over 6 months
20% over 1 year
Severe: >5% over 1 month
>7.5% over 3 months
>10% over 6 months
>20% over 1 year
Body Fat Non Severe: Mild Loss
Severe: Severe Loss
Muscle Mass Non Severe: Mild Loss
Severe: Severe Loss
Fluid Accumulation Non Severe: Mild Accumulation
Severe: Moderate to severe
accumulation
Reduced Respiratory Manager Strength Non Severe: N/A
Severe: Measurably reduced
Use of terms such as suspected, likely, concern for, or probable (associated with a specific diagnosis that is being evaluated, monitored, or treated as if it exists) are acceptable and can be coded in the inpatient setting, when documented at the
time of discharge.
Thank you,
Martina MAST,RN,CCDS
CDI Specialist
Available via [place] text
Please use your independent medical judgment in providing your response.
--- NOTE | 2024-10-31 14:27 | W.DCSUMMARY ---
Addendum entered and electronically signed by Carlo Lin MD 10/31/24 21:42:
Read, reviewed, and agree. See same day progress note for additional details. Patient DC to [facility] to start hospice care af facility
Tyron Lin MD
Original Note:
Documented by User: Brooklyn Srivastava MD, Resident 10/31/24 14:28
Discharge Summary
Discharge Data
Date of Admission: 10/28/24
Date of Discharge: 10/31/24
-
Pending Results: No
Hospital Course
Brief Hospital Course: This is an 79-year-old female with past medical history of hypertension, hyperlipidemia, hypothyroidism, history of B-cell lymphoma presented from [facility] due to failure to thrive and hypernatremia. Patient was
previously admitted at ED from 10/17 - 10/21 for LYN and hypernatremia. After discharge back to [facility], she continued to regress. She continued to decline overall, with failure to thrive.
On presentation to ED, vitals with BP 112/54, temperature 100.4, pulse 96, O2 sats 92% on room air, respiratory rate 20. Laboratory showed WBC 9.9, hemoglobin 8.3, platelet 4 6, sodium 161, potassium 3.7, BUN 69, creatinine 2.3, lactic acid 1.3.
Patient was evaluated with a chest x-ray in the ED which was unremarkable. She was initially started on antibiotics with ceftriaxone but after urine cultures and blood cultures returned negative, antibiotics were stopped. Nephrology was
consulted and patient was started on IV fluids with D5 half-normal saline. Etiology of her electrolyte abnormalities was due to dehydration, poor oral intake and continued use of Lasix as sodium and creatinine levels improved with IV fluids. It
was noted that she will probably need an feeding tube as her oral intake was poor. Due to her progressive functional decline, recent hospitalizations, altered mental status and poor oral intake, a discussion was had with the family regarding
comfort care measures. Family expressed patient's goal of not wanting a tube feed. Decision was made to transition patient to hospice by her daughters who are both power of sports attorney. She will be discharged today back to nursing facility on
hospice.
Discharge Plan
-
Patient Disposition: [facility]/SNF
Discharge Diagnosis/Procedures: Toxic metabolic encephalopathy
Hypernatremia
LYN on CKD 3a
Condition: Fair
Other Services: Hospice
Activity Restrictions/Additional Instructions:
Wound Care Instructions
L heel DTI-no sting barrier wipe (allow to dry), silicone border foam, change q 3 days and prn loosened dressing.
R sacral/buttocks-clean with saline, silicone border foam, change q 3 days and prn loosened dressing.
Air mattress
Turning schedule
elevate heels off bed; soft heel relief boots as tolerated (i.e. TruVue lite boots); air chair cushion under heels/boots.
Pressure redistributing chair cushion (i.e. Air chair cushion).
Follow up at wound care center call for an appointment.
Referrals:
UNKNOWN,NO INTERVIEW [Family Provider]
Prescriptions:
Continued
paroxetine HCl 20 MG tablet
20 mg PO DAILY
quetiapine 25 mg Tablet
25 mg PO BID
loperamide 2 mg Tablet
2 mg PO [id number] PRN (Reason: diarrhea) Qty: 0
levothyroxine 50 mcg Tablet
50 mcg PO DAILY
Visbiome 112.5 billion cell Capsule
2 cap PO DAILY
diclofenac sodium 1 % Gel
4 g TOPICAL BID
furosemide 40 mg Tablet
40 mg PO DAILY 30 Days Qty: 30 0RF
carvedilol 6.25 mg Tablet
6.25 mg PO BID 30 Days Qty: 60 0RF
acetaminophen [Tylenol] 325 mg Tablet
650 mg PO Q4HPRN PRN (Reason: mild pain)
magnesium hydroxide [Milk of Magnesia] 400 mg/5 mL Suspension
2,400 mg PO HSPRN PRN (Reason: constipation)
bisacodyl [Dulcolax (bisacodyl)] 10 mg Suppository
10 mg MT [id number] PRN (Reason: if no bm aftr mom)
mirtazapine 7.5 mg Tablet
7.5 mg PO HS
ondansetron 4 mg tablet,disintegrating
4 mg PO Q8HPRN PRN (Reason: nausea and vomiting)
methenamine hippurate 1 gram tablet
1 g PO BID
Rx Instructions:
Start 10/24/23 After Finishing IV antibiotics course
Discharge Orders:
Discharge Patient (As Directed); Ordered 10/31/24
Ordered By: Brooklyn Srivastava
Discharge Date and Time
Discharge Date/Time: 10/31/24 11:29
Print Language: CROATIAN

Documented by User: Carlo Lin MD 10/31/24 21:40
Discharge Summary
Discharge Data
Date of Admission: 10/28/24
Date of Discharge: 10/31/24
Discharge Plan
-
Patient Disposition: [facility]/SNF
Discharge Diagnosis/Procedures: Toxic metabolic encephalopathy
Hypernatremia
LYN on CKD 3a
Condition: Fair
Other Services: Hospice
Activity Restrictions/Additional Instructions:
Wound Care Instructions
L heel DTI-no sting barrier wipe (allow to dry), silicone border foam, change q 3 days and prn loosened dressing.
R sacral/buttocks-clean with saline, silicone border foam, change q 3 days and prn loosened dressing.
Air mattress
Turning schedule
elevate heels off bed; soft heel relief boots as tolerated (i.e. TruVue lite boots); air chair cushion under heels/boots.
Pressure redistributing chair cushion (i.e. Air chair cushion).
Follow up at wound care center call for an appointment.
Referrals:
UNKNOWN,NO INTERVIEW [Family Provider]
Prescriptions:
Continued
paroxetine HCl 20 MG tablet
20 mg PO DAILY
quetiapine 25 mg Tablet
25 mg PO BID
loperamide 2 mg Tablet
2 mg PO [id number] PRN (Reason: diarrhea) Qty: 0
levothyroxine 50 mcg Tablet
50 mcg PO DAILY
Visbiome 112.5 billion cell Capsule
2 cap PO DAILY
diclofenac sodium 1 % Gel
4 g TOPICAL BID
furosemide 40 mg Tablet
40 mg PO DAILY 30 Days Qty: 30 0RF
carvedilol 6.25 mg Tablet
6.25 mg PO BID 30 Days Qty: 60 0RF
acetaminophen [Tylenol] 325 mg Tablet
650 mg PO Q4HPRN PRN (Reason: mild pain)
magnesium hydroxide [Milk of Magnesia] 400 mg/5 mL Suspension
2,400 mg PO HSPRN PRN (Reason: constipation)
bisacodyl [Dulcolax (bisacodyl)] 10 mg Suppository
10 mg MT [id number] PRN (Reason: if no bm aftr mom)
mirtazapine 7.5 mg Tablet
7.5 mg PO HS
ondansetron 4 mg tablet,disintegrating
4 mg PO Q8HPRN PRN (Reason: nausea and vomiting)
methenamine hippurate 1 gram tablet
1 g PO BID
Rx Instructions:
Start 10/24/23 After Finishing IV antibiotics course
Discharge Orders:
Discharge Patient (As Directed); Ordered 10/31/24
Ordered By: Brooklyn Srivastava
Discharge Date and Time
Discharge Date/Time: 10/31/24 11:29
Print Language: CROATIAN
== END 2024-10-31 11:29 | DRG 640 ==
LOC: 4 WEST ACU 16:33
PROVIDERS: Internal Medicine Nephrology; Student in an Organized Health Care Education/Training Program; ADMITTING PHYSICIAN Family Medicine; CONSULT PHYSICIAN Specialist; EMERGENCY PHYSICIAN Emergency Medicine
DX: E87.0 Hyperosmolality and hypernatremia (principal); E43 Unspecified severe protein-calorie malnutrition; G92.8 Other toxic encephalopathy; N17.9 Acute kidney failure, unspecified; F03.918 Unspecified dementia, unspecified severity, with other behavioral disturbance; F03.94 Unspecified dementia, unspecified severity, with anxiety; F03.93 Unspecified dementia, unspecified severity, with mood disturbance; I13.0 Hypertensive heart and chronic kidney disease with heart failure and stage 1 through stage 4 chronic kidney disease, or unspecified chronic kidney disease; I50.32 Chronic diastolic (congestive) heart failure; Z66 Do not resuscitate; N18.32 Chronic kidney disease, stage 3b; E03.9 Hypothyroidism, unspecified; F32.A Depression, unspecified; Z51.5 Encounter for palliative care; R62.7 Adult failure to thrive; Z68.25 Body mass index [BMI] 25.0-25.9, adult; L89.622 Pressure ulcer of left heel, stage 2
CPT/HCPCS: 36415; 51701; 71045; 80048; 80053; 81003; 81015; 82805; 83605; 83735; 85025; 85027; 87040; 87070; 87086; 92526; 92610; 96365; 96375; 99285; J2997